=== PATIENT | female | born 1940 | race Caucasian/White ===

== ENCOUNTER 2017-02-27 15:47 | Inpatient (IN) | payer OTHER ==
[~2017-02-27] VITALS: Ht 167.6 cm; Wt 85.3 kg
[~2017-02-27 15:47] MED LIST: PIPERACILL/TAZOBAC IV 4.5 GM in DEXTROSE 5% 100ML IV ONE; VANCOMYCIN INJ 2,000 MG in SODIUM CHLORIDE 0.9% 500ML 500 ML IV ONE
[2017-02-27 16:11] VITALS: BP 134/76; PULSE 92; TEMP 37; O2SAT 98; Ht 167.6 cm; Wt 85.3 kg
[2017-02-27] MEDS ORDERED: ONDANSETRON INJ 2 MG/ML 2 ML VIAL IV PRN (16:15)
[2017-02-27] MEDS ORDERED: ACETAMINOPHEN 325 MG TAB PO PRN (16:15)
--- NOTE | 2017-02-27 16:26 | Pulmonary Consultation ---
History General Date of Service: Feb 27, 2017. Stated Complaint: Empyema HPI The patient is a 76 year old female who presents to [facility] with complaints of Empyema. The patient's primary care provider is Akila Day D.O.. Patient is a 76-year-old female directly admitted by my recommendation for concerns of right lower lobe pneumonia with empyema. Patient states that approximately 5 weeks ago, she noted that she began to have pain in her right lower chest that radiated up into her neck. She initially presented to an urgent care center during which time she was felt to have a musculoskeletal injury from [place]. She was prescribed pain medication at that time, but her pain persisted. She then had a chest x-ray completed which showed a probable right lower lobe pneumonia. She was initially treated with Levaquin for 7 days due to these concerns. She had a repeat chest x-ray completed on 02/21/2017 which showed persistent right lung consolidation and pleural fluid. A new air- fluid level was noted with this consolidation. Abscess or necrotic neoplasm were noted to be considered in the differential. CT of the chest was recommended. CT scan of the chest was completed on 02/24/2017. This scan showed right lower lobe pneumonia and loculated empyema. Right hilar and mediastinal lymphadenopathy were also noted. It was recommended that this patient have thoracentesis and fluid evaluation. Over the past 1 month, the patient states that she has been experiencing severe fatigue, on an off sweats/chills, and overall malaise. She feels that she is weak and out of shape because she has not been moving around much. She has not noted increased shortness of breath, but states that she has not been going up and downstairs often due to her fatigue. She has had no cough, hemoptysis, or chest pain/tightness. The right lower chest pain she was previously having has resolved. She states that overall, she does not feel improved. The patient had records faxed from [facility], and these records were reviewed in detail today. I did also discuss this patient with Dr. Mora and Dr. Esperanza Kerr. I did discuss this patient briefly with TAHIRA Whitman as well. Historian: patient Review of Systems Constitutional: reports: chills, malaise, weakness, other (severe fatigue), denies: fever Eyes: denies: eye pain, blurred vision ENT: denies: loss of hearing Cardiovascular: reports: chest pain (previous right sided chest pain- now resolved), denies: chest pressure, chest tightness, edema, orthopnea Respiratory: reports: sputum production (clear), denies: cough, wheezing, LANE, hemoptysis Gastrointestinal: reports: nausea, denies: constipation, diarrhea Genitourinary - Female: denies: dysuria Integumentary: denies: rash Neurologic: denies: headache All Other Symptoms All Other Systems: Reviewed and Negative Past Medical History Past Medical History: Medical Problems: (1) Empyema PMHx: GERD Asthma Hx SCC of skin Hx Basal cell CA of skin HTN Allergic rhinitis Dyslipidemia History of MDRO History of MDRO: No Allergies Coded Allergies: Cephalosporins (Unverified Allergy, Unknown, Rash, 02/27/17) Niacin (Unverified Allergy, Unknown, Nausea/Vomiting, 02/27/17) Current Medications Reported Home Medications Medications Dose Route/Sig Max Daily Dose Days Date Category Reported Home Medications Medications Dose Route/Sig Max Daily Dose Days Date Category Aspirin EC Low Dose (Aspirin) 81 Mg Ectab 81 Mg PO DAILY 02/27/17 Reported Calcium 600 (Calcium Carbonate) 600 Mg Tab 1 Tab PO DAILY 02/27/17 Reported Claritin (Loratadine) 10 Mg Tab 1 Tab PO DAILY 30 02/27/17 Reported Mucinex D (Pseudoephedrine-Guaifenesin) 1 Tab Tab 1 Tab PO BID PRN 10 02/27/17 Reported Flonase Allergy Relief (Fluticasone Propionate (Nasal)) 50 Mcg/Act Spr 2 Wittmann NA DAILY 02/27/17 Reported Prinivil (Lisinopril) 5 Mg Tab 5 Mg PO DAILY 02/27/17 Reported Zantac (Ranitidine HCl) 300 Mg Tab 300 Mg PO BID 02/27/17 Reported Proair Respiclick (Albuterol Sulfate) 108 Mcg/Act Aer 2 Puffs INH Q4H PRN 02/27/17 Reported Flovent Hfa (Fluticasone Propionate) 120 Puffs/44200 Mcg Aero 2 Puffs INH BID 30 02/27/17 Reported Duavee 0.45-20 mg (Conjugated Estrogens-Bazedoxif) 1 Tab Tab 1 Tab PO DAILY 02/27/17 Reported Protonix (Pantoprazole) 40 Mg Tab 40 Mg PO DAILY 02/27/17 Reported Physical Physical Exam Vital Signs: Date Time Temp Pulse Resp B/P (MAP) Pulse Ox O2 Delivery O2 Flow Rate FiO2 02/28/17 07:52 38.8 86 20 114/67 (83) 95 02/28/17 04:15 36.9 98 16 105/68 (80) 92 Room Air 02/28/17 04:00 Room Air 02/27/17 23:59 Room Air 02/27/17 23:37 36.8 88 18 119/67 (84) 92 Room Air 02/27/17 20:28 36.7 90 18 132/76 (94) 95 Room Air 02/27/17 20:00 95 Room Air 02/27/17 16:11 37.0 92 20 134/76 98 Room Air General Appearance: NO APPARENT DISTRESS, other (appears ill) Head: NORMOCEPHALIC, ATRAUMATIC Eyes: PERRLA, SCLERAE NORMAL Neck: NORMAL RANGE OF MOTION, TRACHEA MIDLINE, NO STRIDOR Respiratory: BREATH SOUNDS NORMAL, CLEAR TO PERCUSSION, NO RESPIRATORY DISTRESS , rales (RLL) Cardiovasular: REGULAR RATE/RHYTHM, NO MURMUR Abdomen: NON TENDER, NORMAL BOWEL SOUNDS Back: NORMAL INSPECTION Lower Extremities: NO EDEMA Neuro: ALERT, ORIENTED x 3 Psychiatric: NORMAL AFFECT Diagnostics Labs Results Past 24 Hours Test 02/27/17 16:46 02/27/17 17:51 02/28/17 06:04 Range/Units White Blood Count 9.81 4.8-10.8 K/uL Red Blood Count 3.29 4.2-5.4 M/uL Hemoglobin 9.2 12.0-16.0 g/dL Hematocrit 29.4 37-47 % Mean Corpuscular Volume 89.4 80-100 fL Mean Corpuscular Hemoglobin 28.0 25-34 pg Mean Corpuscular Hemoglobin Concent 31.3 32-36 g/dl Platelet Count 469 130-400 K/uL Mean Platelet Volume 7.8 7.4-10.4 fL Neutrophils (%) (Auto) 74.2 % Lymphocytes (%) (Auto) 13.6 % Monocytes (%) (Auto) 10.4 % Eosinophils (%) (Auto) 1.1 % Basophils (%) (Auto) 0.4 % Neutrophils # (Auto) 7.28 1.4-6.5 K/uL Lymphocytes # (Auto) 1.33 1.2-3.4 K/uL Monocytes # (Auto) 1.02 0.11-0.59 K/uL Eosinophils # (Auto) 0.11 0-0.5 K/uL Basophils # (Auto) 0.04 0-0.2 K/uL RDW Standard Deviation 45.6 36.4-46.3 fL RDW Coefficient of Variation 13.8 11.5-14.5 % Immature Granulocyte % (Auto) 0.3 % Immature Granulocyte # (Auto) 0.03 0.00-0.02 K/uL Prothrombin Time 11.5 9.0-12.0 SECONDS Prothromb Time International Ratio 1.1 0.9-1.1 Sodium Level 137 136-145 mmol/L Potassium Level 3.7 3.5-5.1 mmol/L Chloride Level 103 98-107 mmol/L Carbon Dioxide Level 24 21-32 mmol/L Anion Gap 10.0 3-11 mmol/L Blood Urea Nitrogen 14 7-18 mg/dl Creatinine 0.85 0.87 0.60-1.20 mg/dl Est Creatinine Clear Calc Drug Dose 59.0 57.7 ml/min Estimated GFR () 76.6 74.5 Estimated GFR (Non- 66.1 64.3 BUN/Creatinine Ratio 16.3 10-20 Random Glucose 97 70-99 mg/dl Calcium Level 8.7 8.5-10.1 mg/dl Total Bilirubin 0.4 0.2-1 mg/dl Aspartate Amino Transf (AST/SGOT) 9 15-37 U/L Alanine Aminotransferase (ALT/SGPT) 10 12-78 U/L Alkaline Phosphatase 66 45-117 U/L Total Protein 8.5 6.4-8.2 gm/dl Albumin 2.2 3.4-5.0 gm/dl Globulin 6.3 2.5-4.0 gm/dl Albumin/Globulin Ratio 0.3 0.9-2 Absolute Reticulocyte Count 0.07 0.02-0.10 10^6/uL Percent Reticulocyte Count 2.0 0.5-2.0 % Iron Level 18 35-150 mcg/dl Total Iron Binding Capacity 151 250-450 mcg/dl Transferrin 130 200-360 mg/dl Transferrin % Saturation 10 15-50 % Ferritin 435.4 8.0-388.0 ng/ml Vitamin B12 Level 697 211-911 pg/mL Folate 7.36 >5.38 ng/mL Microbiology Results 02/27/17 Blood Culture, Received Pending 02/27/17 Blood Culture, Received Pending Results Past 24 Hours Test 02/27/17 16:17 Range/Units Microbiology Results 02/27/17 Blood Culture, Ordered Pending 02/27/17 Blood Culture, Ordered Pending Diagnostic Radiology Outpatient CT report in [facility] system- notes loculated RLL pleural effusion/ empyema with RLL pneumonia Impression Assessment and Plan Patient with right lower lobe pneumonia and loculated pleural effusion, possible empyema. This patient was admitted for probable drainage of the right lower lobe loculated effusion/empyema and concern for worsening infection. She will be placed on IV Zosyn and Vancomycin pending fluid analysis. Blood cultures are pending. Dr. Kerr is aware of this patient and will be evaluating the patient for possible PleurX catheter placement. Otherwise, recommend oxygen supplementation p.r.n. to maintain SaO2 greater than 92%. Pulmonary will follow.
[2017-02-27] MEDS ORDERED: CONSULT PHARMACY STA (16:52)
[2017-02-27 16:56] LABS: BASO % 0.4 %; BASO ABS # 0.04 K/uL (0-0.2); COMPLETE YES; EOS % 1.1 %; HEMATOCRIT 29.4 % (37-47); IG% 0.3 %; LYMPH % 13.6 %; LYMPH ABS # 1.33 K/uL (1.2-3.4); MEAN CELL VOLUME 89.4 fL (80-100); MEAN CORPUSCULAR HGB CONC 31.3 g/dl (32-36); MEAN PLATELET VOLUME 7.8 fL (7.4-10.4); MONO % 10.4 %; NEUT % 74.2 %; PLATELET COUNT 469 K/uL (130-400); RED BLOOD COUNT 3.29 M/uL (4.2-5.4); WHITE BLOOD COUNT 9.81 K/uL (4.8-10.8)
[2017-02-27] MEDS ORDERED: LISI-729 PO (16:56)
[2017-02-27] MEDS ORDERED: FLVHFA110 INH (16:56)
[2017-02-27] MEDS ORDERED: PSEU60TA80 PO (16:56)
[2017-02-27] MEDS ORDERED: FLUT0.15 (16:56)
[2017-02-27] MEDS ORDERED: ALBU18002 INH (16:56)
[2017-02-27] MEDS ORDERED: CONJ1TAB PO (16:56)
[2017-02-27] MEDS ORDERED: RANI300T2 PO (16:56)
[2017-02-27] MEDS ORDERED: CALC600T PO (16:56)
[2017-02-27] MEDS ORDERED: LORA10TA51 PO (16:56)
[2017-02-27] MEDS ORDERED: PANT1TAB48 PO (16:56)
[2017-02-27 17:12] LABS: INR 1.1 (0.9-1.1); PROTHROMBIN TIME (PATIENT) 11.5 SECONDS (9.0-12.0)
[2017-02-27] MEDS ORDERED: PIPERACILL/TAZOBAC CONSULT ACTIVE PRN (17:15)
[2017-02-27] MEDS ORDERED: VANCOMYCIN CONSULT ACTIVE PRN (17:15)
[2017-02-27 17:21] LABS: BUN/CREATININE RATIO 16.3 (10-20); CALCIUM 8.7 mg/dl (8.5-10.1); CREATININE 0.85 mg/dl (0.60-1.20); POTASSIUM 3.7 mmol/L (3.5-5.1)
[2017-02-27 17:24] LABS: ALB/GLOB RATIO 0.3 (0.9-2)
[2017-02-27] MEDS ORDERED: VANCOMYCIN INJ 2,000 MG in SODIUM CHLORIDE 0.9% 500ML 500 ML IV ONE (17:30)
[2017-02-27] MEDS ORDERED: PIPERACILL/TAZOBAC IV 4.5 GM in DEXTROSE 5% 100ML IV ONE (17:30)
[2017-02-27] MEDS ORDERED: ASPEC81 PO (17:38)
--- NOTE | 2017-02-27 18:07 | History and Physical ---
History & Physical Date & Time of Service: Feb 27, 2017 ~ 17:00 Chief Complaint: Empyema Primary Care Physician: Akila Day D.O. History of Present Illness 76 year old female who was referred to the ED for direct admission from the pulmonary office for empyema. Patient reports she has been sick for about one month. She initially presented with right sided rib pain. CXR was obtained that was concerning for pneumonia. Patient was placed on Levaquin on 01/26. Patient has had repeat CXRs that showed a persistent right lung consolidation. She was seen in the clinic on 02/20 with reports of still not feeling well. She was placed on azithromycin at that time. She had a CT chest done on 02/24 that was concerning for empyema. She was then referred to pulmonology. Patient reports her main symptom has been weakness and fatigue. She has had nausea and poor appetite. She reports a 10 pound weight loss in the past month. She denies abdominal pain, vomiting, or diarrhea. She reports a minimal cough that is productive for clear sputum. She denies chest pain and shortness of breath. No fever or chills. She denies lightheadedness, dizziness, diaphoresis, or syncopal events. No urinary symptoms. At the time of my exam, patient is resting in bed in no acute distress. Past Medical/Surgical History Medical Problems: (1) Asthma Status: Chronic (2) Dyslipidemia Status: Chronic (3) GERD (gastroesophageal reflux disease) Status: Chronic (4) HTN (hypertension) Status: Chronic Surgical Problems: (1) History of hysterectomy Status: Chronic (2) History of tonsillectomy and adenoidectomy Status: Chronic Family History Stroke MOTHER Social History Smoking Status: Never Smoker Alcohol Use: none Marital Status: Housing status: lives with family Immunizations History of Influenza Vaccine: Yes Influenza Vaccine Date: Feb 04, 2016 History of Tetanus Vaccine?: Yes Tetanus Immunization Date: Aug 04, 2016 History of Pneumococcal: Yes Pneumococcal Date: Oct 27, 2015 Multi-Drug Resistant Organisms History of MDRO: No Allergies Coded Allergies: Cephalosporins (Unverified Allergy, Unknown, Rash, 02/27/17) Niacin (Unverified Allergy, Unknown, Nausea/Vomiting, 02/27/17) Home Medications Scheduled Aspirin (Aspirin EC Low Dose), 81 MG PO DAILY Calcium Carbonate (Calcium 600), 1 TAB PO DAILY Conjugated Estrogens-Bazedoxif (Duavee 0.45-20 mg), 1 TAB PO DAILY Fluticasone Propionate (Flovent Hfa), 2 PUFFS INH BID Fluticasone Propionate (Nasal) (Flonase Allergy Relief), 2 SPRY NA DAILY Lisinopril (Prinivil), 5 MG PO DAILY Loratadine (Claritin), 1 TAB PO DAILY Pantoprazole (Protonix), 40 MG PO DAILY Ranitidine (Zantac), 300 MG PO BID Scheduled PRN Albuterol Sulfate (Proair Respiclick), 2 PUFFS INH Q4H PRN for SOB/Wheezing Pseudoephedrine-Guaifenesin (Mucinex D), 1 TAB PO BID PRN for Cough Review of Systems ROS per HPI, all other systems reviewed and negative Physical Exam Vital Signs Date Time Temp Pulse Resp B/P (MAP) Pulse Ox O2 Delivery O2 Flow Rate FiO2 02/27/17 16:11 37.0 92 20 134/76 98 Room Air General Appearance: WD/WN, no apparent distress Head: normocephalic, atraumatic Eyes: normal inspection, EOMI, sclerae normal ENT: hearing grossly normal, + pertinent finding (mucous membranes moist) Neck: supple, no JVD, trachea midline Respiratory/Chest: no respiratory distress, + decreased breath sounds (right base) Cardiovascular: regular rate, rhythm, no edema, normal peripheral pulses Abdomen/GI: normal bowel sounds, non tender, soft, no organomegaly Extremities/Musculoskelatal: normal inspection, no calf tenderness, normal capillary refill Neurologic/Psych: no motor/sensory deficits, alert, normal mood/affect, oriented x 3 Skin: normal color, warm/dry Diagnostics Laboratory Results Results Past 24 Hours Test 02/27/17 16:46 02/27/17 17:39 Range/Units White Blood Count 9.81 4.8-10.8 K/uL Red Blood Count 3.29 4.2-5.4 M/uL Hemoglobin 9.2 12.0-16.0 g/dL Hematocrit 29.4 37-47 % Mean Corpuscular Volume 89.4 80-100 fL Mean Corpuscular Hemoglobin 28.0 25-34 pg Mean Corpuscular Hemoglobin Concent 31.3 32-36 g/dl Platelet Count 469 130-400 K/uL Mean Platelet Volume 7.8 7.4-10.4 fL Neutrophils (%) (Auto) 74.2 % Lymphocytes (%) (Auto) 13.6 % Monocytes (%) (Auto) 10.4 % Eosinophils (%) (Auto) 1.1 % Basophils (%) (Auto) 0.4 % Neutrophils # (Auto) 7.28 1.4-6.5 K/uL Lymphocytes # (Auto) 1.33 1.2-3.4 K/uL Monocytes # (Auto) 1.02 0.11-0.59 K/uL Eosinophils # (Auto) 0.11 0-0.5 K/uL Basophils # (Auto) 0.04 0-0.2 K/uL RDW Standard Deviation 45.6 36.4-46.3 fL RDW Coefficient of Variation 13.8 11.5-14.5 % Immature Granulocyte % (Auto) 0.3 % Immature Granulocyte # (Auto) 0.03 0.00-0.02 K/uL Prothrombin Time 11.5 9.0-12.0 SECONDS Prothromb Time International Ratio 1.1 0.9-1.1 Sodium Level 137 136-145 mmol/L Potassium Level 3.7 3.5-5.1 mmol/L Chloride Level 103 98-107 mmol/L Carbon Dioxide Level 24 21-32 mmol/L Anion Gap 10.0 3-11 mmol/L Blood Urea Nitrogen 14 7-18 mg/dl Creatinine 0.85 0.60-1.20 mg/dl Est Creatinine Clear Calc Drug Dose 59.0 ml/min Estimated GFR () 76.6 Estimated GFR (Non- 66.1 BUN/Creatinine Ratio 16.3 10-20 Random Glucose 97 70-99 mg/dl Calcium Level 8.7 8.5-10.1 mg/dl Total Bilirubin 0.4 0.2-1 mg/dl Aspartate Amino Transf (AST/SGOT) 9 15-37 U/L Alanine Aminotransferase (ALT/SGPT) 10 12-78 U/L Alkaline Phosphatase 66 45-117 U/L Total Protein 8.5 6.4-8.2 gm/dl Albumin 2.2 3.4-5.0 gm/dl Globulin 6.3 2.5-4.0 gm/dl Albumin/Globulin Ratio 0.3 0.9-2 Microbiology Results 02/27/17 Blood Culture, Received Pending 02/27/17 Blood Culture, Received Pending Diagnostic Radiology 02/24 CT CHEST IMPRESSION: 1. Right lower lobe pneumonia and loculated empyema. Thoracentesis and fluid analysis is recommended. 2. Right hilar and mediastinal lymphadenopathy, likely reactive. 3. Follow-up imaging to resolution of the above findings is recommended. Impression Assessment and Plan RIGHT LUNG EMPYEMA - directly admitted to tele from pulmonary office - patient reports being sick for about the past one month, chief complaint is weakness and fatigue; as an outpatient has been treated for pneumonia with Levaquin and azithromycin - CT chest done on 02/24 concerning for empyema - currently hemodynamically stable, saturating well on room air - pulmonary consult; likely will need thoracentesis and/or PleurX catheter - blood cultures - empiric Vanco and Zosyn for now ANEMIA - ? due to underlying infection - check iron studies, stool for occult GERD - continue PPI and H2 rodo HTN - BP controlled, continue Lisinopril ASTHMA - no signs of acute exacerbation - continue Flovent DVT PROPHYLAXIS - SCDs in light of possible procedure CODE STATUS - Patient is a full code as per my discussion with her. DISPO - In my clinical judgment this beneficiary meets acute admission criteria, established by [facility], that includes being hospitalized through two midnights. I have seen the patient with DOPE WORKER Love Avila and agree with the assessment and plan and would like to comment that I have reviewed the recommendations/ assessment of the pulmonary consult note as below "Patient with right lower lobe pneumonia and loculated pleural effusion, possible empyema. This patient was admitted for probable drainage of the right lower lobe loculated effusion/empyema and concern for worsening infection. She will be placed on IV Zosyn and Vancomycin pending fluid analysis. Blood cultures are pending. Dr. Kerr is aware of this patient and will be evaluating the patient for possible PleurX catheter placement. Otherwise, recommend oxygen supplementation p.r.n. to maintain SaO2 greater than 92%. Pulmonary will follow." Advanced Directives Existing Living Will: No Existing Power of [place]: No VTE Prophylaxis VTE Risk Assessment Done? Y/N: Yes Risk Level: Moderate
--- NOTE | 2017-02-27 18:17 | Pharmacy Progress Note ---
Pharmacy Antibiotic Consult Date of Service: Feb 27, 2017. Pharmacy Dosing Scope Pharmacy is consulted to initiate vancomycin/zosyn IV dosing therapy, order appropriate labs and adjust drug dose/frequency. Subjective The patient is a 76 year old female admitted on Feb 27, 2017 at 15:47. Objective Height (Feet): 5 Height (Inches): 6.00 Weight (Kilograms): 79.700 Lab Results (24hrs): Test 02/27/17 16:46 02/27/17 17:39 02/27/17 17:51 White Blood Count 9.81 K/uL (4.8-10.8) Red Blood Count 3.29 M/uL (4.2-5.4) Hemoglobin 9.2 g/dL (12.0-16.0) Hematocrit 29.4 % (37-47) Mean Corpuscular Volume 89.4 fL (80-100) Mean Corpuscular Hemoglobin 28.0 pg (25-34) Mean Corpuscular Hemoglobin Concent 31.3 g/dl (32-36) Platelet Count 469 K/uL (130-400) Mean Platelet Volume 7.8 fL (7.4-10.4) Neutrophils (%) (Auto) 74.2 % Lymphocytes (%) (Auto) 13.6 % Monocytes (%) (Auto) 10.4 % Eosinophils (%) (Auto) 1.1 % Basophils (%) (Auto) 0.4 % Neutrophils # (Auto) 7.28 K/uL (1.4-6.5) Lymphocytes # (Auto) 1.33 K/uL (1.2-3.4) Monocytes # (Auto) 1.02 K/uL (0.11-0.59) Eosinophils # (Auto) 0.11 K/uL (0-0.5) Basophils # (Auto) 0.04 K/uL (0-0.2) RDW Standard Deviation 45.6 fL (36.4-46.3) RDW Coefficient of Variation 13.8 % (11.5-14.5) Immature Granulocyte % (Auto) 0.3 % Immature Granulocyte # (Auto) 0.03 K/uL (0.00-0.02) Prothrombin Time 11.5 SECONDS (9.0-12.0) Prothromb Time International Ratio 1.1 (0.9-1.1) Sodium Level 137 mmol/L (136-145) Potassium Level 3.7 mmol/L (3.5-5.1) Chloride Level 103 mmol/L (98-107) Carbon Dioxide Level 24 mmol/L (21-32) Anion Gap 10.0 mmol/L (3-11) Blood Urea Nitrogen 14 mg/dl (7-18) Creatinine 0.85 mg/dl (0.60-1.20) Est Creatinine Clear Calc Drug Dose 59.0 ml/min Estimated GFR () 76.6 Estimated GFR (Non- 66.1 BUN/Creatinine Ratio 16.3 (10-20) Random Glucose 97 mg/dl (70-99) Calcium Level 8.7 mg/dl (8.5-10.1) Total Bilirubin 0.4 mg/dl (0.2-1) Aspartate Amino Transf (AST/SGOT) 9 U/L (15-37) Alanine Aminotransferase (ALT/SGPT) 10 U/L (12-78) Alkaline Phosphatase 66 U/L (45-117) Total Protein 8.5 gm/dl (6.4-8.2) Albumin 2.2 gm/dl (3.4-5.0) Globulin 6.3 gm/dl (2.5-4.0) Albumin/Globulin Ratio 0.3 (0.9-2) Transferrin % Saturation % (15-50) Absolute Reticulocyte Count 0.07 10^6/uL (0.02-0.10) Percent Reticulocyte Count 2.0 % (0.5-2.0) Micro Results: Date/Time Source Procedure Growth Status 02/27/17 16:46 Blood Blood Culture Pending Received 02/27/17 16:36 Blood Blood Culture Pending Received Recent Pertinent Medications levaquin x 7 days Assessment & Plan Assessment: 76 yo female direct admit from pulmonology office with right lower lobe pneumonia and possible empyema. Pt treated with levaquin x 7 days previously. Starting on vancomycin/zosyn WBC normal, Afebrile, on room air. Plan: Loading dose: 2000 mg (25 mg/kg) IV X 1 dose then: 1250 mg (15.7 mg/kg) q14 hours. population based pk: SCr 0.85, CrCl 59, T1/2 ~13 hrs, Ke 0.053 Goal trough level estimate: between 17-20 mcg/mL. Trough has been ordered for 03/01 @ 0830 Pharmacy will continue to follow and will adjust dose/frequency as necessary. Thank you
[2017-02-27 18:31] LABS: FERRITIN 435.4 ng/ml (8.0-388.0)
[2017-02-27 20:00] VITALS: O2SAT 95
[2017-02-27 20:28] VITALS: BP 132/76; PULSE 90; TEMP 36.7; O2SAT 95
--- NOTE | 2017-02-27 20:40 | Procedure Note ---
Procedure Note Date of Service Feb 27, 2017. Procedure Note Procedure: Right ultrasound guided Tunneled Indwelling Pleural Catheter Preprocedure diagnosis: Right Empyema Postprocedure diagnosis: Right Empyema Anesthesia: 1% lidocaine about 12 mL Estimated blood loss: Less than 5 mL Procedure performed at bedside by Dr. Mercedes Kerr and was assisted by Dr. Mora. Procedure Note: After informed consent and timeout, patient was placed in appropriate position at the level of the seventh intercostal space. An ultrasound was used to identify location of loculated fluid. The patient was draped and prepped in a sterile fashion. Lidocaine was used to make are skin wheal. The 22 -gauge needle was attached to syringe to complete infiltration to access site and tunnel track. The needle was inserted into the pleural space with aspiration of serosanguineous fluid. Leaving the guidewire introducer in place, the guidewire was introduced and advanced into the pleural cavity. The guidewire was left in place and introducer removed. A 1 cm incision was made at the site of the guidewire. This was followed by a second 1 cm incision approximately 5 cm inferior and lateral to the guidewire insertion site. The fenestrated end of the catheter was attached onto the tunneler, which was passed from the second incision up to the first incision at the guidewire insertion site. The catheter was drawn through the tunnel until the polyester cuff was inside the tunnel about 1 cm. The tunneler was then disconnected from the catheter. The insertion site was dilated using a 12 Icelandic dilator. A 16 Icelandic peel-away introducer was started over the guidewire into the pleural cavity. The guidewire and dilator were removed as the unit from the sheath. Then the fenestrated and of the catheter was inserted into the sheath and until all the fenestrations were within the pleural cavity. This process was quite difficult and forceps were used to assist in the process. The sheath was then cracked in half and peeled away. Two sutures were placed at the guidewire insertion site. The Pleurx vacuum bottles were attached however no fluid was aspirated. The tunneled intrapleural catheter was covered with sterile dressing. After the procedure, patient was placed and 60 angle and bedside ultrasound was performed of right thorax. Lung sliding was noted. However there was also an area where lung point was seen. Stat CT chest was ordered which showed that catheter was in the subcutaneous tissue. Patient and family were informed of complication and Dr. Saba, cardiothoracic surgery was consulted. ICU also made aware.
[2017-02-27] MEDS: RANITIDINE HCL 150 MG TAB PO SCH (20:41)
[2017-02-27] MEDS: FLUTICASONE HFA 110MCG INHALER INH SCH (20:41)
[2017-02-27] MEDS: PIPERACILL/TAZOBAC IV 3.375 GM in DEXTROSE 5% 100ML IV SCH (21:24)
--- NOTE | 2017-02-27 21:52 | DIAGNOSTIC IMAGING REPORT ---
CT OF THE CHEST WITHOUT IV CONTRAST CLINICAL HISTORY: S/p right pleurex catheter. Empyema. COMPARISON STUDY: Chest CT February 24, 2017. CT DOSE: 520.54 mGy.cm TECHNIQUE: Axial images of the chest were obtained without IV contrast. Images were reviewed in the axial, sagittal, and coronal planes. IV contrast was not administered for this examination. A dose lowering technique was utilized adhering to the principles of ALARA. FINDINGS: The heart is mildly enlarged. There are a few mildly enlarged mediastinal and right hilar lymph nodes. Right-sided catheter is malpositioned and coiled within the lateral right chest wall. A large loculated gas and fluid containing collection within the posterior aspect of the right hemithorax is noted. This suggests an empyema. There is suspected pleural thickening. Right lower lobe airspace opacity with volume loss is noted. Mild multifocal groundglass opacities are noted throughout the remainder of the lungs. There is no pneumothorax. Upper abdomen is unremarkable. Bony thorax is unremarkable. IMPRESSION: 1. Right pleural catheter malpositioned, coiled within the lateral right chest wall. The tube should be repositioned. Discussed with Dr. Kerr at time of dictation. 2. Fluid and gas containing posterior right hemithorax collection which suggests an empyema. Associated right lower lobe opacity could reflect pneumonia or atelectasis. 3. Mild mediastinal and right hilar lymphadenopathy which is likely reactive however a follow-up chest CT in one to 2 months to ensure resolution is recommended to exclude the less likely possibility of a neoplastic process. Electronically signed by: Tim Sanchez M.D. 02/27/2017 9:51 PM Dictated Date/Time: 02/27/2017 8:05 PM
--- NOTE | 2017-02-27 22:16 | SURGICAL CONSULTATION ---
DATE OF CONSULTATION: 02/27/2017 REASON FOR CONSULTATION: Right empyema. HISTORY OF PRESENT ILLNESS: This is a 76-year-old female, who has never smoked cigarettes, who has been sick for "5 weeks." She is actually healthy, except for some hypertension and some asthma and GERD. She states that she has been sick for 5 weeks and developed pain in her right lateral posterior chest. She was presented to an urgent care and was given pain medicine, as they felt it was musculoskeletal. She had a chest x-ray, which showed a probable right lower lobe pneumonia and was placed on Levaquin. She really did not defervesce and then she underwent another x-ray, which showed persistent consolidation and she was changed to azithromycin. She was then admitted when a CT scan showed a loculated fluid collection in her right base. This has a thick rind. The patient had an attempted PleurX catheter; however, the rind was so thick, it was difficult to get it to go through. Nothing drained from this either. A repeat CT scan showed that this did not penetrate the rind and was in the subcutaneous tissues. I had a long talk with the patient, her son, [id number], her and grandson at the bedside. I also discussed this case with Dr. Mora and Dr. Kerr. I have been asked us to evaluate this patient for this probable empyema. It should be noted that the patient has a normal white count. She states that she has been "weakened" and has lost 10 pounds in the last month. She really does not have much in the way of a cough or hemoptysis now, although she did state that she had "pneumonia" a month ago. PAST MEDICAL HISTORY: 1. Lifetime nonsmoker. 2. Dyslipidemia. 3. Hypertension. 4. History of basal cell carcinoma of the skin. 5. History of squamous cell carcinoma of the skin. 6. History of asthma. 7. History of gastroesophageal reflux disease. PAST SURGICAL HISTORY: 1. Tonsillectomy. 2. Hysterectomy (for endometriosis). 3. 3, para 3. MEDICATIONS: 1. Albuterol. 2. Aspirin. 3. Duavee 4. Flonase. 5. Zantac. 6. Mucinex D. 7. Protonix. 8. Claritin. 9. Prinivil. 10. Flovent inhaler. ALLERGIES: 1. CEPHALOSPORINS. 2. NIACIN. SOCIAL HISTORY: The patient grew up in [place]. 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 She has never smoked cigarettes. She lives at home with her of 58 years. She is independent in her activities of daily living and likes to bowl. FAMILY MEDICAL HISTORY: The patient's mother at 66 from congestive heart failure and had apparent myocardial infarctions and coronary artery disease. Her father at 76 and had Alzheimer's. Interestingly enough, she has a sister, who in her 30s from pulmonary hypertension. She had another sister, who in her 60s and had diabetes and other medical problems. She is not sure of the exact cause of her . She was one of 8 siblings and she is the youngest. She has multiple siblings in their 80s. Her 3 children and 6 grandchildren are healthy. REVIEW OF SYSTEMS: The patient states that she has lost about 10 pounds. She denies any night sweats now, although she states that she did have some a month ago. She has been quite weak and fatigued. She has had no visual or auditory symptoms. She has had some pain in her neck, but this is the back pain radiating up. She really has no meningeal types of symptoms. She has had some nausea and anorexia, although she did eat well today. She denies diarrhea. She had a cough a month ago, but this is resolved, except for some mild coughing of clear sputum. She does have the right-sided lower back pain, but no other chest pain, nor shortness of breath. She has felt weak and has not pushed herself, but denies dyspnea on exertion. She has had no fevers or chills. She has had no neurologic symptoms, such as transient ischemic attacks or amaurosis fugax. She has had no skin breakdown. PHYSICAL EXAMINATION: GENERAL: This is a very nice, 5 feet 6 inches, 176-pound female, who wears glasses. HEENT: Her extraocular movements are intact. Her pupils are equal, round and reactive. Her sclerae are anicteric. She has no nasolabial flattening. Her tongue is midline. Her oral mucosa is free of lesions and is moist. NECK: On palpating her neck, she has no supraclavicular or cervical lymphadenopathy. She has no carotid bruits or neck vein distention. She has no tracheal deviation. HEART: She has a regular rate and rhythm of her heart. Pulse rate was in the 90s. She has no rub. LUNGS: She does have decreased breath sounds in the right base, but no real fremitus. There is a PleurX catheter in place. It has been taped with a dressing over it. ABDOMEN: A bit protuberant, soft, nontender with no evidence of abdominal aortic aneurysm. EXTREMITIES: She has good pedal pulses. No peripheral edema. No joint effusions. NEUROLOGIC: She is awake, alert and oriented and has no obvious focal deficits. ASSESSMENT AND PLAN: Parapneumonic effusion with probable right empyema/loculated sterile empyema. I had a really long talk with the patient and her family. We are going to proceed with a right thoracoscopic decortication and evacuation of this fluid in the morning. We had a very long talk about the risks and benefits, including, but not limited to, lung injuries, pneumonias, deep vein thrombosis, pulmonary emboli and prolonged air leaks. They understand and wish to proceed.
[2017-02-27 23:37] VITALS: BP 119/67; PULSE 88; TEMP 36.8; O2SAT 92
[2017-02-28] VITALS (42 sets, daily range): BP systolic 89–147; BP diastolic 55–97; PULSE 60–98; TEMP 27–38.8; O2SAT 89–98
[2017-02-28] MEDS: PIPERACILL/TAZOBAC IV 3.375 GM in DEXTROSE 5% 100ML IV SCH ×3 (05:40→22:21)
[2017-02-28] MEDS: VANCOMYCIN INJ 1,250 MG in SODIUM CHLORIDE 0.9% 250ML 250 ML IV SCH ×2 (05:43→20:06)
[2017-02-28 06:53] LABS: CREATININE 0.87 mg/dl (0.60-1.20)
--- NOTE | 2017-02-28 07:29 | History & Physical Bridge Note ---
H&P Re-Evaluation Bridge Note: I have examined the patient, reviewed the History & Physical and in the interval since the performance of the History & Physical I have noted the following changes of clinical significance: No changes noted
[2017-02-28] MEDS: FLUTICASONE HFA 110MCG INHALER INH SCH ×2 (07:37→22:22)
[2017-02-28] MEDS: RANITIDINE HCL 150 MG TAB PO SCH ×2 (07:38→22:22)
[2017-02-28] MEDS: CALCIUM CARBONATE 500 MG CHEWABLE PO SCH (07:38)
[2017-02-28] MEDS: LISINOPRIL 5 MG TAB PO SCH (07:38)
[2017-02-28] MEDS: LORATADINE 10 MG TAB PO SCH (07:38)
[2017-02-28] MEDS: PANTOprazole SOD 40 MG TAB PO SCH (07:38)
[2017-02-28] MEDS ORDERED: NEOSTIGMINE METHYLSULFATE 5 MG/5 ML SYR ONE (10:45)
[2017-02-28] MEDS ORDERED: LIDOCAINE HCL 2% 2 ML VIAL (20MG/ML) ONE (10:45)
[2017-02-28] MEDS ORDERED: DEXAMETHASONE SOD INJ 4 MG/ML VIAL ONE (10:45)
[2017-02-28] MEDS ORDERED: FENTANYL CITRATE INJ 50 MCG/1 ML 2 ML VIAL ONE (10:45)
[2017-02-28] MEDS ORDERED: PROPOFOL IV EMULSION 10 MG/ML 20 ML VIAL IV ONE (10:45)
[2017-02-28] MEDS ORDERED: GLYCOPYRROLATE INJ 0.2 MG/ML VIAL ONE (10:45)
[2017-02-28] MEDS ORDERED: ONDANSETRON INJ 2 MG/ML 2 ML VIAL ONE ×2 (10:45→15:31)
[2017-02-28] MEDS ORDERED: MIDAZOLAM HCL 1 MG/ML 2ML VIAL ONE (10:45)
--- NOTE | 2017-02-28 11:07 | Pulmonology Progress Note ---
Pulmonary Progress Note Date of Service Feb 28, 2017. Attending Dr. Kerr Subjective Patient seen and examined this morning. Family at bedside. She is feeling ok. She denies any shortness of breath, fever, chills, chest pain , palpitations. She had mild hemotypsis post pleurX catheter placement, but has now resolved. She is currently NPO for VAT decortication of right lung. Just informed by nurse that patient has been having burst of atrial fibrillation. She is currently saturating well on RA and in now acute respiration. Objective VS reviewed. Gen: AAOx3, NAD, speaking in full sentences. CVS: S1, S2, RRR Lungs: Good air entry bilaterally, some crackles at right base Abd: soft/NT/NT/BS+ Ext: no edema bilaterally in lower extremities, no cyanosis, no clubbing Labs reviewed. Imaging reviewed. Medications. Assessment & Plan Right empyema New onset atrial fibrillation Ms. Van is a 76 year old female who was seen in pulmonary clinic by Dr. Mora and MEDHAT Rildey for unresolving pneumonia. She present last evening to our hospital as a direct admit for further management of what appeared to be empyema. Right pleurX catheter as attempted by Dr. Mora and myself, but was unsuccessful. She is currently NPO for VATS with decortication by Dr. Saba, cardiothoracic surgery today. Continue with Vancomycin and Zosyn. Will call stat cardiology consult prior to procedure. Discussed with Dr. Still Data Medications: Current Inpatient Medications Medications (Trade) Dose Ordered Sig/Norma Route Start Time Stop Time Status Last Admin Dose Admin Acetaminophen (Tylenol Tab) 650 mg Q4H PRN PO 02/27/17 16:15 03/29/17 16:14 02/28/17 07:26 650 MG Ondansetron HCl (Zofran Inj) 4 mg Q6H PRN IV 02/27/17 16:15 03/29/17 16:14 Vancomycin HCl (Consult) 1 ea UD PRN N/A 02/27/17 17:15 03/29/17 17:14 Piperacillin Sod/ Tazobactam Sod (Consult) 1 ea UD PRN N/A 02/27/17 17:15 03/29/17 17:14 Lisinopril (Zestril Tab) 5 mg DAILY PO 02/28/17 09:00 03/30/17 08:59 02/28/17 07:38 5 MG Loratadine (Claritin Tab) 10 mg DAILY PO 02/28/17 09:00 03/30/17 08:59 02/28/17 07:38 10 MG Pantoprazole Sodium (Protonix Tab) 40 mg DAILY PO 02/28/17 09:00 03/30/17 08:59 02/28/17 07:38 40 MG Calcium Carbonate (Tums Chew Tab) 500 mg DAILY PO 02/28/17 09:00 03/30/17 08:59 02/28/17 07:38 500 MG Miscellaneous Information (Order Awaiting Action) 1 ea QS N/A 02/28/17 00:00 03/30/17 00:00 Ranitidine HCl (zANTac TAB) 300 mg BID PO 02/27/17 21:00 03/29/17 20:59 02/28/17 07:38 300 MG Fluticasone Propionate (Flovent Hfa 110MCG Inhaler) 2 puffs BID INH 02/27/17 21:00 03/29/17 20:59 02/28/17 07:37 2 PUFFS Vancomycin HCl 1250 mg/Sodium Chloride 275 ml @ 125 mls/hr Q14H IV 02/28/17 05:00 03/07/17 04:59 02/28/17 05:43 125 MLS/HR Piperacillin Sod/ Tazobactam Sod 3.375 gm/Dextrose 115 ml @ 28.75 mls/ hr Q8H IV 02/27/17 22:00 03/06/17 21:59 02/28/17 05:40 28.75 MLS/HR Vital Signs: Date Time Temp Pulse Resp B/P (MAP) Pulse Ox O2 Delivery O2 Flow Rate FiO2 02/28/17 08:00 Room Air 02/28/17 07:52 38.8 86 20 114/67 (83) 95 02/28/17 04:15 36.9 98 16 105/68 (80) 92 Room Air 02/28/17 04:00 Room Air 02/27/17 23:59 Room Air 02/27/17 23:37 36.8 88 18 119/67 (84) 92 Room Air 02/27/17 20:28 36.7 90 18 132/76 (94) 95 Room Air 02/27/17 20:00 95 Room Air 02/27/17 16:11 37.0 92 20 134/76 98 Room Air Laboratory Results: Last 24 Hours Test 02/27/17 16:46 02/27/17 17:51 02/28/17 06:04 02/28/17 10:00 White Blood Count 9.81 K/uL Red Blood Count 3.29 M/uL Hemoglobin 9.2 g/dL Hematocrit 29.4 % Mean Corpuscular Volume 89.4 fL Mean Corpuscular Hemoglobin 28.0 pg Mean Corpuscular Hemoglobin Concent 31.3 g/dl Platelet Count 469 K/uL Mean Platelet Volume 7.8 fL Neutrophils (%) (Auto) 74.2 % Lymphocytes (%) (Auto) 13.6 % Monocytes (%) (Auto) 10.4 % Eosinophils (%) (Auto) 1.1 % Basophils (%) (Auto) 0.4 % Neutrophils # (Auto) 7.28 K/uL Lymphocytes # (Auto) 1.33 K/uL Monocytes # (Auto) 1.02 K/uL Eosinophils # (Auto) 0.11 K/uL Basophils # (Auto) 0.04 K/uL RDW Standard Deviation 45.6 fL RDW Coefficient of Variation 13.8 % Immature Granulocyte % (Auto) 0.3 % Immature Granulocyte # (Auto) 0.03 K/uL Prothrombin Time 11.5 SECONDS Prothromb Time International Ratio 1.1 Sodium Level 137 mmol/L Potassium Level 3.7 mmol/L Chloride Level 103 mmol/L Carbon Dioxide Level 24 mmol/L Anion Gap 10.0 mmol/L Blood Urea Nitrogen 14 mg/dl Creatinine 0.85 mg/dl 0.87 mg/dl Est Creatinine Clear Calc Drug Dose 59.0 ml/min 57.7 ml/min Estimated GFR () 76.6 74.5 Estimated GFR (Non- 66.1 64.3 BUN/Creatinine Ratio 16.3 Random Glucose 97 mg/dl Calcium Level 8.7 mg/dl Total Bilirubin 0.4 mg/dl Aspartate Amino Transf (AST/SGOT) 9 U/L Alanine Aminotransferase (ALT/SGPT) 10 U/L Alkaline Phosphatase 66 U/L Total Protein 8.5 gm/dl Albumin 2.2 gm/dl Globulin 6.3 gm/dl Albumin/Globulin Ratio 0.3 Absolute Reticulocyte Count 0.07 10^6/uL Percent Reticulocyte Count 2.0 % Iron Level 18 mcg/dl Total Iron Binding Capacity 151 mcg/dl Transferrin 130 mg/dl Transferrin % Saturation 10 % Ferritin 435.4 ng/ml Vitamin B12 Level 697 pg/mL Folate 7.36 ng/mL Stool Occult Blood NEGATIVE
[2017-02-28] MEDS ORDERED: SODIUM CHLORIDE 0.9% INJ 10 ML VIAL ONE (12:17)
[2017-02-28] MEDS ORDERED: HYDROmorphone INJ 2 MG/ML SYR/VIAL ONE (12:17)
[2017-02-28] MEDS ORDERED: BUPIVACAINE LIPOSOME 1/3% 266 MG/20 ML VIAL INFIL ONE (12:28)
[2017-02-28] MEDS ORDERED: SODIUM CHLORIDE 0.9% PF 50 ML VIAL ONE (12:28)
[2017-02-28] MEDS ORDERED: FENTANYL CITRATE INJ 50 MCG/1 ML 2 ML VIAL IV PRN (12:45)
[2017-02-28] MEDS ORDERED: ATROPINE SULFATE 0.1 MG/ML 5ML SYR IV PRN (12:45)
[2017-02-28] MEDS ORDERED: EpHEDrine SULFATE INJ 50 MG/ML AMP IV PRN (12:45)
[2017-02-28] MEDS ORDERED: ONDANSETRON INJ 2 MG/ML 2 ML VIAL IV PRN ×2 (12:45→16:00)
[2017-02-28] MEDS ORDERED: HYDROmorphone INJ 1 MG/ML SYR IV PRN (12:45)
[2017-02-28] MEDS ORDERED: CLINDAMYCIN PHOS 150 MG/ML 2 ML VIAL ONE ×2 (13:08→14:00)
[2017-02-28] MEDS ORDERED: PHENYLEPHRINE 100MCG/ML 5ML SYR ONE (14:00)
[2017-02-28] MEDS ORDERED: PHENYLEPHRINE HCL INJ 10 MG/ML VIAL ONE (14:05)
[2017-02-28] MEDS ORDERED: ALBUMIN HUMAN 5% 12.5 GM/250 ML VIAL IV ONE (14:18)
[2017-02-28] MEDS ORDERED: ROCURONIUM BROMIDE 10 MG/ML 5 ML VIAL IV ONE (15:30)
[2017-02-28] MEDS ORDERED: MoRPHine SULFATE 2 MG/ML CARP IV PRN (16:00)
[2017-02-28] MEDS ORDERED: OXYCODONE HCL IR 5 MG TAB (IMMEDIATE RELEASE) PO PRN (16:00)
--- NOTE | 2017-02-28 16:37 | DIAGNOSTIC IMAGING REPORT ---
SINGLE VIEW CHEST CLINICAL HISTORY: Postoperative examination. Status post decortication. FINDINGS: An AP, portable, upright chest radiograph is compared to study dated 02/20/2017 and correlated with chest CT dated 02/27/2017. The examination is degraded by portable technique and patient rotation. 2 right-sided chest tubes are in place. No pneumothorax is seen. The heart is enlarged and there is mild atherosclerotic calcification of the thoracic aorta. The pulmonary vasculature is noncongested. There is a right pleural effusion with right basilar consolidation. Patchy airspace opacities are also seen at the left lung base. There is no large left pleural effusion. The skeletal structures are osteopenic. The bony thorax is grossly intact. Simultaneous gas is noted along the right chest wall. IMPRESSION: 1. There are 2 right-sided chest tubes in place. No pneumothorax is seen. 2. Cardiomegaly without radiographic evidence of congestive failure. 3. There is a right pleural effusion with right basilar consolidation. 4. Patchy airspace opacities are also seen at the left lung base. Electronically signed by: Hernandez Reese M.D. 02/28/2017 4:35 PM Dictated Date/Time: 02/28/2017 4:33 PM
--- NOTE | 2017-02-28 16:43 | Anesthesiology Progress Note ---
Anesthesia Post Op Note Date & Time Feb 28, 2017 at 16:43 Vital Signs Pain Intensity: 0 Vital Signs Past 12 Hours Date Time Temp Pulse Resp B/P (MAP) Pulse Ox O2 Delivery O2 Flow Rate FiO2 02/28/17 16:40 67 16 94/49 100 Nasal Cannula 2 02/28/17 16:30 68 16 101/46 100 Oxymask 10 02/28/17 16:20 72 16 100/61 100 Oxymask 10 02/28/17 16:12 36.2 71 16 94/51 97 Oxymask 10 02/28/17 11:36 36.7 88 16 113/66 94 Room Air 02/28/17 11:17 36.7 88 16 113/66 (82) 94 Room Air 02/28/17 08:00 Room Air 02/28/17 07:52 38.8 86 20 114/67 (83) 95 Notes Mental Status: alert / awake / arousable, participated in evaluation Pt Amnestic to Procedure: Yes Nausea / Vomiting: adequately controlled Pain: adequately controlled Airway Patency, RR, SpO2: stable & adequate BP & HR: stable & adequate Hydration State: stable & adequate Anesthetic Complications: no major complications apparent
[2017-02-28] MEDS: D5W AND 1/2NSS 1,000 ML IV SCH (17:42)
--- NOTE | 2017-02-28 17:53 | Progress Note ---
Internal Med Progress Note Date of Service: Feb 28, 2017. Provider Documentation: SUBJECTIVE: s/p VATS procedure on right lung today tolerated procedure fine has some pain at procedure site afebrile no sob no cough no chest pain OBJECTIVE: Vital Signs-as noted below Exam: General-alert and oriented. Not in distress ENT-Normal hearing Neck-no neck masses Lungs-CTA b/l no wheezing or crackles s/p Vats procedure on right lower lung Heart-S1 and S2 heard. Regular rate and rhythm, no murmurs Abdomen-Soft Bowel sounds present no tenderness present no distension Extremities-No pedal edema no erythema Neuro-alert and awake moves extremities Lab data as noted below. ASSESSMENT & PLAN: RIGHT LUNG EMPYEMA Patient was directly admitted to [facility] from pulmonary office sick for one month and had been treated for pneumonia with Levaquin and azithromycin lost 10pounds during this time CT chest done on 02/24 concerning for empyema started on IV Vanco and Zosyn s/p vats procedure today await cx close monitor in ICU ANEMIA ? due to underlying infection hb 9.2 Hemoccult negative iron low PAF? monitor cardiology consulted GERD on PPI and H2 rodo HTN On lisinopril will monitor. ASTHMA stable on Flovent will monitor DVT PROPHYLAXIS SCDs in light of possible procedure CODE STATUS Full DISPO To be determined Vital Signs: Date Time Temp Pulse Resp B/P (MAP) Pulse Ox O2 Delivery O2 Flow Rate FiO2 02/28/17 16:50 36.3 67 16 96/52 100 Nasal Cannula 2 02/28/17 16:40 67 16 94/49 100 Nasal Cannula 2 02/28/17 16:30 68 16 101/46 100 Oxymask 10 02/28/17 16:20 72 16 100/61 100 Oxymask 10 02/28/17 16:12 36.2 71 16 94/51 97 Oxymask 10 02/28/17 11:36 36.7 88 16 113/66 94 Room Air 02/28/17 11:17 36.7 88 16 113/66 (82) 94 Room Air 02/28/17 08:00 Room Air 02/28/17 07:52 38.8 86 20 114/67 (83) 95 02/28/17 04:15 36.9 98 16 105/68 (80) 92 Room Air 02/28/17 04:00 Room Air 02/27/17 23:59 Room Air 02/27/17 23:37 36.8 88 18 119/67 (84) 92 Room Air 02/27/17 20:28 36.7 90 18 132/76 (94) 95 Room Air 02/27/17 20:00 95 Room Air Lab Results: Results Past 24 Hours Test 02/28/17 06:04 02/28/17 10:00 Range/Units Creatinine 0.87 0.60-1.20 mg/dl Est Creatinine Clear Calc Drug Dose 57.7 ml/min Estimated GFR () 74.5 Estimated GFR (Non- 64.3 Stool Occult Blood NEGATIVE NEGATIVE Microbiology Results 02/28/17 MRSA DNA Surveillance Screen, Ordered Pending 02/28/17 Fungal Smear, Received Pending 02/28/17 Fungal Culture, Received Pending 02/28/17 Acid Fast Stain, Received Pending 02/28/17 Mycobacterial Culture, Received Pending 02/28/17 Gram Stain - Final, Resulted 02/28/17 Bacterial Culture, Resulted Pending
[2017-02-28] MEDS: ACETAMINOPHEN IV 1,000 MG in EMPTY BAG 0 ML IV SCH (17:57)
--- NOTE | 2017-02-28 18:25 | OPERATIVE REPORT ---
DATE OF OPERATION: 02/28/2017 PREOPERATIVE DIAGNOSIS: Probable empyema, right pleural cavity. POSTOPERATIVE DIAGNOSIS: Empyema, right pleural cavity. PROCEDURE: 1. Right thoracoscopic drainage of empyema. 2. Thoracoscopic extensive decortication. SURGEON: Dr. Saba. CONSTRUCTION RECRUITER: MEDHAT Gamez. ANESTHESIA: General anesthesia endotracheal intubation using double lumen tube. SPECIFICS OF PROCEDURE: This 76-year-old female that I was called to see last night after an attempt to put a PleurX catheter and was not successful. The patient had a very thick peel and had clinical history suggestive of a parapneumonic effusion and empyema. I had a long discussion with the patient and multiple family members and we elected to proceed with a decortication. On 02/28/2017, the patient was brought to the operating room and underwent uncomplicated thoracoscopic drainage of this empyema. There was malodorous pus once we got into the capsule which had a very thick capsule. In addition, all 3 lobes had to have a decortication, especially the lower lobe. We were able to decorticate this quite nicely and drained this malodorous pus. We removed the peel and did also a partial pleurectomy. She tolerated it quite well with negligible air leak at the end of the case. She was extubated in the room. PROCEDURE: The patient brought to operating room and placed in supine position. General anesthesia induced and endotracheal intubation performed with a double lumen tube. The patient was turned in the left lateral decubitus position. Right chest prepped, draped in usual sterile fashion. A 5 mm port was placed at the fourth interspace and CO2 was insufflated. Upon placing the scope we had seen there were multiple adhesions. For this reason, I opened this up to about 2 cm and then bluntly took down these adhesions. We kept working by placing the scope through this incision and using blunt dissectors until we got enough room to put in our 2 other ports, one at about the 7th interspace anteriorly and the other at about the 8th interspace posteriorly. We then proceeded to work through these channels switching our scope back and forth as necessary. We finally got into the cavity and it was extremely malodorous green and yellow pus. It also had a large amount of fibrinous material. We sent this for culture and Gram stain showed no organisms but many white blood cells. We then took down the upper lobe and I did put a peel posteriorly, we were able to get off quite easily. The middle lobe also had a peel posteriorly and laterally we were able to get off. We peeled this off and we had a very nice plane and the lung came out nicely. We then had to do a pleurectomy and decorticate the right lower lobe extensively from medial to lateral. We got down along the diaphragm and freed everything up from the diaphragmatic sulci and removed all of the thickened pleural peel. This came off quite nicely, although we did have a few small holes in the lung. We had some oozing and this was controlled with the Aquamantys along the chest wall. We did perform a pleurectomy along the lower portion where this large pocket of pus was located. We finally removed everything that was visible and the lung expanded quite nicely. I did not see any evidence of malignancy. Exparel block was performed by making 266 mg of 60 mL total normal saline injection from the 2nd to the 11th rib. A bit difficult to do due to the pleural changes. We then placed a 24-Uzbek chest tube through the anterior inferior thoracoscopy port and directed towards the apex. It was sutured in place with heavy silk suture. We then placed the PleurX catheter through a separate stab wound close to this and laid it along the diaphragmatic gutter and posteriorly. This was sutured in place with silk suture. The muscle layers of the remaining thoracoscopy ports were closed with 0 Polysorb and then 4-0 Monocryl was used in running suture of fashion to approximate the wound edges. The patient was extubated in the room. Transferred to the postanesthesia care unit in stable condition. ADDENDUM: Mr. Omid Rider is the PA and was first crusher who was there for the duration of the case and was instrumental in holding the camera and passing instruments. He also closed the incisions at the conclusion of the case. I attest to the content of the Intraoperative Record and any orders documented therein. Any exception s are noted below.
[2017-02-28] MEDS: CLINDAMYCIN IV 900 MG in DEXTROSE 5% 100ML 100 ML IV SCH (19:45)
[2017-02-28] MEDS: METOCLOPRAMIDE HCL INJ 5 MG/ML 2 ML VIAL IV. SCH (21:57)
[2017-02-28] MEDS: KETOROLAC TROMETHAMINE 15 MG/ML VIAL IV. SCH (21:57)
[2017-02-28] MEDS: DOCUSATE SODIUM 100 MG CAP PO SCH (22:22)
[2017-03-01] VITALS (18 sets, daily range): BP systolic 88–109; BP diastolic 49–70; PULSE 61–84; TEMP 36.3–36.7; O2SAT 90–98
[2017-03-01] MEDS: CLINDAMYCIN IV 900 MG in DEXTROSE 5% 100ML 100 ML IV SCH (01:46)
[2017-03-01] MEDS: ACETAMINOPHEN IV 1,000 MG in EMPTY BAG 0 ML IV SCH ×3 (01:47→17:33)
[2017-03-01] MEDS: D5W AND 1/2NSS 1,000 ML IV SCH (01:49)
[2017-03-01] MEDS: METOCLOPRAMIDE HCL INJ 5 MG/ML 2 ML VIAL IV. SCH ×2 (05:21→14:04)
[2017-03-01] MEDS: KETOROLAC TROMETHAMINE 15 MG/ML VIAL IV. SCH ×3 (05:22→21:13)
[2017-03-01] MEDS: PIPERACILL/TAZOBAC IV 3.375 GM in DEXTROSE 5% 100ML IV SCH ×3 (05:24→21:12)
--- NOTE | 2017-03-01 06:32 | DIAGNOSTIC IMAGING REPORT ---
CHEST ONE VIEW PORTABLE CLINICAL HISTORY: decortication COMPARISON STUDY: 02/26/2017 FINDINGS: The cardiac and mediastinal contours remain stable. 2 right-sided chest tubes remain unchanged in position. There is no pneumothorax. There is right-sided pleural thickening. There is no failure. There are improving bibasal airspace opacities.[ IMPRESSION: 1. No change in the position of 2 right-sided chest tubes. No evidence of pneumothorax 2. Stable right-sided pleural thickening 3. Improving basilar airspace opacities Electronically signed by: Dustin Sullivan M.D. 03/01/2017 6:31 AM Dictated Date/Time: 03/01/2017 6:30 AM
[2017-03-01 06:33] LABS: HEMATOCRIT 27.5 % (37-47); MEAN CELL VOLUME 90.8 fL (80-100); MEAN CORPUSCULAR HEMOGLOBIN 27.1 pg (25-34); MEAN CORPUSCULAR HGB CONC 29.8 g/dl (32-36); MEAN PLATELET VOLUME 8.1 fL (7.4-10.4); PLATELET COUNT 506 K/uL (130-400); RED BLOOD COUNT 3.03 M/uL (4.2-5.4); WHITE BLOOD COUNT 24.61 K/uL (4.8-10.8)
[2017-03-01 07:04] LABS: CALCIUM 8.4 mg/dl (8.5-10.1); CREATININE 1.36 mg/dl (0.60-1.20); MAGNESIUM 2.3 mg/dl (1.8-2.4); POTASSIUM 3.9 mmol/L (3.5-5.1)
[2017-03-01 07:05] LABS: PHOSPHORUS 4.4 mg/dl (2.5-4.9)
[2017-03-01] MEDS: FLUTICASONE HFA 110MCG INHALER INH SCH ×2 (07:38→21:11)
[2017-03-01] MEDS: DOCUSATE SODIUM 100 MG CAP PO SCH ×2 (07:39→21:11)
[2017-03-01] MEDS: PANTOprazole SOD 40 MG TAB PO SCH (07:39)
[2017-03-01] MEDS: CALCIUM CARBONATE 500 MG CHEWABLE PO SCH (07:39)
[2017-03-01] MEDS: LORATADINE 10 MG TAB PO SCH (07:39)
[2017-03-01] MEDS: LISINOPRIL 5 MG TAB PO SCH (07:40)
[2017-03-01] MEDS: ENOXAPARIN 40 MG/0.4 ML SYR SQ SCH (07:40)
[2017-03-01] MEDS: RANITIDINE HCL 150 MG TAB PO SCH ×2 (07:40→21:12)
[2017-03-01 07:56] LABS: BASO ABS # 0.01 K/uL (0-0.2); COMPLETE YES; IG% 0.5 %; LYMPH % 6.3 %; LYMPH ABS # 1.54 K/uL (1.2-3.4); MONO % 6.6 %; NEUT % 86.6 %; ROULEAUX 1+
[2017-03-01] MEDS ORDERED: VANCOMYCIN TROUGH ONE (08:30)
--- NOTE | 2017-03-01 09:25 | SURGERY PROGRESS NOTE ---
DATE: 03/01/2017 SUBJECTIVE: Ms. Leblanc was seen today. She is sitting up at the bedside table. She states she is quite tired of being out of bed, but she has had "a good night." She is making urine. She is on room air. I had discussed her with Dr. Paris this morning. She has a Kerr catheter and she put out only 100 mL overnight, but has picked up to 250 mL over the last shift. Chest tube drainage has been rather low. The PleurX catheter was drained this morning. She does not have an air leak this morning. She does have some decreased breath sounds in the right, but really is moving air well. She is having very little in the way of pain. She has no peripheral edema. DATA: Her x-ray looks very good. She has no evidence of effusion. She does have some pleural thickening. Her white count has jumped from normal preop to 24,610 postop, but that is not unexpected. In addition, her hemoglobin has dropped from 9.2 to 8.2. My biggest concern is that her creatinine has jumped from 0.87 to 1.36. However, her urine output is now picking up. In addition, her bicarbonate is only 20. Her blood pressure is a bit on the low side at 93/58, but her pulse oximetry on room air is 96% this morning. ASSESSMENT AND PLAN: Postoperative day #1, status post thoracoscopic drainage of right empyema with decortication. She looks very good. I discussed her creatinine and hemoglobin and other issues with Dr. Paris. I am a bit concerned because her sodium is down to 132, which would indicate a degree of over-hydration. He is going to consider a bedside echo to determine her volume status. [facility]
--- NOTE | 2017-03-01 09:44 | Pharmacy Progress Note ---
Pharmacy Abx Dose Progress Nt Date of Service Mar 01, 2017. Pharmacy Dosing Scope The patient is currently receiving the following antimicrobial agents per Pharmacy consult: Vancomycin 1250 mg IV every 14 hours Zosyn 3.375g IV Q8H Objective Height (Feet): 5 Height (Inches): 6.00 Weight (Kilograms): 79.700 Vital Signs (Past 12Hrs) Vital Signs Past 12 Hours Date Time Temp Pulse Resp B/P (MAP) Pulse Ox O2 Delivery O2 Flow Rate FiO2 03/01/17 09:00 75 18 102/70 (81) 95 Room Air 03/01/17 08:00 94 Room Air 03/01/17 08:00 94 Room Air 03/01/17 08:00 36.7 79 18 88/49 (62) 94 Room Air 03/01/17 06:01 64 35 93/58 (72) 96 03/01/17 04:01 61 15 93/58 (69) 97 03/01/17 04:00 97 Nasal Cannula 2.0 03/01/17 02:01 70 21 107/68 (85) 95 03/01/17 01:01 71 17 97/54 (70) 98 03/01/17 00:01 36.7 73 19 96/54 (61) 97 02/28/17 23:59 97 Nasal Cannula 2.0 02/28/17 22:30 79 18 97 02/28/17 22:15 74 22 97 02/28/17 22:01 78 22 101/62 (71) 97 02/28/17 22:00 79 20 97 02/28/17 21:45 80 22 97 Lab Results (24Hrs) Test 02/27/17 16:46 02/27/17 17:51 02/28/17 06:04 02/28/17 10:00 White Blood Count 9.81 Red Blood Count 3.29 Hemoglobin 9.2 Hematocrit 29.4 Mean Corpuscular Volume 89.4 Mean Corpuscular Hemoglobin 28.0 Mean Corpuscular Hemoglobin Concent 31.3 Platelet Count 469 Mean Platelet Volume 7.8 Neutrophils (%) (Auto) 74.2 Lymphocytes (%) (Auto) 13.6 Monocytes (%) (Auto) 10.4 Eosinophils (%) (Auto) 1.1 Basophils (%) (Auto) 0.4 Neutrophils # (Auto) 7.28 Lymphocytes # (Auto) 1.33 Monocytes # (Auto) 1.02 Eosinophils # (Auto) 0.11 Basophils # (Auto) 0.04 RDW Standard Deviation 45.6 RDW Coefficient of Variation 13.8 Immature Granulocyte % (Auto) 0.3 Immature Granulocyte # (Auto) 0.03 Prothrombin Time 11.5 Prothrombin Time INR 1.1 Sodium Level 137 Potassium Level 3.7 Chloride Level 103 Carbon Dioxide Level 24 Anion Gap 10.0 Blood Urea Nitrogen 14 BUN/Creatinine Ratio 16.3 Random Glucose 97 Calcium Level 8.7 Total Bilirubin 0.4 Aspartate Amino Transferase (AST) 9 Alanine Aminotransferase (ALT) 10 Alkaline Phosphatase 66 Total Protein 8.5 Albumin 2.2 Globulin 6.3 Albumin/Globulin Ratio 0.3 Absolute Reticulocyte Count 0.07 Percent Reticulocyte Count 2.0 Iron Level 18 Total Iron Binding Capacity 151 Transferrin 130 Transferrin % Saturation 10 Ferritin 435.4 Vitamin B12 Level 697 Folate 7.36 Creatinine 0.87 Est Creatinine Clear Calc Drug Dose 57.7 Estimated GFR () 74.5 Estimated GFR (Non- 64.3 Stool Occult Blood NEGATIVE Test 03/01/17 06:19 03/01/17 06:22 03/01/17 08:32 White Blood Count 24.61 Red Blood Count 3.03 Hemoglobin 8.2 Hematocrit 27.5 Mean Corpuscular Volume 90.8 Mean Corpuscular Hemoglobin 27.1 Mean Corpuscular Hemoglobin Concent 29.8 Platelet Count 506 Mean Platelet Volume 8.1 Neutrophils (%) (Auto) 86.6 Lymphocytes (%) (Auto) 6.3 Monocytes (%) (Auto) 6.6 Eosinophils (%) (Auto) 0.0 Basophils (%) (Auto) 0.0 Neutrophils # (Auto) 21.32 Lymphocytes # (Auto) 1.54 Monocytes # (Auto) 1.62 Eosinophils # (Auto) 0.00 Basophils # (Auto) 0.01 RDW Standard Deviation 46.9 RDW Coefficient of Variation 14.1 Immature Granulocyte % (Auto) 0.5 Immature Granulocyte # (Auto) 0.12 Rouleaux 1+ Sodium Level 132 Potassium Level 3.9 Chloride Level 101 Carbon Dioxide Level 20 Anion Gap 11.0 Blood Urea Nitrogen 15 Creatinine 1.36 Est Creatinine Clear Calc Drug Dose 36.9 Estimated GFR () 43.4 Estimated GFR (Non- 37.4 BUN/Creatinine Ratio 11.0 Random Glucose 197 Calcium Level 8.4 Phosphorus Level 4.4 Magnesium Level 2.3 Vancomycin Level Trough 23.5 Micro Results Date/Time Source Procedure Growth Status 02/27/17 16:46 Blood Blood Culture Pending Received 02/27/17 16:36 Blood Blood Culture - Preliminary NO GROWTH TO DATE. Resulted 02/28/17 19:30 Nasal MRSA DNA Surveillance Screen - Final Specimen Negative for MRSA by DNA Probe Complete 02/28/17 13:36 Pleural Fluid (Thoracentesis) Right Fungal Smear - Final Resulted 02/28/17 13:36 Pleural Fluid (Thoracentesis) Right Fungal Culture Pending Resulted 02/28/17 13:36 Pleural Fluid (Thoracentesis) Right Acid Fast Stain Pending Received 02/28/17 13:36 Pleural Fluid (Thoracentesis) Right Mycobacterial Culture Pending Received 02/28/17 13:36 Pleural Fluid (Thoracentesis) Right Gram Stain - Final Resulted 02/28/17 13:36 Pleural Fluid (Thoracentesis) Right Bacterial Culture Pending Resulted Risk Factors for Resistance * Antimicrobial use within the last 90 days Levaquin and Azithromycin x 7 days Assessment & Plan Assessment 76 year old female receiving IV Vancomycin and Zosyn for treatment of empyema, VATS completed yesterday by Dr Saba SCr bumped up from 0.87 to 1.36mg/dl today, resulting in supratherapeutic Vancomycin level requiring change in dosing interval I did place Vancomycin dose on hold prior to hanging 0900 dose when I saw that SCr had increased this morning, so patient did not receive 0900 dose Day # 3 of antimicrobial therapy Nasal swab neg for MRSA, pleural fluid cultures pending Plan Vancomycin IV * Trough level of 23.5 mcg/mL is supratherapeutic d/t increase in SCr * Change to 1250 mg IV every 24 hours starting at 1800 dose (last dose was at 1900 yesterday) * Goal trough level for empyema : 15 to 20 mcg/mL * Trough level ordered for: 03/02/17 prior to 1800 dose, this will be only after patient has received 1 dose at the new dosing interval, but I am drawing this early d/t supratherapeutic level and changing renal function * Ordered daily SCr Piperacillin/tazobactam * Continue 3.375 g IV extended infusion every 8 hours for CrCl greater than 20 mL/min Pharmacy will continue to follow and will adjust dose/frequency as necessary. Thank you.
--- NOTE | 2017-03-01 11:30 | Pulmonology Progress Note ---
Pulmonary Progress Note Date of Service Mar 01, 2017. Attending Dr. Kerr Subjective Patient seen and examined in ICU this morning. She is status post VATS postop day #1. She denies any chest pain, shortness of breath or cough. She states that she slept well overnight. Blood pressure low overnight currently receiving 1 L Ringer's lactate bolus. Objective MAXIMUM TEMPERATURE 36.7, blood pressure 88/49 to 107/68, pulse 61-79, respiratory rate 15-35 pulse oximetry 94-98% on 2 L nasal cannula. At time of my evaluation she was on room air. Cumulative balance is two liters positive Gen: AAOx3, NAD, speaking in full sentences. No use of accessory muscles of respiration. CVS: S1, S2, RRR Lungs: Good air entry bilaterally, diminished breath sounds on the right side. Right chest tube in place on suction. Abd: soft/NT/NT/BS+ Ext: no edema bilaterally in lower extremities, no cyanosis, no clubbing Labs reviewed. White blood cell count 24,000, hemoglobin 8.2, hematocrit 27.5, platelet count 506. Sodium 132, carbon dioxide level XX, creatinine 1.36 from 0.85 yesterday. Blood cultures from 02/27/2017 no growth to date Right pleural fluid culture from 02/28/2017 pending Right Pleural fluid AFB from 02/28/2017 pending Right pleural fluid fungal culture from 02/28/2017 pending Pleural fluid and right pleura pathology pending Imaging reviewed. Chest x-ray 03/01/2017 No change in position of 2 right chest tubes; no evidence of pneumothorax. Stable right pleural thickening. Improved basilar airspace opacities. Medications reviewed. Antibiotics include vancomycin, Zosyn and clindamycin. Assessment & Plan Right-sided empyema Paroxysmal paroxysmal atrial fibrillation Hypotension Leukocytosis Acute kidney injury Ms. Leblanc is a 76-year-old female who was seen in pulmonary clinic by Dr. Mora and MEDHAT Ridley for unresolving right-sided pneumonia. She is status post VATS with decortication of right empyema on 02/28/2017, now with sepsis/SIRS response with hypotension, leukocytosis and acute kidney injury. She appears to be saturating well with minimal supplemental oxygen. Recommendations Continue with supplemental oxygen when necessary to maintain SaO2 above 92% Continue with antibiotics of vancomycin, clindamycin and Zosyn. Follow up pleural cultures and pathology. Chest tube management per cardiothoracic surgery. I will leave management of hypotension, leukocytosis and acute kidney injury management to ICU and hospitalist team. Data Medications: Current Inpatient Medications Medications (Trade) Dose Ordered Sig/Norma Route Start Time Stop Time Status Last Admin Dose Admin Ondansetron HCl (Zofran Inj) 4 mg Q6H PRN IV 02/27/17 16:15 03/29/17 16:14 Vancomycin HCl (Consult) 1 ea UD PRN N/A 02/27/17 17:15 03/29/17 17:14 Piperacillin Sod/ Tazobactam Sod (Consult) 1 ea UD PRN N/A 02/27/17 17:15 03/29/17 17:14 Lisinopril (Zestril Tab) 5 mg DAILY PO 02/28/17 09:00 03/30/17 08:59 02/28/17 07:38 5 MG Loratadine (Claritin Tab) 10 mg DAILY PO 02/28/17 09:00 03/30/17 08:59 03/01/17 07:39 10 MG Pantoprazole Sodium (Protonix Tab) 40 mg DAILY PO 02/28/17 09:00 03/30/17 08:59 03/01/17 07:39 40 MG Calcium Carbonate (Tums Chew Tab) 500 mg DAILY PO 02/28/17 09:00 03/30/17 08:59 03/01/17 07:39 500 MG Miscellaneous Information (Order Awaiting Action) 1 ea QS N/A 02/28/17 00:00 03/30/17 00:00 Ranitidine HCl (zANTac TAB) 300 mg BID PO 02/27/17 21:00 03/29/17 20:59 03/01/17 07:40 300 MG Fluticasone Propionate (Flovent Hfa 110MCG Inhaler) 2 puffs BID INH 02/27/17 21:00 03/29/17 20:59 03/01/17 07:38 2 PUFFS Piperacillin Sod/ Tazobactam Sod 3.375 gm/Dextrose 115 ml @ 28.75 mls/ hr Q8H IV 02/27/17 22:00 03/06/17 21:59 03/01/17 05:24 28.75 MLS/HR Acetaminophen 1000 mg/Empty Bag 100 ml @ 400 mls/hr Q8H IV 02/28/17 18:00 03/30/17 17:59 03/01/17 10:06 400 MLS/HR Oxycodone HCl (Roxicodone Immediate Rel Tab) 5 mg Q6H PRN PO 02/28/17 16:00 03/14/17 15:59 Enoxaparin Sodium (Lovenox Inj) 40 mg DAILY SQ 03/01/17 09:00 03/31/17 08:59 03/01/17 07:40 40 MG Dextrose/Sodium Chloride 1,000 ml @ 100 mls/hr Q10H IV 02/28/17 16:15 03/30/17 15:52 03/01/17 01:49 100 MLS/HR Ondansetron HCl (Zofran Inj) 4 mg Q4H PRN IV 02/28/17 16:00 03/30/17 15:59 Docusate Sodium (coLACE CAP) 100 mg BID PO 02/28/17 21:00 03/30/17 20:59 03/01/17 07:39 100 MG Ketorolac Tromethamine (Toradol Inj) 15 mg Q8 IV. 02/28/17 22:00 03/02/17 14:01 03/01/17 05:22 15 MG Metoclopramide HCl (Reglan Inj) 10 mg Q8 IV. 02/28/17 22:00 03/01/17 21:59 03/01/17 05:21 10 MG Morphine Sulfate (MoRPHine SULFATE INJ) 2 mg Q1H PRN IV 02/28/17 16:00 03/14/17 15:59 Vancomycin HCl 1250 mg/Sodium Chloride 275 ml @ 125 mls/hr DAILY@1800 IV 03/01/17 18:00 03/08/17 17:59 Vital Signs: Date Time Temp Pulse Resp B/P (MAP) Pulse Ox O2 Delivery O2 Flow Rate FiO2 03/01/17 10:00 72 18 93/67 (76) 95 Room Air 03/01/17 09:00 75 18 102/70 (81) 95 Room Air 03/01/17 08:00 94 Room Air 03/01/17 08:00 94 Room Air 03/01/17 08:00 36.7 79 18 88/49 (62) 94 Room Air 03/01/17 06:01 64 35 93/58 (72) 96 03/01/17 04:01 61 15 93/58 (69) 97 03/01/17 04:00 97 Nasal Cannula 2.0 03/01/17 02:01 70 21 107/68 (85) 95 03/01/17 01:01 71 17 97/54 (70) 98 03/01/17 00:01 36.7 73 19 96/54 (61) 97 02/28/17 23:59 97 Nasal Cannula 2.0 02/28/17 22:30 79 18 97 02/28/17 22:15 74 22 97 02/28/17 22:01 78 22 101/62 (71) 97 02/28/17 22:00 79 20 97 02/28/17 21:45 80 22 97 02/28/17 21:30 75 22 97 02/28/17 21:15 73 23 97 02/28/17 21:01 76 22 106/59 (77) 98 02/28/17 21:00 75 20 97 02/28/17 20:45 79 22 96 02/28/17 20:30 80 31 97 02/28/17 20:15 81 18 97 02/28/17 20:01 81 15 122/71 (96) 97 02/28/17 20:00 97 Nasal Cannula 2.0 02/28/17 20:00 27.0 79 24 96 02/28/17 19:46 82 20 115/74 (90) 97 02/28/17 19:45 82 19 97 02/28/17 19:31 36.8 60 16 147/97 (114) 93 Room Air 02/28/17 19:31 80 19 120/65 (72) 96 02/28/17 19:30 81 21 96 02/28/17 19:15 80 17 97 02/28/17 19:01 80 18 115/60 (75) 96 02/28/17 19:00 80 18 96 02/28/17 18:46 82 19 112/66 (74) 98 02/28/17 18:45 79 19 97 02/28/17 18:31 78 20 113/69 (85) 96 02/28/17 18:30 81 19 97 02/28/17 18:16 80 21 115/67 (77) 96 02/28/17 18:15 80 15 97 02/28/17 18:01 78 20 122/63 (68) 96 02/28/17 18:00 78 19 96 02/28/17 17:46 78 20 94/61 (83) 96 02/28/17 17:45 77 18 96 02/28/17 17:31 75 20 92/59 (79) 95 02/28/17 17:30 72 18 96 02/28/17 17:16 73 19 89/58 (68) 95 02/28/17 17:15 74 18 95 02/28/17 17:11 73 21 98/55 (69) 93 02/28/17 17:10 75 18 91/55 (60) 89 02/28/17 16:50 36.3 67 16 96/52 100 Nasal Cannula 2 02/28/17 16:40 67 16 94/49 100 Nasal Cannula 2 02/28/17 16:30 68 16 101/46 100 Oxymask 10 02/28/17 16:20 72 16 100/61 100 Oxymask 10 02/28/17 16:12 36.2 71 16 94/51 97 Oxymask 10 02/28/17 11:36 36.7 88 16 113/66 94 Room Air 02/28/17 11:17 36.7 88 16 113/66 (82) 94 Room Air Laboratory Results: Last 24 Hours Test 03/01/17 06:19 03/01/17 06:22 03/01/17 08:32 White Blood Count 24.61 K/uL Red Blood Count 3.03 M/uL Hemoglobin 8.2 g/dL Hematocrit 27.5 % Mean Corpuscular Volume 90.8 fL Mean Corpuscular Hemoglobin 27.1 pg Mean Corpuscular Hemoglobin Concent 29.8 g/dl Platelet Count 506 K/uL Mean Platelet Volume 8.1 fL Neutrophils (%) (Auto) 86.6 % Lymphocytes (%) (Auto) 6.3 % Monocytes (%) (Auto) 6.6 % Eosinophils (%) (Auto) 0.0 % Basophils (%) (Auto) 0.0 % Neutrophils # (Auto) 21.32 K/uL Lymphocytes # (Auto) 1.54 K/uL Monocytes # (Auto) 1.62 K/uL Eosinophils # (Auto) 0.00 K/uL Basophils # (Auto) 0.01 K/uL RDW Standard Deviation 46.9 fL RDW Coefficient of Variation 14.1 % Immature Granulocyte % (Auto) 0.5 % Immature Granulocyte # (Auto) 0.12 K/uL Rouleau 1+ Sodium Level 132 mmol/L Potassium Level 3.9 mmol/L Chloride Level 101 mmol/L Carbon Dioxide Level 20 mmol/L Anion Gap 11.0 mmol/L Blood Urea Nitrogen 15 mg/dl Creatinine 1.36 mg/dl Est Creatinine Clear Calc Drug Dose 36.9 ml/min Estimated GFR () 43.4 Estimated GFR (Non- 37.4 BUN/Creatinine Ratio 11.0 Random Glucose 197 mg/dl Calcium Level 8.4 mg/dl Phosphorus Level 4.4 mg/dl Magnesium Level 2.3 mg/dl Vancomycin Level Trough 23.5 mcg/ml
--- NOTE | 2017-03-01 16:22 | Critical Care Consultation ---
Critical Care Consultation Date of Consultation: Mar 01, 2017. Attending Physician: Tigre Still MD Reason for Consultation: Critical Care Management History of Present Illness Patient is a 76-year-old female who had a pneumonia approximately 1 month prior. She was seen in the pulmonary office for follow-up and was discovered to have an empyema. The empyema had significant consolidation and required surgical intervention for decortication. Postoperatively the patient was sent to the ICU for close observation as well as possible worsening of a systemic inflammatory response given spillage of the empyema. Past Medical/Surgical History 1 asthma 2 dyslipidemia 3 GERD 4 hypertension Family History Stroke MOTHER Social History Smoking Status: Never Smoker Alcohol Use: none Marital Status: Allergies Coded Allergies: Cephalosporins (Unverified Allergy, Unknown, Rash, 02/27/17) Niacin (Unverified Allergy, Unknown, Nausea/Vomiting, 02/27/17) Home Medications Scheduled Aspirin (Aspirin EC Low Dose), 81 MG PO DAILY Calcium Carbonate (Calcium 600), 1 TAB PO DAILY Conjugated Estrogens-Bazedoxif (Duavee 0.45-20 mg), 1 TAB PO DAILY Fluticasone Propionate (Flovent Hfa), 2 PUFFS INH BID Fluticasone Propionate (Nasal) (Flonase Allergy Relief), 2 SPRY NA DAILY Lisinopril (Prinivil), 5 MG PO DAILY Loratadine (Claritin), 1 TAB PO DAILY Pantoprazole (Protonix), 40 MG PO DAILY Ranitidine (Zantac), 300 MG PO BID Scheduled PRN Albuterol Sulfate (Proair Respiclick), 2 PUFFS INH Q4H PRN for SOB/Wheezing Pseudoephedrine-Guaifenesin (Mucinex D), 1 TAB PO BID PRN for Cough Current Inpatient Medications Current Inpatient Medications Medications (Trade) Dose Ordered Sig/Norma Route Start Time Stop Time Status Last Admin Dose Admin Ondansetron HCl (Zofran Inj) 4 mg Q6H PRN IV 02/27/17 16:15 03/29/17 16:14 Vancomycin HCl (Consult) 1 ea UD PRN N/A 02/27/17 17:15 03/29/17 17:14 Piperacillin Sod/ Tazobactam Sod (Consult) 1 ea UD PRN N/A 02/27/17 17:15 03/29/17 17:14 Lisinopril (Zestril Tab) 5 mg DAILY PO 02/28/17 09:00 03/30/17 08:59 02/28/17 07:38 5 MG Loratadine (Claritin Tab) 10 mg DAILY PO 02/28/17 09:00 03/30/17 08:59 03/01/17 07:39 10 MG Pantoprazole Sodium (Protonix Tab) 40 mg DAILY PO 02/28/17 09:00 03/30/17 08:59 03/01/17 07:39 40 MG Calcium Carbonate (Tums Chew Tab) 500 mg DAILY PO 02/28/17 09:00 03/30/17 08:59 03/01/17 07:39 500 MG Miscellaneous Information (Order Awaiting Action) 1 ea QS N/A 02/28/17 00:00 03/30/17 00:00 Ranitidine HCl (zANTac TAB) 300 mg BID PO 02/27/17 21:00 03/29/17 20:59 03/01/17 07:40 300 MG Fluticasone Propionate (Flovent Hfa 110MCG Inhaler) 2 puffs BID INH 02/27/17 21:00 03/29/17 20:59 03/01/17 07:38 2 PUFFS Piperacillin Sod/ Tazobactam Sod 3.375 gm/Dextrose 115 ml @ 28.75 mls/ hr Q8H IV 02/27/17 22:00 03/06/17 21:59 03/01/17 14:03 28.75 MLS/HR Acetaminophen 1000 mg/Empty Bag 100 ml @ 400 mls/hr Q8H IV 02/28/17 18:00 03/30/17 17:59 03/01/17 10:06 400 MLS/HR Oxycodone HCl (Roxicodone Immediate Rel Tab) 5 mg Q6H PRN PO 02/28/17 16:00 03/14/17 15:59 Enoxaparin Sodium (Lovenox Inj) 40 mg DAILY SQ 03/01/17 09:00 03/31/17 08:59 03/01/17 07:40 40 MG Dextrose/Sodium Chloride 1,000 ml @ 100 mls/hr Q10H IV 02/28/17 16:15 03/30/17 15:52 03/01/17 01:49 100 MLS/HR Ondansetron HCl (Zofran Inj) 4 mg Q4H PRN IV 02/28/17 16:00 03/30/17 15:59 Docusate Sodium (coLACE CAP) 100 mg BID PO 02/28/17 21:00 03/30/17 20:59 03/01/17 07:39 100 MG Ketorolac Tromethamine (Toradol Inj) 15 mg Q8 IV. 02/28/17 22:00 03/02/17 14:01 03/01/17 14:04 15 MG Metoclopramide HCl (Reglan Inj) 10 mg Q8 IV. 02/28/17 22:00 03/01/17 21:59 03/01/17 14:04 10 MG Morphine Sulfate (MoRPHine SULFATE INJ) 2 mg Q1H PRN IV 02/28/17 16:00 03/14/17 15:59 Vancomycin HCl 1250 mg/Sodium Chloride 275 ml @ 125 mls/hr DAILY@1800 IV 03/01/17 18:00 03/08/17 17:59 Review of Systems All other review of systems are otherwise negative Constitutional: + chills, + weight loss ENT: No hearing loss, No unusual epistaxis, No nasal symptoms, No sore throat, No tinnitus, No dental problems, No trouble swallowing, No problem reported Respiratory: + cough, + shortness of breath Abdomen: No pain, No nausea, No vomiting, No diarrhea, No constipation, No GI bleeding, No problem reported Physical Exam Date Time Temp Pulse Resp B/P (MAP) Pulse Ox O2 Delivery O2 Flow Rate FiO2 03/01/17 14:00 81 18 95/59 (71) 94 Room Air 03/01/17 12:00 95 Room Air 03/01/17 12:00 36.5 81 20 100/62 (75) 95 Room Air 03/01/17 10:00 72 18 93/67 (76) 95 Room Air 03/01/17 09:00 75 18 102/70 (81) 95 Room Air 03/01/17 08:00 94 Room Air 03/01/17 08:00 94 Room Air 03/01/17 08:00 36.7 79 18 88/49 (62) 94 Room Air 03/01/17 06:01 64 35 93/58 (72) 96 03/01/17 04:01 61 15 93/58 (69) 97 03/01/17 04:00 97 Nasal Cannula 2.0 03/01/17 02:01 70 21 107/68 (85) 95 03/01/17 01:01 71 17 97/54 (70) 98 03/01/17 00:01 36.7 73 19 96/54 (61) 97 02/28/17 23:59 97 Nasal Cannula 2.0 02/28/17 22:30 79 18 97 02/28/17 22:15 74 22 97 02/28/17 22:01 78 22 101/62 (71) 97 02/28/17 22:00 79 20 97 02/28/17 21:45 80 22 97 02/28/17 21:30 75 22 97 02/28/17 21:15 73 23 97 02/28/17 21:01 76 22 106/59 (77) 98 02/28/17 21:00 75 20 97 02/28/17 20:45 79 22 96 02/28/17 20:30 80 31 97 02/28/17 20:15 81 18 97 02/28/17 20:01 81 15 122/71 (96) 97 02/28/17 20:00 97 Nasal Cannula 2.0 02/28/17 20:00 27.0 79 24 96 02/28/17 19:46 82 20 115/74 (90) 97 02/28/17 19:45 82 19 97 02/28/17 19:31 36.8 60 16 147/97 (114) 93 Room Air 02/28/17 19:31 80 19 120/65 (72) 96 02/28/17 19:30 81 21 96 02/28/17 19:15 80 17 97 02/28/17 19:01 80 18 115/60 (75) 96 02/28/17 19:00 80 18 96 02/28/17 18:46 82 19 112/66 (74) 98 02/28/17 18:45 79 19 97 02/28/17 18:31 78 20 113/69 (85) 96 02/28/17 18:30 81 19 97 02/28/17 18:16 80 21 115/67 (77) 96 02/28/17 18:15 80 15 97 02/28/17 18:01 78 20 122/63 (68) 96 02/28/17 18:00 78 19 96 02/28/17 17:46 78 20 94/61 (83) 96 02/28/17 17:45 77 18 96 02/28/17 17:31 75 20 92/59 (79) 95 02/28/17 17:30 72 18 96 02/28/17 17:16 73 19 89/58 (68) 95 02/28/17 17:15 74 18 95 02/28/17 17:11 73 21 98/55 (69) 93 02/28/17 17:10 75 18 91/55 (60) 89 02/28/17 16:50 36.3 67 16 96/52 100 Nasal Cannula 2 02/28/17 16:40 67 16 94/49 100 Nasal Cannula 2 02/28/17 16:30 68 16 101/46 100 Oxymask 10 02/28/17 16:20 72 16 100/61 100 Oxymask 10 02/28/17 16:12 36.2 71 16 94/51 97 Oxymask 10 General Appearance: well-appearing Head: normocephalic, atraumatic Eyes: PERRLA ENT: normal ear exam, normal mouth exam Neck: normal range of motion, no tenderness Respiratory: other (chest tube present and right chest) Cardiovasular: regular rate/rhythm, normal S1S2 Abdomen: non tender, normal bowel sounds Back: normal inspection Upper Extremities: no edema Lower Extremities: no edema Pulses: femoral (R) (2+), femoral (L) (2+) Neuro: alert, oriented x 3 Laboratory Results Last 24 Hours Test 03/01/17 06:19 03/01/17 06:22 03/01/17 08:32 White Blood Count 24.61 K/uL Red Blood Count 3.03 M/uL Hemoglobin 8.2 g/dL Hematocrit 27.5 % Mean Corpuscular Volume 90.8 fL Mean Corpuscular Hemoglobin 27.1 pg Mean Corpuscular Hemoglobin Concent 29.8 g/dl Platelet Count 506 K/uL Mean Platelet Volume 8.1 fL Neutrophils (%) (Auto) 86.6 % Lymphocytes (%) (Auto) 6.3 % Monocytes (%) (Auto) 6.6 % Eosinophils (%) (Auto) 0.0 % Basophils (%) (Auto) 0.0 % Neutrophils # (Auto) 21.32 K/uL Lymphocytes # (Auto) 1.54 K/uL Monocytes # (Auto) 1.62 K/uL Eosinophils # (Auto) 0.00 K/uL Basophils # (Auto) 0.01 K/uL RDW Standard Deviation 46.9 fL RDW Coefficient of Variation 14.1 % Immature Granulocyte % (Auto) 0.5 % Immature Granulocyte # (Auto) 0.12 K/uL Rouleau 1+ Sodium Level 132 mmol/L Potassium Level 3.9 mmol/L Chloride Level 101 mmol/L Carbon Dioxide Level 20 mmol/L Anion Gap 11.0 mmol/L Blood Urea Nitrogen 15 mg/dl Creatinine 1.36 mg/dl Est Creatinine Clear Calc Drug Dose 36.9 ml/min Estimated GFR () 43.4 Estimated GFR (Non- 37.4 BUN/Creatinine Ratio 11.0 Random Glucose 197 mg/dl Calcium Level 8.4 mg/dl Phosphorus Level 4.4 mg/dl Magnesium Level 2.3 mg/dl Vancomycin Level Trough 23.5 mcg/ml Diagnostic Results SINGLE VIEW CHEST CLINICAL HISTORY: Postoperative examination. Status post decortication. FINDINGS: An AP, portable, upright chest radiograph is compared to study dated 02/20/2017 and correlated with chest CT dated 02/27/2017. The examination is degraded by portable technique and patient rotation. 2 right-sided chest tubes are in place. No pneumothorax is seen. The heart is enlarged and there is mild atherosclerotic calcification of the thoracic aorta. The pulmonary vasculature is noncongested. There is a right pleural effusion with right basilar consolidation. Patchy airspace opacities are also seen at the left lung base. There is no large left pleural effusion. The skeletal structures are osteopenic. The bony thorax is grossly intact. Simultaneous gas is noted along the right chest wall. IMPRESSION: 1. There are 2 right-sided chest tubes in place. No pneumothorax is seen. 2. Cardiomegaly without radiographic evidence of congestive failure. 3. There is a right pleural effusion with right basilar consolidation. 4. Patchy airspace opacities are also seen at the left lung base. Assessment & Plan Reason Critically Ill: Postoperative state secondary to significant decortication of a right-sided pleural effusion PLAN: Neuro: Pain control as needed Resp: Chest tube present in right chest, there was some microtrauma from the decortication process observed for hemothorax development CV: Monitor for arrhythmias Fluids/Renal: Mildly DAVID status post the operative procedure - Mild hyponatremia * Is all likely secondary to profound ADH response given the surgical trauma will volume expand and given Normosol at 100 MLS, stop D5 half NS ID: No growth and blood cultures nor operatively obtained culture of the empyema , if no growth tomorrow will stop all antibiotics GI/Nutrition: Diet Heme: Mild to moderate anemia with subsequent blood loss anemia, continue Lovenox for prophylaxis Endocrine: 1 elevated blood sugar 197, we will discontinue dextrose-containing solutions I have personally spent 35 minutes of critical care time in the direct management of this patient. This is a life/limb threatening event. This includes time spent evaluating patient, direct bedside care, chart review, placing orders, interpretation of diagnostic studies, discussion with consultants, patient, and family members, as well as other required patient management activities. This time is exclusive of all separately billable procedures, and teaching time and separate from and in addition to any other critical care service time.
--- NOTE | 2017-03-01 16:39 | Progress Note ---
Internal Med Progress Note Date of Service: Mar 01, 2017. Provider Documentation: SUBJECTIVE: s/p VATS procedure on right lung yesterday resting comfortably denies any pain denies sob was nauseous earlier in the day had some breakfast OBJECTIVE: Vital Signs-as noted below Exam: General-alert and oriented. Not in distress ENT-Normal hearing Neck-no neck masses Lungs-CTA b/l no wheezing or crackles s/p Vats procedure on right lower lung Heart-S1 and S2 heard. Regular rate and rhythm, no murmurs Abdomen-Soft Bowel sounds present no tenderness present no distension Extremities-No pedal edema no erythema Neuro-alert and awake moves extremities Lab data as noted below. ASSESSMENT & PLAN: RIGHT LUNG EMPYEMA Patient was directly admitted to [facility] from pulmonary office sick for one month and had been treated for pneumonia with Levaquin and azithromycin lost 10pounds during this time CT chest done on 02/24 concerning for empyema started on IV Vanco and Zosyn s/p vats procedure today await cx- no growth till date close monitor in ICU ANEMIA ? due to underlying infection hb 9.2 on presentation hb 8.2 today Hemoccult negative iron low will f/u labs PAF? monitor GERD on PPI and H2 rodo HTN On lisinopril will monitor. ASTHMA stable on Flovent will monitor DVT PROPHYLAXIS SCDs in light of possible procedure CODE STATUS Full DISPO To be determined pt/ot when stable Vital Signs: Date Time Temp Pulse Resp B/P (MAP) Pulse Ox O2 Delivery O2 Flow Rate FiO2 03/01/17 16:00 36.6 78 18 109/64 (79) 96 Room Air 03/01/17 16:00 96 Room Air 03/01/17 14:00 81 18 95/59 (71) 94 Room Air 03/01/17 12:00 95 Room Air 03/01/17 12:00 36.5 81 20 100/62 (75) 95 Room Air 03/01/17 10:00 72 18 93/67 (76) 95 Room Air 03/01/17 09:00 75 18 102/70 (81) 95 Room Air 03/01/17 08:00 94 Room Air 03/01/17 08:00 94 Room Air 03/01/17 08:00 36.7 79 18 88/49 (62) 94 Room Air 03/01/17 06:01 64 35 93/58 (72) 96 03/01/17 04:01 61 15 93/58 (69) 97 03/01/17 04:00 97 Nasal Cannula 2.0 03/01/17 02:01 70 21 107/68 (85) 95 03/01/17 01:01 71 17 97/54 (70) 98 03/01/17 00:01 36.7 73 19 96/54 (61) 97 02/28/17 23:59 97 Nasal Cannula 2.0 02/28/17 22:30 79 18 97 02/28/17 22:15 74 22 97 02/28/17 22:01 78 22 101/62 (71) 97 02/28/17 22:00 79 20 97 02/28/17 21:45 80 22 97 02/28/17 21:30 75 22 97 02/28/17 21:15 73 23 97 02/28/17 21:01 76 22 106/59 (77) 98 02/28/17 21:00 75 20 97 02/28/17 20:45 79 22 96 02/28/17 20:30 80 31 97 02/28/17 20:15 81 18 97 02/28/17 20:01 81 15 122/71 (96) 97 02/28/17 20:00 97 Nasal Cannula 2.0 02/28/17 20:00 27.0 79 24 96 02/28/17 19:46 82 20 115/74 (90) 97 02/28/17 19:45 82 19 97 02/28/17 19:31 36.8 60 16 147/97 (114) 93 Room Air 02/28/17 19:31 80 19 120/65 (72) 96 02/28/17 19:30 81 21 96 02/28/17 19:15 80 17 97 02/28/17 19:01 80 18 115/60 (75) 96 02/28/17 19:00 80 18 96 02/28/17 18:46 82 19 112/66 (74) 98 02/28/17 18:45 79 19 97 02/28/17 18:31 78 20 113/69 (85) 96 02/28/17 18:30 81 19 97 02/28/17 18:16 80 21 115/67 (77) 96 02/28/17 18:15 80 15 97 02/28/17 18:01 78 20 122/63 (68) 96 02/28/17 18:00 78 19 96 02/28/17 17:46 78 20 94/61 (83) 96 02/28/17 17:45 77 18 96 02/28/17 17:31 75 20 92/59 (79) 95 02/28/17 17:30 72 18 96 02/28/17 17:16 73 19 89/58 (68) 95 02/28/17 17:15 74 18 95 02/28/17 17:11 73 21 98/55 (69) 93 02/28/17 17:10 75 18 91/55 (60) 89 02/28/17 16:50 36.3 67 16 96/52 100 Nasal Cannula 2 02/28/17 16:40 67 16 94/49 100 Nasal Cannula 2 Lab Results: Results Past 24 Hours Test 03/01/17 06:19 03/01/17 06:22 03/01/17 08:32 Range/Units White Blood Count 24.61 4.8-10.8 K/uL Red Blood Count 3.03 4.2-5.4 M/uL Hemoglobin 8.2 12.0-16.0 g/dL Hematocrit 27.5 37-47 % Mean Corpuscular Volume 90.8 80-100 fL Mean Corpuscular Hemoglobin 27.1 25-34 pg Mean Corpuscular Hemoglobin Concent 29.8 32-36 g/dl Platelet Count 506 130-400 K/uL Mean Platelet Volume 8.1 7.4-10.4 fL Neutrophils (%) (Auto) 86.6 % Lymphocytes (%) (Auto) 6.3 % Monocytes (%) (Auto) 6.6 % Eosinophils (%) (Auto) 0.0 % Basophils (%) (Auto) 0.0 % Neutrophils # (Auto) 21.32 1.4-6.5 K/uL Lymphocytes # (Auto) 1.54 1.2-3.4 K/uL Monocytes # (Auto) 1.62 0.11-0.59 K/uL Eosinophils # (Auto) 0.00 0-0.5 K/uL Basophils # (Auto) 0.01 0-0.2 K/uL RDW Standard Deviation 46.9 36.4-46.3 fL RDW Coefficient of Variation 14.1 11.5-14.5 % Immature Granulocyte % (Auto) 0.5 % Immature Granulocyte # (Auto) 0.12 0.00-0.02 K/uL Rouleau 1+ Sodium Level 132 136-145 mmol/L Potassium Level 3.9 3.5-5.1 mmol/L Chloride Level 101 98-107 mmol/L Carbon Dioxide Level 20 21-32 mmol/L Anion Gap 11.0 3-11 mmol/L Blood Urea Nitrogen 15 7-18 mg/dl Creatinine 1.36 0.60-1.20 mg/dl Est Creatinine Clear Calc Drug Dose 36.9 ml/min Estimated GFR () 43.4 Estimated GFR (Non- 37.4 BUN/Creatinine Ratio 11.0 10-20 Random Glucose 197 70-99 mg/dl Calcium Level 8.4 8.5-10.1 mg/dl Phosphorus Level 4.4 2.5-4.9 mg/dl Magnesium Level 2.3 1.8-2.4 mg/dl Vancomycin Level Trough 23.5 SEE COMMENT mcg/ml Microbiology Results 02/28/17 MRSA DNA Surveillance Screen - Final, Complete Specimen Negative for MRSA by DNA Probe
[2017-03-01] MEDS: NORMOSOL R 1,000 ML IV SCH (17:22)
[2017-03-01] MEDS ORDERED: VANCOMYCIN INJ 1,250 MG in SODIUM CHLORIDE 0.9% 250ML 250 ML IV SCH (18:00)
[2017-03-02] VITALS (19 sets, daily range): BP systolic 89–114; BP diastolic 49–70; PULSE 74–114; TEMP 36.4–37; O2SAT 91–99
[2017-03-02] MEDS: ACETAMINOPHEN IV 1,000 MG in EMPTY BAG 0 ML IV SCH ×3 (01:32→17:59)
[2017-03-02] MEDS: NORMOSOL R 1,000 ML IV SCH (01:33)
[2017-03-02] MEDS: PIPERACILL/TAZOBAC IV 3.375 GM in DEXTROSE 5% 100ML IV SCH (05:28)
[2017-03-02] MEDS: KETOROLAC TROMETHAMINE 15 MG/ML VIAL IV. SCH ×2 (05:31→14:46)
[2017-03-02 06:36] LABS: HEMATOCRIT 20.6 % (37-47); MEAN CELL VOLUME 88.8 fL (80-100); MEAN CORPUSCULAR HEMOGLOBIN 27.6 pg (25-34); MEAN CORPUSCULAR HGB CONC 31.1 g/dl (32-36); MEAN PLATELET VOLUME 7.9 fL (7.4-10.4); PLATELET COUNT 409 K/uL (130-400); RED BLOOD COUNT 2.32 M/uL (4.2-5.4); WHITE BLOOD COUNT 11.26 K/uL (4.8-10.8)
[2017-03-02 06:44] LABS: BUN/CREATININE RATIO 12.4 (10-20); CREATININE 1.27 mg/dl (0.60-1.20); MAGNESIUM 2.2 mg/dl (1.8-2.4); POTASSIUM 3.8 mmol/L (3.5-5.1)
[2017-03-02 06:47] LABS: PHOSPHORUS 2.4 mg/dl (2.5-4.9)
[2017-03-02 07:04] LABS: HEMATOCRIT 24.1 % (37-47)
--- NOTE | 2017-03-02 07:04 | DIAGNOSTIC IMAGING REPORT ---
CHEST ONE VIEW PORTABLE CLINICAL HISTORY: decortication postoperative COMPARISON STUDY: 03/01/2017 FINDINGS: Interval removal of one of the 2 right-sided chest tubes. Persistent right basilar pleural thickening. Chronic interstitial change left base. No evidence for postprocedural pneumothorax. IMPRESSION: Interval removal of one of the 2 right-sided chest tubes. No evidence pneumothorax. The above report was generated using voice recognition software. It may contain grammatical, syntax or spelling errors. Electronically signed by: Srini Hahn M.D. 03/02/2017 7:02 AM Dictated Date/Time: 03/02/2017 7:01 AM
[2017-03-02] MEDS: FLUTICASONE HFA 110MCG INHALER INH SCH ×2 (07:43→21:33)
[2017-03-02] MEDS: PANTOprazole SOD 40 MG TAB PO SCH (07:43)
[2017-03-02] MEDS: LORATADINE 10 MG TAB PO SCH (07:43)
[2017-03-02] MEDS: RANITIDINE HCL 150 MG TAB PO SCH ×2 (07:44→21:32)
[2017-03-02] MEDS: DOCUSATE SODIUM 100 MG CAP PO SCH ×2 (07:44→21:32)
[2017-03-02] MEDS: CALCIUM CARBONATE 500 MG CHEWABLE PO SCH (07:44)
[2017-03-02] MEDS: ENOXAPARIN 40 MG/0.4 ML SYR SQ SCH (07:45)
[2017-03-02] MEDS: LISINOPRIL 5 MG TAB PO SCH (07:45)
--- NOTE | 2017-03-02 08:25 | Pulmonology Progress Note ---
Pulmonary Progress Note Date of Service Mar 02, 2017. Attending Dr. Kerr Subjective Patient seen and examined this morning. She did not sleep well overnight and feeling tired. Eating breakfast, not much appetite. She denies any shortness of breath, cough or chest pain. Objective MAXIMUM TEMPERATURE 36.7, blood pressure 98/87359/70, pulse 74-86, respiratory rate 18-22, pulse oximetry 91-98% on RA. HR in 102 bpm at the time of my examination. Gen: AAOx3, NAD, speaking in full sentences. No use of accessory muscles of respiration. CVS: S1, S2, RRR Lungs: Good air entry bilaterally, diminished breath sounds on the right side. Right chest tube and pleurex catheter in place in place on suction. Abd: soft/NT/NT/BS+ Ext: no edema bilaterally in lower extremities, no cyanosis, no clubbing Labs reviewed. White blood cell count 11, hemoglobin 6.4 repeat 7.2,platelet count 409 Sodium 139, carbon dioxide level 24, creatinine 1.27 Blood cultures from 02/27/2017 no growth to date Right pleural fluid culture from 02/28/2017--no growth to date Right Pleural fluid AFB from 02/28/2017 pending Right pleural fluid fungal culture from 02/28/2017 pending Pleural fluid and right pleura pathology pending Imaging reviewed. Chest xray 03/02/2017 Chronic interstitial change left base. No evidence for postprocedural pneumothorax. Chest x-ray 03/01/2017 No change in position of 2 right chest tubes; no evidence of pneumothorax. Stable right pleural thickening. Improved basilar airspace opacities. Medications reviewed. Antibiotics include vancomycin, Zosyn. She is Flovent and albuterol for asthma Assessment & Plan Right-sided empyema Paroxysmal paroxysmal atrial fibrillation Anemia Acute kidney injury--improving Asthma Ms. Leblanc is a 76-year-old female who was seen in pulmonary clinic by Dr. Mora and MEDHAT Ridley for unresolving right-sided pneumonia. She is status post VATS with decortication of right empyema on 02/28/2017, She is doing well from a respiratory standpoint. She appears to be saturating well with minimal supplemental oxygen. Recommendations Continue with supplemental oxygen when necessary to maintain SaO2 above 92% Continue with Flovent and albuterol prn for asthma Continue with antibiotics of vancomycin and Zosyn. Follow up pleural cultures and pathology. Chest tube management per cardiothoracic surgery. She is stable from a respiratory standpoint. Will sign off case today. Please contact me if you have any further questions or concerns. Data Medications: Current Inpatient Medications Medications (Trade) Dose Ordered Sig/Norma Route Start Time Stop Time Status Last Admin Dose Admin Ondansetron HCl (Zofran Inj) 4 mg Q6H PRN IV 02/27/17 16:15 03/29/17 16:14 Vancomycin HCl (Consult) 1 ea UD PRN N/A 02/27/17 17:15 03/29/17 17:14 Piperacillin Sod/ Tazobactam Sod (Consult) 1 ea UD PRN N/A 02/27/17 17:15 03/29/17 17:14 Lisinopril (Zestril Tab) 5 mg DAILY PO 02/28/17 09:00 03/30/17 08:59 02/28/17 07:38 5 MG Loratadine (Claritin Tab) 10 mg DAILY PO 02/28/17 09:00 03/30/17 08:59 03/02/17 07:43 10 MG Pantoprazole Sodium (Protonix Tab) 40 mg DAILY PO 02/28/17 09:00 03/30/17 08:59 03/02/17 07:43 40 MG Calcium Carbonate (Tums Chew Tab) 500 mg DAILY PO 02/28/17 09:00 03/30/17 08:59 03/02/17 07:44 500 MG Miscellaneous Information (Order Awaiting Action) 1 ea QS N/A 02/28/17 00:00 03/30/17 00:00 Ranitidine HCl (zANTac TAB) 300 mg BID PO 02/27/17 21:00 03/29/17 20:59 03/02/17 07:44 300 MG Fluticasone Propionate (Flovent Hfa 110MCG Inhaler) 2 puffs BID INH 02/27/17 21:00 03/29/17 20:59 03/02/17 07:43 2 PUFFS Piperacillin Sod/ Tazobactam Sod 3.375 gm/Dextrose 115 ml @ 28.75 mls/ hr Q8H IV 02/27/17 22:00 03/06/17 21:59 03/02/17 05:28 28.75 MLS/HR Acetaminophen 1000 mg/Empty Bag 100 ml @ 400 mls/hr Q8H IV 02/28/17 18:00 03/30/17 17:59 03/02/17 01:32 400 MLS/HR Oxycodone HCl (Roxicodone Immediate Rel Tab) 5 mg Q6H PRN PO 02/28/17 16:00 03/14/17 15:59 Enoxaparin Sodium (Lovenox Inj) 40 mg DAILY SQ 03/01/17 09:00 03/31/17 08:59 03/02/17 07:45 40 MG Ondansetron HCl (Zofran Inj) 4 mg Q4H PRN IV 02/28/17 16:00 03/30/17 15:59 Docusate Sodium (coLACE CAP) 100 mg BID PO 02/28/17 21:00 03/30/17 20:59 03/01/17 21:11 100 MG Ketorolac Tromethamine (Toradol Inj) 15 mg Q8 IV. 02/28/17 22:00 03/02/17 14:01 03/02/17 05:31 15 MG Morphine Sulfate (MoRPHine SULFATE INJ) 2 mg Q1H PRN IV 02/28/17 16:00 03/14/17 15:59 Vancomycin HCl 1250 mg/Sodium Chloride 275 ml @ 125 mls/hr DAILY@1800 IV 03/01/17 18:00 03/08/17 17:59 03/01/17 18:15 125 MLS/HR Parenteral Electrolyte Solution 1,000 ml @ 100 mls/hr Q10H IV 03/01/17 16:30 03/31/17 16:29 03/02/17 01:33 100 MLS/HR Vital Signs: Date Time Temp Pulse Resp B/P (MAP) Pulse Ox O2 Delivery O2 Flow Rate FiO2 03/02/17 06:01 81 19 111/70 (84) 91 Room Air 03/02/17 04:00 36.7 18 107/54 (71) 97 Nasal Cannula 2.0 03/02/17 04:00 96 Nasal Cannula 2.0 03/02/17 02:01 86 20 98/59 (72) 97 Nasal Cannula 2.0 03/02/17 00:01 36.7 74 22 108/64 (79) 98 Nasal Cannula 2.0 03/01/17 23:59 96 Nasal Cannula 2.0 03/01/17 22:00 81 18 96/54 (68) 90 Room Air 03/01/17 21:00 84 20 104/58 (73) 93 Room Air 03/01/17 20:00 94 Room Air 03/01/17 20:00 36.3 77 20 97/53 (68) 94 Room Air 03/01/17 19:00 72 15 97/56 (70) 93 Room Air 03/01/17 18:00 76 20 89/53 (65) 92 Room Air 03/01/17 16:00 36.6 78 18 109/64 (79) 96 Room Air 03/01/17 16:00 96 Room Air 03/01/17 14:00 81 18 95/59 (71) 94 Room Air 03/01/17 12:00 95 Room Air 03/01/17 12:00 36.5 81 20 100/62 (75) 95 Room Air 03/01/17 10:00 72 18 93/67 (76) 95 Room Air 03/01/17 09:00 75 18 102/70 (81) 95 Room Air Laboratory Results: Last 24 Hours Test 03/01/17 08:32 03/02/17 06:02 03/02/17 06:51 Vancomycin Level Trough 23.5 mcg/ml White Blood Count 11.26 K/uL Red Blood Count 2.32 M/uL Hemoglobin 6.4 g/dL 7.2 g/dL Hematocrit 20.6 % 24.1 % Mean Corpuscular Volume 88.8 fL Mean Corpuscular Hemoglobin 27.6 pg Mean Corpuscular Hemoglobin Concent 31.1 g/dl RDW Standard Deviation 45.7 fL RDW Coefficient of Variation 14.1 % Platelet Count 409 K/uL Mean Platelet Volume 7.9 fL Sodium Level 139 mmol/L Potassium Level 3.8 mmol/L Chloride Level 107 mmol/L Carbon Dioxide Level 24 mmol/L Anion Gap 8.0 mmol/L Blood Urea Nitrogen 16 mg/dl Creatinine 1.27 mg/dl Est Creatinine Clear Calc Drug Dose 39.5 ml/min Estimated GFR () 47.1 Estimated GFR (Non- 40.7 BUN/Creatinine Ratio 12.4 Random Glucose 96 mg/dl Calcium Level 8.0 mg/dl Phosphorus Level 2.4 mg/dl Magnesium Level 2.2 mg/dl
--- NOTE | 2017-03-02 08:38 | Surgery Progress Note ---
Subjective Date of Service: Mar 02, 2017. Pt. denies CP, SOB, lightheadedness. She has been ambulating in hallway and is tolerating oral intake. Discussed with nightshift staff--only concern is pt.'s drop in H/H. Objective Vitals Date Time Temp Pulse Resp B/P (MAP) Pulse Ox O2 Delivery O2 Flow Rate FiO2 03/02/17 06:01 81 19 111/70 (84) 91 Room Air 03/02/17 04:00 36.7 18 107/54 (71) 97 Nasal Cannula 2.0 03/02/17 04:00 96 Nasal Cannula 2.0 03/02/17 02:01 86 20 98/59 (72) 97 Nasal Cannula 2.0 03/02/17 00:01 36.7 74 22 108/64 (79) 98 Nasal Cannula 2.0 03/01/17 23:59 96 Nasal Cannula 2.0 03/01/17 22:00 81 18 96/54 (68) 90 Room Air 03/01/17 21:00 84 20 104/58 (73) 93 Room Air 03/01/17 20:00 94 Room Air 03/01/17 20:00 36.3 77 20 97/53 (68) 94 Room Air 03/01/17 19:00 72 15 97/56 (70) 93 Room Air 03/01/17 18:00 76 20 89/53 (65) 92 Room Air 03/01/17 16:00 36.6 78 18 109/64 (79) 96 Room Air 03/01/17 16:00 96 Room Air 03/01/17 14:00 81 18 95/59 (71) 94 Room Air 03/01/17 12:00 95 Room Air 03/01/17 12:00 36.5 81 20 100/62 (75) 95 Room Air 03/01/17 10:00 72 18 93/67 (76) 95 Room Air 03/01/17 09:00 75 18 102/70 (81) 95 Room Air Physical Exam General: + well developed, + well nourished, No distress CV: + RRR Pulmonary: + pertinent finding (BS are decreased at bases with rhonchi noted at times), No accessory muscle use, No respiratory distress Extremities: No calf tenderness Neurologic: + alert & oriented x 3 Radiology CXR shows no pneumothorax; good aeration noted Drains / Tubes chest tube (no air leak noted; 75 cc drainage lst 25 hours), pleurex (35 cc this am ) Assessment & Plan 76 year old female s/p decortication -continue chest tubes today along with pleurx drainage -surgical cultures are thus far (-) for growth: -continue abx. as ordered by primary service -continue pain mgt. -continue mobilization -continue IS & pulm toilet ANEMIA -plan noted by ICU staff for transfusion OTHER -lovenox in place for DVT prevention
--- NOTE | 2017-03-02 14:06 | Critical Care Progress Note ---
Critical Care Progress Note Date of Service Mar 02, 2017. ICU Day ICU Day Number: [address] [place] Subjective Feeling better than yesterday, no chest pain, no shortness of breath, has moved her bowels twice yesterday. Objective General Appearance: well-appearing Head: normocephalic, atraumatic Eyes: PERRLA ENT: normal ear exam, normal mouth exam Neck: normal range of motion, no tenderness Respiratory: other (chest tube present and right chest) Cardiovasular: regular rate/rhythm, normal S1S2 Abdomen: non tender, normal bowel sounds Back: normal inspection Upper Extremities: no edema Lower Extremities: no edema Neuro: alert, oriented x 3 Current SOFA Score SOFA Score Response (Comments) Value SaO2 / FIO2 221 - 301 1 Platelets (x10) > 150 0 Bilirubin (mg/dL) < 1.2 0 [place] Coma Score 15 0 Level of Hypotension No Hypotension 0 Creatinine (mg/dL) 1.2 - 1.9 1 Total 2 Assessment & Plan PLAN: Neuro: Pain control as needed, Resp: Chest tube present in right chest, chest tube management per CT surgery CV: Monitor for arrhythmias Fluids/Renal: Mild DAVID improving - stopping additional IVF ID: No growth and blood cultures nor operatively obtained culture as of 03/02. No organisms seen on Gram stain. Stopping ABX GI/Nutrition: Diet Heme: AM blood count revealed hemoglobin of 6.4, repeat H&H revealed hemoglobin 7.2. I discussed the case with Dr. Saba we will hold off transfusions as the patient is a symptomatically at this time we'll recheck H&H later today as well as retake count * Adding vitamin C and iron for daily supplementation * Holding 2 units of blood, if patient becomes symptomatically or H&H stressed below 6.5 would transfuse 1 unit Endocrine: Glucose within normal range Patient stable for downgraded out of ICU today Consults & Procedures Consultants: Critical care Pulmonary Thoracic surgery Procedures: Right ultrasound-guided tunneled indwelling pleural catheter 02/27/2017 Right thorascopic decortication and evacuation of presumptive empyema 02/28/2017 Data Medications: Current Inpatient Medications Medications (Trade) Dose Ordered Sig/Norma Route Start Time Stop Time Status Last Admin Dose Admin Ondansetron HCl (Zofran Inj) 4 mg Q6H PRN IV 02/27/17 16:15 03/29/17 16:14 Vancomycin HCl (Consult) 1 ea UD PRN N/A 02/27/17 17:15 03/29/17 17:14 Piperacillin Sod/ Tazobactam Sod (Consult) 1 ea UD PRN N/A 02/27/17 17:15 03/29/17 17:14 Lisinopril (Zestril Tab) 5 mg DAILY PO 02/28/17 09:00 03/30/17 08:59 02/28/17 07:38 5 MG Loratadine (Claritin Tab) 10 mg DAILY PO 02/28/17 09:00 03/30/17 08:59 03/02/17 07:43 10 MG Pantoprazole Sodium (Protonix Tab) 40 mg DAILY PO 02/28/17 09:00 03/30/17 08:59 03/02/17 07:43 40 MG Calcium Carbonate (Tums Chew Tab) 500 mg DAILY PO 02/28/17 09:00 03/30/17 08:59 03/02/17 07:44 500 MG Miscellaneous Information (Order Awaiting Action) 1 ea QS N/A 02/28/17 00:00 03/30/17 00:00 Ranitidine HCl (zANTac TAB) 300 mg BID PO 02/27/17 21:00 03/29/17 20:59 03/02/17 07:44 300 MG Fluticasone Propionate (Flovent Hfa 110MCG Inhaler) 2 puffs BID INH 02/27/17 21:00 03/29/17 20:59 03/02/17 07:43 2 PUFFS Piperacillin Sod/ Tazobactam Sod 3.375 gm/Dextrose 115 ml @ 28.75 mls/ hr Q8H IV 02/27/17 22:00 03/06/17 21:59 03/02/17 05:28 28.75 MLS/HR Acetaminophen 1000 mg/Empty Bag 100 ml @ 400 mls/hr Q8H IV 02/28/17 18:00 03/30/17 17:59 03/02/17 09:49 400 MLS/HR Oxycodone HCl (Roxicodone Immediate Rel Tab) 5 mg Q6H PRN PO 02/28/17 16:00 03/14/17 15:59 Enoxaparin Sodium (Lovenox Inj) 40 mg DAILY SQ 03/01/17 09:00 03/31/17 08:59 03/02/17 07:45 40 MG Ondansetron HCl (Zofran Inj) 4 mg Q4H PRN IV 02/28/17 16:00 03/30/17 15:59 Docusate Sodium (coLACE CAP) 100 mg BID PO 02/28/17 21:00 03/30/17 20:59 03/01/17 21:11 100 MG Ketorolac Tromethamine (Toradol Inj) 15 mg Q8 IV. 02/28/17 22:00 03/02/17 14:01 03/02/17 05:31 15 MG Morphine Sulfate (MoRPHine SULFATE INJ) 2 mg Q1H PRN IV 02/28/17 16:00 03/14/17 15:59 Vancomycin HCl 1250 mg/Sodium Chloride 275 ml @ 125 mls/hr DAILY@1800 IV 03/01/17 18:00 03/08/17 17:59 03/01/17 18:15 125 MLS/HR Parenteral Electrolyte Solution 1,000 ml @ 100 mls/hr Q10H IV 03/01/17 16:30 03/31/17 16:29 03/02/17 01:33 100 MLS/HR Vital Signs: Date Time Temp Pulse Resp B/P (MAP) Pulse Ox O2 Delivery O2 Flow Rate FiO2 03/02/17 12:00 97 Room Air 03/02/17 12:00 95 24 104/66 (79) 97 Room Air 03/02/17 10:00 93 20 95 Room Air 03/02/17 08:00 95 Room Air 03/02/17 08:00 36.6 96 18 96/66 (76) 95 Room Air 03/02/17 06:01 81 19 111/70 (84) 91 Room Air 03/02/17 04:00 36.7 18 107/54 (71) 97 Nasal Cannula 2.0 03/02/17 04:00 96 Nasal Cannula 2.0 03/02/17 02:01 86 20 98/59 (72) 97 Nasal Cannula 2.0 03/02/17 00:01 36.7 74 22 108/64 (79) 98 Nasal Cannula 2.0 03/01/17 23:59 96 Nasal Cannula 2.0 03/01/17 22:00 81 18 96/54 (68) 90 Room Air 03/01/17 21:00 84 20 104/58 (73) 93 Room Air 03/01/17 20:00 94 Room Air 03/01/17 20:00 36.3 77 20 97/53 (68) 94 Room Air 03/01/17 19:00 72 15 97/56 (70) 93 Room Air 03/01/17 18:00 76 20 89/53 (65) 92 Room Air 03/01/17 16:00 36.6 78 18 109/64 (79) 96 Room Air 03/01/17 16:00 96 Room Air 03/01/17 14:00 81 18 95/59 (71) 94 Room Air Laboratory Results: Last 24 Hours Test 03/02/17 06:02 03/02/17 06:51 White Blood Count 11.26 K/uL Red Blood Count 2.32 M/uL Hemoglobin 6.4 g/dL 7.2 g/dL Hematocrit 20.6 % 24.1 % Mean Corpuscular Volume 88.8 fL Mean Corpuscular Hemoglobin 27.6 pg Mean Corpuscular Hemoglobin Concent 31.1 g/dl RDW Standard Deviation 45.7 fL RDW Coefficient of Variation 14.1 % Platelet Count 409 K/uL Mean Platelet Volume 7.9 fL Sodium Level 139 mmol/L Potassium Level 3.8 mmol/L Chloride Level 107 mmol/L Carbon Dioxide Level 24 mmol/L Anion Gap 8.0 mmol/L Blood Urea Nitrogen 16 mg/dl Creatinine 1.27 mg/dl Est Creatinine Clear Calc Drug Dose 39.5 ml/min Estimated GFR () 47.1 Estimated GFR (Non- 40.7 BUN/Creatinine Ratio 12.4 Random Glucose 96 mg/dl Calcium Level 8.0 mg/dl Phosphorus Level 2.4 mg/dl Magnesium Level 2.2 mg/dl
[2017-03-02] MEDS ORDERED: FERROUS SULFATE 325 MG TAB PO ONE (14:30)
[2017-03-02] MEDS ORDERED: ASCORBIC ACID 500 MG TAB PO ONE (14:30)
--- NOTE | 2017-03-02 15:41 | Progress Note ---
Internal Med Progress Note Date of Service: Mar 02, 2017. Provider Documentation: SUBJECTIVE: s/p VATS procedure on right lung resting comfortably on the chair did not sleep well last night eating ok no sob denies any pain ambulated in hallway OBJECTIVE: Vital Signs-as noted below Exam: General-alert and oriented. Not in distress ENT-Normal hearing Neck-no neck masses Lungs-CTA b/l no wheezing or crackles s/p Vats procedure on right lower lung Heart-S1 and S2 heard. Regular rate and rhythm, no murmurs Abdomen-Soft Bowel sounds present no tenderness present no distension Extremities-No pedal edema no erythema Neuro-alert and awake moves extremities Lab data as noted below. ASSESSMENT & PLAN: RIGHT LUNG EMPYEMA Patient was directly admitted to tele from pulmonary office sick for one month and had been treated for pneumonia with Levaquin and azithromycin lost 10pounds during this time CT chest done on 02/24 concerning for empyema started on IV Vanco and Zosyn s/p vats procedure await cx- no growth till date to continue current abx stable ANEMIA ? due to underlying infection hb 9.2 on presentation hb 7.2 today Hemoccult negative iron low will f/u labs PAF? monitor GERD on PPI and H2 rodo HTN On lisinopril will monitor. ASTHMA stable on Flovent will monitor DVT PROPHYLAXIS SCDs in light of possible procedure CODE STATUS Full DISPO Transferring to tele pt/ot social service for d/c planning Vital Signs: Date Time Temp Pulse Resp B/P (MAP) Pulse Ox O2 Delivery O2 Flow Rate FiO2 03/02/17 15:21 36.6 88 16 97/63 (74) 95 Room Air 03/02/17 12:00 97 Room Air 03/02/17 12:00 95 24 104/66 (79) 97 Room Air 03/02/17 10:00 93 20 95 Room Air 03/02/17 08:00 95 Room Air 03/02/17 08:00 36.6 96 18 96/66 (76) 95 Room Air 03/02/17 06:01 81 19 111/70 (84) 91 Room Air 03/02/17 04:00 36.7 18 107/54 (71) 97 Nasal Cannula 2.0 03/02/17 04:00 96 Nasal Cannula 2.0 03/02/17 02:01 86 20 98/59 (72) 97 Nasal Cannula 2.0 03/02/17 00:01 36.7 74 22 108/64 (79) 98 Nasal Cannula 2.0 03/01/17 23:59 96 Nasal Cannula 2.0 03/01/17 22:00 81 18 96/54 (68) 90 Room Air 03/01/17 21:00 84 20 104/58 (73) 93 Room Air 03/01/17 20:00 94 Room Air 03/01/17 20:00 36.3 77 20 97/53 (68) 94 Room Air 03/01/17 19:00 72 15 97/56 (70) 93 Room Air 03/01/17 18:00 76 20 89/53 (65) 92 Room Air 03/01/17 16:00 36.6 78 18 109/64 (79) 96 Room Air 03/01/17 16:00 96 Room Air Lab Results: Results Past 24 Hours Test 03/02/17 06:02 03/02/17 06:51 03/02/17 14:48 Range/Units White Blood Count 11.26 4.8-10.8 K/uL Red Blood Count 2.32 4.2-5.4 M/uL Hemoglobin 6.4 7.2 12.0-16.0 g/dL Hematocrit 20.6 24.1 37-47 % Mean Corpuscular Volume 88.8 80-100 fL Mean Corpuscular Hemoglobin 27.6 25-34 pg Mean Corpuscular Hemoglobin Concent 31.1 32-36 g/dl RDW Standard Deviation 45.7 36.4-46.3 fL RDW Coefficient of Variation 14.1 11.5-14.5 % Platelet Count 409 130-400 K/uL Mean Platelet Volume 7.9 7.4-10.4 fL Sodium Level 139 136-145 mmol/L Potassium Level 3.8 3.5-5.1 mmol/L Chloride Level 107 98-107 mmol/L Carbon Dioxide Level 24 21-32 mmol/L Anion Gap 8.0 3-11 mmol/L Blood Urea Nitrogen 16 7-18 mg/dl Creatinine 1.27 0.60-1.20 mg/dl Est Creatinine Clear Calc Drug Dose 39.5 ml/min Estimated GFR () 47.1 Estimated GFR (Non- 40.7 BUN/Creatinine Ratio 12.4 10-20 Random Glucose 96 70-99 mg/dl Calcium Level 8.0 8.5-10.1 mg/dl Phosphorus Level 2.4 2.5-4.9 mg/dl Magnesium Level 2.2 1.8-2.4 mg/dl
[2017-03-02 15:49] LABS: HEMATOCRIT 21.3 % (37-47)
[2017-03-02] MEDS ORDERED: VANCOMYCIN TROUGH ONE (17:30)
[2017-03-02] MEDS ORDERED: ACETAMINOPHEN 325 MG TAB PO ONE (17:45)
[2017-03-02] MEDS ORDERED: FUROSEMIDE INJ 20 MG in SYRINGE 0 ML IV SCH (20:00)
[2017-03-03] VITALS (7 sets, daily range): BP systolic 108–129; BP diastolic 61–77; PULSE 72–88; TEMP 36.6–37.8; O2SAT 92–99
[2017-03-03] MEDS: ACETAMINOPHEN IV 1,000 MG in EMPTY BAG 0 ML IV SCH ×2 (02:30→10:28)
--- NOTE | 2017-03-03 07:28 | Surgery Progress Note ---
Subjective Date of Service: Mar 03, 2017. Pt. denies chest pain or SOB. No lightheadedness or dizziness. Objective Vitals Date Time Temp Pulse Resp B/P (MAP) Pulse Ox O2 Delivery O2 Flow Rate FiO2 03/03/17 04:00 36.8 87 126/75 (92) 94 Nasal Cannula 3.0 03/03/17 04:00 94 Nasal Cannula 3.0 03/03/17 00:00 92 Room Air 03/02/17 23:57 37.0 90 109/66 92 03/02/17 23:10 36.4 83 114/70 92 03/02/17 22:10 36.4 79 104/64 92 03/02/17 21:40 36.6 81 100/63 92 03/02/17 21:25 36.5 82 100/64 91 03/02/17 20:54 36.6 84 99/62 94 03/02/17 20:05 36.4 90 18 97/61 (73) 93 Room Air 03/02/17 20:00 94 Room Air 03/02/17 19:05 36.7 84 18 89/49 (62) 95 Room Air 03/02/17 18:36 36.5 81 18 97/62 94 03/02/17 18:19 37.0 114 20 107/64 99 03/02/17 15:21 36.6 88 16 97/63 (74) 95 Room Air 03/02/17 12:00 97 Room Air 03/02/17 12:00 95 24 104/66 (79) 97 Room Air 03/02/17 10:00 93 20 95 Room Air 03/02/17 08:00 95 Room Air 03/02/17 08:00 36.6 96 18 96/66 (76) 95 Room Air Physical Exam General: + well developed, + well nourished, No distress CV: + RRR Pulmonary: + pertinent finding (decreased BS at right base with rhonchi noted at times), No accessory muscle use, No respiratory distress Extremities: No calf tenderness Neurologic: + alert & oriented x 3 Drains / Tubes chest tube (20 cc last 24 hours, no air leak), pleurex (25 cc drained this am ) Assessment & Plan 76 year old female s/p decortication -will d/c chest tube this am due to low drainage -keep pleurx in place with daily drainage in am -surgical cultures are thus far (-) for growth: -continue abx. as ordered by primary service -continue pain mgt. -continue mobilization -continue IS & pulm toilet ANEMIA -pt. received 2 units PRBCs on 03/02/17: -CBC this am pending OTHER -lovenox in place for DVT prevention
[2017-03-03 07:33] LABS: CREATININE 1.27 mg/dl (0.60-1.20)
[2017-03-03 07:52] LABS: BASO % 0.3 %; BASO ABS # 0.02 K/uL (0-0.2); EOS % 3.8 %; IG% 0.5 %; LYMPH % 13.4 %; LYMPH ABS # 0.99 K/uL (1.2-3.4); MEAN CELL VOLUME 88.7 fL (80-100); MEAN CORPUSCULAR HEMOGLOBIN 27.6 pg (25-34); MEAN CORPUSCULAR HGB CONC 31.2 g/dl (32-36); MEAN PLATELET VOLUME 8.1 fL (7.4-10.4); PLATELET COUNT 406 K/uL (130-400); RED BLOOD COUNT 2.93 M/uL (4.2-5.4); WHITE BLOOD COUNT 7.38 K/uL (4.8-10.8)
--- NOTE | 2017-03-03 07:54 | DIAGNOSTIC IMAGING REPORT ---
CHEST ONE VIEW PORTABLE CLINICAL HISTORY: Chest tube removal. COMPARISON STUDY: Chest radiograph March 02, 2017. FINDINGS: A right pleural catheter is in place. There is no pneumothorax. Mild bibasilar opacities are present. Cardiomegaly is unchanged. There is no evidence for pulmonary edema. Right pleural fluid versus thickening is again noted. IMPRESSION: 1. Right pleural catheter in place. No pneumothorax. 2. Mild bibasilar opacities and a right pleural effusion versus pleural thickening. Electronically signed by: Tim Sanchez M.D. 03/03/2017 7:52 AM Dictated Date/Time: 03/03/2017 7:51 AM
[2017-03-03 08:22] LABS: COMPLETE YES; ECHINOCYTES 1+; POLYCHROMASIA 1+; TEAR DROP CELLS 1+; VACUOLIZATION 2+
[2017-03-03] MEDS: FLUTICASONE HFA 110MCG INHALER INH SCH ×2 (08:34→20:23)
[2017-03-03] MEDS: RANITIDINE HCL 150 MG TAB PO SCH ×2 (08:35→20:23)
[2017-03-03] MEDS: PANTOprazole SOD 40 MG TAB PO SCH (08:35)
[2017-03-03] MEDS: LISINOPRIL 5 MG TAB PO SCH (08:35)
[2017-03-03] MEDS: DOCUSATE SODIUM 100 MG CAP PO SCH ×2 (08:35→20:23)
[2017-03-03] MEDS: CALCIUM CARBONATE 500 MG CHEWABLE PO SCH (08:35)
[2017-03-03] MEDS: LORATADINE 10 MG TAB PO SCH (08:35)
[2017-03-03] MEDS: FERROUS SULFATE 325 MG TAB PO SCH (08:36)
[2017-03-03] MEDS: ASCORBIC ACID 500 MG TAB PO SCH (08:36)
[2017-03-03] MEDS: ENOXAPARIN 40 MG/0.4 ML SYR SQ SCH (08:37)
[2017-03-03] MEDS ORDERED: NURSING VERBAL MED ORDER ONE ×2 (11:45→12:00)
[2017-03-03] MEDS ORDERED: ACETAMINOPHEN 325 MG TAB PO PRN (12:15)
[2017-03-03] MEDS ORDERED: POLYETHYLENE (MIRALAX) 17 GM PACK PO PRN (12:15)
--- NOTE | 2017-03-03 17:21 | Progress Note ---
Internal Med Progress Note Date of Service: Mar 03, 2017. Provider Documentation: SUBJECTIVE: s/p VATS procedure on right lung resting comfortably denies sob eating ok constipated afebrile wants t be discharged soon OBJECTIVE: Vital Signs-as noted below Exam: General-alert and oriented. Not in distress ENT-Normal hearing Neck-no neck masses Lungs-CTA b/l no wheezing or crackles s/p Vats procedure on right lower lung Heart-S1 and S2 heard. Regular rate and rhythm, no murmurs Abdomen-Soft Bowel sounds present no tenderness present no distension Extremities-No pedal edema no erythema Neuro-alert and awake moves extremities Lab data as noted below. ASSESSMENT & PLAN: RIGHT LUNG EMPYEMA Patient was directly admitted to tele from pulmonary office sick for one month and had been treated for pneumonia with Levaquin and azithromycin lost 10pounds during this time CT chest done on 02/24 concerning for empyema started on IV Vanco and Zosyn#5 s/p vats procedure await cx- no growth till date chest tube taken out today to continue current abx stable ANEMIA ? due to underlying infection hb 9.2 on presentation hb dropped to 6.4 Hemoccult negative iron low s/p two units prbc hb 8.1 today PAF? monitor GERD on PPI and H2 rodo HTN On lisinopril will monitor. ASTHMA stable on Flovent will monitor DVT PROPHYLAXIS SCDs in light of possible procedure CODE STATUS Full DISPO monitor in tele pt/ot social service for d/c planning Vital Signs: Date Time Temp Pulse Resp B/P (MAP) Pulse Ox O2 Delivery O2 Flow Rate FiO2 03/03/17 16:00 Room Air 03/03/17 15:00 36.8 78 16 129/76 (93) 94 Room Air 03/03/17 12:00 Room Air 03/03/17 11:38 36.8 84 20 108/65 (79) 92 Room Air 03/03/17 08:00 Room Air 03/03/17 07:33 36.6 72 24 123/77 (92) 99 Nasal Cannula 2.0 03/03/17 04:00 36.8 87 126/75 (92) 94 Nasal Cannula 3.0 03/03/17 04:00 94 Nasal Cannula 3.0 03/03/17 00:00 92 Room Air 03/02/17 23:57 37.0 90 109/66 92 11/24/17 23:10 36.4 83 114/70 92 03/02/17 22:10 36.4 79 104/64 92 03/02/17 21:40 36.6 81 100/63 92 03/02/17 21:25 36.5 82 100/64 91 03/02/17 20:54 36.6 84 99/62 94 03/02/17 20:05 36.4 90 18 97/61 (73) 93 Room Air 03/02/17 20:00 94 Room Air 03/02/17 19:05 36.7 84 18 89/49 (62) 95 Room Air 03/02/17 18:36 36.5 81 18 97/62 94 03/02/17 18:19 37.0 114 20 107/64 99 Lab Results: Results Past 24 Hours Test 03/03/17 06:25 Range/Units White Blood Count 7.38 4.8-10.8 K/uL Red Blood Count 2.93 4.2-5.4 M/uL Hemoglobin 8.1 12.0-16.0 g/dL Hematocrit 26.0 37-47 % Mean Corpuscular Volume 88.7 80-100 fL Mean Corpuscular Hemoglobin 27.6 25-34 pg Mean Corpuscular Hemoglobin Concent 31.2 32-36 g/dl Platelet Count 406 130-400 K/uL Mean Platelet Volume 8.1 7.4-10.4 fL Neutrophils (%) (Auto) 72.0 % Lymphocytes (%) (Auto) 13.4 % Monocytes (%) (Auto) 10.0 % Eosinophils (%) (Auto) 3.8 % Basophils (%) (Auto) 0.3 % Neutrophils # (Auto) 5.31 1.4-6.5 K/uL Lymphocytes # (Auto) 0.99 1.2-3.4 K/uL Monocytes # (Auto) 0.74 0.11-0.59 K/uL Eosinophils # (Auto) 0.28 0-0.5 K/uL Basophils # (Auto) 0.02 0-0.2 K/uL RDW Standard Deviation 47.3 36.4-46.3 fL RDW Coefficient of Variation 14.7 11.5-14.5 % Immature Granulocyte % (Auto) 0.5 % Immature Granulocyte # (Auto) 0.04 0.00-0.02 K/uL Toxic Vacuolation 2+ Polychromasia 1+ Tear Drop Cells 1+ Echinocytes 1+ Creatinine 1.27 0.60-1.20 mg/dl Est Creatinine Clear Calc Drug Dose 40.7 ml/min Estimated GFR () 47.1 Estimated GFR (Non- 40.7
[2017-03-04 03:54] VITALS: BP 148/66; PULSE 83; TEMP 36.6; O2SAT 93
[2017-03-04 06:38] LABS: BASO % 0.3 %; BASO ABS # 0.02 K/uL (0-0.2); EOS % 3.3 %; HEMATOCRIT 28.2 % (37-47); IG% 0.6 %; LYMPH % 13.5 %; LYMPH ABS # 0.89 K/uL (1.2-3.4); MEAN CELL VOLUME 88.7 fL (80-100); MEAN CORPUSCULAR HEMOGLOBIN 27.7 pg (25-34); MEAN CORPUSCULAR HGB CONC 31.2 g/dl (32-36); MEAN PLATELET VOLUME 7.8 fL (7.4-10.4); MONO % 9.7 %; NEUT % 72.6 %; PLATELET COUNT 374 K/uL (130-400); RED BLOOD COUNT 3.18 M/uL (4.2-5.4); WHITE BLOOD COUNT 6.57 K/uL (4.8-10.8)
[2017-03-04 07:03] LABS: COMPLETE YES; ECHINOCYTES 1+; POLYCHROMASIA 1+
[2017-03-04 07:04] LABS: BUN/CREATININE RATIO 9.9 (10-20); CALCIUM 8.2 mg/dl (8.5-10.1); CREATININE 1.07 mg/dl (0.60-1.20); MAGNESIUM 2.1 mg/dl (1.8-2.4); POTASSIUM 3.4 mmol/L (3.5-5.1)
[2017-03-04] MEDS ORDERED: POTASSIUM CHLORIDE 20 MEQ TABCR PO STA (07:14)
[2017-03-04 08:08] VITALS: BP_SYST 175; BP_SYST 181; BP_DIAS 80; BP_DIAS 90; PULSE 100; TEMP 36.9; O2SAT 93
[2017-03-04] MEDS: FERROUS SULFATE 325 MG TAB PO SCH (08:17)
[2017-03-04] MEDS: LORATADINE 10 MG TAB PO SCH (08:17)
[2017-03-04] MEDS: RANITIDINE HCL 150 MG TAB PO SCH ×2 (08:17→20:43)
[2017-03-04] MEDS: FLUTICASONE HFA 110MCG INHALER INH SCH ×2 (08:18→20:43)
[2017-03-04] MEDS: LISINOPRIL 5 MG TAB PO SCH (08:18)
[2017-03-04] MEDS: CALCIUM CARBONATE 500 MG CHEWABLE PO SCH (08:18)
[2017-03-04] MEDS: PANTOprazole SOD 40 MG TAB PO SCH (08:18)
[2017-03-04] MEDS: ASCORBIC ACID 500 MG TAB PO SCH (08:18)
[2017-03-04] MEDS: DOCUSATE SODIUM 100 MG CAP PO SCH ×2 (08:18→20:43)
[2017-03-04] MEDS: ENOXAPARIN 40 MG/0.4 ML SYR SQ SCH (08:19)
--- NOTE | 2017-03-04 08:52 | SURGERY PROGRESS NOTE ---
DATE: 03/04/2017 SUBJECTIVE: She looks very good. Her lungs sound good. All of her incisions are clean. She drained very little from her PleurX catheter today. I may remove this tomorrow depending on what we find. I would like to check an AP and a lateral chest x-ray before we do that to make sure she has an accumulating fluid posteriorly. Her white count is now normal. Her creatinine is normalized. She has made good urine. Her only thing now is she is "weak." At this point, I would like to get her moving more. From my standpoint, I believe she can probably be discharged when the primary care service feels she can go. We may need to consider rehab initially. EFREN
[2017-03-04] MEDS ORDERED: DOXYCYCLINE HYCLATE 100 MG CAP PO ONE (10:30)
[2017-03-04] MEDS: AMOXICILLIN/CLAVULANATE TAB 500 MG TAB PO SCH ×2 (11:07→16:56)
[2017-03-04 12:03] VITALS: BP 139/84; PULSE 85; TEMP 36.7; O2SAT 96
[2017-03-04 15:21] VITALS: BP 136/79; PULSE 82; TEMP 36.8; O2SAT 95
--- NOTE | 2017-03-04 17:03 | Progress Note ---
Internal Med Progress Note Date of Service: Mar 04, 2017. Provider Documentation: SUBJECTIVE: s/p VATS procedure on right lung feeling weak and tired afebrile denies sob no cough eating ok moved bowels does not want to go to group home OBJECTIVE: Vital Signs-as noted below Exam: General-alert and oriented. Not in distress ENT-Normal hearing Neck-no neck masses Lungs-CTA b/l no wheezing or crackles s/p Vats procedure on right lower lung Heart-S1 and S2 heard. Regular rate and rhythm, no murmurs Abdomen-Soft Bowel sounds present no tenderness present no distension Extremities-No pedal edema no erythema Neuro-alert and awake moves extremities Lab data as noted below. ASSESSMENT & PLAN: RIGHT LUNG EMPYEMA Patient was directly admitted to tele from pulmonary office sick for one month and had been treated for pneumonia with Levaquin and azithromycin lost 10pounds during this time CT chest done on 02/24 concerning for empyema started on IV Vanco and Zosyn#5 s/p vats procedure await cx- no growth till date chest tube taken out yesterday abx changed to po Augmentin and doxy plan to take out Pleurx cath in am per Ct surgery stable ANEMIA ? due to underlying infection hb 9.2 on presentation hb dropped to 6.4 Hemoccult negative iron low s/p two units prbc hb 8.8 today PAF? monitor GERD on PPI and H2 rodo HTN On lisinopril will monitor. ASTHMA stable on Flovent will monitor DVT PROPHYLAXIS SCDs in light of possible procedure CODE STATUS Full DISPO monitor in tele pt/ot possible d./c in am social service for d/c planning Vital Signs: Date Time Temp Pulse Resp B/P (MAP) Pulse Ox O2 Delivery O2 Flow Rate FiO2 03/04/17 16:00 Room Air 03/04/17 15:21 36.8 82 18 136/79 (98) 95 Room Air 03/04/17 12:03 36.7 85 16 139/84 (102) 96 Room Air 03/04/17 12:00 Room Air 03/04/17 08:08 36.9 100 18 181/80 (113) 93 Room Air 175/90 (118) 03/04/17 08:00 Room Air 03/04/17 04:00 Room Air 03/04/17 03:54 36.6 83 18 148/66 (93) 93 Room Air 03/04/17 00:01 Room Air 03/03/17 23:30 37.0 78 20 111/61 (78) 95 Room Air 03/03/17 20:00 Room Air 03/03/17 19:02 37.8 88 18 119/71 (87) 92 Room Air Lab Results: Results Past 24 Hours Test 03/04/17 06:22 Range/Units White Blood Count 6.57 4.8-10.8 K/uL Red Blood Count 3.18 4.2-5.4 M/uL Hemoglobin 8.8 12.0-16.0 g/dL Hematocrit 28.2 37-47 % Mean Corpuscular Volume 88.7 80-100 fL Mean Corpuscular Hemoglobin 27.7 25-34 pg Mean Corpuscular Hemoglobin Concent 31.2 32-36 g/dl Platelet Count 374 130-400 K/uL Mean Platelet Volume 7.8 7.4-10.4 fL Neutrophils (%) (Auto) 72.6 % Lymphocytes (%) (Auto) 13.5 % Monocytes (%) (Auto) 9.7 % Eosinophils (%) (Auto) 3.3 % Basophils (%) (Auto) 0.3 % Neutrophils # (Auto) 4.76 1.4-6.5 K/uL Lymphocytes # (Auto) 0.89 1.2-3.4 K/uL Monocytes # (Auto) 0.64 0.11-0.59 K/uL Eosinophils # (Auto) 0.22 0-0.5 K/uL Basophils # (Auto) 0.02 0-0.2 K/uL RDW Standard Deviation 47.7 36.4-46.3 fL RDW Coefficient of Variation 14.8 11.5-14.5 % Immature Granulocyte % (Auto) 0.6 % Immature Granulocyte # (Auto) 0.04 0.00-0.02 K/uL Polychromasia 1+ Echinocytes 1+ Sodium Level 139 136-145 mmol/L Potassium Level 3.4 3.5-5.1 mmol/L Chloride Level 108 98-107 mmol/L Carbon Dioxide Level 24 21-32 mmol/L Anion Gap 7.0 3-11 mmol/L Blood Urea Nitrogen 11 7-18 mg/dl Creatinine 1.07 0.60-1.20 mg/dl Est Creatinine Clear Calc Drug Dose 47.9 ml/min Estimated GFR () 58.0 Estimated GFR (Non- 50.0 BUN/Creatinine Ratio 9.9 10-20 Random Glucose 92 70-99 mg/dl Calcium Level 8.2 8.5-10.1 mg/dl Magnesium Level 2.1 1.8-2.4 mg/dl
[2017-03-04 19:06] VITALS: BP 143/79; PULSE 85; TEMP 37.1; O2SAT 94
[2017-03-04] MEDS: DOXYCYCLINE HYCLATE 100 MG CAP PO SCH (20:43)
--- NOTE | 2017-03-04 22:52 | Progress Note ---
Post ICU Progress Note Date & Time Mar 04, 2017 at 21:43 Vital Signs Vital Signs Past 12 Hours Date Time Temp Pulse Resp B/P (MAP) Pulse Ox O2 Delivery O2 Flow Rate FiO2 03/04/17 20:00 Room Air 03/04/17 19:06 37.1 85 18 143/79 (100) 94 Room Air 03/04/17 16:00 Room Air 03/04/17 15:21 36.8 82 18 136/79 (98) 95 Room Air 03/04/17 12:03 36.7 85 16 139/84 (102) 96 Room Air 03/04/17 12:00 Room Air Notes Mental Status: alert / awake, see Notes (Note completed by chart review) Nausea / Vomiting: adequately controlled Pain: adequately controlled (minor pain with coughing, refused pain medication ) Airway Patency, RR, SpO2: stable & adequate (On room air with adequate saturations) BP & HR: stable & adequate Amada Leblanc is a very pleasant 76 yo female who presented to the hospital via our pulmonary service for a presumed Empyema that required decortication by Dr. Saba. Pt came to the ICU s/p surgery for close monitoring on 02/28. She remained stable overnight and did not require invasive monitoring or intubation. She had both a chest tube and pleurex catheter in place s/p decortication. Pt required blood transfusion of 2u PRBCs the following morning for an H&H of 6.4. Pt was transferred for the unit the following day. She remains in the hospital with her Right Pleurex still in place. Pts only complaint per record is minor pain with cough; however, she has refused medications at this time. Dr. Saba's documentation suggest possible removal of the pleurex on 03/04, if drainage remain minimal and discharge if approved by hospitalist team. Pt remains weak but has been ambulating the hallways successfully. PT recommended return to home with family assistance in addition to need for home health services. Pt is hemodynamically stable. Consider outpatient follow up in 1 to 2 weeks with: Dr. Day ( Primary Care) and Dr. Kerr (Pulm) Repeat imaging needed: CXR for monitoring in AM Follow up cultures: Per Pulmonary Team Reviewed progress notes, labs, and inpatient medication list Continue current management Additional recommendations: None Pt remains stable at this time. Critical Care will sign off at this time; please feel free to reconsult as needed. Consults & Procedures Consultants: Critical care Pulmonary Thoracic surgery Procedures: Right ultrasound-guided tunneled indwelling pleural catheter 02/27/2017 Right thorascopic decortication and evacuation of presumptive empyema 02/28/2017
[2017-03-04 23:40] VITALS: BP 130/72; PULSE 87; TEMP 37.2; O2SAT 91
[2017-03-05 03:43] VITALS: BP 125/64; PULSE 85; TEMP 37.1; O2SAT 92
[2017-03-05 06:52] LABS: BASO % 0.1 %; BASO ABS # 0.01 K/uL (0-0.2); EOS % 2.7 %; HEMATOCRIT 26.6 % (37-47); IG% 0.5 %; LYMPH % 16.4 %; LYMPH ABS # 1.22 K/uL (1.2-3.4); MEAN CELL VOLUME 88.7 fL (80-100); MEAN CORPUSCULAR HEMOGLOBIN 27.7 pg (25-34); MEAN CORPUSCULAR HGB CONC 31.2 g/dl (32-36); MEAN PLATELET VOLUME 7.9 fL (7.4-10.4); MONO % 12.5 %; NEUT % 67.8 %; PLATELET COUNT 374 K/uL (130-400); WHITE BLOOD COUNT 7.46 K/uL (4.8-10.8)
[2017-03-05 07:20] LABS: COMPLETE YES; ECHINOCYTES 1+
[2017-03-05 07:25] LABS: BUN/CREATININE RATIO 9.2 (10-20); CALCIUM 7.9 mg/dl (8.5-10.1); CREATININE 0.95 mg/dl (0.60-1.20); POTASSIUM 3.4 mmol/L (3.5-5.1)
[2017-03-05] MEDS: LORATADINE 10 MG TAB PO SCH (07:47)
[2017-03-05] MEDS: DOCUSATE SODIUM 100 MG CAP PO SCH (07:47)
[2017-03-05] MEDS: FERROUS SULFATE 325 MG TAB PO SCH (07:47)
[2017-03-05] MEDS: AMOXICILLIN/CLAVULANATE TAB 500 MG TAB PO SCH (07:48)
[2017-03-05] MEDS: RANITIDINE HCL 150 MG TAB PO SCH (07:48)
[2017-03-05] MEDS: LISINOPRIL 5 MG TAB PO SCH (07:48)
[2017-03-05] MEDS: DOXYCYCLINE HYCLATE 100 MG CAP PO SCH (07:48)
[2017-03-05] MEDS: CALCIUM CARBONATE 500 MG CHEWABLE PO SCH (07:48)
[2017-03-05] MEDS: ASCORBIC ACID 500 MG TAB PO SCH (07:48)
[2017-03-05] MEDS: PANTOprazole SOD 40 MG TAB PO SCH (07:48)
[2017-03-05] MEDS: ENOXAPARIN 40 MG/0.4 ML SYR SQ SCH (07:49)
[2017-03-05] MEDS: FLUTICASONE HFA 110MCG INHALER INH SCH (07:49)
[2017-03-05 07:56] VITALS: BP 123/76; PULSE 82; TEMP 36.8; O2SAT 93
--- NOTE | 2017-03-05 08:23 | DIAGNOSTIC IMAGING REPORT ---
TWO VIEW CHEST CLINICAL HISTORY: Empyema. FINDINGS: PA and lateral chest radiographs are compared to study dated 03/03/2017 and correlated with chest CT dated 02/24/2017. The cardiomediastinal silhouette is unremarkable. A right-sided chest tube is unchanged in position. Pleural fluid and consolidation at the right lung base is similar to previous. Left basilar atelectasis is observed. There is no pneumothorax. The skeletal structures are osteopenic. The bony thorax appears intact. IMPRESSION: 1. A right-sided chest tube is unchanged in position. No pneumothorax is seen. 2. Pleural fluid and consolidation at the right lung base is similar to previous. 3. The left lung is grossly clear. Electronically signed by: Hernandez Reese M.D. 03/05/2017 8:22 AM Dictated Date/Time: 03/05/2017 8:20 AM
[2017-03-05 11:58] VITALS: BP 107/71; PULSE 71; TEMP 36.7; O2SAT 96
[2017-03-05] MEDS ORDERED: POTASSIUM CHLORIDE 20 MEQ TABCR PO ONE (13:00)
[2017-03-05 13:32] VITALS: BP 107/71; PULSE 71; O2SAT 96
--- NOTE | 2017-03-05 14:05 | DIAGNOSTIC IMAGING REPORT ---
CHEST ONE VIEW PORTABLE CLINICAL HISTORY: pleurex removal post procedure COMPARISON STUDY: 03/05/2017 8:15 AM FINDINGS: Interval removal of the right hemithoracic transcatheter. Continued improvement in aeration right lung base with improving thorax at change right base laterally. Left lung remains clear. No evidence pneumothorax. IMPRESSION: 1. Interval removal of the right drainage catheter. 2. No significant pneumothorax. 3. Mild decrease in prominence of the pleural reactive change right base The above report was generated using voice recognition software. It may contain grammatical, syntax or spelling errors. Electronically signed by: Srini Hahn M.D. 03/05/2017 2:04 PM Dictated Date/Time: 03/05/2017 2:02 PM
[2017-03-05] MEDS ORDERED: DXY100 PO (14:57)
[2017-03-05] MEDS ORDERED: FRRS300 PO (14:57)
[2017-03-05] MEDS ORDERED: AMOX1TAB42 PO (14:57)
--- NOTE | 2017-03-05 15:00 | Discharge Instructions ---
Discharge Instructions Date of Service Mar 05, 2017. Admission Reason for Admission: Empyema Discharge Discharge Diagnosis / Problem: empyema, anemia Discharge Goals Goal(s): Decrease discomfort, Improve function Activity Recommendations Activity Limitations: resume your previous activity . Instructions / Follow-Up Instructions / Follow-Up FOLLOWUP WITH FAMILY DOCTOR DR.NEW AGEE ON Feb AT 1:15PM FOLLOWUP WITH CT SURGERY IN 2-3 WEEKS. FOLLOWUP FOR ANEMIA WITH FAMILY DOCTOR. Current Hospital Diet Patient's current hospital diet: Regular Diet Discharge Diet Recommended Diet: Regular Diet Procedures Procedures Performed: Right Thoracoscopy with Decortication Pending Studies Studies pending at discharge: no Medical Emergencies . Who to Call and When: Medical Emergencies: If at any time you feel your situation is an emergency, please call 911 immediately. . Non-Emergent Contact Non-Emergency issues call your: Primary Care Provider . . "Provider Documentation" section prepared by Tigre Still. . VTE Core Measure Inpt VTE Proph given/why not?: Enoxaparin (Lovenox)SQ
[2017-03-05 15:04] VITALS: BP 107/71; PULSE 71; TEMP 36.7; O2SAT 96
--- NOTE | 2017-03-05 15:16 | Progress Note ---
Internal Med Progress Note Date of Service: Mar 05, 2017. Provider Documentation: SUBJECTIVE: s/p VATS procedure on right lung appetite is better but no great ambulating fine afebrile denies sob still has cough with sputum says feeling much better than when she came in wants to go home OBJECTIVE: Vital Signs-as noted below Exam: General-alert and oriented. Not in distress ENT-Normal hearing Neck-no neck masses Lungs-CTA b/l no wheezing or crackles s/p Vats procedure on right lower lung Heart-S1 and S2 heard. Regular rate and rhythm, no murmurs Abdomen-Soft Bowel sounds present no tenderness present no distension Extremities-No pedal edema no erythema Neuro-alert and awake moves extremities Lab data as noted below. ASSESSMENT & PLAN: RIGHT LUNG EMPYEMA Patient was directly admitted to [facility] from pulmonary office sick for one month and had been treated for pneumonia with Levaquin and azithromycin lost 10pounds during this time CT chest done on 02/24 concerning for empyema started on IV Vanco and Zosyn#5 s/p vats procedure await cx- no growth till date chest tube taken out yesterday abx changed to po Augmentin and doxy to complete total 10day course Pleurx catheter taken out today stable ANEMIA ? due to underlying infection hb 9.2 on presentation hb dropped to 6.4 Hemoccult negative iron low s/p two units prbc started on iron pills hb 8.3 today f/u with pcp. PAF? monitor GERD on PPI and H2 rodo HTN On lisinopril will monitor. ASTHMA stable on Flovent will monitor discharged home Vital Signs: Date Time Temp Pulse Resp B/P (MAP) Pulse Ox O2 Delivery O2 Flow Rate FiO2 03/05/17 15:04 36.7 71 18 96 Room Air 03/05/17 13:32 71 96 03/05/17 12:00 Room Air 03/05/17 11:58 36.7 71 18 107/71 (83) 96 Room Air 03/05/17 08:00 Room Air 03/05/17 07:56 36.8 82 18 123/76 (92) 93 Room Air 03/05/17 04:00 Room Air 03/05/17 03:43 37.1 85 18 125/64 (84) 92 Room Air 03/05/17 00:01 Room Air 03/04/17 23:40 37.2 87 17 130/72 (91) 91 Room Air 03/04/17 20:00 Room Air 03/04/17 19:06 37.1 85 18 143/79 (100) 94 Room Air 03/04/17 16:00 Room Air 03/04/17 15:21 36.8 82 18 136/79 (98) 95 Room Air Lab Results: Results Past 24 Hours Test 03/05/17 06:14 Range/Units White Blood Count 7.46 4.8-10.8 K/uL Red Blood Count 3.00 4.2-5.4 M/uL Hemoglobin 8.3 12.0-16.0 g/dL Hematocrit 26.6 37-47 % Mean Corpuscular Volume 88.7 80-100 fL Mean Corpuscular Hemoglobin 27.7 25-34 pg Mean Corpuscular Hemoglobin Concent 31.2 32-36 g/dl Platelet Count 374 130-400 K/uL Mean Platelet Volume 7.9 7.4-10.4 fL Neutrophils (%) (Auto) 67.8 % Lymphocytes (%) (Auto) 16.4 % Monocytes (%) (Auto) 12.5 % Eosinophils (%) (Auto) 2.7 % Basophils (%) (Auto) 0.1 % Neutrophils # (Auto) 5.06 1.4-6.5 K/uL Lymphocytes # (Auto) 1.22 1.2-3.4 K/uL Monocytes # (Auto) 0.93 0.11-0.59 K/uL Eosinophils # (Auto) 0.20 0-0.5 K/uL Basophils # (Auto) 0.01 0-0.2 K/uL RDW Standard Deviation 48.1 36.4-46.3 fL RDW Coefficient of Variation 15.1 11.5-14.5 % Immature Granulocyte % (Auto) 0.5 % Immature Granulocyte # (Auto) 0.04 0.00-0.02 K/uL Echinocytes 1+ Sodium Level 138 136-145 mmol/L Potassium Level 3.4 3.5-5.1 mmol/L Chloride Level 106 98-107 mmol/L Carbon Dioxide Level 24 21-32 mmol/L Anion Gap 8.0 3-11 mmol/L Blood Urea Nitrogen 9 7-18 mg/dl Creatinine 0.95 0.60-1.20 mg/dl Est Creatinine Clear Calc Drug Dose 54.6 ml/min Estimated GFR () 67.0 Estimated GFR (Non- 57.8 BUN/Creatinine Ratio 9.2 10-20 Random Glucose 106 70-99 mg/dl Calcium Level 7.9 8.5-10.1 mg/dl Magnesium Level 2.0 1.8-2.4 mg/dl
--- NOTE | 2017-03-05 16:55 | Discharge Summary ---
Discharge Summary Date of Service Mar 05, 2017. Discharge Summary Admission Date: Feb 27, 2017 at 15:47 Discharge Date: Mar 05, 2017 Discharge Disposition: Home Principal Diagnosis: EMPYEMA S/P VATS PROCEDURE ANEMIA Secondary Diagnoses/Problems: (1) Asthma Status: Chronic (2) Dyslipidemia Status: Chronic (3) GERD (gastroesophageal reflux disease) Status: Chronic (4) HTN (hypertension) Status: Chronic Procedures: CT CHEST: 1. Right pleural catheter malpositioned, coiled within the lateral right chest wall. The tube should be repositioned. Discussed with Dr. Kerr at time of dictation. 2. Fluid and gas containing posterior right hemithorax collection which suggests an empyema. Associated right lower lobe opacity could reflect pneumonia or atelectasis. 3. Mild mediastinal and right hilar lymphadenopathy which is likely reactive however a follow-up chest CT in one to 2 months to ensure resolution is recommended to exclude the less likely possibility of a neoplastic process. CXR 03/05/17: 1. Interval removal of the right drainage catheter. 2. No significant pneumothorax. 3. Mild decrease in prominence of the pleural reactive change right base Consultations: PULMONARY CT SURGERY CRITICAL ACRE Medication Reconciliation New Medications: Amoxicillin & Pot Clavulanate (Amoxicillin/Clavulanate P) 1 Tab Tab 500 MG PO BIDM for 4 Days, TAB Doxycycline Hyclate (Doxycycline Hyclate) 100 Mg Cap 100 MG PO BID for 4 Days, #8 CAP Ferrous Sulfate (Ferrous Sulfate) 325 Mg Tab 325 MG PO QAM, #30 TAB 1 Refill Continued Medications: Albuterol Sulfate (Proair Respiclick) 108 Mcg/Act Aer 2 PUFFS INH Q4H PRN for SOB/Wheezing Aspirin (Aspirin EC Low Dose) 81 Mg Ectab 81 MG PO DAILY Calcium Carbonate (Calcium 600) 600 Mg Tab 1 TAB PO DAILY Conjugated Estrogens-Bazedoxif (Duavee 0.45-20 mg) 1 Tab Tab 1 TAB PO DAILY Fluticasone Propionate (Flovent Hfa) 120 Puffs/14398 Mcg Aero 2 PUFFS INH BID for 30 Days, #1 INHALER 2 Refills Fluticasone Propionate (Nasal) (Flonase Allergy Relief) 50 Mcg/Act Spr 2 SPRY NA DAILY Lisinopril (Prinivil) 5 Mg Tab 5 MG PO DAILY, TAB Loratadine (Claritin) 10 Mg Tab 1 TAB PO DAILY for 30 Days, #30 TAB 5 Refills Pantoprazole (Protonix) 40 Mg Tab 40 MG PO DAILY, #30 TAB Pseudoephedrine-Guaifenesin (Mucinex D) 1 Tab Tab 1 TAB PO BID PRN for Cough for 10 Days, #20 TAB Ranitidine (Zantac) 300 Mg Tab 300 MG PO BID, TAB Admission Information HPI (per Admitting provider): 76 year old female who was referred to the ED for direct admission from the pulmonary office for empyema. Patient reports she has been sick for about one month. She initially presented with right sided rib pain. CXR was obtained that was concerning for pneumonia. Patient was placed on Levaquin on 01/26. Patient has had repeat CXRs that showed a persistent right lung consolidation. She was seen in the clinic on 02/20 with reports of still not feeling well. She was placed on azithromycin at that time. She had a CT chest done on 02/24 that was concerning for empyema. She was then referred to pulmonology. Patient reports her main symptom has been weakness and fatigue. She has had nausea and poor appetite. She reports a 10 pound weight loss in the past month. She denies abdominal pain, vomiting, or diarrhea. She reports a minimal cough that is productive for clear sputum. She denies chest pain and shortness of breath. No fever or chills. She denies lightheadedness, dizziness, diaphoresis, or syncopal events. No urinary symptoms. At the time of my exam, patient is resting in bed in no acute distress. Physical Exam (per Admitting): General Appearance: WD/WN, no apparent distress Head: normocephalic, atraumatic Eyes: normal inspection, EOMI, sclerae normal ENT: hearing grossly normal, + pertinent finding (mucous membranes moist) Neck: supple, no JVD, trachea midline Respiratory/Chest: no respiratory distress, + decreased breath sounds ( right base) Cardiovascular: regular rate, rhythm, no edema, normal peripheral pulses Abdomen/GI: normal bowel sounds, non tender, soft, no organomegaly Extremities/Musculoskelatal: normal inspection, no calf tenderness, normal capillary refill Neurologic/Psych: no motor/sensory deficits, alert, normal mood/affect, oriented x 3 Skin: normal color, warm/dry Hospital Course RIGHT LUNG EMPYEMA Patient was directly admitted to [facility] from pulmonary office sick for one month and had been treated for pneumonia with Levaquin and azithromycin lost 10pounds during this time CT chest done on 02/24 concerning for empyema started on IV Vanco and Zosyn#5 s/p vats procedure await cx- no growth till date chest tube taken out yesterday abx changed to po Augmentin and doxy to complete total 10day course Pleurx catheter taken out today stable ANEMIA ? due to underlying infection hb 9.2 on presentation hb dropped to 6.4 Hemoccult negative iron low s/p two units prbc started on iron pills hb 8.3 today f/u with pcp. PAF? monitor GERD on PPI and H2 rodo HTN On lisinopril will monitor. ASTHMA stable on Flovent will monitor discharged home Total time spent on discharge = 35MINUTES This includes examination of the patient, discharge planning, medication reconciliation, and communication with other providers. Discharge Instructions Discharge Instructions Date of Service Mar 05, 2017. Admission Reason for Admission: Empyema Discharge Discharge Diagnosis / Problem: empyema, anemia Discharge Goals Goal(s): Decrease discomfort, Improve function Activity Recommendations Activity Limitations: resume your previous activity . Instructions / Follow-Up Instructions / Follow-Up FOLLOWUP WITH FAMILY DOCTOR DR.NEW AGEE ON Feb AT 1:15PM FOLLOWUP WITH CT SURGERY IN 2-3 WEEKS. FOLLOWUP FOR ANEMIA WITH FAMILY DOCTOR. Current Hospital Diet Patient's current hospital diet: Regular Diet Discharge Diet Recommended Diet: Regular Diet Procedures Procedures Performed: Right Thoracoscopy with Decortication Pending Studies Studies pending at discharge: no Medical Emergencies . Who to Call and When: Medical Emergencies: If at any time you feel your situation is an emergency, please call 911 immediately. . Non-Emergent Contact Non-Emergency issues call your: Primary Care Provider . . "Provider Documentation" section prepared by Tigre Still. . VTE Core Measure Inpt VTE Proph given/why not?: Enoxaparin (Lovenox)SQ
--- NOTE | 2017-03-06 13:12 | Progress Note ---
Progress Note Date of Service Mar 05, 2017. Progress Note Pleurex catheter removed without difficulty. Sterile dressing applied.
--- NOTE | 2017-03-07 09:45 | EDITING REQUIRED CODING QUERY ---
SEPSIS To promote full compliance with coding requirements relating to patient care, physician participation is requested in all cases of auto specialty services manager uncertainty. Please assist us with the question(s) below: In responding to this query, please exercise your independent professional judgement. The fact that a question is asked does not imply that any particular answer is desired or expected. We appreciate your clarification on this issue. Throughout the medical record, you have clearly documented a localized infection and your patient has clinical evidence of a generalized sepsis or severe sepsis. The term urosepsis is a nonspecific entity and is coded as an UTI. If the patient has sepsis, severe sepsis, from an urinary source or some other source, please clarify in your response below. The medical record reflects the following clinical findings: 03/01/[address] Kerr: Status post VATS with decortication of right empyema on 02/28/17, now with sepsis/SIRS response with: respirations 15-35 (>20/minute), WBC count 24,000 (>12,000 or <4,000), hypotension, acute kidney injury () Postop Sepsis Specify Organism Specify Associated Condition/Diagnosis () Present on Admission () Not Present on admission () Unable to clinically determine () Sepsis Specify Organism Specify Associated Condition/Diagnosis () Present on Admission () Not present on admission (x) Unable to clinically determine () Severe Sepsis (Sepsis associated with acute organ dysfunction) Specify Organism Specify Associated Condition/Diagnosis () Present on Admission () Not present on admission () Unable to clinically determine () Septic Shock (Severe sepsis with acute circulatory failure, unexplained by other causes) () Present on Admission () Not present on admission () Unable to clinically determine () Other, patient has:
== END 2017-03-05 15:30 | disposition home or self-care (01) | DRG 163 ==
LOC: C.2E 15:47 → ENRESERV 02-28 16:10 → C.MSICU 02-28 16:31 → C.2T 03-02 13:46
PROVIDERS: ADMIT Hospitalist; ATTEND Internal Medicine
PROC: 0B9N30Z Drainage of Right Pleura with Drainage Device, Percutaneous Approach (ICD-10-PCS; 2017-02-27)
PROC: 0BNK8ZZ Release Right Lung, Via Natural or Artificial Opening Endoscopic (ICD-10-PCS; principal; 2017-02-28 07:00)
PROC: 0BCN4ZZ Extirpation of Matter from Right Pleura, Percutaneous Endoscopic Approach (ICD-10-PCS; principal; 2017-02-28 07:00)
PROC: 0BB Respiratory System, Excision (ICD-10-PCS; principal; 2017-02-28 07:00)
PROC: 0B9N40Z Drainage of Right Pleura with Drainage Device, Percutaneous Endoscopic Approach (ICD-10-PCS; principal; 2017-02-28 07:00)
DX: J86.9 Pyothorax without fistula (principal); J18.1 Lobar pneumonia, unspecified organism; A41.9 Sepsis, unspecified organism; D62 Acute posthemorrhagic anemia; N17.9 Acute kidney failure, unspecified; I48.0 Paroxysmal atrial fibrillation; K59.00 Constipation, unspecified; R63.4 Abnormal weight loss; D64.9 Anemia, unspecified; K21.9 Gastro-esophageal reflux disease without esophagitis; I10 Essential (primary) hypertension; J45.909 Unspecified asthma, uncomplicated; Z85.828 Personal history of other malignant neoplasm of skin; Z79.82 Long term (current) use of aspirin; Z79.890 Hormone replacement therapy; Z79.899 Other long term (current) drug therapy; Z88.1 Allergy status to other antibiotic agents; Z82.0 Family history of epilepsy and other diseases of the nervous system; Z82.3 Family history of stroke; Z82.49 Family history of ischemic heart disease and other diseases of the circulatory system; Z83.3 Family history of diabetes mellitus

== ENCOUNTER → 2017-03-20 | Outpatient (CLI) | payer OTHER ==
[~2017-03-20] MED LIST changes: +ALBU18002 INH; +AMOX1TAB42 PO; +ASPEC81 PO; +CALC600T PO; +CONJ1TAB PO; +DXY100 PO; +FLUT0.15; +FLVHFA110 INH; +FRRS300 PO; +LISI-729 PO; +LORA10TA51 PO; +PANT1TAB3 PO; -PIPERACILL/TAZOBAC IV 4.5 GM in DEXTROSE 5% 100ML IV ONE; +PSEU60TA80 PO; +RANI300T2 PO; -VANCOMYCIN INJ 2,000 MG in SODIUM CHLORIDE 0.9% 500ML 500 ML IV ONE
--- NOTE | 2017-03-20 09:21 | DIAGNOSTIC IMAGING REPORT ---
CHEST 2 VIEWS ROUTINE HISTORY: 76 years-old Female J90 Loculated pleural [id number] follow-up study to assess right pleural effusion COMPARISON: Chest radiograph 03/05/2017, CT chest 02/27/2017 TECHNIQUE: PA and lateral views of the chest FINDINGS: Cardiac silhouette is within normal limits. Minimal subsegmental opacity of the left lower lobe suggests atelectasis or scarring which is unchanged. Small loculated right pleural effusion is unchanged with persistent reticular opacities throughout the right lung base and lateral aspect of the right midlung. No pneumothorax. Bones of the chest appear grossly intact. IMPRESSION: 1. Stable exam with persistent mildly loculated small right pleural effusion with chronic reticular opacities of the right lung base and lateral aspect of the right midlung suggesting areas of scarring. 2. No pneumothorax. The above report was generated using voice recognition software. It may contain grammatical, syntax or spelling errors. Electronically signed by: Jonathan Leija M.D. 03/20/2017 9:20 AM Dictated Date/Time: 03/20/2017 9:17 AM
== END | disposition home or self-care (01) ==
LOC: C.RAD1850 09:04
PROVIDERS: ATTEND Surgery
DX: J86.9 Pyothorax without fistula (principal)

== ENCOUNTER → 2017-06-16 | Outpatient (CLI) | payer OTHER ==
--- NOTE | 2017-06-16 10:50 | DIAGNOSTIC IMAGING REPORT ---
CHEST 2 VIEWS ROUTINE HISTORY: 76 years-old Female LOCULATED PLEURAL EFFESION follow-up study in a patient with loculated right pleural effusion COMPARISON: Chest radiographs 03/20/2017 TECHNIQUE: PA and lateral views of the chest FINDINGS: Cardiac silhouette is within normal limits. Left subdiaphragmatic lucency likely secondary to gastric bubble. Linear subsegmental right perihilar and right basilar opacities suggest atelectasis. Mild right hemidiaphragmatic elevation. There is mild blunting of the right costophrenic angles suggesting trace effusion which has decreased in size from comparison. Loculated component along the lateral right hemithorax is no longer identified. No pneumothorax. No overt pulmonary edema. Bones of the chest appear grossly intact. IMPRESSION: 1. Trace right pleural effusion, decreased in size from comparison with the previously noted loculated component along the lateral right hemithorax no longer identified. 2. Subsegmental linear right perihilar and right basilar opacities suggest atelectasis/scarring. The above report was generated using voice recognition software. It may contain grammatical, syntax or spelling errors. Electronically signed by: Jonathan Leija M.D. 06/16/2017 10:49 AM Dictated Date/Time: 06/16/2017 10:46 AM
== END | disposition home or self-care (01) ==
LOC: C.RAD1850 10:26
PROVIDERS: ATTEND Physician Assistant
DX: J90 Pleural effusion, not elsewhere classified (principal)

== ENCOUNTER 2023-07-10 16:28 | Inpatient (IN) ==
--- NOTE | 2023-07-10 16:46 | ED Triage Note ---
Date of Service July 10, 2023 Provider in Triage Author: Marilin Mac History of Present Illness This patient was briefly evaluated while in triage. An abbreviated physical exam was performed. This patient is a 82-year-old Female who presents to the ED accompanied by her son for evaluation of low oxygen. She was seeing her family doctor due to fatigue and has had some wheezing from time to time. She was told her oxygen levels were low there. She has had an occasional cough but nothing significant. Physical Exam GENERAL: Non-toxic and in no acute distress. Sitting upright in wheelchair. HEENT: Pupils equal. No obvious scleral icterus. HEART: Regular rate and rhythm. LUNGS: Clear to auscultation. No accessory muscle use. NEURO: Alert and oriented. No obvious neurological deficits on quick neuro exam. Initial orders for labs and / or imaging were placed and patient was placed in the waiting area until a bed is available. Please see further documentation for the full ED course.
--- NOTE | 2023-07-10 18:01 | XRay Report ---
XR chest 1V portable HISTORY: 82 years-old Female Dyspnea COMPARISON: 06/16/2017 TECHNIQUE: AP view of the chest FINDINGS: Cardiac silhouette is enlarged. Pulmonary vascular congestion with interstitial coarsening and patchy bilateral alveolar opacities. No pneumothorax or large pleural effusion. Degenerative changes of the shoulders and spine. IMPRESSION: 1. Cardiomegaly with pulmonary vascular congestion. 2. Mixed interstitial and alveolar opacities are suspicious for multifocal pneumonia. Pulmonary edema could appear similarly. ACT 112: Negative or not required by law. The above report was generated using voice recognition software. It may contain grammatical, syntax o r spelling errors. Electronically signed by: Stefan Leija M.D. 07/10/2023 6:00 PM
[2023-07-10 18:07] LABS: Appearance Urine Clear (Clear); Bacteria Urine Automated 4+ (Negative); Bilirubin Urine Negative (Negative); Blood Urine Trace (Negative); Cast Urine Automated 0 /lpf (0-5); Color Urine Yellow; Epithelial Cell Urine Auto 0-5 /lpf (0-5); Glucose Urine UA Negative (Negative); Ketones Urine Negative (Negative); Leukocyte Esterase Urine 2+ (Negative); Nitrite Urine Positive (Negative); Protein Urine Negative (Negative); RBC Urine Automated 0-4 /hpf (0-4); Specific Gravity Urine 1.008 (1.000-1.030); Urobilinogen Urine Negative (Negative); WBC Urine Automated >30 /hpf (0-5)
[2023-07-10 18:32] LABS: Basophils # (auto) 0.07 K/uL (0.00-0.20); Basophils % (auto) 1.1 %; Eosinophils # (auto) 0.32 K/uL (0.00-0.50); Eosinophils % (auto) 5.2 %; Hematocrit (blood only) 40.2 % (37.0-47.0); Hemoglobin 13.1 g/dl (12.0-16.0); Immature Granulocytes # (auto) 0.02 K/uL (0.01-0.20); Immature Granulocytes % (auto) 0.3 %; Lymphocytes # (auto) 1.38 K/uL (1.20-3.40); Lymphocytes % (auto) 22.2 %; Mean Corpuscular Hemoglobin 29.8 pg (25.0-34.0); Mean Corpuscular Hgb Conc 32.6 g/dL (32.0-36.0); Mean Corpuscular Volume 91.4 fL (80.0-100.0); Mean Platelet Volume 8.5 fL (9.4-12.4); Monocytes # (auto) 0.52 K/uL (0.11-0.59); Monocytes % (auto) 8.4 %; Neutrophils % (auto) 62.8 %; Platelet Count 332 K/uL (130-400); RDW Coefficient of Variation 14.1 % (11.5-14.5); RDW Standard Deviation 47.7 fL (36.4-46.3); White Blood Count 6.21 K/ul (4.8-10.8)
[2023-07-10 18:36] LABS: Influenza A virus by PCR Negative (Neg); Influenza B virus by PCR Negative (Neg); RSV by PCR Negative (Neg); SARS CoV2 RNA(COVID-19) Ceph NEGATIVE (Negative)
[2023-07-10 18:44] LABS: Albumin Globulin Ratio 0.7 (0.9-2); Albumin Level 3.7 gm/dl (3.4-5.0); BUN Creatinine Ratio 13.5 (10-20); Bilirubin,Total 0.3 mg/dl (0.2-1.0); Calcium 9.6 mg/dl (8.6-10.3); Creatinine Clr Calc Pharmacy 32.4 ml/min; Est GFR (African American) 39.8 ml/min; Est GFR (Non-African American) 34.4 ml/min; Potassium 3.9 mmol/L (3.5-5.1); Total Protein 8.7 gm/dl (6.0-8.3)
[2023-07-10 18:50] LABS: Troponin I High Sensitivity 12.1 pg/ml (0-14)
--- NOTE | 2023-07-10 18:52 | Emergency Department Note ---
Impression & Plan Exertional dyspnea, Hypoxia ED Provider Note NAME: HUSAM DAVIS AGE: 82 SEX: F : 1940 ARRIVES VIA: Walk-In INFORMANT: Patient, ED PROVIDER(S): Sissy Sorto MD CHIEF COMPLAINT: Shortness of breath HPI: This is a an 82-year-old female with history of asthma, emphysema, GERD presenting for shortness of breath. Patient states that over the past few weeks she has noticed exertional dyspnea. She also does not lay flat due to GERD when she sleeps. She notes that whenever she does walk around she feels extremely fatigued and has to take a break. She notes no chest pain during this time. No fevers or chills recently. She denied any abdominal pain or dysuria. She does she has felt occasionally chilled as well as sweating. ROS: See above HPI for pertinent positives & negatives. A total of 10 systems reviewed and were otherwise negative. PAST MEDICAL HISTORY: See Below PAST SURGICAL HISTORY: See Below FAMILY HISTORY: See Below SOCIAL HISTORY: See Below HOME MEDICATIONS: See Below ALLERGIES: See Below VITALS: See Below PHYSICAL EXAMINATION: General: resting comfortably in no acute distress Head: Normocephalic and atraumatic Eyes: Normal inspection, extraocular muscles intact Ear, nose, throat: Normal external exam Neck: Normal range of motion Respiratory: Crackles at the bases bilaterally Cardiovascular: Regular rate/rhythm, no murmur GI: soft, nontender, no guarding or rebound Extremities: nontender, moves all extremities Neuro: The patient awake and alert, appropriately conversive, no focal deficits, symmetric faces Skin: Warm, dry, and intact MEDICAL DECISION MAKING: This is a 82-year-old female with history of asthma, emphysema, GERD presented for shortness of breath. -Chest x-ray shows pulm vascular congestion with multifocal opacities concerning for pneumonia versus edema as independent interpreted by me -ECG independently interpreted by me with normal sinus rhythm, rate of 76, left axis deviation, normal [place], intraventricular conduction delay, normal QTc, no ST segment elevations consistent with STEMI criteria -Blood work is reassuring does not show any leukocytosis. No anemia or electrolyte disturbances. Creatinine is slightly elevated 1.41, slightly higher than previous baseline but generally within normal limits for patient. Procalcitonin is negative. Urinalysis does reveal signs of UTI with bacteriuria WBC and leuk esterase -Patient is have a cephalosporin allergy, will give her ciprofloxacin instead. -Patient ambulated and became hypoxic to about 85% upon walking around the emergency department. She also became dyspneic and had to take a rest midway through -Patient required admission for her exertional dyspnea, or likely related to cardiac etiology as patient does not have any white count, fever or signs of pneumonia clinically. Differential diagnosis: CHF exacerbation, pneumonia, PE, ACS ER treatment provided: See below Diagnostics interpreted by me: ECG: See above Cardiac Monitoring: An order was placed for continuous cardiac monitoring. The monitor shows a rate of 80 with sinus rhythm. Laboratory studies: As stated above and show below. Imaging studies: See below. Past Med/Surg History Medical History (Updated 07/10/23 @ 22:25 by Sissy Sorto MD) Arthritis Stress incontinence Heart murmur no cardiology; hx of rheumatic fever as child CKD (chronic kidney disease) stage 3, GFR 30-59 ml/min Dyslipidemia HTN (hypertension) Asthma used rescue inhaler last 01/2023 increased SOB with abdominal pain- feels asthma otherwise well controlled GERD (gastroesophageal reflux disease) controlled with medication Surgical History History of tooth extraction H/O detached retina repair rt History of cataract surgery rt/left History of lung surgery "to clean up infection from pneumonia" "Right VATS with decortication 02/28/17= Done under [place] with Grade 2 view with MAC #3. ETT 37Fr x 1 attempt/atraumatic " History of breast biopsy benign History of colonoscopy H/O esophagogastroduodenoscopy History of hysterectomy History of tonsillectomy and adenoidectomy Family History Other No family history of adverse response to anesthesia Social History Smoking Status: Never smoker Second Hand Exposure: Yes (as a child); Hx Alcohol Use: No Preferred Language: [place] Relief Manager Required: No Beliefs That Will Affect Care: None Current Living Situation: Spouse Feels Safe at Home: Yes Assistive Devices: Denture - Upper, Glasses, Hearing Aid - Bilateral and Walker Allergies Allergies Allergy/AdvReac Type Severity Reaction Status Date / Time Cephalosporins Allergy Mild Rash Verified 07/10/23 18:12 niacin AdvReac Intermediate Nausea/Vomi Verified 07/10/23 18:12 ting Home Meds Home Medications Medication Instructions Recorded Confirmed albuterol sulfate 90 mcg/actuation 2 puff inhalation QID PRN SHORT OF 02/28/23 07/10/23 aerosol inhaler BREATH/COUGH/WHEEZING aspirin 81 mg chewable tablet 81 mg PO DAILY 02/28/23 07/10/23 famotidine 20 mg tablet 20 mg PO BID 02/28/23 07/10/23 fluticasone propionate 110 2 puff inhalation BID 02/28/23 07/10/23 mcg/actuation HFA aerosol inhaler fluticasone propionate 50 2 spray intranasal DAILY 02/28/23 07/10/23 mcg/actuation nasal spray,suspension gabapentin 100 mg capsule 100 mg PO TID 02/28/23 07/10/23 ibuprofen-diphenhydramine citrate 1 cap PO HS 02/28/23 07/10/23 200 mg-38 mg tablet lisinopril 10 mg tablet 10 mg PO QAM 02/28/23 07/10/23 loratadine 10 mg capsule 10 mg PO DAILY 02/28/23 07/10/23 omeprazole 20 mg capsule,delayed 20 mg PO QAM 02/28/23 07/10/23 release acetaminophen 650 mg 1,300 mg PO BID 07/10/23 07/10/23 tablet,extended release calcium carbonate 600 mg calcium 600 mg PO DAILY 07/10/23 07/10/23 (1,500 mg) tablet (Calcium) fluticasone furoate 200 1 inh inhalation DAILY 07/10/23 07/10/23 mcg/actuation blister powder for inhalation (Arnuity Ellipta) Results & Data (ED) Vital Signs Vital Signs - 24 hr 07/10/23 16:43 07/10/23 18:27 07/10/23 18:27 Temperature Temperature Source Pulse Rate 80 Pulse Rate [Apical] Respiratory Rate 18 Respiratory Effort / Characteristics Non-Labored Spontaneous Respiratory Depth Normal Respiratory Pattern Regular Blood Pressure 147/88 H Blood Pressure [Left Arm] Blood Pressure Mean 107 Blood Pressure Mean [Left Arm] Blood Pressure Position Sitting Pulse Oximetry 92 92 92 Oxygen Delivery Method Room Air Room Air Room Air Sepsis Recent Fever Within 48 Hours No Sepsis New/Unexplained Change in Mental Status N/A Sepsis Action Taken by Nursing No Action Required 07/10/23 18:35 07/10/23 18:35 07/10/23 20:00 Temperature 36.6 C Temperature Source Oral Pulse Rate Pulse Rate [Apical] 75 80 Respiratory Rate 18 18 Respiratory Effort / Characteristics Non-Labored Respiratory Depth Normal Respiratory Pattern Regular Blood Pressure Blood Pressure [Left Arm] 165/87 H 186/107 H Blood Pressure Mean Blood Pressure Mean [Left Arm] 113 133 Blood Pressure Position Pulse Oximetry 95 93 Oxygen Delivery Method Room Air Sepsis Recent Fever Within 48 Hours Sepsis New/Unexplained Change in Mental Status Sepsis Action Taken by Nursing Laboratory Data 07/10/23 17:30 07/10/23 17:30 Lab Results 07/10/23 07/10/23 07/10/23 Range/Units 17:30 17:50 18:41 WBC 6.21 (4.8-10.8) K/ul RBC 4.40 (4.20-5.40) M/uL Hgb 13.1 (12.0-16.0) g/dl Hct 40.2 (37.0-47.0) % MCV 91.4 (80.0-100.0) fL MCH 29.8 (25.0-34.0) pg MCHC 32.6 (32.0-36.0) g/dL RDW Std Deviation 47.7 H (36.4-46.3) fL RDW Coeff of Bowen 14.1 (11.5-14.5) % Plt Count 332 (130-400) K/uL MPV 8.5 L (9.4-12.4) fL Immature Gran % (Auto) 0.3 % Neut % (Auto) 62.8 % Lymph % (Auto) 22.2 % [place] % (Auto) 8.4 % Eos % (Auto) 5.2 % Baso % (Auto) 1.1 % Neut # (Auto) 3.90 (1.40-6.50) K/uL Lymph # (Auto) 1.38 (1.20-3.40) K/uL [place] # (Auto) 0.52 (0.11-0.59) K/uL Eos # (Auto) 0.32 (0.00-0.50) K/uL Baso # (Auto) 0.07 (0.00-0.20) K/uL Immature Gran # (Auto) 0.02 (0.01-0.20) K/uL Sodium 137 (136-145) mmol/L Potassium 3.9 (3.5-5.1) mmol/L Chloride 104 (98-107) mmol/L Carbon Dioxide 26 (21-32) mmol/L Anion Gap 7 (3-11) BUN 19 (6-23) mg/dl Creatinine 1.41 H (0.6-1.2) mg/dl Est Cr Clr Drug Dosing 32.4 ml/min Est GFR ( Amer) 39.8 ml/min Est GFR (Non-Af Amer) 34.4 ml/min BUN/Creatinine Ratio 13.5 (10-20) Glucose 109 H (70-99(Fasting)) mg/dl Calcium 9.6 (8.6-10.3) mg/dl Total Bilirubin 0.3 (0.2-1.0) mg/dl AST 14 (13-39) U/L ALT 9 (7-52) U/L Alkaline Phosphatase 72 (34-104) U/L Troponin I High Sens 12.1 (0-14) pg/ml B-Natriuretic Peptide 64 (0-100) pg/ml Total Protein 8.7 H (6.0-8.3) gm/dl Albumin 3.7 (3.4-5.0) gm/dl Globulin 5.0 H (2.5-4.0) gm/dl Albumin/Globulin Ratio 0.7 L (0.9-2) Procalcitonin 0.09 (0-0.5) ng/ml Urine Color Yellow Urine Appearance Clear (Clear) Urine pH 6.0 (4.5-7.5) Ur Specific [place] 1.008 (1.000-1.030) Urine Protein Negative (Negative) Urine Glucose (UA) Negative (Negative) Urine Ketones Negative (Negative) Urine Blood Trace H (Negative) Urine Nitrite Positive A (Negative) Urine Bilirubin Negative (Negative) Urine Urobilinogen Negative (Negative) Ur Leukocyte Esterase 2+ H (Negative) Urine WBC (Auto) >30 H (0-5) /hpf Urine RBC (Auto) 0-4 (0-4) /hpf U Hyaline Cast (Auto) 0 (0-5) /lpf U Epithel Cells (Auto) 0-5 (0-5) /lpf Urine Bacteria (Auto) 4+ H (Negative) SARS-CoV-2 (PCR) NEGATIVE (Negative) Influenza Type A (PCR) Negative (Neg) Influenza Type B (PCR) Negative (Neg) RSV (RT-PCR) Negative (Neg) Administered Medications Ciprofloxacin (Cipro / D5w) 400 mg in 200 mls @ 100 mls/hr IV NOW STA; Protocol Stop: 07/10/23 23:20 Last Admin: 07/10/23 21:38 Dose: 100 mls/hr Documented By: CEK Imaging Data Radiologist's Impression: Chest X-Ray 07/10/23 16:46 XR chest 1V portable HISTORY: 82 years-old Female Dyspnea COMPARISON: 06/16/2017 TECHNIQUE: AP view of the chest FINDINGS: Cardiac silhouette is enlarged. Pulmonary vascular congestion with interstitial coarsening and patchy bilateral alveolar opacities. No pneumothorax or large pleural effusion. Degenerative changes of the shoulders and spine. IMPRESSION: 1. Cardiomegaly with pulmonary vascular congestion. 2. Mixed interstitial and alveolar opacities are suspicious for multifocal pneumonia. Pulmonary edema could appear similarly. ACT 112: Negative or not required by law. The above report was generated using voice recognition software. It may contain grammatical, syntax or spelling errors. Electronically signed by: Stefan Leija M.D. 07/10/2023 6:00 PM Discharge Plan Visit Data Chief Complaint: Shortness of Breath/Dyspnea Stated Complaint: LOW OX, SOB, WEAKNESS ED Provider: Sissy Sorto Discharge Problem: Exertional dyspnea, Hypoxia Forms Stand Alone Forms: My [facility] Prescriptions Prescriptions: No Action famotidine 20 mg Tablet 20 mg PO BID lisinopril 10 mg Tablet 10 mg PO QAM omeprazole 20 mg Capsule,Delayed Release(Dr/Ec) 20 mg PO QAM aspirin 81 mg Tablet,Chewable 81 mg PO DAILY gabapentin 100 mg Capsule 100 mg PO TID albuterol sulfate 90 mcg/actuation Hfa Aerosol Inhaler 2 puff INHALATION QID PRN (Reason: SHORT OF BREATH/COUGH/WHEEZING) fluticasone propionate 50 mcg/actuation [place],Suspension 2 spray INTRANASAL DAILY Rx Instructions: administer into each nostril fluticasone propionate 110 mcg/actuation Hfa Aerosol Inhaler 2 puff INHALATION BID Rx Instructions: PER PT "LAST DOSE OF THIS INHALER, WILL START TO USE ARNUITY TOMORROW". ibuprofen-diphenhydramine cit 200-38 mg Tablet 1 cap PO HS loratadine 10 mg Capsule 10 mg PO DAILY acetaminophen [Tylenol Arthritis] 650 mg Tablet Extended Release 1,300 mg PO BID calcium carbonate [Calcium 600] 600 mg calcium (1,500 mg) Tablet 600 mg PO DAILY Arnuity Ellipta 200 mcg/actuation blister with device 1 inh INHALATION DAILY Rx Instructions: USED LAST OF FLOVENT 07/10/23, WILL START 07/11/23. Referrals Referrals: Daniel Szymanski MD [Primary Care Provider] -
[2023-07-10] MEDS: CIPROFLOXACIN / D5W 400 MG/200 ML BAG IV STA (21:38)
--- NOTE | 2023-07-10 22:44 | History & Physical Report ---
Date of Service July 10, 2023 Assessment & Plan (1) SOB (shortness of breath): Plan: 82-year-old female with past medical history significant for hyperlipidemia, history of mild persistent asthma, history of acute respiratory with hypoxia, upper respiratory infection, allergic rhinitis, hypertension, GERD, CKD stage III, presents with ongoing shortness of breath since last 2 weeks which got progressively worse. Currently walking short distance making her short of breath. Has cough with bringing some whitish phlegm. Denies any chest pain. No headache. No fevers. No sore throat. No runny nose or earaches. Denies any orthopnea. No swelling in the legs. No nausea. Appetite is okay. No difficulty swallowing. No cough while swallowing. No abdominal pain. Normal bowel and bladder movements. Shortness of breath Chest x-ray multifocal pneumonia versus CHF Will follow CT chest Empirically IV Invanz and p.o. doxycycline Follow the cultures No leukocytosis, no fevers and BNP is okay Will also follow echo Will do a dose of IV Lasix 20 mg daily Consult cardiology in a.m. for further recommendations May consider pulmonary consult UTI Antibiotics as above Will follow cultures Mild persistent asthma Continue home inhalers Nebs atc and as needed No obvious wheezing currently DAVID on CKD stage III Presented creatinine 1.4 Baseline creatinine 1.2 Follow repeat labs Hypertension On lisinopril If kidney function worsening will hold lisinopril will monitor GERD On famotidine and omeprazole DVT prophylaxis Lovenox Disposition Telemetry Full code History of Present Illness Chief Complaint: Shortness of breath Primary Care Provider: Daniel Szymanski MD 82-year-old female with past medical history significant for hyperlipidemia, history of mild persistent asthma, history of acute respiratory with hypoxia, upper respiratory infection, allergic rhinitis, hypertension, GERD, CKD stage III, presents with ongoing shortness of breath since last 2 weeks which got progressively worse. Currently walking short distance making her short of breath. Has cough with bringing some whitish phlegm. Denies any chest pain. No headache. No fevers. No sore throat. No runny nose or earaches. Denies any orthopnea. No swelling in the legs. No nausea. Appetite is okay. No di fficulty swallowing. No cough while swallowing. No abdominal pain. Normal bowel and bladder movements. Past medical's. As mentioned above Past surgical history. Open breast biopsy. Colonoscopy and EGD. VATS for right-sided empyema in 2017. Tonsillectomy and adenoidectomy. Total abdominal hysterectomy. Social history. . No smoking. Alcohol rarely. No drug use. Family history. Father had heart disorder. Mother had CHF and CVA. Brother has asthma. Son has hypertension. Sister had pulmonary hypertension. Brother had stroke. Allergies Allergy/AdvReac Type Severity Reaction Status Date / Time Cephalosporins Allergy Mild Rash Verified 07/10/23 18:12 niacin AdvReac Intermediate Nausea/Vomi Verified 07/10/23 18:12 ting Home Medications Medication Instructions Recorded Confirmed Type albuterol sulfate 90 mcg/actuation 2 puff inhalation QID PRN SHORT OF 02/28/23 07/10/23 History aerosol inhaler BREATH/COUGH/WHEEZING aspirin 81 mg chewable tablet 81 mg PO DAILY 02/28/23 07/10/23 History famotidine 20 mg tablet 20 mg PO BID 02/28/23 07/10/23 History fluticasone propionate 50 2 spray intranasal DAILY 02/28/23 07/10/23 History mcg/actuation nasal spray,suspension gabapentin 100 mg capsule 100 mg PO TID 02/28/23 07/10/23 History ibuprofen-diphenhydramine citrate 1 cap PO HS 02/28/23 07/10/23 History 200 mg-38 mg tablet lisinopril 10 mg tablet 10 mg PO QAM 02/28/23 07/10/23 History loratadine 10 mg capsule 10 mg PO DAILY 02/28/23 07/10/23 History omeprazole 20 mg capsule,delayed 20 mg PO QAM 02/28/23 07/10/23 History release acetaminophen 650 mg 1,300 mg PO BID 07/10/23 07/10/23 History tablet,extended release calcium carbonate 600 mg calcium 600 mg PO DAILY 07/10/23 07/10/23 History (1,500 mg) tablet (Calcium) fluticasone furoate 200 1 inh inhalation DAILY 07/10/23 07/10/23 History mcg/actuation blister powder for inhalation (Arnuity Ellipta) Past Med/Surg History Medical History (Updated 07/10/23 @ 22:43 by Tigre Still MD) Arthritis Stress incontinence Heart murmur no cardiology; hx of rheumatic fever as child CKD (chronic kidney disease) stage 3, GFR 30-59 ml/min Dyslipidemia HTN (hypertension) Asthma used rescue inhaler last 01/2023 increased SOB with abdominal pain- feels asthma otherwise well controlled GERD (gastroesophageal reflux disease) controlled with medication Surgical History History of tooth extraction H/O detached retina repair rt History of cataract surgery rt/left History of lung surgery "to clean up infection from pneumonia" "Right VATS with decortication 02/28/17= Done under [place] with Grade 2 view with MAC #3. ETT 37Fr x 1 attempt/atraumatic " History of breast biopsy benign History of colonoscopy H/O esophagogastroduodenoscopy History of hysterectomy History of tonsillectomy and adenoidectomy Family History Other No family history of adverse response to anesthesia Social History Smoking Status: Never smoker Second Hand Exposure: Yes (as a child); Hx Alcohol Use: No Hx Substance Use: No Preferred Language: [place] Citizen Communication Ability: Effective Tc Operator Required: No Beliefs That Will Affect Care: None Current Living Situation: Spouse Feels Safe at Home: Yes Safety Concerns: Feels Safe At This Time Assistive Devices: Cane, Denture - Upper, Glasses, Hearing Aid - Bilateral and Walker Review of Systems Review of Systems: All systems reviewed & are unremarkable except as noted in HPI & below Physical Exam Physical Exam: General- Not in distress Head- atraumatic Eyes- PERRL. ENT- oropharynx clear Neck- supple, no JVD. Lungs- clear to auscultation mild b/l crackles, no wheezing Heart- regular rate and rhythm; no murmur, no gallop. Abdomen- normal bowel sounds, soft, nontender, no distension. Extremities- no pretibial edema, no erythema seen Neuro- alert, oriented ; PERRL, no facial palsy; no dysarthria; moves extremities. Results & Data Results & Data Vital Signs (Past 12 Hours) Vital Signs Temp Pulse Pulse Resp BP BP Pulse Ox 07/10/23 20:00 80 18 186/107 H 93 07/10/23 18:35 36.6 C 75 18 165/87 H 95 07/10/23 18:27 92 07/10/23 18:27 92 07/10/23 16:43 80 18 147/88 H 92 O2 Del Method 07/10/23 20:00 07/10/23 18:35 Room Air 07/10/23 18:27 Room Air 07/10/23 18:27 Room Air 07/10/23 16:43 Room Air Diagnostic Findings Laboratory Results WBC 6.21 K/ul (4.8-10.8) 07/10/23 17:30 RBC 4.40 M/uL (4.20-5.40) 07/10/23 17:30 Hgb 13.1 g/dl (12.0-16.0) 07/10/23 17:30 Hct 40.2 % (37.0-47.0) 07/10/23 17:30 MCV 91.4 fL (80.0-100.0) 07/10/23 17:30 MCH 29.8 pg (25.0-34.0) 07/10/23 17:30 MCHC 32.6 g/dL (32.0-36.0) 07/10/23 17:30 RDW Std Deviation 47.7 fL (36.4-46.3) H 07/10/23 17:30 RDW Coeff of Bowen 14.1 % (11.5-14.5) 07/10/23 17:30 Plt Count 332 K/uL (130-400) 07/10/23 17:30 MPV 8.5 fL (9.4-12.4) L 07/10/23 17:30 Immature Gran % (Auto) 0.3 % 07/10/23 17:30 Neut % (Auto) 62.8 % 07/10/23 17:30 Lymph % (Auto) 22.2 % 07/10/23 17:30 [place] % (Auto) 8.4 % 07/10/23 17:30 Eos % (Auto) 5.2 % 07/10/23 17:30 Baso % (Auto) 1.1 % 07/10/23 17:30 Neut # (Auto) 3.90 K/uL (1.40-6.50) 07/10/23 17:30 Lymph # (Auto) 1.38 K/uL (1.20-3.40) 07/10/23 17:30 [place] # (Auto) 0.52 K/uL (0.11-0.59) 07/10/23 17:30 Eos # (Auto) 0.32 K/uL (0.00-0.50) 07/10/23 17:30 Baso # (Auto) 0.07 K/uL (0.00-0.20) 07/10/23 17:30 Immature Gran # (Auto) 0.02 K/uL (0.01-0.20) 07/10/23 17:30 Sodium 137 mmol/L (136-145) 07/10/23 17:30 Potassium 3.9 mmol/L (3.5-5.1) 07/10/23 17:30 Chloride 104 mmol/L (98-107) 07/10/23 17:30 Carbon Dioxide 26 mmol/L (21-32) 07/10/23 17:30 Anion Gap 7 (3-11) 07/10/23 17:30 BUN 19 mg/dl (6-23) 07/10/23 17:30 Creatinine 1.41 mg/dl (0.6-1.2) H 07/10/23 17:30 Est Cr Clr Drug Dosing 32.4 ml/min 07/10/23 17:30 Est GFR ( Amer) 39.8 ml/min 07/10/23 17:30 Est GFR (Non-Af Amer) 34.4 ml/min 07/10/23 17:30 BUN/Creatinine Ratio 13.5 (10-20) 07/10/23 17:30 Glucose 109 mg/dl (70-99(Fasting)) H 07/10/23 17:30 Calcium 9.6 mg/dl (8.6-10.3) 07/10/23 17:30 Total Bilirubin 0.3 mg/dl (0.2-1.0) 07/10/23 17:30 AST 14 U/L (13-39) 07/10/23 17:30 ALT 9 U/L (7-52) 07/10/23 17:30 Alkaline Phosphatase 72 U/L (34-104) 07/10/23 17:30 Troponin I High Sens 12.1 pg/ml (0-14) 07/10/23 17:30 B-Natriuretic Peptide 64 pg/ml (0-100) 07/10/23 18:41 Total Protein 8.7 gm/dl (6.0-8.3) H 07/10/23 17:30 Albumin 3.7 gm/dl (3.4-5.0) 07/10/23 17:30 Globulin 5.0 gm/dl (2.5-4.0) H 07/10/23 17:30 Albumin/Globulin Ratio 0.7 (0.9-2) L 07/10/23 17:30 Procalcitonin 0.09 ng/ml (0-0.5) 07/10/23 18:41 Urine Color Yellow 07/10/23 17:50 Urine Appearance Clear (Clear) 07/10/23 17:50 Urine pH 6.0 (4.5-7.5) 07/10/23 17:50 Ur Specific [place] 1.008 (1.000-1.030) 07/10/23 17:50 Urine Protein Negative (Negative) 07/10/23 17:50 Urine Glucose (UA) Negative (Negative) 07/10/23 17:50 Urine Ketones Negative (Negative) 07/10/23 17:50 Urine Blood Trace (Negative) H 07/10/23 17:50 Urine Nitrite Positive (Negative) A 07/10/23 17:50 Urine Bilirubin Negative (Negative) 07/10/23 17:50 Urine Urobilinogen Negative (Negative) 07/10/23 17:50 Ur Leukocyte Esterase 2+ (Negative) H 07/10/23 17:50 Urine WBC (Auto) >30 /hpf (0-5) H 07/10/23 17:50 Urine RBC (Auto) 0-4 /hpf (0-4) 07/10/23 17:50 U Hyaline Cast (Auto) 0 /lpf (0-5) 07/10/23 17:50 U Epithel Cells (Auto) 0-5 /lpf (0-5) 07/10/23 17:50 Urine Bacteria (Auto) 4+ (Negative) H 07/10/23 17:50 SARS-CoV-2 (PCR) NEGATIVE (Negative) 07/10/23 17:30 Influenza Type A (PCR) Negative (Neg) 07/10/23 17:30 Influenza Type B (PCR) Negative (Neg) 07/10/23 17:30 RSV (RT-PCR) Negative (Neg) 07/10/23 17:30 Impressions Chest X-Ray 07/10/23 16:46 XR chest 1V portable HISTORY: 82 years-old Female Dyspnea COMPARISON: 06/16/2017 TECHNIQUE: AP view of the chest FINDINGS: Cardiac silhouette is enlarged. Pulmonary vascular congestion with interstitial coarsening and patchy bilateral alveolar opacities. No pneumothorax or large pleural effusion. Degenerative changes of the shoulders and spine. IMPRESSION: 1. Cardiomegaly with pulmonary vascular congestion. 2. Mixed interstitial and alveolar opacities are suspicious for multifocal pneumonia. Pulmonary edema could appear similarly. ACT 112: Negative or not required by law. The above report was generated using voice recognition software. It may contain grammatical, syntax or spelling errors. Electronically signed by: Stefan Leija M.D. 07/10/2023 6:00 PM ECG Additional Comments: ECG. Normal sinus rhythm with sinus arrhythmia rate of 76. Left axis deviation. Left ventricular hypertrophy. Code Status & VTE Plan VTE Prophylaxis Plan VTE Prophylaxis will be ordered: Yes
[2023-07-10] MEDS ORDERED: LEVALBUTEROL 1.25 MG/3 ML NEB NEB PRN (22:57)
[2023-07-10] MEDS ORDERED: ACETAMINOPHEN 325 MG TAB PO PRN (22:57)
[2023-07-10] MEDS ORDERED: NITROGLYCERIN SL 0.4 MG/TAB TAB SL PRN (22:57)
[2023-07-10] MEDS ORDERED: ALBUTEROL HFA 8 GM INHALER INH PRN (22:57)
[2023-07-10] MEDS: DOXYCYCLINE HYCLATE 100 MG CAP PO STA (23:46)
[2023-07-10] MEDS: GABAPENTIN 100 MG CAP PO SCH (23:46)
[2023-07-10] MEDS: FUROSEMIDE INJ 20 MG/2 ML VIAL IV STA (23:48)
[2023-07-11] MEDS: ERTAPENEM SODIUM 1,000 MG in SYRINGE 0 ML IV SCH (01:01)
--- NOTE | 2023-07-11 01:10 | CT Scan Report ---
Exam(s): CT CHEST Without Contrast EXAM: CT Chest Without Intravenous Contrast CLINICAL HISTORY: Reason for exam: pneumonia vs chf. TECHNIQUE: Axial computed tomography images of the chest without intravenous contrast. CTDI is 23.72 mGy and DLP is 718.43 mGy-cm. Automated exposure control was utilized for the study. A dose lowering technique was utilized adhering to the principles of ALARA. COMPARISON: No relevant prior studies available. FINDINGS: Lungs: Mosaic ground-less attenuation, concerning for air trapping. No mass. No consolidation. Pleural space: Unremarkable. No focal infiltrate, pleural effusion, or pneumothorax. No pleural effusion or vascular congestion. Heart: Cardiomegaly. No significant pericardial effusion. No significant coronary artery calcifications. Bones/joints: Degenerative changes of the spine. No acute fracture. No dislocation. Soft tissues: Unremarkable. Vasculature: Atherosclerotic changes of the aorta. No thoracic aortic aneurysm. Lymph nodes: Unremarkable. No enlarged lymph nodes. IMPRESSION: 1. No focal infiltrate, pleural effusion, or pneumothorax. 2. [place]osaic ground-less attenuation, concerning for air trapping/COPD. Electronically signed by: Rm Yuan MD 07/11/23 01:09 AM
[2023-07-11 06:28] LABS: Basophils # (auto) 0.08 K/uL (0.00-0.20); Basophils % (auto) 1.1 %; Eosinophils # (auto) 0.27 K/uL (0.00-0.50); Eosinophils % (auto) 3.9 %; Hematocrit (blood only) 37.6 % (37.0-47.0); Hemoglobin 12.5 g/dl (12.0-16.0); Immature Granulocytes # (auto) 0.02 K/uL (0.01-0.20); Immature Granulocytes % (auto) 0.3 %; Lymphocytes # (auto) 1.57 K/uL (1.20-3.40); Lymphocytes % (auto) 22.4 %; Mean Corpuscular Hemoglobin 30.3 pg (25.0-34.0); Mean Corpuscular Hgb Conc 33.2 g/dL (32.0-36.0); Mean Corpuscular Volume 91.3 fL (80.0-100.0); Mean Platelet Volume 8.5 fL (9.4-12.4); Monocytes # (auto) 0.56 K/uL (0.11-0.59); Neutrophils # (auto) 4.51 K/uL (1.40-6.50); Neutrophils % (auto) 64.3 %; Platelet Count 269 K/uL (130-400); RDW Coefficient of Variation 13.9 % (11.5-14.5); Red Blood Count 4.12 M/uL (4.20-5.40); White Blood Count 7.01 K/ul (4.8-10.8)
--- OUTSIDE RECORDS SUMMARY | 2023-07-11 06:33 | External Medical Summary | Summary of Care ---
Author Name Unknown Organization [facility] Address [address] [place] [address] Phone [phone] Care Team Providers Care Anthropology Professor Name Role Phone Daniel Hinojosa MD Primary Care Provider + Reason for Visit * Reason Onset Date Comments Pre Cert/Prior Auth 06/11/2023 Encounter Details Date Type Department Care Team (Late st Contact Info) Description 06/11/2023 Telephone Family Practice [facility] [address] [place] [address] Daniel Hinojosa MD [address] [place] [address] Pre Cert/Prior Auth Allergies Active Allergy Reactions Criticality Noted Date Comments Cephalosporins 06/22/1999 rash Niacin Nausea/vomiting Low 04/23/2008 documented as of this encounter (statuses as of 06/27/2023) Medications Medication Sig Dispensed Refills Start Date End Date Status CALCIUM 600 MG OR TABS one pill each day 0 05/05/2004 Active LORATADINE 10 MG PO TABSIndications:Al lergic rhinitis 1 TABLET DAILY 30 0 04/11/2007 Active ASPIRIN 81 MG PO CHEWIndications:HT N, goal to be determined One pill by mouth once a day with food 0 10/21/2009 Active MUCINEX 600 MG PO [id number]:Al lergic rhinitis 1 TABLET EVERY 12 HOURS NEEDED for increased mucous 30 Tab 0 03/25/2010 Active TYLENOL ARTHRITIS PAIN 650 MG PO TBCR Take 4 tablets daily. Per patient she takes 2 tablet 0 Active Ibuprofen-diphenhy drAMINE Cit 200-38 MG Oral Tablet Take 50 mg by mouth at bedtime. 0 Active famotidine (PEPCID) 20 MG TabletIndications: Gastroesophageal reflux disease without esophagitis Take 1 Tab by mouth 2 times a day. 180 Tab 1 09/29/2019 Active Albuterol Sulfate HFA 108 (90 Base) MCG/ACT Inhalation Aerosol SolutionIndication s:Asthma, mild persistent INHALE TWO PUFFS BY MOUTH EVERY 4 HOURS NEEDED FOR COUGH, SHORTNESS OF BREATH OR WHEEZING 18 g 3 07/19/2020 Active Omeprazole 20 MG Oral Capsule Delayed Release (PriLOSEC)Indicati ons:Gastroesophage al reflux disease without esophagitis TAKE 1 CAPSULE BY MOUTH IN THE MORNING ONE HOUR BEFORE FIRST MEAL OF THE DAY 90 Capsule 3 01/04/2023 Active Fluticasone Propionate 50 MCG/ACT Nasal Suspension (Flonase) Use 2 spray(s) in each nostril once daily 48 g 1 01/12/2023 Active Gabapentin 100 MG Oral Capsule (Neurontin)Indicat ions:Hot flashes TAKE 1 CAPSULE BY MOUTH THREE TIMES DAILY 270 Capsule 1 02/25/2023 Active Lisinopril 10 MG Oral Tablet (Prinivil)Indicati ons:HTN, goal below 140/90,Hypertensiv e kidney disease with stage 3a chronic kidney disease (HCC) TAKE 1 TABLET BY MOUTH ONCE DAILY IN THE MORNING 90 Tablet 1 05/02/2023 Active Arnuity Ellipta 200 MCG/ACT Inhalation Aerosol Powder Breath Activated (fluticasone Furoate) Inhale 1 Puff by mouth daily. 30 Each 11 06/27/2023 Active Fluticasone Propionate HFA 110 MCG/ACT Inhalation Aerosol (Flovent HFA)Indications:Mi ld persistent asthma without complication Inhale 2 puffs by mouth twice daily 36 g 3 11/29/2022 4 Discontinue d(Formulary /Cost) documented as of this encounter (statuses as of 06/27/2023) Active Problems Problem Noted Date Diagnosed Date Well adult exam 10/06/2022 Chronic kidney disease, stage 3a 08/17/2020 Overview: Per CKD protocol Hypertensive kidney disease with stage 3a chronic kidney disease 02/16/2020 Overview: Per CKD protocol History of nonmelanoma skin cancer 12/06/2017 Overview: Lance left neck 12/25 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 Asthma, mild persistent 07/20/2004 Esophageal reflux 01/14/2004 HTN, goal below 140/90 documented as of this encounter (statuses as of 06/27/2023) Resolved Problems Problem Noted Date Diagnosed Date Resolved Date Hypertensive kidney disease with chronic kidney disease stage III 07/05/2018 02/19/2020 Overview: Per CKD protocol Kidney disease, chronic, sta ge III (GFR 30-59 ml/min) 01/14/2018 07/17/2018 Overview: Per CKD protocol #1 UTI (urinary tract infection) 10/27/2015 01/23/2017 Hot flashes 10/27/2014 01/23/2017 Fatigue 10/27/2014 10/27/2015 HTN, goal below 140/90 09/04/201310/22 Hip pain 09/04/2013 01/23/2017 History of basal cell carcinoma 08/20/2013 12/06/2017 Other chest pain 12/23/2012 09/04/2013 History of SCC (squamous matthew l carcinoma) of skin 09/04/2012 12/06/2017 Overview: neck 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 High triglycerides 08/27/2006 0 CHR ALLRG CONJUNCTIV NEC 07/20/2004 Need for prophylactic hormon e replacement therapy (postmenopausal) 01/14/2004 05/02/2012 Allergic rhinitis 01/14/2004 05/02/2012 ERYTHEMATOUS COND NEC 01/14/20042006 FAM HX-DIABETES MELLITUS 11/27/2001 PURE HYPERCHOLESTEROLEM 11/15/200003/09 Overview: Per Lipid Taxonomy. documented as of this encounter (statuses as of 06/27/2023) Immunizations Name Administration Dates Next Due COVID-19 mRNA, LNP-s, No Pre serve, 2-Dose Series ([employer]) 02/10/2021,06/21/2020,05/23/2020 COVID-19, MRNA-LNP, 23-24, P F, 50 MCG/0.5 mL, 12 YRS AND ABOVE, IM (MODERNA-Spikevax) 01/13/2023 Covid-19, Mrna, Lnp-s, Pf, B ivalent, 30 Mcg, IM, 12 yrs and above (Pfizer) 02/28/2022 Pneumococcal Conjugate Vacc, 13 Valent (Prevnar) 10/27/2015 Pneumococcal Polysaccharide PPV23 (Pneumovax) 02/13/2005 RSV Vac., Bivalent, Perfusio n F, Pf,0.5 Ml (Abrysvo) 05/07/2023 Season Influenza, Quad, PF, Adjuvanted, 65+ Yrs, IM (FLUAD) 01/13/2023,12/31/2019 Seasonal Influenza Virus Vac cine, Unspecified Formulation 01/29/2020 Seasonal Influenza, PF, 6 M & above, IM , (FluLaval or Fluzone) 01/03/2019,12/25/2017,03/09/2017 Seasonal Influenza, Quadriva lent Hd (Fluzone Hd) 01/06/2021 Seasonal Influenza, Quadriva lent, No Preserve, IM 02/04/2016,02/12/2015 Seasonal Influenza, Split, I IV3, With Preserve, Inj 01/30/2014,01/25/2013,12/28/2011,02/07,01/21/2010,01/07/2009,01/30/2008 ,02/20/2006 TDAP (age 10 and older)(Boostrix) 08/04/2016 Varicella Zoster Vaccine (Adult) 10/27/2014 Zoster Vaccine Recombinant (Shingrix) 01/07/2020 ,09/29/2019 documented as of this encounter Social History Tobacco Use Types Packs/Day Years Used Date Smoking Tobacco: Never Passive Smoke Exposure: Past Smokeless Tobacco: Never Comments:no passive smoke Alcohol Use Standard Drinks/Week Comments Yes 0 (1 standard drink = 0.6 oz pur e alcohol) rare social PHQ-2 Answer Date Recorded PHQ Adult Total Score 0 10/06/2022 Hunger Vital Sign Answer Date Recorded Within the past 12 months, y ou worried that your food would run out before you got the money to buy more. Never true 10/07/19 23 Within the past 12 months, t he food you bought just didn't last and you didn't have money to get more. Never true 10/06/2022 Sex and Gender Information Value Date Recorded Sex Assigned at Female 10/07/2018 9:08 AM EDT Gender Identity Female 10/07/2018 9:08 AM EDT Sexual Orientation Not on file Job Start Date Occupation Industry Not on file Not on file Not on file documented as of this encounter Miscellaneous Notes * Addendum Note - Daniel Hinojosa MD - 06/27/2023 10:16 PM EDTAddended by: DANIEL HINOJOSA on: 06/27/2023 10:16 PM Modules accepted: Orders * Telephone Encounter - Daniel Hinojosa MD - 06/27/2023 10:16 PM EDT Call patient. Arnuiity brand , instead of Flovent, now covered (same medicine, different type of inhaler). New Rx sent to [facility] * Telephone Encounter - Kailyn Herrera LPN - 06/27/2023 4:15 PM EDT Please advise if medication change to covered alternative is appropriate. * Telephone Encounter - Talia Gonzales CPhT - 06/19/2023 12:35 PM EDT Images from the original note were not included. Patients insurance would like to inform the office that Flovent inhaler is denied because: They will fax this info to the office, please review and resubmit if appropriate. Thank you, Talia Gonzales CPhT Spun Paste Machine Operator [employer] [facility] ([facility]) 06/19/2023,12:35 PM * Telephone Encounter - Kailyn Herrera LPN - 06/12/2023 2:17 PM EST Addressed in separate encounter-PA denied * Telephone Encounter - Deanna Berrios PHARM Tech - 06/11/2023 3:32 PM EST [facility] calling stating that pt initiated a PA on Fluticasone Nasal [place]. This is an urgent request. [facility] is faxing over additional information needed to approve this. Thank you, Deanna Berrios, Spun Paste Machine Operator [facility] ([facility]) 06/11/2023,3:36 PM documented in this encounter Plan of Treatment Upcoming Encounters Date Type Department Care Team (Late st Contact Info) Description 07/30/2023 11:15 AM EDT Office Visit Orthopaedics [facility] [address] [place] [address] Harsh Lang, [address] [place] [address] 10/12/2023 12:20 PM EDT Office Visit Family Practice [facility] [address] [place] [address] Daniel Hinojosa MD [address] [place] [address] 01/10/2024 11:30 AM EDT Office Visit Dermatology [facility] [address] [place] [address] Skye Joshi MD [address] [place] [address] 01/30/2024 11:30 AM EDT Office Visit Allergy/Immunology [facility] [address] [place] [address] Jennie Nieto PA-C [address] [place] [address] Scheduled Procedures Name Priority Associated Diagnoses Date/Ti me COLONOSCOPY FLEXIBLE PROXIMA L DIAGNOSTIC Recall Personal history of colonic polyps Health Maintenance Due Date Last Done Comments CKD PHOS USE SMARTSET 48166 09/28/202209/08, 09/29/2019, 07/18/2018 GFR 07/25/2023 01/23/2023, 07/06/2022, 09/28/2021, Additional history exists Depression Screening 10/07/2023 10/06/2022 Albumin/Creatinine Ratio 10/10/2023 023, 07/07/2021, 10/27/2015, Additional history exists CKD HGB USE SMARTSET 85491 01/24/202401/23, 01/23/2023, 09/28/2021, Additional history exists DTaP,Tdap,and Td Vaccines (2 - Td or Tdap) 08/04/2026 08/04/2016 Pneumococcal Vaccine: 65+ Years Completed 10/27/2015, 02/13/2005 Zoster Vaccines Completed 04/26/2020, 12/10, 09/29/2019, Additional history exists COVID-19 Vaccine Completed 01/13/2023, , 02/10/2021, Additional history exists Influenza Vaccine (FLU shot) Completed 10/2022, 02/08/2022, 01/06/2021, Additional history exists GARDASIL-HPV IMMUNIZATION SERIES Aged Out No longer eligible based on patient's age to complete this topic Hepatitis B Aged Out No longer eligi ble based on patient's age to complete this topic MENINGOCOCCAL (MENACTRA/MENVEO) Aged Out No longer eligible based on patient's age to complete this topic documented as of this encounter Medical Devices Not on filedocumented as of this encounter Care Teams Anthropology Professor Relationship Specialty Start Date End Date Daniel Hinojosa MD [address] [place] [address] PCP - General Family Medicine 09/01/20 documented as of this encounter
--- OUTSIDE RECORDS SUMMARY | 2023-07-11 06:33 | External Medical Summary | Summary of Care ---
Author Name Unknown Organization [facility] Address [address] [place] [address] Phone [phone] Care Team Providers Care Breastfeeding Educator Name Role Phone Daniel Szymanski MD Primary Care Provider + Reason for Visit * Reason Comments eRx-Medication Refill Encounter Details Date Type Department Care Team (Late st Contact Info) Description 07/09/2023 Refill Family Practice [facility] [address] [facility] [place] [address] Daniel [facility]zymanski MD [address] [facility] [address] Gastroesophageal reflux disease without esophagitis Allergies Active Allergy Reactions Criticality Noted Date Comments Cephalosporins 06/22/1999 rash Niacin Nausea/vomiting Low 04/23/2008 documented as of this encounter (statuses as of 07/10/2023) Medications Medication Sig Dispensed Refills Start Date End Date Status CALCIUM 600 MG OR TABS one pill each day 0 05/05/2004 Active LORATADINE 10 MG PO TABSIndications:All ergic rhinitis 1 TABLET DAILY 30 0 04/11/2007 Active ASPIRIN 81 MG PO CHEWIndications:HTN , goal to be determined One pill by mouth once a day with food 0 10/21/2009 Active MUCINEX 600 MG PO [id number]:All ergic rhinitis 1 TABLET EVERY 12 HOURS NEEDED for increased mucous 30 Tab 0 03/25/2010 Active TYLENOL ARTHRITIS PAIN 650 MG PO TBCR Take 4 tablets daily. Per patient she takes 2 tablet 0 Active Ibuprofen-diphenhyd rAMINE Cit 200-38 MG Oral Tablet Take 50 mg by mouth at bedtime. 0 Active famotidine (PEPCID) 20 MG TabletIndications:G astroesophageal reflux disease without esophagitis Take 1 Tab by mouth 2 times a day. 180 Tab 1 09/29/2019 Active Albuterol Sulfate HFA 108 (90 Base) MCG/ACT Inhalation Aerosol SolutionIndications :Asthma, mild persistent INHALE TWO PUFFS BY MOUTH EVERY 4 HOURS NEEDED FOR COUGH, SHORTNESS OF BREATH OR WHEEZING 18 g 3 07/19/2020 Active Omeprazole 20 MG Oral Capsule Delayed Release (PriLOSEC)Indicatio ns:Gastroesophageal reflux disease without esophagitis TAKE 1 CAPSULE BY MOUTH IN THE MORNING ONE HOUR BEFORE FIRST MEAL OF THE DAY 90 Capsule 3 01/04/2023 Active Gabapentin 100 MG Oral Capsule (Neurontin)Indicati ons:Hot flashes TAKE 1 CAPSULE BY MOUTH THREE TIMES DAILY 270 Capsule 1 02/25/2023 Active Lisinopril 10 MG Oral Tablet (Prinivil)Indicatio ns:HTN, goal below 140/90,Hypertensive kidney disease with stage 3a chronic kidney disease (HCC) TAKE 1 TABLET BY MOUTH ONCE DAILY IN THE MORNING 90 Tablet 1 05/02/2023 Active Arnuity Ellipta 200 MCG/ACT Inhalation Aerosol Powder Breath Activated (fluticasone Furoate) Inhale 1 Puff by mouth daily. 30 Each 11 06/27/2023 Active Fluticasone Propionate 50 MCG/ACT Nasal Suspension (Flonase) Use 2 spray(s) in each nostril once daily 48 g 1 07/04/2023 Active documented as of this encounter (statuses as of 07/10/2023) Active Problems Problem Noted Date Diagnosed Date [...] as of this encounter (statuses as of 07/10/2023) Resolved Problems Problem Noted Date Diagnosed Date [...] as of this encounter (statuses as of 07/10/2023) Immunizations Name Administration Dates Next Due COVID-19 mRNA, LNP-s, No Pre serve, 2-Dose Series (Pfizer) 02/10/2021,06/21/2020,05/23/2020 COVID-19, MRNA-LNP, 23-24, P F, 50 MCG/0.5 mL, 12 YRS AND ABOVE, IM (MODERNA-Spikevax) 01/13/2023 Covid-19, Mrna, Lnp-s, Pf, B ivalent, 30 Mcg, IM, 12 yrs and above (Pfizer) 02/28/2022 Pneumococcal Conjugate Vacc, 13 Valent (Prevnar) 10/27/2015 RSV Vac., Bivalent, Perfusio n F, Pf,0.5 [...] Influenza, Split, I IV3, With Preserve, Inj 01/30/2014,01/25/2013,12/28/2011,2010,01/21/2010,01/07/2009,01/30/2008,1 04/22/2005 TDAP (age 10 and older)(Boostrix) 08/04/2016 Varicella [...] as of this encounter Miscellaneous Notes * Telephone Encounter - Torie Hurtado RPh - 07/10/2023 10:04 AM EDT Refused Prescriptions: Disp Refills Omeprazole 20 MG Oral Capsule Delayed Rele*90 Cap*0 Sig: TAKE 1CAPSULE BY MOUTH IN THE MORNING ONE HOUR BEFORE FIRST MEAL OF THE DAYRefused By: Halley HURTADO for Refusal: Too soonReason for Refusal Comment: 90+3 refills sent 01/04/2023 documented in this encounter Plan of Treatment Upcoming Encounters Date Type Department Care Team (Late st Contact Info) Description 07/10/2023 3:40 PM EDT Office Visit Family Practice [facility] [address] [place] [address] Parvin Clark CRNP [address] [place] [address] 07/30/2023 11:15 AM EDT Office Visit Orthopaedics [facility] [address] [place] [address] Harsh Lang DO [address] [place] [address] 10/12/2023 12:20 PM EDT Office Visit Family Practice [facility] [address] [place] [address] Daniel Szymanski MD [address] [place] [address] 01/10/2024 11:30 AM EDT Office Visit Dermatology [facility] [address] [place] [address] Skye Joshi MD [address] [facility] [place] [address] 01/30/2024 11:30 AM EDT Office Visit Allergy/Immunology [facility] [address] [place] [address] Jennie Nieto PA-C [address] [facility] [place] [address] Scheduled Procedures Name Priority Associated Diagnoses Date/Ti me COLONOSCOPY FLEXIBLE PROXIMA L DIAGNOSTIC Recall Personal history of colonic polyps Health Maintenance Due Date Last Done Comments CKD PHOS USE SMARTSET 56842 09/28/202209/08, 09/29/2019, 07/18/2018 GFR 07/25/2023 01/23/2023, 07/0 06/2022, 09/28/2021, Additional history exists Depression Screening 10/07/2023 10/06/2022 Albumin/Creatinine Ratio 10/10/2023 023, 07/07/2021, 10/27/2015, Additional history exists CKD HGB USE SMARTSET 22036 01/24/202401/23, 01/23/2023, 09/28/2021, Additional history exists DTaP,Tdap,and [...] Not on filedocumented as of this encounter Visit Diagnoses Diagnosis Gastroesophageal reflux disease without esophagitis Esophageal reflux documented in this encounter Care Teams Breastfeeding Educator Relationship Specialty Start Date End Date Daniel Szymanski MD [address] [place] [address] PCP - General Family Medicine 09/01/20 documented as of this encounter
--- OUTSIDE RECORDS SUMMARY | 2023-07-11 06:33 | External Medical Summary | Summary of Care ---
Author Name Unknown Organization [facility] Address [address] [place] [address] Phone [phone] Care Team Providers Care Gun Examiner Name Role Phone Daniel Hinojosa MD Primary Care Provider + Reason for Visit * Reason Comments eRx-Medication Refill Encounter Details Date Type Department Care Team (Late st Contact Info) Description 07/03/2023 Refill Family Practice [facility] [address] [facility] [place] [address] Daniel Hinojosa MD [address] [place] [address] Allergies Active Allergy Reactions Criticality Noted Date Comments Cephalosporins 06/22/1999 rash Niacin Nausea/vomiting Low 04/23/2008 documented as of this encounter (statuses as of 07/04/2023) Medications Medication Sig Dispensed Refills Start Date End Date Status CALCIUM 600 MG OR TABS one pill each day 0 05/05/2004 Active LORATADINE 10 MG PO TABSIndications:A llergic rhinitis 1 TABLET DAILY 30 0 04/11/2007 Active ASPIRIN 81 MG PO CHEWIndications:H TN, goal to be determined One pill by mouth once a day with food 0 10/21/2009 Active MUCINEX 600 MG PO [id number]:A llergic rhinitis 1 TABLET EVERY 12 HOURS NEEDED for increased mucous 30 Tab 0 03/25/2010 Active TYLENOL ARTHRITIS PAIN 650 MG PO TBCR Take 4 tablets daily. Per patient she takes 2 tablet 0 Active Ibuprofen-diphenh ydrAMINE Cit 200-38 MG Oral Tablet Take 50 mg by mouth at bedtime. 0 Active famotidine (PEPCID) 20 MG TabletIndications :Gastroesophageal reflux disease without esophagitis Take 1 Tab by mouth 2 times a day. 180 Tab 1 09/29/2019 Active Albuterol Sulfate HFA 108 (90 Base) MCG/ACT Inhalation Aerosol SolutionIndicatio ns:Asthma, mild persistent INHALE TWO PUFFS BY MOUTH EVERY 4 HOURS NEEDED FOR COUGH, SHORTNESS OF BREATH OR WHEEZING 18 g 3 07/19/2020 Active Omeprazole 20 MG Oral Capsule Delayed Release (PriLOSEC)Indicat ions:Gastroesopha geal reflux disease without esophagitis TAKE 1 CAPSULE BY MOUTH IN THE MORNING ONE HOUR BEFORE FIRST MEAL OF THE DAY 90 Capsule 3 01/04/2023 Active Gabapentin 100 MG Oral Capsule (Neurontin)Indica tions:Hot flashes TAKE 1 CAPSULE BY MOUTH THREE TIMES DAILY 270 Capsule 1 02/25/2023 Active Lisinopril 10 MG Oral Tablet (Prinivil)Indicat ions:HTN, goal below 140/90,Hypertensi ve kidney disease with stage 3a chronic kidney [...] once daily 48 g 1 07/04/2023 Active Fluticasone Propionate 50 MCG/ACT Nasal Suspension (Flonase) Use 2 spray(s) in each nostril once daily 48 g 1 01/12/2023 4 Discontinued documented as of this encounter (statuses as of 07/04/2023) Active Problems Problem Noted Date Diagnosed Date [...] as of this encounter (statuses as of 07/04/2023) Resolved Problems Problem Noted Date Diagnosed Date [...] as of this encounter (statuses as of 07/04/2023) Immunizations Name Administration Dates Next Due COVID-19 mRNA, LNP-s, No Pre serve, 2-Dose Series ([employer]) 02/10/2021,06/21/2020,05/23/2020 COVID-19, MRNA-LNP, 23-24, P F, 50 MCG/0.5 mL, 12 YRS AND ABOVE, IM (MODERNA-Spikevax) 01/13/2023 Covid-19, Mrna, Lnp-s, Pf, B ivalent, 30 Mcg, IM, 12 yrs and above ([employer]) 02/28/2022 Pneumococcal Conjugate Vacc, 13 Valent (Prevnar) [...] encounter Miscellaneous Notes * Telephone Encounter - Carol Potter RPh - 07/04/2023 10:30 AM EDT Signed Prescriptions: Disp Refills Fluticasone Propionate 50 MCG/ACT Nasal [place]ija*48 g 1 Sig: Use 2 spray(s) in each nostril once dailyAuthorizing Provider: DANIEL HINOJOSA User: CAROL POTTER documented in this encounter Plan of Treatment Upcoming Encounters Date Type Department Care Team (Late st Contact Info) Description 07/30/2023 11:15 AM EDT Office Visit Orthopaedics [facility] [address] [facility] [place] [address] Harsh Lang, [address] [place] [address] 10/12/2023 12:20 PM EDT Office Visit Family [facility] [address] [place] [address] Daniel Hinojosa MD [address] [place] [address] 01/10/2024 11:30 AM EDT Office Visit Dermatology [facility] [address] [place] [address] Skye Joshi MD [address] [place] [address] 01/30/2024 11:30 AM EDT Office Visit Allergy/Immunology [facility] [address] [place] [address] Jennie Nieto PA-C [address] [facility] [place] [address] Scheduled Procedures Name Priority Associated Diagnoses Date/Ti me COLONOSCOPY FLEXIBLE PROXIMA L DIAGNOSTIC Recall Personal history of colonic polyps Health Maintenance Due Date Last Done Comments CKD PHOS USE SMARTSET 21812 09/28/202209/08, 09/29/2019, 07/18/2018 GFR 07/25/2023 01/23/2023, 07/0 06/2022, 09/28/2021, Additional history exists Depression Screening 10/07/2023 10/06/2022 Albumin/Creatinine Ratio 10/10/2023 023, 07/07/2021, 10/27/2015, Additional history exists CKD HGB USE SMARTSET 29758 01/24/202401/23, 01/23/2023, 09/28/2021, Additional history exists DTaP,Tdap,and [...] filedocumented as of this encounter Care Teams Gun Examiner Relationship Specialty Start Date End Date Daniel Hinojosa MD [address] [place] [address] PCP - General Family Medicine 09/01/20 documented as of this encounter
--- OUTSIDE RECORDS SUMMARY | 2023-07-11 06:33 | External Medical Summary | Summary of Care ---
Author Name Unknown Organization [facility] Address [address] [place] [address] Phone [phone] Care Team Providers Care Stitch Welder Name Role Phone Daniel Hinojosa MD Primary Care Provider + Reason for Visit * Reason Onset Date Comments Pre Cert/Prior Auth 06/11/2023 Encounter Details Date Type Department Care Team (Late st Contact Info) Description 06/11/[address] [facility] [place] [address] [place] [address] Daniel Hinojosa MD [address] [place] [address] Pre Cert/Prior Auth Allergies Active Allergy Reactions Criticality Noted Date Comments Cephalosporins 06/22/1999 rash Niacin Nausea/vomiting Low 04/23/2008 documented as of this encounter (statuses as of 06/28/2023) Medications Medication Sig Dispensed Refills Start Date End Date Status CALCIUM 600 MG OR TABS one pill each day 0 05/05/2004 Active LORATADINE 10 MG PO TABSIndications:Al lergic rhinitis 1 TABLET DAILY 30 0 04/11/2007 Active ASPIRIN 81 MG PO CHEWIndications:HT N, goal to be determined One pill by mouth once a day with food 0 10/21/2009 Active MUCINEX 600 MG PO [id number]:Al lergic rhinitis 1 TABLET EVERY 12 HOURS [...] as of this encounter (statuses as of 06/28/2023) Active Problems Problem Noted Date Diagnosed Date [...] as of this encounter (statuses as of 06/28/2023) Resolved Problems Problem Noted Date Diagnosed Date [...] as of this encounter (statuses as of 06/28/2023) Immunizations Name Administration Dates Next Due COVID-19 mRNA, LNP-s, No Pre serve, 2-Dose Series ([employer]) 02/10/2021,06/21/2020,05/23/2020 COVID-19, MRNA-LNP, 23-24, P F, 49 [...] encounter Miscellaneous Notes * Telephone Encounter - Breana Erickson LPN - 06/28/2023 8:56 AM EDT Called and spoke with pt. Relayed information to pt. Pt voiced understanding. * Addendum Note - Daniel Hinojosa MD - 06/27/2023 10:16 PM EDTAddended by: DANIEL HINOJOSA on: 06/27/2023 10:16 PM Modules accepted: Orders * Telephone Encounter - Daniel Hinojosa MD - 06/27/2023 10:16 PM EDT Call patient. Arnuiity brand , instead of Flovent, now covered (same medicine, different type of inhaler). New Rx sent to [facility] * Telephone Encounter - Kailyn Herrera LPN [...] if appropriate. Thank you, Talia Gonzales CPhT Brim Pouncer Sock Examiner [facility] ([facility]) (Formerly Telepharmacy) 06/19/2023,12:35 PM * Telephone Encounter - Kailyn Herrera LPN - 06/12/2023 2:17 PM EST Addressed in separate encounter-PA denied * Telephone Encounter - Deanna Berrios PHARM Tech - 06/11/2023 3:32 PM EST [facility] calling stating that pt initiated a PA on Fluticasone Nasal [place]. This is an urgent request. [facility] is faxing over additional information needed to approve this. Thank you, Deanna Berrios, Brim Pouncer [facility] ([facility]PS) (Formerly Telepharmacy) 06/11/2023,3:36 PM documented in this encounter Plan of Treatment Upcoming Encounters Date Type Department Care Team (Late st Contact Info) Description 07/30/2023 11:15 AM EDT Office Visit Orthopaedics [facility] [place] [address] [place] [address] Harsh Lang DO [address] [place] [address] 10/12/2023 12:20 PM EDT Office Visit Family Practice [facility] [place] [address] [place] [address] Daniel Hinojosa MD [address] [place] [address] 01/10/2024 11:30 AM EDT Office Visit Dermatology [facility] [address] [facility] [place] [address] Skye Joshi MD [address] [facility] [place] [address] 01/30/2024 11:30 AM EDT Office Visit Allergy/Immunology [facility] [address] [facility] [place] [address] Jennie Nieto PA-C [address] [facility] [place] [address] Scheduled Procedures Name Priority Associated Diagnoses Date/Ti me COLONOSCOPY FLEXIBLE PROXIMA L DIAGNOSTIC Recall Personal history of colonic polyps Health Maintenance Due Date Last Done Comments CKD PHOS USE SMARTSET 22422 09/28/2022 0605/2021, 09/29/2019, 07/18/2018 GFR 07/25/2023 01/23/2023, 07/0 06/2022, 09/28/2021, Additional history exists Depression Screening 10/07/2023 10/06/2022 Albumin/Creatinine Ratio 10/10/2023 023, 07/07/2021, 10/27/2015, Additional history exists CKD HGB USE SMARTSET 67286 01/24/202401/23, 01/23/2023, 09/28/2021, Additional history exists DTaP,Tdap,and [...] filedocumented as of this encounter Care Teams Stitch Welder Relationship Specialty Start Date End Date Daniel Hinojosa MD [address] [place] [address] PCP - General Family Medicine 09/01/20 documented as of this encounter
--- OUTSIDE RECORDS SUMMARY | 2023-07-11 06:33 | External Medical Summary | Summary of Care ---
Author Name Unknown Organization [facility] Address [address] [place] [address] Phone [phone] Care Team Providers Care Real Estate Appraiser Name Role Phone Daniel Szymanski MD Primary Care Provider + Reason for Visit * Reason Onset Date Comments Pre Cert/Prior Auth 06/11/2023 Encounter Details Date Type Department Care Team (Late st Contact Info) Description 06/11/2023 Telephone Family Practice [facility] [address] [place] [address] Daniel Szymanski MD [address] [place] [address] Pre Cert/Prior Auth Allergies Active Allergy Reactions Criticality Noted Date Comments Cephalosporins 06/22/1999 rash Niacin Nausea/vomiting Low 04/23/2008 documented as of this encounter (statuses as of 06/22/2023) Medications Medication Sig Dispensed Refills Start Date End Date Status CALCIUM 600 MG OR TABS one pill each day 0 05/05/2004 Active LORATADINE 10 MG PO TABSIndications:Arun rgic rhinitis 1 TABLET DAILY 30 0 04/11/2007 Active ASPIRIN 81 MG PO CHEWIndications:HTN, goal to be determined One pill by mouth once a day with food 0 10/21/2009 Active MUCINEX 600 MG PO [id number]:Arun rgic rhinitis 1 TABLET EVERY 12 HOURS NEEDED for increased mucous 30 Tab 0 03/25/2010 Active TYLENOL ARTHRITIS PAIN 650 MG PO TBCR Take 4 tablets daily. Per patient she takes 2 tablet 0 Active Ibuprofen-diphenhydr AMINE Cit 200-38 MG Oral Tablet Take 50 mg by mouth at bedtime. 0 Active famotidine (PEPCID) 20 MG TabletIndications:Ga stroesophageal reflux disease without esophagitis Take 1 Tab by mouth 2 times a day. 180 Tab 1 09/29/2019 Active Albuterol Sulfate HFA 108 (90 Base) MCG/ACT Inhalation Aerosol SolutionIndications: Asthma, mild persistent INHALE TWO PUFFS BY MOUTH EVERY 4 HOURS NEEDED FOR COUGH, SHORTNESS OF BREATH OR WHEEZING 18 g 3 07/19/2020 Active Fluticasone Propionate HFA 110 MCG/ACT Inhalation Aerosol (Flovent HFA)Indications:Mild persistent asthma without complication Inhale 2 puffs by mouth twice daily 36 g 3 11/29/2022 Active Omeprazole 20 MG Oral Capsule Delayed Release (PriLOSEC)Indication s:Gastroesophageal reflux disease without esophagitis TAKE 1 CAPSULE BY MOUTH IN THE MORNING ONE HOUR BEFORE FIRST MEAL OF THE DAY 90 Capsule 3 01/04/2023 Active Fluticasone Propionate 50 MCG/ACT Nasal Suspension (Flonase) Use 2 spray(s) in each nostril once daily 48 g 1 01/12/2023 Active Gabapentin 100 MG Oral Capsule (Neurontin)Indicatio ns:Hot flashes TAKE 1 CAPSULE BY MOUTH THREE TIMES DAILY 270 Capsule 1 02/25/2023 Active Lisinopril 10 MG Oral Tablet (Prinivil)Indication s:HTN, goal below 140/90,Hypertensive kidney disease with stage 3a chronic kidney disease (HCC) TAKE 1 TABLET BY MOUTH ONCE DAILY IN THE MORNING 90 Tablet 1 05/02/2023 Active documented as of this encounter (statuses as of 06/22/2023) Active Problems Problem Noted Date Diagnosed Date [...] as of this encounter (statuses as of 06/22/2023) Resolved Problems Problem Noted Date Diagnosed Date [...] as of this encounter (statuses as of 06/22/2023) Immunizations Name Administration Dates Next Due COVID-19 [...] encounter Miscellaneous Notes * Telephone Encounter - Talia Gonzales CPhT - 06/19/2023 12:35 PM EDT Images from the original note were not included. Patients insurance would like to inform the office that Flovent inhaler is denied because: They will fax this info to the office, please review and resubmit if appropriate. Thank you, Talia Gonzales CPhT Squeak Rattle And Leak Repairer Die Mechanic [facility] ([facility]) (Formerly Telepharmacy) 06/19/2023,12:35 PM * Telephone Encounter - Kailyn Herrera LPN - 06/12/2023 2:17 PM EST Addressed in separate encounter-PA denied * Telephone Encounter - Deanna Berrios PHARM Tech - 06/11/2023 3:32 PM EST [facility] calling stating that pt initiated a PA on Fluticasone Nasal [place]. This is an urgent request. [facility] is faxing over additional information needed to approve this. Thank you, Deanna Berrios, Squeak Rattle And Leak Repairer [facility] ([facility]PS) (Formerly Telepharmacy) 06/11/2023,3:36 PM documented in this encounter Plan of Treatment Upcoming Encounters Date Type Department Care Team (Late st Contact Info) Description 07/30/2023 11:15 AM EDT Office Visit Orthopaedics [facility] [address] [place] [address] Harsh Lang DO [address] [place] [address] 10/12/2023 12:20 PM EDT Office Visit Family Practice [facility] [address] [place] [address] Daniel Szymanski MD [address] [place] [address] 01/10/2024 11:30 AM EDT Office Visit Dermatology [place] [address] [place] [address] Skye Joshi MD [address] [facility] [place] [address] 01/30/2024 11:30 AM EDT Office Visit Allergy/Immunology [facility] [address] [place] [address] [address] Jennie Nieto PA-C [address] [place] [address] [place] [address] Scheduled Procedures Name Priority Associated Diagnoses Date/Ti me COLONOSCOPY FLEXIBLE PROXIMA L DIAGNOSTIC Recall Personal history of colonic polyps Health Maintenance Due Date Last Done Comments CKD PHOS USE SMARTSET 60965 09/28/202209/08, 09/29/2019, 07/18/2018 GFR 07/25/2023 01/23/2023, 07/0 06/2022, 09/28/2021, Additional history exists Depression Screening 10/07/2023 10/06/2022 Albumin/Creatinine Ratio 10/10/2023 023, 07/07/2021, 10/27/2015, Additional history exists CKD HGB USE SMARTSET 33895 01/24/202401/23, 01/23/2023, 09/28/2021, Additional history exists DTaP,Tdap,and [...] filedocumented as of this encounter Care Teams Real Estate Appraiser Relationship Specialty Start Date End Date Daniel Szymanski MD [address] [place] [address] PCP - General Family Medicine 09/01/20 documented as of this encounter
--- OUTSIDE RECORDS SUMMARY | 2023-07-11 06:33 | External Medical Summary | Summary of Care ---
Author Name Unknown Organization [facility] Address [address] [place] [address] Phone [phone] Care Team Providers Care Casket Assembler Name Role Phone Daniel Szymanski MD Primary Care Provider + Reason for Visit * Reason Onset Date Comments Medication Pre-auth 06/18/2023 Fluticasone Propionate HFA 110 MCG/ACT Inhalation Aerosol (Flovent HFA) Encounter Details Date Type Department Care Team (Late st Contact Info) Description 06/18/2023 Telephone Family Practice [facility] [address] [place] [address] Daniel Szymanski MD [address] [place] [address] Medication Pre-auth (Fluticasone Propionat... Allergies Active Allergy Reactions Criticality Noted Date Comments Cephalosporins 06/22/1999 rash Niacin Nausea/vomiting Low 04/23/2008 documented as of this encounter (statuses as of 06/19/2023) Medications Medication Sig Dispensed Refills Start Date End Date Status CALCIUM 600 MG OR TABS one pill each day 0 05/05/2004 Active LORATADINE 10 MG PO TABSIndications:Arun rgic rhinitis 1 TABLET DAILY 30 0 04/11/2007 Active ASPIRIN 81 MG PO CHEWIndications:HTN, goal to be determined One pill by mouth once a day with food 0 10/21/2009 Active MUCINEX 600 MG PO [id number]:Arun rgic rhinitis 1 TABLET EVERY 12 HOURS [...] as of this encounter (statuses as of 06/19/2023) Active Problems Problem Noted Date Diagnosed Date [...] as of this encounter (statuses as of 06/19/2023) Resolved Problems Problem Noted Date Diagnosed Date [...] as of this encounter (statuses as of 06/19/2023) Immunizations Name Administration Dates Next Due COVID-19 mRNA, LNP-s, No Pre serve, 2-Dose Series ([employer]) 02/10/2021,06/21/2020,05/23/2020 COVID-19, MRNA-LNP, 23-24, P F, 49 [...] Encounter - Talia Gonzales CPhT - 06/19/2023 12:33 PM EDT This prior authorization request is already being worked in another encounter. Please see encounterdated 06/11/23. Thank you, Talia Gonzales CPhT Metal Tank Builder Primary Clinician [facility] Services ([facility]PS) (Formerly Telepharmacy) 06/19/2023,12:33 PM * Telephone Encounter - Gela Kirkland CPhT - 06/18/2023 2:29 PM EDT Pt is asking to be called when this is done Patient calling to inform doctor that the patient's insurance will not pay for this medication without a completed prior authorization. Did confirm this information with the pharmacy. Pt's current insurance information is as follows: Patient name: Amada Leblanc ID number: [id number] BIN number: [id number] PCN number: [id number] Group number: [id number] Subscriber name: Amada Leblanc Primary or Secondary Insurance:Primary Medication: Fluticasone Propionate HFA 110 MCG/ACT Inhalation Aerosol (Flovent HFA) Reason for Request: [place] Pharmacy and phone number: [facility] [address] [place] [phone] Rx plan and phone number: [facility] [phone] Is this a new medication for the patient? No. How did the patient obtain the medication on the lastfill? It was covered last time on this same insurance. What alternative medications does the pharmacy have in stock?: n/a Thank you, Gela Kirkland CPhT II Chemical Processing Laborer [facility] ([facility]PS) (Formerly Telepharmacy) 06/18/2023, 2:33 PM documented in this encounter Plan of Treatment Upcoming Encounters Date Type Department Care Team (Late st Contact Info) Description 07/30/2023 11:15 AM EDT Office Visit Orthopaedics [facility] [address] [place] [address] Harsh Lang, [address] [place] [address] 10/12/2023 12:20 PM EDT Office Visit Family Practice [facility] [address] [place] [address] Daniel Szymanski MD [address] [place] [address] 01/10/2024 11:30 AM EDT Office Visit Dermatology [facility] [place] [address] [place] [address] Skye Joshi MD [address] [place] [address] 01/30/2024 11:30 AM EDT Office Visit Allergy/Immunology [facility] [place] [address] [place] [address] Jennie Nieto PA-C 200 [facility] [place] [address] Scheduled Procedures Name Priority Associated Diagnoses Date/Ti me COLONOSCOPY FLEXIBLE PROXIMA L DIAGNOSTIC Recall Personal history of colonic polyps Health Maintenance Due Date Last Done Comments CKD PHOS USE SMARTSET 04520 09/28/202209/08, 09/29/2019, 07/18/2018 GFR 07/25/2023 01/23/2023, 07/0 06/2022, 09/28/2021, Additional history exists Depression Screening 10/07/2023 10/06/2022 Albumin/Creatinine Ratio 10/10/2023 023, 07/07/2021, 10/27/2015, Additional history exists CKD HGB USE SMARTSET 54385 01/24/202401/23, 01/23/2023, 09/28/2021, Additional history exists DTaP,Tdap,and [...] as of this encounter Visit Diagnoses Diagnosis Mild persistent asthma without complication Unspecified asthma documented in this encounter Care Teams Casket Assembler Relationship Specialty Start Date End Date Daniel Szymanski MD [address] [place] [address] PCP - General Family Medicine 09/01/20 documented as of this encounter
--- OUTSIDE RECORDS SUMMARY | 2023-07-11 06:33 | External Medical Summary | Summary of Care ---
Author Name Unknown Organization [facility] Address [address] [place] [address] Phone [phone] Care Team Providers Care Crm Analyst Name Role Phone Daniel Szymanski MD Primary Care Provider + Reason for Visit * Reason Onset Date Comments Pre Cert/Prior Auth 06/11/2023 Encounter Details Date Type Department Care Team (Late st Contact Info) Description 06/11/2023 Telephone Family Practice [facility] [address] [place] [...] 0 10/21/2009 Active MUCINEX 600 MG PO [id number]:Arun rgic rhinitis 1 TABLET EVERY 12 HOURS [...] encounter Miscellaneous Notes * Telephone Encounter - Kailyn Herrera LPN [...] if appropriate. Thank you, Talia Gonzales CPhT Taproom Attendant Copy Center Associate [facility] ([facility]) (Formerly Telepharmacy) 06/19/2023,12:35 PM * Telephone Encounter - Kailyn Herrera LPN - 06/12/2023 2:17 PM EST Addressed in separate encounter-PA denied * Telephone Encounter - Deanna Berrios PHARM Tech - 06/11/2023 3:32 PM EST [facility] calling stating that pt initiated a PA on Fluticasone Nasal [place]. This is an urgent request. [facility] is faxing over additional information needed to approve this. Thank you, Deanna Berrios, Taproom Attendant [facility] ([facility]PS) (Formerly Telepharmacy) 06/11/2023,3:36 PM documented in this encounter Plan of Treatment Upcoming Encounters Date Type Department Care Team (Late st Contact Info) Description 07/30/2023 11:15 AM EDT Office Visit Orthopaedics [facility] [address] [place] [address] Harsh Lang DO [address] [place] [address] 10/12/2023 12:20 PM EDT Office Visit Family Practice [facility] [address] [place] [address] Daniel Szymanski MD [address] [place] [address] 01/10/2024 11:30 AM EDT Office Visit Dermatology [facility] [place] [address] [place] [address] Skye Joshi MD [address] [place] [address] [address] 01/30/2024 11:30 AM EDT Office Visit Allergy/Immunology [facility] [place] [address] [place] [address] [address] Jennie Nieto PA-C [address] [place] [address] Scheduled Procedures Name Priority Associated Diagnoses Date/Ti me COLONOSCOPY FLEXIBLE PROXIMA L DIAGNOSTIC Recall Personal history of colonic polyps Health Maintenance Due Date Last Done Comments CKD PHOS USE SMARTSET 97409 09/28/202209/08, 09/29/2019, 07/18/2018 GFR 07/25/2023 01/23/2023, 06/2022, 09/28/2021, Additional history exists Depression Screening 10/07/2023 10/06/2022 Albumin/Creatinine Ratio 10/10/2023 023, 07/07/2021, 10/27/2015, Additional history exists CKD HGB USE SMARTSET 05901 01/24/202401/23, 01/23/2023, 09/28/2021, Additional history exists DTaP,Tdap,and [...] filedocumented as of this encounter Care Teams Crm Analyst Relationship Specialty Start Date End Date Daniel Szymanski MD [address] [place] [address] PCP - General Family Medicine 09/01/20 documented as of this encounter
--- OUTSIDE RECORDS SUMMARY | 2023-07-11 06:33 | External Medical Summary | Summary of Care ---
Author Name Unknown Organization [facility] Address [address] [place] [address] Phone [phone] Care Team Providers Care Clinical Researcher Name Role Phone Daniel Szymanski MD Primary Care Provider + Reason for Visit * Reason Onset Date Comments Pre Cert/Prior Auth 06/11/2023 Encounter Details Date Type Department Care Team (Late st Contact Info) Description 06/11/2023 Telephone Family Practice [facility] [address] [place] [address] Daniel [...] 0 10/21/2009 Active MUCINEX 600 MG PO [id number]:Arun rgic rhinitis 1 TABLET EVERY 12 HOURS [...] if appropriate. Thank you, Talia Gonzales CPhT Adoption Worker Model Builder Display [facility] ([facility]) (Formerly Telepharmacy) 06/19/2023,12:35 PM * Telephone Encounter - Kailyn Herrera LPN - 06/12/2023 2:17 PM EST Addressed in separate encounter-PA denied * Telephone Encounter - Deanna Berrios PHARM Tech - 06/11/2023 3:32 PM EST [facility] calling stating that pt initiated a PA on Fluticasone Nasal [place]. This is an urgent request. [facility] is faxing over additional information needed to approve this. Thank you, Deanna Berrios, Adoption Worker [facility] ([facility]PS) (Formerly Telepharmacy) 06/11/2023,3:36 PM documented in this encounter Plan of Treatment Upcoming Encounters Date Type Department Care Team (Late st Contact Info) Description 07/30/2023 11:15 AM EDT Office Visit Orthopaedics [facility] [address] [place] [address] Harsh Lang DO [address] [place] [address] 10/12/2023 12:20 PM EDT Office Visit Family Practice [facility] [address] [place] [address] Daniel Szymanski MD [address] [place] [address] 01/10/2024 11:30 AM EDT Office Visit Dermatology [place] [address] [place] [address] Skye Joshi MD 200 [facility] [place] [address] 01/30/2024 11:30 AM EDT Office Visit Allergy/Immunology [facility] [address] [place] [address] [address] Jennie Nieto PA-C [address] [place] [address] [place] [address] Scheduled Procedures Name Priority Associated Diagnoses Date/Ti me COLONOSCOPY FLEXIBLE PROXIMA L DIAGNOSTIC Recall Personal history of colonic polyps Health Maintenance Due Date Last Done Comments CKD PHOS USE SMARTSET 64662 09/28/202209/08, 09/29/2019, 07/18/2018 GFR 07/25/2023 01/23/2023, 07/0 06/2022, 09/28/2021, Additional history exists Depression Screening 10/07/2023 10/06/2022 Albumin/Creatinine Ratio 10/10/2023 023, 07/07/2021, 10/27/2015, Additional history exists CKD HGB USE SMARTSET 85392 01/24/202401/23, 01/23/2023, 09/28/2021, Additional history exists DTaP,Tdap,and [...] filedocumented as of this encounter Care Teams Clinical Researcher Relationship Specialty Start Date End Date Daniel Szymanski MD [address] [place] [address] PCP - General Family Medicine 09/01/20 documented as of this encounter
--- OUTSIDE RECORDS SUMMARY | 2023-07-11 06:33 | External Medical Summary | Summary of Care ---
Author Name Unknown Organization [facility] Address [address] [place] [address] Phone [phone] Care Team Providers Care Distresser Name Role Phone Daniel Szymanski MD Primary Care Provider + Reason for Visit * Reason Onset Date Comments Pre Cert/Prior Auth 06/11/2023 Encounter Details Date Type Department Care Team (Late st Contact Info) Description 06/11/2023 Telephone Family Practice [facility] [address] [place] [address] Daniel Szymanski MD [address] [place] [address] Pre Cert/Prior Auth Allergies Active Allergy Reactions Criticality Noted Date Comments Cephalosporins 06/22/1999 rash Niacin Nausea/vomiting Low 04/23/2008 documented as of this encounter (statuses as of 06/12/2023) Medications Medication Sig Dispensed Refills Start Date End Date Status CALCIUM 600 MG OR TABS one pill each day 0 05/05/2004 Active LORATADINE 10 MG PO TABSIndications:Arun rgic rhinitis 1 TABLET DAILY 30 0 04/11/2007 Active ASPIRIN 81 MG PO CHEWIndications:HTN, goal to be determined One pill by mouth once a day with food 0 10/21/2009 Active MUCINEX 600 MG PO [id number]:Arun rgic rhinitis 1 TABLET EVERY 12 HOURS [...] as of this encounter (statuses as of 06/12/2023) Active Problems Problem Noted Date Diagnosed Date [...] as of this encounter (statuses as of 06/12/2023) Resolved Problems Problem Noted Date Diagnosed Date [...] as of this encounter (statuses as of 06/12/2023) Immunizations Name Administration Dates Next Due COVID-19 [...] pt initiated a PA on Fluticasone Nasal [place]. This is an urgent request. [facility] is faxing over additional information needed to approve this. Thank you, Denana Berrios, [facility] ([facility]) (Formerly Telepharmacy) 06/11/2023,3:36 PM documented in this encounter Plan of Treatment Upcoming Encounters Date Type Department Care Team (Late st Contact Info) Description 07/30/2023 11:15 AM EDT Office Visit Orthopaedics [address] [place] [address] Harsh Lang, [address] [place] [address] 10/12/2023 12:20 PM EDT Office Visit Family Practice [facility] [address] [place] [address] Daniel Szymanski MD [address] [place] [address] 01/10/2024 11:30 AM EDT Office Visit Dermatology [facility] [address] [place] [address] Skye Joshi MD [address] [place] [address] 01/30/2024 11:30 AM EDT Office Visit Allergy/Immunology [facility] [place] [address] [place] [address] Jennie Nieto PA-C 200 [facility] [place] [address] Scheduled Procedures Name Priority Associated Diagnoses Date/Ti me COLONOSCOPY FLEXIBLE PROXIMA L DIAGNOSTIC Recall Personal history of colonic polyps Health Maintenance Due Date Last Done Comments CKD PHOS USE SMARTSET 37845 09/28/202209/08, 09/29/2019, 07/18/2018 GFR 07/25/2023 01/23/2023, 07/0 06/2022, 09/28/2021, Additional history exists Depression Screening 10/07/2023 10/06/2022 Albumin/Creatinine Ratio 10/10/2023 023, 07/07/2021, 10/27/2015, Additional history exists CKD HGB USE SMARTSET 27428 01/24/202401/23, 01/23/2023, 09/28/2021, Additional history exists DTaP,Tdap,and [...] filedocumented as of this encounter Care Teams Distresser Relationship Specialty Start Date End Date Daniel Szymanski MD [address] [facility] [place] [address] PCP - General Family Medicine 09/01/20 documented as of this encounter
--- OUTSIDE RECORDS SUMMARY | 2023-07-11 06:34 | External Medical Summary | Summary of Care ---
Author Name Unknown Organization [facility] Address [address] [place] [address] Phone [phone] Care Team Providers Care Sheriffs Detective Name Role Phone Daniel Hinojosa MD Primary Care Provider + Reason for Visit * Reason Comments eRx-Medication Refill Encounter Details Date Type Department Care Team (Late st Contact Info) Description 05/01/2023 Refill Family Practice [facility] [address] [place] [address] Daniel Hinojosa MD [address] [place] [address] HTN, goal below 140/90; Hypertensive kidney disease with stage 3a chronic kidney disease Allergies Active Allergy Reactions Criticality Noted Date Comments Cephalosporins 06/22/1999 rash Niacin Nausea/vomiting Low 04/23/2008 documented as of this encounter (statuses as of 05/02/2023) Medications Medication Sig Dispensed Refills Start Date End Date Status CALCIUM 600 MG OR TABS one pill each day 0 05/05/2004 Active LORATADINE 10 MG PO TABSIndications:A llergic rhinitis 1 TABLET DAILY 30 0 04/11/2007 Active ASPIRIN 81 MG PO CHEWIndications:H TN, goal to be determined One pill by mouth once a day with food 0 10/21/2009 Active MUCINEX 600 MG PO [id number]:A llergic rhinitis 1 TABLET EVERY 12 HOURS [...] Propionate HFA 110 MCG/ACT Inhalation Aerosol (Flovent HFA)Indications:M ild persistent asthma without complication Inhale 2 puffs [...] 01/12/2023 Active Gabapentin 100 MG Oral Capsule (Neurontin)Indica tions:Hot flashes TAKE 1 CAPSULE BY MOUTH THREE TIMES DAILY 270 Capsule 1 02/25/2023 Active Lisinopril 10 MG Oral Tablet (Prinivil)Indicat ions:HTN, goal below 140/90,Hypertensi ve kidney disease with stage 3a chronic kidney disease (HCC) TAKE 1 TABLET BY MOUTH ONCE DAILY IN THE MORNING 90 Tablet 1 05/02/2023 Active Lisinopril 10 MG Oral Tablet (Prinivil)Indicat ions:HTN, goal below 140/90,Hypertensi ve kidney disease with stage 3a chronic kidney disease (HCC) TAKE 1 TABLET BY MOUTH ONCE DAILY IN THE MORNING 90 Tablet 1 10/31/2022 4 Discontinued documented as of this encounter (statuses as of 05/02/2023) Active Problems Problem Noted Date Diagnosed Date [...] as of this encounter (statuses as of 05/02/2023) Resolved Problems Problem Noted Date Diagnosed Date [...] as of this encounter (statuses as of 05/02/2023) Immunizations Name Administration Dates Next Due COVID-19 mRNA, LNP-s, No Pre serve, 2-Dose Series (Govtoday) 02/10/2021,06/21/2020,05/23/2020 COVID-19, MRNA-LNP, 23-24, P F, 50 MCG/0.5 mL, 12 YRS AND ABOVE, IM (MODERNA-Spikevax) 01/13/2023 Covid-19, Mrna, Lnp-s, Pf, B ivalent, 30 Mcg, IM, 12 yrs and above (Govtoday) 02/28/2022 Pneumococcal Conjugate Vacc, 13 Valent (Prevnar) 10/27/2015 Season Influenza, Quad, PF, Adjuvanted, 65+ Yrs, [...] Telephone Encounter - Carol Potter RPh - 05/02/2023 8:35 AM ESTSigned Prescriptions: Disp Refills Lisinopril 10 MG Oral Tablet (Prinivil) 90 Tab*1 Sig: TAKE 1 TABLET BY MOUTH ONCE DAILY IN THE MORNINGAuthorizing Provider: DANIEL HINOJOSA User: CAROL POTTER documented in this encounter Plan of Treatment Upcoming Encounters Date Type Department Care Team (Late st Contact Info) Description 05/07/2023 2:30 PM EST Office Visit Gastroenterology, [facility] [address] [place] [address] Alan Lewis CRNP [address] [place] [address] 07/23/2023 11:30 AM EDT Office Visit Orthopaedics [facility] [address] [place] [address] Harsh Lang DO [address] [facility] [place] [address] 10/12/2023 12:20 PM EDT Office Visit Family Practice [facility] [address] [facility] [address] Daniel Hinojosa MD [address] [facility] [place] [address] 01/10/2024 11:30 AM EDT Office Visit Dermatology [facility] [address] [facility] [place] [address] Skye Joshi MD [address] [facility] [place] [address] 01/30/2024 11:30 AM EDT Office Visit Allergy/Immunology [facility] [address] [facility] [place] [address] Jennie Nieto PA-C [address] [facility] [place] [address] Scheduled Procedures Name Priority Associated Diagnoses Date/Ti me COLONOSCOPY FLEXIBLE PROXIMA L DIAGNOSTIC Recall Personal history of colonic polyps Health Maintenance Due Date Last Done Comments CKD PHOS USE SMARTSET 24365 09/28/2022 06/2 05/2021, 09/29/2019, 07/18/2018 GFR 07/25/2023 01/23/2023, 07/0 06/2022, 09/28/2021, Additional history exists Depression Screening 10/07/2023 10/06/2022 Albumin/Creatinine Ratio 10/10/2023 023, 07/07/2021, 10/27/2015, Additional history exists CKD HGB USE SMARTSET 13737 01/24/202401/23, 01/23/2023, 09/28/2021, Additional history exists DTaP,Tdap,and [...] as of this encounter Visit Diagnoses Diagnosis HTN, goal below 140/90 Unspecified essential hypertension Hypertensive kidney disease with stage 3a chronic kidney disease documented in this encounter Care Teams Sheriffs Detective Relationship Specialty Start Date End Date Daniel Hinojosa MD [address] [place] [address] PCP - General Family Medicine 09/01/20 documented as of this encounter
--- OUTSIDE RECORDS SUMMARY | 2023-07-11 06:34 | External Medical Summary | Summary of Care ---
Author Name Unknown Organization [facility] Address [address] [place] [address] Phone [phone] Care Team Providers Care Collections Rep Name Role Phone Daniel Szymanski MD Primary Care Provider + Reason for Visit * Reason Onset Date Comments Pre Cert/Prior Auth 06/11/2023 Encounter Details Date Type Department Care Team (Late st Contact Info) Description 06/11/2023 Telephone Family Practice [facility] [address] [place] [address] Daniel Szymanski MD [address] [place] [address] Pre Cert/Prior Auth Allergies Active Allergy Reactions Criticality Noted Date Comments Cephalosporins 06/22/1999 rash Niacin Nausea/vomiting Low 04/23/2008 documented as of this encounter (statuses as of 06/11/2023) Medications Medication Sig Dispensed Refills Start Date End Date Status CALCIUM 600 MG OR TABS one pill each day 0 05/05/2004 Active LORATADINE 10 MG PO TABSIndications:Arun rgic rhinitis 1 TABLET DAILY 30 0 04/11/2007 Active ASPIRIN 81 MG PO CHEWIndications:HTN, goal to be determined One pill by mouth once a day with food 0 10/21/2009 Active MUCINEX 600 MG PO [id number]:Arun rgic rhinitis 1 TABLET EVERY 12 HOURS [...] as of this encounter (statuses as of 06/11/2023) Active Problems Problem Noted Date Diagnosed Date [...] as of this encounter (statuses as of 06/11/2023) Resolved Problems Problem Noted Date Diagnosed Date [...] as of this encounter (statuses as of 06/11/2023) Immunizations Name Administration Dates Next Due COVID-19 [...] encounter Miscellaneous Notes * Telephone Encounter - Deanna Berrios PHARM Tech - 06/11/2023 3:32 PM EST [facility] calling stating that pt initiated a PA on Fluticasone Nasal [place]. This is an urgent request. [facility] is faxing over additional information needed to approve this. Thank you, Deanna Berrios, [employer] [facility] ([facility]) (Formerly Telepharmacy) 06/11/2023,3:36 PM documented in this encounter Plan of Treatment Upcoming Encounters Date Type Department Care Team (Late st Contact Info) Description 07/30/2023 11:15 AM EDT Office Visit Orthopaedics [facility] [address] [place] [address] Harsh Lang, [address] [place] [address] 10/12/2023 12:20 PM EDT Office Visit Family Practice [facility] 132 [facility] [place] [address] Daniel Szymanski MD [address] [place] [address] 01/10/2024 11:30 AM EDT Office Visit Dermatology [facility] [place] [address] [place] [address] Skye Joshi MD [address] [place] [address] 01/30/2024 11:30 AM EDT Office Visit Allergy/Immunology [facility] [place] [address] [place] [address] Jennie Nieto PA-C 200 [facility] [place] [address] Scheduled Procedures Name Priority Associated Diagnoses Date/Ti me COLONOSCOPY FLEXIBLE PROXIMA L DIAGNOSTIC Recall Personal history of colonic polyps Health Maintenance Due Date Last Done Comments CKD PHOS USE SMARTSET 31194 09/28/202209/08, 09/29/2019, 07/18/2018 GFR 07/25/2023 01/23/2023, 06/2022, 09/28/2021, Additional history exists Depression Screening 10/07/2023 10/06/2022 Albumin/Creatinine Ratio 10/10/2023 023, 07/07/2021, 10/27/2015, Additional history exists CKD HGB USE SMARTSET 35691 01/24/202401/23, 01/23/2023, 09/28/2021, Additional history exists DTaP,Tdap,and [...] filedocumented as of this encounter Care Teams Collections Rep Relationship Specialty Start Date End Date Daniel Szymanski MD [address] [place] [address] PCP - General Family Medicine 09/01/20 documented as of this encounter
--- OUTSIDE RECORDS SUMMARY | 2023-07-11 06:34 | External Medical Summary | Summary of Care ---
Author Name Unknown Organization [facility] Address [address] [place] [address] Phone [phone] Care Team Providers Care Telephone Interviewer Name Role Phone Daniel Szymanski MD Primary Care Provider + Reason for Visit * Reason Comments Knee Pain left Encounter Details Date Type Department Care Team (Latest Contact Info) Description 04/23/2023 11:00 AM EST Office Visit Orthopaedics [facility] [address] [facility] [place] [address] Harsh Lang, [address] [facility] [place] [address] Primary osteoarthritis of left knee*; Effusion of left knee; Synovial cyst of left popliteal space Allergies Active Allergy Reactions Criticality Noted Date Comments Cephalosporins 06/22/1999 rash Niacin Nausea/vomiting Low 04/23/2008 documented as of this encounter (statuses as of 04/23/2023) Medications Medication Sig Dispensed Refills Start Date End Date Status CALCIUM 600 MG OR TABS one pill each day 0 05/05/2004 Active LORATADINE 10 MG PO TABSIndications:Arun rgic rhinitis 1 TABLET DAILY 30 0 04/11/2007 Active ASPIRIN 81 MG PO CHEWIndications:HTN, goal to be determined One pill by mouth once a day with food 0 10/21/2009 Active MUCINEX 600 MG PO [id number]:Arun rgic rhinitis 1 TABLET EVERY 12 HOURS [...] OR WHEEZING 18 g 3 07/19/2020 Active Lisinopril 10 MG Oral Tablet (Prinivil)Indication s:HTN, goal below 140/90,Hypertensive kidney disease with stage 3a chronic kidney disease (HCC) TAKE 1 TABLET BY MOUTH ONCE DAILY IN THE MORNING 90 Tablet 1 10/31/2022 Active Fluticasone Propionate HFA 110 MCG/ACT Inhalation [...] TIMES DAILY 270 Capsule 1 02/25/2023 Active Hospital, Clinic, or Other Facility Administered Medication Ordered Dose Route Frequency Start Date End Date Status lidocaine 1% 1 mL - triamcinolone acetonide 40 mg/mL 1 mL inj 2 mLIndications:Primary osteoarthritis of left knee,Effusion of left knee 2 mL IJ ONCE 04/23/2023 Active documented as of this encounter (statuses as of 04/23/2023) Active Problems Problem Noted Date Diagnosed Date [...] as of this encounter (statuses as of 04/23/2023) Resolved Problems Problem Noted Date Diagnosed Date [...] as of this encounter (statuses as of 04/23/2023) Immunizations Name Administration Dates Next Due COVID-19 mRNA, LNP-s, No Pre serve, 2-Dose Series ([employer]) 02/10/2021,06/21/2020,05/23/2020 COVID-19, MRNA-LNP, 23-24, P F, 50 MCG/0.5 mL, 12 YRS AND ABOVE, IM (MODERNA-Spikevax) 01/13/2023 Covid-19, Mrna, Lnp-s, Pf, B ivalent, 30 Mcg, IM, 12 yrs and above (SureWaves) 02/28/2022 Pneumococcal Conjugate Vacc, 13 Valent (Prevnar) [...] on file documented as of this encounter Progress Notes * Harsh [place], - 04/23/2023 11:00 AM EST Amada Leblanc [id number] INJECTION NOTE Amada Leblanc is a 82 year old female who presents to [facility] for Left knee injection She reports did not feel SOLARES injections worked as well. Last injected with steroids on 01/17/23 TODAY: would like repeat injections with steroids She has been using incrediwear, feels Daniels cyst is clearly worse today Physical Exam General: in no acute distress Mood and Affect: normal Gait and Station: mildly antalgic Knee exam Active range of motion 0-110 1+ effusion Bakers cyst present, large Assessment and Plan: Today we will aspirate and inject Daniels cyst. Please see procedure note. Continue with incredibly rare. Follow up 3 months Primary osteoarthritis of left knee (Primary) - lidocaine 1% 1 mL - triamcinolone acetonide 40 mg/mL 1 mL inj 2 mL - POINT OF CARE US MAJOR JOINT INJECTION, ORTHO Effusion of left knee - lidocaine 1% 1 mL - triamcinolone acetonide 40 mg/mL 1 mL inj 2 mL - POINT OF CARE US MAJOR JOINT INJECTION, ORTHO Synovial cyst of left popliteal space Harsh Lang DO [facility] [place] [address] Procedure note (knee aspiration/injection), left : knee Bakers cyst Time out: Prior to injection, a time out was called to confirm the administration of appropriate medicine, patient name, procedure and confirm to the best of our ability and knowledge the presence of any necessary risks and benefits. Patient verbalizes understanding. Ultrasound utilized to guide injection Ultrasound required due to patient size (obese). Reviewed benefits including potential pain reduction and improved function as well as risks including worsening pain or infection in detail with patient and patient verbalizes understanding. Sterile techinique applied. Skin sterilized with alcohol swab. Knee aspirated using 1.5 inch, 18 gauge needle from medial approach. 17cc of straw colored fluid aspirated. Knee then injected with lidocaine 1% 1 mL - triamcinolone acetonide 40 mg/mL 1 mL inj 2 mL .. Patient tolerated procedure with no significant bleeding or adverse reaction. Patient instructed to call or return to clinic for fever or warmth and redness at injection site for potential infection. Patient also advised as to potential for steroid flare reaction including increased pain and redness at injection site which should be treated with ice and resolve within 24 hours. Harsh Lang DO documented in this encounter Nursing Notes * Rosa Morrison MED ASSIST - 04/23/2023 10:53 AM EST Follow up Patient Follow up: Knee Side: Left Date of last visit: 01/17/23 Improvement since last office visit: 0 percent. Prior Treatment: Injection Here for Test Results: No Goals for this appointment: injection documented in this encounter Plan of Treatment Upcoming Encounters Date Type Department Care Team (Late st Contact Info) Description 05/07/2023 2:30 PM EST Office Visit Gastroenterology, [address] [place] [address] Alan Lewis CRNP [address] [place] [address] 07/23/2023 11:30 AM EDT Office Visit Orthopaedics [facility] [address] [place] [address] Harsh Lang DO [address] [place] [address] 10/12/2023 12:20 PM EDT Office Visit Family Practice [facility] [address] [place] [address] Daniel Szymanski MD [address] [place] [address] 01/10/2024 11:30 AM EDT Office Visit Dermatology [facility] [address] [place] [address] Skye Joshi MD 200 [facility] [place] [address] 01/30/2024 11:30 AM EDT Office Visit Allergy/Immunology [facility] [address] [place] [address] Jennie Nieto PA-C 200 [facility] [place] [address] Scheduled Orders Name Type Priority Associated Diagnoses Orde r Schedule POINT OF CARE US MAJOR JOINT INJECTION, ORTHO Medical Imaging Routine Primary osteoarthritis of left knee Effusion of left knee Ordered: 04/23/2023 Scheduled Procedures Name Priority Associated Diagnoses Date/Ti me COLONOSCOPY FLEXIBLE PROXIMA L DIAGNOSTIC Recall Personal history of colonic polyps Health Maintenance Due Date Last Done Comments CKD PHOS USE SMARTSET 25597 09/28/2022 06/2 05/2021, 09/29/2019, 07/18/2018 GFR 07/25/2023 01/23/2023, 06/2022, 09/28/2021, Additional history exists Depression Screening 10/07/2023 10/06/2022 Albumin/Creatinine Ratio 10/10/2023 023, 07/07/2021, 10/27/2015, Additional history exists CKD HGB USE SMARTSET 46095 01/24/202401/23, 01/23/2023, 09/28/2021, Additional history exists DTaP,Tdap,and [...] as of this encounter Visit Diagnoses Diagnosis Primary osteoarthritis of left knee- Primary Primary localized osteoarthrosis, lower leg Effusion of left knee Effusion of lower leg joint Synovial cyst of left popliteal space Synovial cyst of popliteal space documented in this encounter Care Teams Telephone Interviewer Relationship Specialty Start Date End Date Daniel Szymanski MD [address] [place] [address] PCP - General Family Medicine 09/01/20 documented as of this encounter
--- OUTSIDE RECORDS SUMMARY | 2023-07-11 06:34 | External Medical Summary | Summary of Care ---
Author Name Unknown Organization [facility] Address [address] [place] [address] Phone [phone] Care Team Providers Care Stone Gluer Name Role Phone Daniel Szymanski MD Primary Care Provider + Reason for Visit * Reason Comments Knee Pain left Encounter Details Date Type Department Care Team (Latest Contact Info) Description 04/23/2023 11:00 AM EST Office Visit Orthopaedics [facility] [address] [facility] [place] [address] Harsh Lang, [address] [facility] [place] [address] Primary osteoarthritis of left knee*; Effusion of [...] 0 10/21/2009 Active MUCINEX 600 MG PO [id number] llergic rhinitis 1 TABLET EVERY 12 HOURS [...] MORNING 90 Tablet 1 10/31/2022 4 Discontinued Hospital, Clinic, or Other Facility Administered Medication Ordered Dose Route Frequency Start Date End Date Status lidocaine 1% 1 mL - triamcinolone acetonide 40 mg/mL 1 mL inj 2 mLIndications:Primary osteoarthritis of left knee,Effusion of left knee 2 mL IJ ONCE 04/23/2023 4 Ended documented as of this encounter (statuses as [...] mRNA, LNP-s, No Pre serve, 2-Dose Series ([employer]) 02/10/2021,06/21/2020,05/23/2020 COVID-19, MRNA-LNP, 23-24, P F, 50 MCG/0.5 mL, 12 YRS AND ABOVE, IM (MODERNA-Spikevax) 01/13/2023 Covid-19, Mrna, Lnp-s, Pf, B ivalent, 30 Mcg, IM, 12 yrs and above ([employer]) 02/28/2022 Pneumococcal Conjugate Vacc, 13 Valent (Prevnar) 10/27/2015 Pneumococcal Polysaccharide PPV23 (Pneumovax) 02/13/2005 Season Influenza, Quad, PF, Adjuvanted, 65+ Yrs, [...] money to buy more. Never true 10/07/19 Within the past 12 months, t he [...] Lang, - 04/23/2023 11:00 AM EST Amada Davis [id number] INJECTION NOTE Amada Davis is a 82 year old female who presents to [facility] for Left knee injection [...] Harsh Lang DO Primary Care Sports Medicine [facility] [place] [address] Procedure note (knee aspiration/injection), left [...] 05/07/2023 2:30 PM EST Office Visit Gastroenterology, [facility] [address] [place] [address] Alan Lewis CRNP [address] [place] [address] 07/23/2023 11:30 AM EDT Office Visit Orthopaedics [facility] [address] [place] [address] Harsh Lang DO [address] [place] [address] 10/12/2023 12:20 PM EDT Office Visit Family Practice [facility] [address] [place] [address] Daniel Szymanski MD [address] [facility] [place] [address] 01/10/2024 11:30 AM EDT [facility] [place] [address] Skye Joshi MD [address] [facility] [place] [address] 01/30/2024 11:30 AM EDT [facility] [place] [address] Jennie Nieto PA-C [address] [facility] [place] [address] Scheduled Procedures Name Priority Associated Diagnoses Date/Ti me COLONOSCOPY FLEXIBLE PROXIMA L DIAGNOSTIC Recall Personal history of colonic polyps Health Maintenance Due Date Last Done Comments CKD PHOS USE SMARTSET 49340 09/28/2022 06/2 05/2021, 09/29/2019, 07/18/2018 GFR 07/25/2023 01/23/2023, 07/0 06/2022, 09/28/2021, Additional history exists Depression Screening 10/07/2023 10/06/2022 Albumin/Creatinine Ratio 10/10/2023 023, 07/07/2021, 10/27/2015, Additional history exists CKD HGB USE SMARTSET 19355 01/24/202401/23, 01/23/2023, 09/28/2021, Additional history exists DTaP,Tdap,and [...] Not on filedocumented as of this encounter Procedures Procedure Name Priority Date/Time Associated Diagnosis Comments POINT OF CARE US MAJOR JOINT INJECTION, ORTHO Routine 04/23/2023 11:03 AM EST Primary osteoarthritis of left knee Effusion of left knee documented in this encounter Results * POINT OF CARE US MAJOR JOINT INJECTION, ORTHO (04/23/2023 11:03 AM EST) Anatomical Region Laterality Modality Musculoskeletal Radiographic Diya ging 04/23/2023 11:0 3 AM EST Narrative 04/23/2023 2:49 PM EST Patient Name: AMADA DAVIS : 1940 (82y) Female Performing Provider: Harsh Lang (digitally signed Apr 23, 2023 14:49 EST) Attending: Harsh Lang (digitally signed Apr 23, 2023 14:49 EST) [Impression] : Procedure note (knee aspiration/injection), left : knee Bakers cyst Time out:Prior to injection, a time out was called to confirm the administration of appropriate medicine, patient name, procedure and confirm to the best of our ability and knowledge the presence of any necessary risks and benefits. Patient verbalizes understanding. Ultrasound utilized to guide injectionUltrasound required due to patient size (obese). Reviewed [...] with ice and resolve within 24 hours. Hasrh Lang DO Procedure Note Harsh Lang DO - 04/23/2023 Patient Name: AMADA DAVIS : 1940 (82y) Female Performing Provider: Harsh Lang (digitally signed Apr 23, 2023 14:49EST) Attending: Harsh Lang (digitally signed Apr 23, 2023 14:49 EST) [Impression] : Procedure note (knee aspiration/injection), left : kneeBakers cyst Time out:Prior to injection, a time out was called to confirmthe administration of appropriate medicine, patient name, procedure andconfirm to the best of our ability and knowledge the presence of anynecessary risks and benefits. Patient verbalizes understanding.Ultrasound utilized to guide injectionUltrasound required due to patientsize (obese). Reviewed benefits including potential pain reduction andimproved function as well as risks including worsening pain or infectionin detail with patient and patient verbalizes understanding. Steriletechinique applied. Skin sterilized with alcohol swab. Knee aspiratedusing 1.5 inch, 18 gauge needle from medial approach. 17cc of strawcolored fluid aspirated. Knee then injected with lidocaine 1% 1 mL -triamcinolone acetonide 40 mg/mL 1 mL inj 2 mL .. Patient toleratedprocedure with no significant bleeding or adverse reaction. Patient instructed to call or return to clinic for fever or warmth andredness at injection site for potential infection. Patient also advisedas to potential for steroid flare reaction including increased pain andredness at injection site which should be treated with ice and resolvewithin 24 hours. Harsh Lang DO Harsh Lang DO RAD ULTRASOUND documented in this encounter Visit Diagnoses Diagnosis Primary osteoarthritis of left knee- Primary Primary localized osteoarthrosis, lower leg Effusion of left knee Effusion of lower leg joint Synovial cyst of left popliteal space Synovial cyst of popliteal space documented in this encounter Administered Medications Inactive Administered Medications - up to 3 most recent administrations Medication Order MAR Action Action Date Dose Rate Site lidocaine 1% 1 mL - triamcinolone acetonide 40 mg/mL 1 mL inj 2 mL 2 mL, Injection, ONCE, On 04/23/23 at 1130, For 1 dose, Lidocaine 1% 1mL Triamcinolone Acetonide 40 mg/mL 1 mL (Final concentration = 20 mg/mL) REFRIGERATE and SHAKE WELL Given 04/23/2023 10:53 AM EST 2 mL Knee Left documented in this encounter Care Teams Stone Gluer Relationship Specialty Start Date End Date Daniel Szymanski MD [address] [facility] [place] [address] PCP - General Family Medicine 09/01/20 documented as of this encounter
--- OUTSIDE RECORDS SUMMARY | 2023-07-11 06:34 | External Medical Summary | Summary of Care ---
Author Name Unknown Organization [facility] Address [address] [place] [address] Phone [phone] Care Team Providers Care Timber Cutter Name Role Phone Daniel Szymanski MD Primary Care Provider + Reason for Visit * Reason Comments Knee Pain left Encounter Details Date Type Department Care Team (Latest Contact Info) Description 04/23/2023 11:00 AM EST Office Visit Orthopaedics [facility] [address] [facility] [place] [address] Harsh Lang, [address] [facility] [place] [address] Primary osteoarthritis of left knee*; Effusion of [...] 0 10/21/2009 Active MUCINEX 600 MG PO [id number]:A llergic rhinitis 1 TABLET EVERY 12 HOURS [...] mRNA, LNP-s, No Pre serve, 2-Dose Series ([employer]) 02/10/2021,06/21/2020,05/23/2020 COVID-19, MRNA-LNP, 23-24, P F, 50 MCG/0.5 mL, 12 YRS AND ABOVE, IM (MODERNA-Spikevax) 01/13/2023 Covid-19, Mrna, Lnp-s, Pf, B ivalent, 30 Mcg, IM, 12 yrs and above ([employer]) 02/28/2022 Pneumococcal Conjugate Vacc, 13 Valent (Prevnar) [...] - 04/23/2023 11:00 AM EST Amada Davis [id number] INJECTION NOTE Amada Davis is a 82 year old female who presents to [facility] for Left knee injection She [...] Harsh Lang DO Primary Care Sports Medicine [facility] [place] [address] Procedure note (knee aspiration/injection), left [...] 05/07/2023 2:30 PM EST Office Visit Gastroenterology, [facility] [address] [place] [address] Alan Lewis CRNP [address] [place] [address] 07/23/2023 11:30 AM EDT Office Visit Orthopaedics [facility] [address] [place] [address] Harsh Lang DO [address] [place] [address] 10/12/2023 12:20 PM EDT Office Visit Family Practice [facility] [address] [place] [address] Daniel Szymanski MD [address] [facility] [place] [address] 01/10/2024 11:30 AM EDT Office Visit Dermatology [facility] [place] [address] Skye Joshi MD [address] [facility] [place] [address] 01/30/2024 11:30 AM EDT Office Visit Allergy/Immunology [facility] [address] [facility] [place] [address] Jennie Nieto PA-C [address] [facility] [place] [address] Scheduled Procedures Name Priority Associated Diagnoses Date/Ti me COLONOSCOPY FLEXIBLE PROXIMA L DIAGNOSTIC Recall Personal history of colonic polyps Health Maintenance Due Date Last Done Comments CKD PHOS USE SMARTSET 25650 09/28/2022 06/2 05/2021, 09/29/2019, 07/18/2018 GFR 07/25/2023 01/23/2023, 07/0 06/2022, 09/28/2021, Additional history exists Depression Screening 10/07/2023 10/06/2022 Albumin/Creatinine Ratio 10/10/2023 023, 07/07/2021, 10/27/2015, Additional history exists CKD HGB USE SMARTSET 62183 01/24/202401/23, 01/23/2023, 09/28/2021, Additional history exists DTaP,Tdap,and [...] resolve within 24 hours. Harsh Lang DO Procedure Note Harsh Lang DO [...] Left documented in this encounter Care Teams Timber Cutter Relationship Specialty Start Date End Date Daniel Szymanski MD [address] [facility] [place] [address] PCP - General Family Medicine 09/01/20 documented as of this encounter
--- OUTSIDE RECORDS SUMMARY | 2023-07-11 06:34 | External Medical Summary | Summary of Care ---
Author Name Unknown Organization [facility] Address [address] [place] [address] Phone [phone] Care Team Providers Care Contract Driver Name Role Phone Daniel Szymanski MD Primary Care Provider + Reason for Visit * Reason Comments Follow Up Encounter Details Date Type Department Care Team (Late st Contact Info) Description 05/07/2023 2:30 PM EST Office Visit Gastroenterology, [facility] [address] [place] [address] Alan Lewis CRNP [address] [place] [address] Loose bowel movements* Allergies Active Allergy Reactions Criticality Noted Date Comments Cephalosporins 06/22/1999 rash Niacin Nausea/vomiting Low 04/23/2008 documented as of this encounter (statuses as of 05/07/2023) Medications Medication Sig Dispensed Refills Start Date End Date Status CALCIUM 600 MG OR TABS one pill each day 0 05/05/2004 Active LORATADINE 10 MG PO TABSIndications:Arun rgic rhinitis 1 TABLET DAILY 30 0 04/11/2007 Active ASPIRIN 81 MG PO CHEWIndications:HTN, goal to be determined One pill by mouth once a day with food 0 10/21/2009 Active MUCINEX 600 MG PO [id number]:Arun rgic rhinitis 1 TABLET EVERY 12 HOURS [...] as of this encounter (statuses as of 05/07/2023) Active Problems Problem Noted Date Diagnosed Date [...] as of this encounter (statuses as of 05/07/2023) Resolved Problems Problem Noted Date Diagnosed Date [...] as of this encounter (statuses as of 05/07/2023) Immunizations Name Administration Dates Next Due COVID-19 [...] Passive Smoke Exposure: Past Smokeless Tobacco: Never Tobacco Cessation:Counseling Given: Not Answered Comments:no passive smoke Alcohol Use Standard Drinks/Week [...] on file documented as of this encounter Last Filed Vital Signs Vital Sign Reading Time Taken Comments Blood Pressure 132/74 05/07/2023 2:38 PM EST Pulse 72 05/07/2023 2:38 PM EST Temperature 36.5 C (97.7 F) 05/07/2023 2:38 PM ES T Respiratory Rate - - Oxygen Saturation 97% 05/07/2023 2:38 PM EST Inhaled Oxygen Concentration - - Weight 92.7 kg (204 lb 4.8 oz) 05/07/2023 2:38 P M EST Height 170.2 cm (5' 7") 05/07/2023 2:38 PM EST Body Mass Index 32 05/07/2023 2:38 PM EST documented in this encounter Patient Instructions * Patient Instructions* Alan Lewis CRNP - 05/07/2023 2:52 PM EST Try decreasing the Miralax to 1/2 capful every day. If still to urgent and loose then add 2 teaspoons of fiber/day, such as Benafiber. documented in this encounter Progress Notes * Alan Lewis CRNP - 05/07/2023 2:41 PM EST CC: Recheck abdominal pain HPI: Recall that Ms. Amada Leblanc is an 82 year old female patient with a hx of HTN, asthma, GERD who was seen in GI clinic most recently in Jan after gallstone pancreatitis (El LFTs/lipase, biliary colic) and was referred to surgery. She underwent lap choley in February. Sine then, she called in [facility] and daily Dulcolax/Miralax (until relief) was recommended. Current GI Meds: One Miralax daily. Current GI Symptoms: Has some rectal pressure/urgency after eating. Now passing about 3BMs/day. No abd pain. No blood in BMs. No unexplained weight loss. Drinks plenty of water. Always has a bottle of water w her, drinks 3-4 16oz/day. CTAP w IV and oral 01/23/23: 1. Cholelithiasis. 2. Pancreatic body hypodense/cystic lesion measuring 0.9 cm with adjacent focal pancreatic ductal dilation. Consider further characterization with MRI abdomen with and without IV contrast with MRCP. 3. Mucosal hyperenhancement of the bladder wall. Consider correlation with urinalysis for urinary tract infection. 4. Ground-glass opacities in the bilateral lower lobes, which may represent inflammatory/infectiousprocess. 5. Splenomegaly. 6. Small hiatal hernia. EXAM: BP 132/74 (BP Site: Left Arm, BP Position: Sitting, BP Cuff Size: Regular) | Pulse 72 | Temp 36.5 C (97.7 F) (Tympanic) | Ht 1.702 m (5' 7") | Wt 92.7 kg (204 lb 4.8 oz) | SpO2 97% | BMI 32.00 kg/m | BSA 2.09 m GENERAL: 82 year old female well developed and well nourished in no acute distress SKIN: no rashes, ulcers, or spider angiomata HEENT: normocephalic, sclera clear, pharynx normal NECK: supple, no lymphadenopathy, no masses or thyroid enlargement LUNGS: clear to auscultation anterior and posterior HEART: regular rate & rhythm, no murmurs and no gallops ABDOMEN: normo-active bowel sounds, soft, non-tender, non-distended no masses, no hepatosplenomegaly, no rebound or guarding, no bruits EXTREMITIES: no palmar erythema, no edema, no skin discoloration, no clubbing, no cyanosis NEURO: no lateralizing findings, Sensory/Motor grossly normal IMPRESSION/RECOMMENDATIONS: 82 year old female Is here for office recheck for abdominal pain which has resolved with cholecystectomy. She had had constipation after the surgery and was advised to be on MiraLax her current loose bowel movements are most likely secondary to the MiraLax. I recommend that she decrease the MiraLax to 1/2 capful daily. If the loose bowel movements and urgency continue then would add a dose of fiber daily. Recheck in GI on an as needed basis. Call w any questions/problems Pt asked for the RSV vaccine. Our clinic scheduler is calling her PCP office, here in our same building toask if she can go there now for the vaccine or make an appt to receive the vaccine soon. I spent a total of 15 minutes on the date of service in review of patient's record, and previously obtained information in person and appropriate medical visit, discussion and education of plan, withpatient and/or caregiver, placing orders for tests/referral/procedures as medically necessary and documentation of pertinent clinical information in patient's medical records for their visit today. Thank you for the opportunity to be involved in the care of this patient. TAHIRA Elias documented in this encounter Nursing Notes * Isatu Abarca LPN - 05/07/2023 2:36 PM EST Patient presents today for return after testing. Has a few questions regarding miralax. She notes is using miralax 1 cap full once a day and her bm are loose. documented in this encounter Plan of Treatment Upcoming Encounters Date Type Department Care Team (Late st Contact Info) Description 07/23/2023 11:30 AM EDT Office Visit Orthopaedics [facility] [address] [place] [address] Harsh Lang DO [address] [place] [address] 10/12/2023 12:20 PM EDT Office Visit Family Practice [facility] [address] [place] [address] Daniel Szymanski MD [address] [place] [address] 01/10/2024 11:30 AM EDT Office Visit Dermatology [facility] [address] [place] [address] Skye Joshi MD [address] [place] [address] 01/30/2024 11:30 AM EDT Office Visit Allergy/Immunology [facility] [address] [place] [address] Jennie Nieto PA-C [address] [place] [address] Scheduled Procedures Name Priority Associated Diagnoses Date/Ti me COLONOSCOPY FLEXIBLE PROXIMA L DIAGNOSTIC Recall Personal history of colonic polyps Health Maintenance Due Date Last Done Comments CKD PHOS USE SMARTSET 33401 09/28/202209/08, 09/29/2019, 07/18/2018 GFR 07/25/2023 01/23/2023, 07/06/2022, 09/28/2021, Additional history exists Depression Screening 10/07/2023 10/06/2022 Albumin/Creatinine Ratio 10/10/2023 023, 07/07/2021, 10/27/2015, Additional history exists CKD HGB USE SMARTSET 89135 01/24/202401/23, 01/23/2023, 09/28/2021, Additional history exists DTaP,Tdap,and [...] as of this encounter Visit Diagnoses Diagnosis Loose bowel movements- Primary Diarrhea documented in this encounter Care Teams Contract Driver Relationship Specialty Start Date End Date Daniel Szymanski MD [address] [place] [address] PCP - General Family Medicine 09/01/20 documented as of this encounter
--- OUTSIDE RECORDS SUMMARY | 2023-07-11 06:40 | External Medical Summary | Summary of Care ---
Author Name Unknown Organization [facility] Address [address] [place] [address] Phone [phone] Care Team Providers Care Classics Teacher Name Role Phone Daniel Szymanski MD Primary Care Provider + Reason for Visit * Reason Comments Post-Op Lap sherin. Encounter Details Date Type Department Care Team (Late st Contact Info) Description 03/21/2023 2:15 PM EST Office Visit General Surgery, [facility] [address] [facility] [place] [address] Corey Mcelroy MD 132 [facility] [place] [address] S/P laparoscopic cholecystectomy* Allergies Active Allergy Reactions Criticality Noted Date Comments Cephalosporins 06/22/1999 rash Niacin Nausea/vomiting Low 04/23/2008 documented as of this encounter (statuses as of 03/21/2023) Medications Medication Sig Dispensed Refills Start Date End Date Status CALCIUM 600 MG OR TABS one pill each day 0 05/05/2004 Active LORATADINE 10 MG PO TABSIndications:Arun rgic rhinitis 1 TABLET DAILY 30 0 04/11/2007 Active ASPIRIN 81 MG PO CHEWIndications:HTN, goal to be determined One pill by mouth once a day with food 0 10/21/2009 Active MUCINEX 600 MG PO [id number]:Arun rgic rhinitis 1 TABLET EVERY 12 HOURS [...] TIMES DAILY 270 Capsule 1 02/25/2023 Active documented as of this encounter (statuses as of 03/21/2023) Active Problems Problem Noted Date Diagnosed Date [...] as of this encounter (statuses as of 03/21/2023) Resolved Problems Problem Noted Date Diagnosed Date [...] as of this encounter (statuses as of 03/21/2023) Immunizations Name Administration Dates Next Due COVID-19 mRNA, LNP-s, No Pre serve, 2-Dose Series ([employer]) 02/10/2021,06/21/2020,05/23/2020 COVID-19, MRNA-LNP, 23-24, P F, 50 MCG/0.5 mL, 12 YRS AND ABOVE, IM (MODERNA-Spikevax) 01/13/2023 Covid-19, Mrna, Lnp-s, Pf, B ivalent, 30 Mcg, IM, 12 yrs and above ([employer]) 02/28/2022 Pneumococcal Conjugate Vacc, 13 Valent (Prevnar) [...] Sign Reading Time Taken Comments Blood Pressure - - Pulse - - Temperature 36.6 C (97.9 F) 03/21/2023 2:21 PM ES T Respiratory Rate - - Oxygen Saturation - - Inhaled Oxygen Concentration - - Weight - - Height - - Body Mass Index - - documented in this encounter Progress Notes * Corey Mcelroy MD - 03/21/2023 2:24 PM EST Amada Leblanc is s/p a laparascopic cholecystectomy on 03/05/2023. Doing well. Pt. is tolerating aregular diet, having bowel movements, and has good pain control. No postoperative concerns. PE: Temperature 36.6 C (97.9 F), not currently . Gen: looks well, alert Abdomen: soft, nontender, nodistended, incisions clean, dry and intact Assessment: No issues following laparascopic cholecystectomy. Return to full activity in two weeks following surgery. If diarrhea occurs, discussed benefit of a low fat diet for six weeks. Pathology report reviewed with patient. Plan: Followup in the office PRN or if questions arise. Corey Mcelroy MD 03/21/2023 2:24 PM documented in this encounter Nursing Notes * Danyelle Mckenna MED ASSIST - 03/21/2023 2:21 PM EST Chief Complaint Patient presents with Post-Op Lap sherin. Verified patient. No pain. Incisions are healing well. Appetite is good. documented in this encounter Plan of Treatment Upcoming Encounters Date Type Department Care Team (Late st Contact Info) Description 04/23/2023 11:00 AM EST Office Visit Orthopaedics [facility] [address] [place] [address] Harsh Lang DO [address] [place] [address] 05/07/2023 2:30 PM EST Office Visit Gastroenterology, [facility] [place] [address] Alan Lewis CRNP [address] [place] [address] 10/12/2023 12:20 PM EDT Office Visit Family Practice [facility] [address] [place] [address] Daniel Szymanski MD [address] [facility] [place] [address] 01/10/2024 11:30 AM EDT Office Visit Dermatology [facility] [address] [place] [address] Skye Joshi MD [facility] [place] [address] 01/30/2024 11:30 AM EDT Office Visit Allergy/Immunology [facility] [address] [place] [address] [address] Jennie Nieto PA-C [address] [facility] [place] [address] Scheduled Procedures Name Priority Associated Diagnoses Date/Ti me COLONOSCOPY FLEXIBLE PROXIMA L DIAGNOSTIC Recall Personal history of colonic polyps Health Maintenance Due Date Last Done Comments CKD PHOS USE SMARTSET 94724 09/28/202209/08, 09/29/2019, 07/18/2018 GFR 07/25/2023 01/23/2023, 06/2022, 09/28/2021, Additional history exists Depression Screening 10/07/2023 10/06/2022 Albumin/Creatinine Ratio 10/10/2023 023, 07/07/2021, 10/27/2015, Additional history exists CKD HGB USE SMARTSET 84664 01/24/202401/23, 01/23/2023, 09/28/2021, Additional history exists DTaP,Tdap,and [...] as of this encounter Visit Diagnoses Diagnosis S/P laparoscopic cholecystectomy- Primary Other postprocedural status documented in this encounter Care Teams Classics Teacher Relationship Specialty Start Date End Date Daniel Szymanski MD [address] [place] [address] PCP - General Family Medicine 09/01/20 documented as of this encounter
--- OUTSIDE RECORDS SUMMARY | 2023-07-11 06:40 | External Medical Summary | Summary of Care ---
Author Name Unknown Organization [facility] Address [address] [place] [address] Phone [phone] Care Team Providers Care Aircraft Delivery Checker Name Role Phone Daniel Szymanski MD Primary Care Provider + Reason for Visit * Reason Onset Date Comments Advice 03/06/2023 Encounter Details Date Type Department Care Team (Late st Contact Info) Description 03/06/2023 Telephone Gastroenterology, [facility] [address] [place] [id number] Alan Lewis CRNP [address] [place] [id number] Advice Allergies Active Allergy Reactions Criticality Noted Date [...] 0 10/21/2009 Active MUCINEX 600 MG PO [id number]:Arun rgic rhinitis 1 TABLET EVERY 12 HOURS [...] encounter Miscellaneous Notes * Telephone Encounter - Esther Cardona RN - 03/06/2023 2:14 PM EST This has been fully explained to the patient, who indicates understanding. * Telephone Encounter - Esther Cardona RN - 03/06/2023 2:06 PM EST Images from the original note were not included. Alan Lewis CRNP You18 minutes ago (1:47 PM) Recommend Miralax twice daily plus Dulcolax once daily until relief. Can also continue the Colace. TAHIRA Elias * Telephone Encounter - Esther Cardona RN - 03/06/2023 10:03 AM EST Pt calling to report that she has had no BM x 4 days. Reports she has been taking 3 Colace twice daily since "quite some time ago and it seemed to keep me loose." She states she has a lot of pressureand need to push. Describes hard stool in her rectum. Has been eating soup, tuna, prunes. Also reports that shet started taking Oxycodone yesterday d/t the pain from her Lap sherin on 03/05-took a total of 4 with ibuprofen. Please advise if you would recommend a dulcolax suppository or just add Miralax? documented in this encounter Plan of Treatment Upcoming Encounters Date Type Department Care Team (Late st Contact Info) Description 04/23/2023 11:00 AM EST Office Visit Orthopaedics [facility] [address] [place] [address] Harsh Lang, [address] [place] [address] 05/07/2023 2:30 PM EST Office Visit Gastroenterology, [facility] [address] [place] [address] Alan Lewis CRNP [address] [place] [address] 10/12/2023 12:20 PM EDT Office Visit Family Practice [facility] [address] [place] [address] Daniel Szymanski MD [address] [place] [address] 01/10/2024 11:30 AM EDT Office Visit [facility] [address] [place] [address] Skye Joshi MD [address] [place] [address] 01/30/2024 11:30 AM EDT Office Visit Allergy/Immunology [facility] [place] [address] Jennie Nieto PA-C [address] [place] [id number] Scheduled Procedures Name Priority Associated Diagnoses Date/Ti me COLONOSCOPY FLEXIBLE PROXIMA L DIAGNOSTIC Recall Personal history of colonic polyps Health Maintenance Due Date Last Done Comments CKD PHOS USE SMARTSET 32761 09/28/202209/08, 09/29/2019, 07/18/2018 GFR 07/25/2023 01/23/2023, 07/0 06/2022, 09/28/2021, Additional history exists Depression Screening 10/07/2023 10/06/2022 Albumin/Creatinine Ratio 10/10/2023 023, 07/07/2021, 10/27/2015, Additional history exists CKD HGB USE SMARTSET 82351 01/24/202401/23, 01/23/2023, 09/28/2021, Additional history exists DTaP,Tdap,and [...] filedocumented as of this encounter Care Teams Aircraft Delivery Checker Relationship Specialty Start Date End Date Daniel Szymanski MD [address] [place] [address] PCP - General Family Medicine 09/01/20 documented as of this encounter
[2023-07-11 06:44] LABS: BUN Creatinine Ratio 12.7 (10-20); Calcium 9.2 mg/dl (8.6-10.3); Creatinine Clr Calc Pharmacy 42.7 ml/min; Est GFR (African American) 49.4 ml/min; Est GFR (Non-African American) 42.6 ml/min; Potassium 3.8 mmol/L (3.5-5.1)
[2023-07-11 06:51] LABS: Troponin I High Sensitivity 15.1 pg/ml (0-14)
[2023-07-11] MEDS: IPRATROPIUM BROMIDE NEB SOLN 0.02% 0.5MG/2.5ML VIAL INH SCH (08:05)
[2023-07-11] MEDS: LEVALBUTEROL 1.25 MG/3 ML NEB NEB SCH (08:05)
[2023-07-11] MEDS ORDERED: XOPENEX/ATROVENT 1.25mg/0.5MG NEB COMBO NEB SCH (09:00)
[2023-07-11] MEDS ORDERED: FLUTICASONE HFA 110MCG INHALER INH SCH (09:00)
[2023-07-11] MEDS: LORATADINE 10 MG TAB PO SCH (09:31)
[2023-07-11] MEDS: PANTOprazole 40 MG TAB PO SCH (09:31)
[2023-07-11] MEDS: FAMOTIDINE 20 MG TAB PO SCH (09:31)
[2023-07-11] MEDS: DOXYCYCLINE HYCLATE 100 MG CAP PO SCH (09:32)
[2023-07-11] MEDS: FLUTICASONE PROPIONATE NA SPR 16 GM BTL SCH (09:32)
[2023-07-11] MEDS: lisinopril 10 MG TAB PO SCH (09:32)
[2023-07-11] MEDS: ASPIRIN 81 MG ECTAB PO SCH (09:32)
[2023-07-11] MEDS: CALCIUM CARBONATE 1250MG TAB PO SCH (09:32)
[2023-07-11] MEDS: ENOXAPARIN INJ 40 MG/0.4 ML SYR SQ SCH (09:33)
[2023-07-11] MEDS: FLUTICASONE FUROATE 200MCG 14 PUFFS/INHALER INH SCH (09:33)
--- NOTE | 2023-07-11 09:40 | Cardiology Consultation ---
Date of Consultation July 11, 2023 Assessment & Plan (1) SOB (shortness of breath): (2) Hypoxia: (3) Exertional dyspnea: Plan Patient admitted for hypoxia/SOB, multifactorial. Initially thought to have possible pneumonia and CHF. Echo reveals hyperdynamic LVEF with small LV cavity size, consistent with volume depletion. IV furosemide stopped this morning. BNP normal Chest CT without pleural effusion or infiltrate. Ground glass abnormality noted, possible COPD? She reports history of "asthma". She also has a remote history of pneumonia with empyema requiring VATS procedure. Consider pulm consult. She appears hypovolemic. Gentle hydration encouraged. HS troponin minimal at 15.1. Not indicative of ACS Would continue nebs, antibiotics, steroids for possible COPD exacerbation. Urine culture + gram negative bacilli. Continue antibiotics per hospitalist. Blood cultures negative x2. Once pulm status improves, could consider ischemic work up as well given fatigue/dyspnea. Continue ASA and lisinopril Case discussed with Dr. Drew I spent a total of 60 minutes on the date of service in preparation, delivery, and documentation of the care provided to this patient, excluding any time spent in the performance of separately billed services. Samra Mon PA-C Department of Cardiology, [facility] This chart was completed in part utilizing Speech Voice Recognition Software. Grammatical errors, random word insertions, pronoun errors, and incomplete sentences are an occasional consequence of this system due to software limitations, ambient noise, and hardware issues. Any formal questions or concerns about the content, text, or information contained within the body of this dictation should be directly addressed to the provider for clarification. Supervising Physician Co-Signing Physician Notes Attending attestation: Case reviewed with the advanced practitioner. I have personally performed a history and physical examination on the patient. I have reviewed the advanced practitioner's documentation on the date of service referenced in note, and I agree with, and take responsibility for the plan of care. Agree with broad spectrum antibiotics for treatment of UTI , question underlying occult pulmonary infection. Normal BNP reassuring with regards to cardiac cause of shortness of breath. Patient denies chest pain. She describes more generalized easy fatigability rather than dyspnea on exertion, states that she gets played out with minimal exertion. Denies orthopnea. Denies cough. I spent a total of 20 minutes coordinating, documenting, and providing care for this patient excluding time spent in the performance of separately billed services or time spent by another provider. Gera Drew, History of Present Illness Reason for Consultation: SOB Requesting Physician: Dr. Conner Attending Physician: Dr. Drew History of Present Illness Patient is an 82 year old female who presented to [facility] yesterday with complaints of worsening SOB, hypoxia/weakness/fatigue noted at PCP office. History includes: 1. Hypertension 2. Dyslipidemia 3. History of possible asthma 4. CKD 5. History of Right VATS due to empyema On admission, chest xray concerning for possible pneumonia with possible mild pulm vascular congestion. She was also found to have UTI. She was started on supplemental O2, antibiotics and IV furosemide. BNP was normal. D. DImer was negative. Chest CT was completed and consistent with possible COPD. No definitive infiltrates or pleural effusion. Viral panel was negative. patient reports her worsening SOB and fatigue has been progressive over the last few weeks. Often has to stop and rest. No chest pain. [place] she was dealing with allergies and the changing weather. Cough and wheezing noted intermittently. No specific fevers but did have night sweats. She went to PCP office for evaluation and found to be hypoxic on RA. Due to symptoms, ER recommended for further evaluation. Since admission patient reports ongoing SOB/hoarseness while resting in bed. Oxygen levels improved with RA. She denies cardiovascular history but did have Rheumatic fever as a child. She reports having a "murmur" since a child as well. Allergies Allergy/AdvReac Type Severity Reaction Status Date / Time Cephalosporins Allergy Mild Rash Verified 07/10/23 18:12 niacin AdvReac Intermediate Nausea/Vomi Verified 07/10/23 18:12 ting Home Medications Medication Instructions Recorded Confirmed Type albuterol sulfate 90 mcg/actuation 2 puff inhalation QID PRN SHORT OF 02/28/23 07/10/23 History aerosol inhaler BREATH/COUGH/WHEEZING aspirin 81 mg chewable tablet 81 mg PO DAILY 02/28/23 07/10/23 History famotidine 20 mg tablet 20 mg PO BID 02/28/23 07/10/23 History fluticasone propionate 50 2 spray intranasal DAILY 02/28/23 07/10/23 History mcg/actuation nasal spray,suspension gabapentin 100 mg capsule 100 mg PO TID 02/28/23 07/10/23 History ibuprofen-diphenhydramine citrate 1 cap PO HS 02/28/23 07/10/23 History 200 mg-38 mg tablet lisinopril 10 mg tablet 10 mg PO QAM 02/28/23 07/10/23 History loratadine 10 mg capsule 10 mg PO DAILY 02/28/23 07/10/23 History omeprazole 20 mg capsule,delayed 20 mg PO QAM 02/28/23 07/10/23 History release acetaminophen 650 mg 1,300 mg PO BID 07/10/23 07/10/23 History tablet,extended release calcium carbonate 600 mg calcium 600 mg PO DAILY 07/10/23 07/10/23 History (1,500 mg) tablet (Calcium) fluticasone furoate 200 1 inh inhalation DAILY 07/10/23 07/10/23 History mcg/actuation blister powder for inhalation (Arnuity Ellipta) Patient History Medical History (Updated 07/10/23 @ 22:43 by Tigre Still MD) Arthritis Stress incontinence Heart murmur no cardiology; hx of rheumatic fever as child CKD (chronic kidney disease) stage 3, GFR 30-59 ml/min Dyslipidemia HTN (hypertension) Asthma used rescue inhaler last 01/2023 increased SOB with abdominal pain- feels asthma otherwise well controlled GERD (gastroesophageal reflux disease) controlled with medication Surgical History History of tooth extraction H/O detached retina repair rt History of cataract surgery rt/left History of lung surgery "to clean up infection from pneumonia" "Right VATS with decortication 02/28/17= Done under [place] with Grade 2 view with MAC #3. ETT 37Fr x 1 attempt/atraumatic " History of breast biopsy benign History of colonoscopy H/O esophagogastroduodenoscopy History of hysterectomy History of tonsillectomy and adenoidectomy Family History Other No family history of adverse response to anesthesia Social History Smoking Status: Never smoker Second Hand Exposure: Yes (as a child); Hx Alcohol Use: No Hx Substance Use: No Preferred Language: Citizen Of [place] Communication Ability: Effective Mail Caller Required: No Beliefs That Will Affect Care: None Current Living Situation: Spouse Feels Safe at Home: Yes Safety Concerns: Feels Safe At This Time Assistive Devices: Cane, Denture - Upper, Glasses, Hearing Aid - Bilateral and Walker Review of Systems Review of Systems: All systems reviewed & are unremarkable except as noted in HPI & below Physical Exam Constitutional: WD/WN, vitals as above Neck: trachea midline, no thyromegaly Respiratory: + cough and + audible wheezes Auscult ation: + diminished lung sounds and + wheezes Cardiovascular: Rate/Rhythm: regular rate and regular rhythm Heart Sounds: + murmur (II/ systolic murmur LSB) Gastrointestinal (Abdomen): normal bowel sounds, soft, nontender, no hepa tosplenomegaly Neurologic: PERRL, EOMI, accommodation nl, no face palsy, no dysarthria Psychiatric: A+Ox3, euthymic affect Results & Data Vital Signs (Past 12 Hours) Vital Signs Temp Pulse Pulse Resp BP BP Pulse Ox 07/11/23 09:30 102 H 18 140/85 93 07/11/23 08:06 69 20 93 07/11/23 07:37 07/11/23 07:33 66 18 122/71 95 07/11/23 07:31 65 07/11/23 06:21 72 18 132/80 92 07/11/23 05:00 70 20 94 07/11/23 04:00 66 24 96 07/11/23 03:00 66 18 93 07/11/23 02:00 70 15 92 07/11/23 01:51 95 07/11/23 01:27 68 18 94 07/11/23 01:26 68 18 94 07/11/23 01:20 70 20 88 L 07/11/23 01:04 36.5 C 83 19 124/79 94 07/11/23 01:00 78 22 89 L 07/11/23 00:51 07/11/23 00:51 36.5 C 81 19 124/79 94 07/11/23 00:50 124/79 07/11/23 00:50 79 22 91 07/11/23 00:50 78 07/11/23 00:48 80 14 92 O2 Del Method O2 Flow Rate 07/11/23 09:30 Nasal Cannula 2 07/11/23 08:06 Nasal Cannula 2 07/11/23 07:37 Nasal Cannula 2 07/11/23 07:33 Nasal Cannula 2 07/11/23 07:31 07/11/23 06:21 Nasal Cannula 2 07/11/23 05:00 2 07/11/23 04:00 07/11/23 03:00 07/11/23 02:00 07/11/23 01:51 Nasal Cannula 2 07/11/23 01:27 Nasal Cannula 2 07/11/23 01:26 Nasal Cannula 2 07/11/23 01:20 Room Air 07/11/23 01:04 Room Air 07/11/23 01:00 07/11/23 00:51 Room Air 07/11/23 00:51 Room Air 07/11/23 00:50 07/11/23 00:50 07/11/23 00:50 07/11/23 00:48 Laboratory Results Cardiac Enzymes 07/10/23 07/10/23 07/11/23 Range/Units 17:30 18:41 05:48 AST 14 (13-39) U/L Troponin I High Sens 12.1 15.1 H (0-14) pg/ml B-Natriuretic Peptide 64 (0-100) pg/ml Coagulation 07/10/23 Range/Units 18:41 B-Natriuretic Peptide 64 (0-100) pg/ml CBC 07/10/23 07/11/23 Range/Units 17:30 05:48 WBC 6.21 7.01 (4.8-10.8) K/ul RBC 4.40 4.12 L (4.20-5.40) M/uL Hgb 13.1 12.5 (12.0-16.0) g/dl Hct 40.2 37.6 (37.0-47.0) % Plt Count 332 269 (130-400) K/uL Neut # (Auto) 3.90 4.51 (1.40-6.50) K/uL Lymph # (Auto) 1.38 1.57 (1.20-3.40) K/uL Kerr # (Auto) 0.52 0.56 (0.11-0.59) K/uL Eos # (Auto) 0.32 0.27 (0.00-0.50) K/uL Baso # (Auto) 0.07 0.08 (0.00-0.20) K/uL Comprehensive Metabolic Panel 07/10/23 07/11/23 Range/Units 17:30 05:48 Sodium 137 139 (136-145) mmol/L Potassium 3.9 3.8 (3.5-5.1) mmol/L Chloride 104 107 (98-107) mmol/L Carbon Dioxide 26 23 (21-32) mmol/L BUN 19 15 (6-23) mg/dl Creatinine 1.41 H 1.18 (0.6-1.2) mg/dl Glucose 109 H 99 (70-99(Fasting)) mg/dl Calcium 9.6 9.2 (8.6-10.3) mg/dl AST 14 (13-39) U/L ALT 9 (7-52) U/L Alkaline Phosphatase 72 (34-104) U/L Total Protein 8.7 H (6.0-8.3) gm/dl Albumin 3.7 (3.4-5.0) gm/dl Intake and Output 07/10/23 07/11/23 07/11/23 22:59 06:59 14:59 Intake Total 200 / 200 Balance 200 / 200 Intake: IV 200 / 200 Ciprofloxacin / D5w 400 mg In 200 / 200 200 ml @ 100 mls/hr IV NOW STA Rx#:[id number] Other: Weight 94.8 kg 94.8 kg Weight Measurement Method Built in [facility] Built in [facility] Diagnostic Findings Telemetry reviewed: NSR in the 's EKG reviewed: NSR with Sinus arrhythmia LAD LVH Echo report reviewed from 07/11/23: LV chamber size appears small and underfilled. Mild concentric LVH Basal septum is thickened and consistent with sigmoid septum. No regional wall motion abnormalities LV is hyperdynamic at 65-70% There is a prominent papillary muscle that makes contact with the basal septum during systole. No resting LV outflow tract gradient was detected Grade I diastolic dysfunction. Chest CT report reviewed dated 07/10/23: IMPRESSION: 1. No focal infiltrate, pleural effusion, or pneumothorax. 2. Mosaic ground-less attenuation, concerning for air trapping/COPD. Medications Administered Current Inpatient Medications Acetaminophen (Acetaminophen 325 Mg Tab) 650 mg PO Q4H PRN PRN Reason: Pain or Fever Stop: 08/09/23 22:56 Albuterol (Albuterol Hfa 8 Gm Inhaler) 2 puffs INH QID PRN PRN Reason: SHORT OF BREATH/COUGH/WHEEZING Stop: 08/09/23 22:56 Aspirin (Aspirin 81 Mg Ectab) 81 mg PO DAILY [facility] Stop: 08/10/23 08:59 Last Admin: 07/11/23 09:32 Dose: 81 mg Calcium Carbonate (Calcium Carbonate 1250mg Tab) 1,250 mg PO DAILY [facility] Stop: 08/10/23 08:59 Last Admin: 07/11/23 09:32 Dose: 1,250 mg Doxycycline Hyclate (Doxycycline Hyclate 100 Mg Cap) 100 mg PO BID [facility] Stop: 07/18/23 08:59 Last Admin: 07/11/23 09:32 Dose: 100 mg Enoxaparin Sodium (Enoxaparin Inj 40 Mg/0.4 Ml Syr) 40 mg SQ Q24H [facility] Stop: 08/10/23 08:59 Last Admin: 07/11/23 09:33 Dose: Not Given Famotidine (Famotidine 20 Mg Tab) 20 mg PO BID [facility] Stop: 08/10/23 08:59 Last Admin: 07/11/23 09:31 Dose: 20 mg Fluticasone Furoate (Fluticasone Furoate 200mcg 14 Puffs/Inhaler) 1 puffs INH DAILY [facility] Stop: 08/10/23 08:59 Last Admin: 07/11/23 09:33 Dose: 1 puffs Fluticasone Propionate (Fluticasone Propionate Na Spr 16 Gm Btl) 2 sprays NA DAILY [facility] Stop: 08/10/23 08:59 Last Admin: 07/11/23 09:32 Dose: 2 sprays Gabapentin (Gabapentin 100 Mg Cap) 100 mg PO TID [facility] Stop: 08/09/23 22:56 Last Admin: 07/10/23 23:46 Dose: 100 mg Ertapenem 1,000 mg/ Syringe 10 mls @ 2 mls/min IV Q24H [facility] Stop: 07/18/23 00:00 Last Admin: 07/11/23 01:01 Dose: 2 mls/min Ipratropium [place] (Ipratropium [place] Neb Soln 0.02% 0.5mg/2.5ml Vial) 0.5 mg INH QIDR [facility] Stop: 08/10/23 07:29 Last Admin: 07/11/23 08:05 Dose: 0.5 mg Levalbuterol HCl (Levalbuterol 1.25 Mg/3 Ml Neb) 1.25 mg NEB Q4H PRN; Protocol PRN Reason: Shortness Of Breath Or Wheezing Stop: 08/09/23 22:56 Levalbuterol HCl (Levalbuterol 1.25 Mg/3 Ml Neb) 1.25 mg NEB QIDR [facility] Stop: 08/10/23 07:29 Last Admin: 07/11/23 08:05 Dose: 1.25 mg Lisinopril (Lisinopril 10 Mg Tab) 10 mg PO QAM [facility] Stop: 08/10/23 08:59 Last Admin: 07/11/23 09:32 Dose: 10 mg Loratadine (Loratadine 10 Mg Tab) 10 mg PO DAILY [facility] Stop: 08/10/23 08:59 Last Admin: 07/11/23 09:31 Dose: 10 mg Nitroglycerin (Nitroglycerin Sl 0.4 Mg/Tab Tab) 0.4 mg SL Q5M PRN PRN Reason: Chest Pain Stop: 08/09/23 22:56 Pantoprazole Sodium (Pantoprazole 40 Mg Tab) 40 mg PO QAM [facility] Stop: 08/10/23 08:59 Last Admin: 07/11/23 09:31 Dose: 40 mg Polyethylene Glycol (Polyethylene (Miralax) 17 Gm Pack) 17 gm PO DAILY PRN PRN Reason: Constipation Stop: 08/09/23 22:56
[2023-07-11] MEDS: FUROSEMIDE INJ 20 MG/2 ML VIAL IV SCH (09:45)
[2023-07-11 13:50] LABS: D Dimer 500 ug/L FEU (0-500)
--- NOTE | 2023-07-11 18:01 | Hospitalist Progress Note ---
Date of Service July 11, 2023 Assessment & Plan (1) SOB (shortness of breath): Plan: per admitting service notes with addendum: 82-year-old female with past medical history significant for hyperlipidemia, history of mild persistent asthma, history of acute respiratory with hypoxia, upper respiratory infection, allergic rhinitis, hypertension, GERD, CKD stage III, presents with ongoing shortness of breath since last 2 weeks which got progressively worse. Currently walking short distance making her short of breath. Has cough with bringing some whitish phlegm. Denies any chest pain. No headache. No fevers. No sore throat. No runny nose or earaches. Denies any orthopnea. No swelling in the legs. No nausea. Appetite is okay. No difficulty swallowing. No cough while swallowing. No abdominal pain. Normal bowel and bladder movements. Shortness of breath secondary to Asthma/Emphysema Exacerbation Will follow CT chest Empirically IV Invanz and p.o. doxycycline Follow the cultures No leukocytosis, no fevers and BNP is okay Will also follow echo Will do a dose of IV Lasix 20 mg daily Consult cardiology in a.m. for further recommendations May consider pulmonary consult 07/10 IMPRESSION: 1. No focal infiltrate, pleural effusion, or pneumothorax. 2. Mosaic ground-less attenuation, concerning for air trapping/COPD. continue nebs, antibiotics echo: gr 1 diastolic dysfunction received IV Lasix Senior Product Engineer consulted UTI Antibiotics as above Will follow cultures Mild persistent asthma Continue home inhalers Nebs atc and as needed No obvious wheezing currently DAVID on CKD stage III Presented creatinine 1.4 Baseline creatinine 1.2 resolved Hypertension On lisinopril GERD On famotidine and omeprazole DVT prophylaxis Lovenox Disposition anticipate d/c home when medically stable Admission and Anticipated Discharge Date Admission Date: July 10, 2023 Subjective ff up for asthma exacerbation, CHF, etc seen resting in bed, comfortable on 2 L O2 states she feels improved breathing is improving less cough no chest pain, dyspnea, palpitations, dizziness no fever/chills no other symptoms Review of Systems Review of Systems: all noted and negative except for above Physical Exam Physical Exam: General- oriented x 3, not in distress, speaks in sentences with no effort or accessory muscle use Eyes- anicteric Neck- no JVD Lungs- clear breath sounds bilaterally, no rales/wheezes Heart- normal rate, regular rhythm; no murmurs Abdomen- normal bowel sounds, nondistended, soft, nontender Extremities- no pretibial edema, no calf tenderness Neuro- alert, oriented x 3; no gross focal neurologic deficits Skin- warm & dry Results & Data Results & Data Vital Signs (Past 12 Hours) Vital Signs Pulse Pulse Resp BP Pulse Ox O2 Del Method O2 Flow Rate 07/11/23 15:20 77 07/11/23 14:39 76 18 124/75 97 Nasal Cannula 2 07/11/23 14:24 76 18 95 Nasal Cannula 3 07/11/23 12:16 75 18 136/75 95 Nasal Cannula 2 07/11/23 11:35 67 20 94 Nasal Cannula 2 07/11/23 09:30 102 H 18 140/85 93 Nasal Cannula 2 07/11/23 08:06 69 20 93 Nasal Cannula 2 07/11/23 07:37 Nasal Cannula 2 07/11/23 07:33 66 18 122/71 95 Nasal Cannula 2 07/11/23 07:31 65 07/11/23 06:21 72 18 132/80 92 Nasal Cannula 2 all noted and reviewed including below
[2023-07-11] MEDS: MELATONIN 3 MG TAB PO PRN (23:07)
--- NOTE | 2023-07-12 11:30 | Pulmonary Consultation ---
Date of Consultation July 12, 2023 Assessment & Plan (1) Interstitial lung disease: CT chest with evidence of diffuse mosaic attenuation and subpleural fibrotic changes in the upper lobes bilaterally. These findings appear present dating back to 2016 when the patient underwent a VATS decortication for right lower lobe empyema. Etiology for the ILD findings is unclear. She does have occupational exposure history secondary to a [employer] and also significant secondhand smoke exposure. She does not have any overt signs of rheumatism. Differential is broad including chronic hypersensitivity pneumonitis and NSIP. No prior PFTs available for review at this time. Will start the patient on a short course of prednisone to help improve her dyspnea. I suspect she will require supplemental oxygen for the long-term related to her ILD. I also suspect that she probably has had some degree of hypoxemia chronically which may have previously been unrecognized. She would benefit from outpatient PFTs and pulmonary rehab. (2) Hypoxia: Secondary to ILD and diastolic CHF. (3) SOB (shortness of breath): See above comments. History of Present Illness Reason for Consultation: Abnormal CT chest and hypoxia Attending Physician: Jann Conner MD History of Present Illness 82-year-old female with a past medical history of hypertension, GERD, History of empyema status post VATS in 2017 presenting to the hospital due to shortness of breath and hypoxia. She was evaluated by her PCP who sent her to the ER due to hypoxia. She relates that for the past month she has been having shortness of breath and occasional cough. She denies any history of having to use supplemental oxygen. She is a lifelong non-smoker, but does endorse significant secondhand smoke exposure. She worked at a [employer] for many years. Notably, she had an empyema in 2017 status post decortication in the right lower lobe region. CT chest completed this admission reveals diffuse mosaic attenuation and mild subpleural changes in the upper lobes bilaterally. There is also a small cyst noted in the left lower lobe. Patient is currently on ertapenem and doxycycline for presumptive pneumonia and UTI. Allergies Allergy/AdvReac Type Severity Reaction Status Date / Time Cephalosporins Allergy Mild Rash Verified 07/10/23 18:12 niacin AdvReac Intermediate Nausea/Vomi Verified 07/10/23 18:12 ting Home Medications Medication Instructions Recorded Confirmed Type albuterol sulfate 90 mcg/actuation 2 puff inhalation QID PRN SHORT OF 02/28/23 07/10/23 History aerosol inhaler BREATH/COUGH/WHEEZING aspirin 81 mg chewable tablet 81 mg PO DAILY 02/28/23 07/10/23 History famotidine 20 mg tablet 20 mg PO BID 02/28/23 07/10/23 History fluticasone propionate 50 2 spray intranasal DAILY 02/28/23 07/10/23 History mcg/actuation nasal spray,suspension gabapentin 100 mg capsule 100 mg PO TID 02/28/23 07/10/23 History ibuprofen-diphenhydramine citrate 1 cap PO HS 02/28/23 07/10/23 History 200 mg-38 mg tablet lisinopril 10 mg tablet 10 mg PO QAM 02/28/23 07/10/23 History loratadine 10 mg capsule 10 mg PO DAILY 02/28/23 07/10/23 History omeprazole 20 mg capsule,delayed 20 mg PO QAM 02/28/23 07/10/23 History release acetaminophen 650 mg 1,300 mg PO BID 07/10/23 07/10/23 History tablet,extended release calcium carbonate (Calcium 600) 600 mg PO DAILY 07/10/23 07/10/23 History fluticasone furoate 200 1 inh inhalation DAILY 07/10/23 07/10/23 History mcg/actuation blister powder for inhalation (Arnuity Ellipta) Patient History Medical History (Updated 07/12/23 @ 11:58 by Willie Ku MD) Interstitial lung disease Arthritis Stress incontinence Heart murmur no cardiology; hx of rheumatic fever as child CKD (chronic kidney disease) stage 3, GFR 30-59 ml/min Dyslipidemia HTN (hypertension) Asthma used rescue inhaler last 01/2023 increased SOB with abdominal pain- feels asthma otherwise well controlled GERD (gastroesophageal reflux disease) controlled with medication Surgical History History of tooth extraction H/O detached retina repair rt History of cataract surgery rt/left History of lung surgery "to clean up infection from pneumonia" "Right VATS with decortication 02/28/17= Done under [place] with Grade 2 view with MAC #3. ETT 37Fr x 1 attempt/atraumatic " History of breast biopsy benign History of colonoscopy H/O esophagogastroduodenoscopy History of hysterectomy History of tonsillectomy and adenoidectomy Family History Other No family history of adverse response to anesthesia Social History Smoking Status: Never smoker Second Hand Exposure: Yes (as a child); Hx Alcohol Use: No Hx Substance Use: No Preferred Language: Wolof Communication Ability: Effective Integration Aide Required: No Beliefs That Will Affect Care: None Current Living Situation: Spouse Feels Safe at Home: Yes Safety Concerns: Feels Safe At This Time Assistive Devices: Cane, Denture - Upper, Glasses, Hearing Aid - Bilateral and Walker Review of Systems Review of Systems: All systems reviewed & are unremarkable except as noted in HPI & below Physical Exam Physical Exam: Constitutional: Patient appears to be of their stated age. Patient is in no apparent distress. Patient is well-developed. Eyes: Pupils are equal round and reactive to light. Conjunctivae are normal. Anicteric sclera. Ears nose, mouth and throat: Mallampati class 2. Normal posterior oropharynx. Uvula is midline. Neck: Trachea is midline. Visual inspection is normal. Respiratory: Lower lobe crackles noted on inspiration. No significant tachypnea. No increased work of breathing. Cardiovascular: Regular rate and rhythm. No murmurs. No edema. Gastrointestinal: Normal bowel sounds, soft, nontender and nondistended. No hepatosplenomegaly noted. Musculoskeletal: No cyanosis. Patient is able to move all extremities. Strength is 5 out of 5 in the upper and lower extremities. Skin: No rashes, warm dry and intact. Neurologic: No obvious focal neurological deficits seen. Psychiatric: Alert and oriented x3 with a euthymic affect. Results & Data Results & Data Vital Signs (Past 12 Hours) Vital Signs Temp Pulse Pulse Resp BP Pulse Ox O2 Del Method 07/12/23 09:49 Nasal Cannula 07/12/23 08:07 36.3 C L 72 16 106/67 90 Nasal Cannula 07/12/23 08:06 18 Nasal Cannula 07/12/23 08:00 56 L 07/12/23 03:16 36.5 C 75 16 102/67 92 Nasal Cannula 07/12/23 00:41 84 O2 Flow Rate 07/12/23 09:49 2 07/12/23 08:07 07/12/23 08:06 2 07/12/23 08:00 07/12/23 03:16 3 07/12/23 00:41 PG Care Time/CCT Total # of Minutes Spent Total Time Spent with Patient: Total time spent is greater than 50% in coordination of care (as documented) at patient's floor/unit and/or counseling patient: Coding Level of Care Code 88199 INT INP/OBS CARE 2/55MIN Diagnoses Interstitial lung disease J84.9 Hypoxia R09.02 SOB (shortness of breath) R06.02
--- NOTE | 2023-07-12 12:12 | Cardiology Progress Note ---
Date of Service July 12, 2023 Assessment & Plan (1) SOB (shortness of breath): (2) Hypoxia: (3) Exertional dyspnea: (4) Interstitial lung disease: Plan Patient admitted for hypoxia/SOB, multifactorial. Initially thought to have possible pneumonia and CHF. Echo reveals hyperdynamic LVEF with small LV cavity size, consistent with volume depletion. IV furosemide stopped this morning. BNP normal Chest CT without pleural effusion or infiltrate. Ground glass abnormality noted, possible COPD? She reports history of "asthma". She also has a remote history of pneumonia with empyema requiring VATS procedure. Consider pulm consult. She appears hypovolemic. Gentle hydration encouraged. HS troponin minimal at 15.1. Not indicative of ACS Would continue nebs, antibiotics, steroids for possible COPD exacerbation. Urine culture + gram negative bacilli. Continue antibiotics per hospitalist. Blood cultures negative x2. Once pulm status improves, could consider ischemic work up as well given fatigue/dyspnea. Continue ASA and lisinopril 07/12/23: Patient with improving SOB with nebs, steroids, antibiotics. Pulm consulted and evaluated patient this morning. Chest CT with Findings consistent with intersisital lung disease. steroids recommended and outpatient pulm follow up with PFT's and pulm rehab recommended. Will likely need supplemental O2 on discharge. Echo revealed hyperdynamic LV with small LV cavity size suggesting volume depletion on admission. No need for diuretic therapy. No further cardiac testing warranted at this time. Will sign off. Please notify contract loader cardiology provider with additional questions or concerns Case discussed with Dr. Drew I spent a total of 35 minutes on the date of service in preparation, delivery, and documentation of the care provided to this patient, excluding any time spent in the performance of separately billed services. Samra Mon PA-C Department of Cardiology, [facility] This chart was completed in part utilizing Speech Voice Recognition Software. Grammatical errors, random word insertions, pronoun errors, and incomplete sentences are an occasional consequence of this system due to software limitations, ambient noise, and hardware issues. Any formal questions or concerns about the content, text, or information contained within the body of this dictation should be directly addressed to the provider for clarification. Admission and Anticipated Discharge Date Admission Date: July 10, 2023 Supervising Physician Co-Signing Physician Notes Attending attestation: Case reviewed with the advanced practitioner. I have personally performed a history and physical examination on the patient. I have reviewed the advanced practitioner's documentation on the date of service referenced in note, and I agree with, and take responsibility for the plan of care. Pulmonary medicine input noted and appreciated. Hold off on additional diuretic therapy. I spent a total of 20 minutes coordinating, documenting, and providing care for this patient excluding time spent in the performance of separately billed services or time spent by another provider. Gera Drew, DO Subjective Patient resting in bed comfortably. Shortness of breath improved from admission. She does continue to wear supplemental O2. No audible wheezing noted. No cough. No chest pain. She denies history of tobacco abuse but admits to working around chemicals and significant 2nd hand smoke. Pulmonary has been consulted. Review of Systems Review of Systems: All systems reviewed & are unremarkable except as noted in HPI & below Physical Exam Constitutional: WD/WN, vitals as above Neck: trachea midline, no thyromegaly Respiratory: no respiratory distress and no labored breathing Auscultation: + diminished lung sounds Cardiovascular: Rate/Rhythm: regular rate and regular rhythm Heart Sounds: + murmur (II/ systolic murmur LSB) Gastrointestinal (Abdomen): normal bowel sounds, soft, nontender, no hepatosplenomegaly Neurologic: PERRL, EOMI, accommodation nl, no face palsy, no dysarthria Psychiatric: A+Ox3, euthymic affect Results & Data Vital Signs (Past 12 Hours) Vital Signs Temp Pulse Pulse Resp BP Pulse Ox O2 Del Method 07/12/23 09:49 Nasal Cannula 07/12/23 08:07 36.3 C L 72 16 106/67 90 Nasal Cannula 07/12/23 08:06 18 Nasal Cannula 07/12/23 08:00 56 L 07/12/23 03:16 36.5 C 75 16 102/67 92 Nasal Cannula 07/12/23 00:41 84 07/11/23 22:57 36.4 C L 70 18 133/77 93 Nasal Cannula 07/11/23 22:41 Nasal Cannula O2 Flow Rate 07/12/23 09:49 2 07/12/23 08:07 07/12/23 08:06 2 07/12/23 08:00 07/12/23 03:16 3 07/12/23 00:41 07/11/23 22:57 3 07/11/23 22:41 3 Laboratory Results Intake and Output 07/11/23 07/12/23 07/12/23 22:59 06:59 14:59 Intake Total 100 / 100 Output Total 100 / 100 100 / 100 Balance -100 / 0 100 / 0 -100 / -100 Intake: Oral 100 / 100 Output: Urine 100 / 100 100 / 100 Other: Other Intake Source Sips Weight 94.8 kg Weight Measurement Method Built [facility] Diagnostic Findings Telemetry reviewed: Normal sinus rhythm 60 to 70 bpm. No concerning arrhythmias. Echo report reviewed from 07/11/23: LV chamber size appears small and underfilled. Mild concentric LVH Basal septum is thickened and consistent with sigmoid septum. No regional wall motion abnormalities LV is hyperdynamic at 65-70% There is a prominent papillary muscle that makes contact with the basal septum during systole. No resting LV outflow tract gradient was detected Grade I diastolic dysfunction.
[2023-07-12] MEDS: predniSONE 20 MG TAB PO STA (13:59)
[2023-07-12] MEDS: ADVANCED PROBIOTIC 625 MG CAPSULE PO SCH (14:00)
[2023-07-12] MEDS: POLYETHYLENE (MIRALAX) 17 GM PACK PO PRN (14:06)
--- NOTE | 2023-07-12 18:41 | Hospitalist Progress Note ---
Date of Service July 12, 2023 Assessment & Plan (1) SOB (shortness of breath): Plan: per admitting service notes with addendum: 82-year-old female with past medical history significant for hyperlipidemia, history of mild persistent asthma, history of acute respiratory with hypoxia, upper respiratory infection, allergic rhinitis, hypertension, GERD, CKD stage III, presents with ongoing shortness of breath since last 2 weeks which got progressively worse. Currently walking short distance making her short of breath. Has cough with bringing some whitish phlegm. Denies any chest pain. No headache. No fevers. No sore throat. No runny nose or earaches. Denies any orthopnea. No swelling in the legs. No nausea. Appetite is okay. No difficulty swallowing. No cough while swallowing. No abdominal pain. Normal bowel and bladder movements. Shortness of breath secondary to Asthma/Emphysema Exacerbation Will follow CT chest Empirically IV Invanz and p.o. doxycycline Follow the cultures No leukocytosis, no fevers and BNP is okay Will also follow echo Will do a dose of IV Lasix 20 mg daily Consult cardiology in a.m. for further recommendations May consider pulmonary consult 07/10 IMPRESSION: 1. No focal infiltrate, pleural effusion, or pneumothorax. 2. Mosaic ground-less attenuation, concerning for air trapping/COPD. continue nebs, antibiotics echo: gr 1 diastolic dysfunction received IV Lasix Link Assembler consulted 07/11 Zoo Caretaker consulted Prednisone 40mg po daily started continue Doxycycline, Nebs UTI Antibiotics as above (+) E coli Cipro BID Mild persistent asthma Continue home inhalers Nebs atc and as needed No obvious wheezing currently DAVID on CKD stage III Presented creatinine 1.4 Baseline creatinine 1.2 resolved Hypertension On lisinopril GERD On famotidine and omeprazole DVT prophylaxis Lovenox Disposition anticipate d/c home when medically stable Admission and Anticipated Discharge Date Admission Date: July 10, 2023 Subjective ff up for acute hypoxia, etc seen resting in bed, comfortable on 2 L states she feels that she is improving less dyspnea less cough no other symptoms Review of Systems Review of Systems: all noted and negative except for above Physical Exam Physical Exam: General- oriented x 3, not in distress, speaks in sentences with no effort or accessory muscle use Eyes- anicteric Neck- no JVD Lungs- mild rales BL no wheezing Heart- normal rate, regular rhythm; no murmurs Abdomen- normal bowel sounds, nondistended, soft, nontender Extremities- no pretibial edema, no calf tenderness Neuro- alert, oriented x 3; no gross focal neurologic deficits Skin- warm & dry Results & Data Results & Data Vital Signs (Past 12 Hours) Vital Signs Temp Pulse Pulse Resp BP Pulse Ox O2 Del Method 07/12/23 16:21 36.3 C L 96 H 19 127/76 92 Nasal Cannula 07/12/23 15:56 74 18 97 Nasal Cannula 07/12/23 15:48 75 07/12/23 12:17 36.3 C L 78 18 118/67 90 Room Air 07/12/23 11:56 69 91 Nasal Cannula 07/12/23 09:49 Nasal Cannula 07/12/23 08:07 36.3 C L 72 16 106/67 90 Nasal Cannula 07/12/23 08:06 18 Nasal Cannula 07/12/23 08:00 56 L O2 Flow Rate 07/12/23 16:21 07/12/23 15:56 2 07/12/23 15:48 07/12/23 12:17 07/12/23 11:56 2 07/12/23 09:49 2 07/12/23 08:07 07/12/23 08:06 2 07/12/23 08:00 all noted and reviewed including below
[2023-07-12] MEDS: CIPROFLOXACIN 500 MG TAB PO SCH (20:30)
[2023-07-13] MEDS: predniSONE 20 MG TAB PO SCH (07:59)
--- NOTE | 2023-07-13 14:15 | Pulmonology Progress Note ---
Date of Service July 13, 2023 Assessment & Plan (1) Interstitial lung disease: Plan: CT chest with evidence of diffuse mosaic attenuation and subpleural fibrotic changes in the upper lobes bilaterally. These findings appear present dating back to 2016 when the patient underwent a VATS decortication for right lower lobe empyema. Etiology for the ILD findings is unclear. 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 She does not have any overt signs of rheumatism. Differential is broad including chronic hypersensitivity pneumonitis and NSIP. No prior PFTs available for review at this time. Please discharge the patient home on a short course of prednisone at a dose of 40 mg daily for 7 days. Fortunately on ambulatory oxygen saturation testing, she did not require supplemental oxygen. She would benefit from outpatient PFTs and pulmonary rehab. (2) Hypoxia: Plan: Secondary to ILD and diastolic CHF. Improved today. (3) SOB (shortness of breath): Plan: Improving. Plan Pulmonary to sign off. Patient stable for discharge home. Thank you for the consult and please call with questions. Admission and Anticipated Discharge Date Admission Date: July 10, 2023 Subjective Patient had significant improvement in her cough and shortness of breath today. She has been able to ambulate around the hallways on room air and has not required supplemental oxygen. She denies any chest pain, fevers, chills or night sweats. She is eager to go home. Review of Systems Review of Systems: All systems reviewed & are unremarkable except as noted in HPI & below Physical Exam Physical Exam: Constitutional: Patient appears to be of their stated age. Patient is in no apparent distress. Patient is well-developed. Eyes: Pupils are equal round and reactive to light. Conjunctivae are normal. Anicteric sclera. Ears nose, mouth and throat: Mallampati class 2. Normal posterior oropharynx. Uvula is midline. Neck: Trachea is midline. Visual inspection is normal. Respiratory: Lower lobe crackles noted on inspiration. No significant tachypnea. No increased work of breathing. Cardiovascular: Regular rate and rhythm. No murmurs. No edema. Gastrointestinal: Normal bowel sounds, soft, nontender and nondistended. No hepatosplenomegaly noted. Musculoskeletal: No cyanosis. Patient is able to move all extremities. Strength is 5 out of 5 in the upper and lower extremities. Skin: No rashes, warm dry and intact. Neurologic: No obvious focal neurological deficits seen. Psychiatric: Alert and oriented x3 with a euthymic affect. Results & Data Results & Data Vital Signs (Past 12 Hours) Vital Signs Temp Pulse Pulse Pulse Pulse Pulse Resp 07/13/23 14:07 89 18 07/13/23 13:36 117 H 88 99 H 07/13/23 11:57 36.3 C L 83 20 07/13/23 10:40 76 17 07/13/23 09:00 75 07/13/23 09:00 07/13/23 07:52 36.4 C L 78 17 07/13/23 07:06 87 16 07/13/23 03:00 36.5 C 76 16 Resp Resp Resp BP Pulse Ox Pulse Ox Pulse Ox 07/13/23 14:07 94 07/13/23 13:36 22 18 18 92 94 07/13/23 11:57 111/69 88 L 07/13/23 10:40 95 07/13/23 09:00 07/13/23 09:00 07/13/23 07:52 136/76 92 07/13/23 07:06 92 07/13/23 03:00 136/80 96 Pulse Ox O2 Del Method O2 Flow Rate 07/13/23 14:07 Room Air 07/13/23 13:36 95 07/13/23 11:57 Room Air 07/13/23 10:40 Room Air 07/13/23 09:00 07/13/23 09:00 Nasal Cannula 2 07/13/23 07:52 Nasal Cannula 07/13/23 07:06 Nasal Cannula 2 07/13/23 03:00 Nasal Cannula 2 PG Care Time/CCT Total # of Minutes Spent Total Time Spent with Patient: Total time spent is greater than 50% in coordination of care (as documented) at patient's floor/unit and/or counseling patient: Coding Level of Care Code 12718 SUB INP/OBS CARE 2/35MIN Diagnoses Interstitial lung disease J84.9 Hypoxia R09.02 SOB (shortness of breath) R06.02
--- NOTE | 2023-07-13 17:54 | Hospitalist Progress Note ---
Date of Service July 13, 2023 delayed entry date of service noted above Assessment & Plan (1) SOB (shortness of breath): Plan: per admitting service notes with addendum: 82-year-old female with past medical history significant for hyperlipidemia, history of mild persistent asthma, history of acute respiratory with hypoxia, upper respiratory infection, allergic rhinitis, hypertension, GERD, CKD stage III, presents with ongoing shortness of breath since last 2 weeks which got progressively worse. Currently walking short distance making her short of breath. Has cough with bringing some whitish phlegm. Denies any chest pain. No headache. No fevers. No sore throat. No runny nose or earaches. Denies any orthopnea. No swelling in the legs. No nausea. Appetite is okay. No difficulty swallowing. No cough while swallowing. No abdominal pain. Normal bowel and bladder movements. Shortness of breath secondary to Asthma/Emphysema Exacerbation Will follow CT chest Empirically IV Invanz and p.o. doxycycline Follow the cultures No leukocytosis, no fevers and BNP is okay Will also follow echo Will do a dose of IV Lasix 20 mg daily Consult cardiology in a.m. for further recommendations May consider pulmonary consult 07/10 IMPRESSION: 1. No focal infiltrate, pleural effusion, or pneumothorax. 2. Mosaic ground-less attenuation, concerning for air trapping/COPD. continue nebs, antibiotics echo: gr 1 diastolic dysfunction received IV Lasix Inside Polisher consulted 07/11 Gasket Winder consulted Prednisone 40mg po daily started continue Doxycycline, Nebs 4/ Clinically improved On room air Discharge plan: Prednisone 40 mg x 5 days then stop Continue course of doxycycline to complete 1 week course Follow-up with PCP in 1 week Follow-up with social work msw in 2 weeks UTI Antibiotics as above (+) E coli Cipro BID x 3 more days to complete 5-day course Mild persistent asthma Continue home inhalers Nebs atc and as needed DAVID on CKD stage III Presented creatinine 1.4 Baseline creatinine 1.2 resolved Hypertension On lisinopril GERD On famotidine and omeprazole DVT prophylaxis Lovenox Disposition d/c home ff up with PCP in 1 week plan of care discussed with patient in detail all questions answered she is understanding, agreeable, comfortable with the plan of care Admission and Anticipated Discharge Date Admission Date: July 10, 2023 Subjective Follow-up for tissue lung disease, etc. Seen resting in bed, comfortable, not in distress, sitting up States she feels better overall Ambulating hallways with no problems No cough No other symptoms States she is ready for discharge Review of Systems Review of Systems: all noted and negative except for above Physical Exam Physical Exam: General- oriented x 3, not in distress, speaks in sentences with no effort or accessory muscle use Eyes- anicteric Neck- no JVD Lungs- faint rhonchi, BL Heart- normal rate, regular rhythm; no murmurs Abdomen- normal bowel sounds, nondistended, soft, nontender Extremities- no pretibial edema, no calf tenderness Neuro- alert, oriented x 3; no gross focal neurologic deficits Skin- warm & dry Results & Data Results & Data Vital Signs (Past 12 Hours) Vital Signs Temp Pulse Pulse Pulse Pulse Pulse Resp 07/13/23 15:45 36.3 C L 89 18 07/13/23 14:07 89 18 07/13/23 13:36 117 H 88 99 H 07/13/23 11:57 36.3 C L 83 20 07/13/23 10:40 76 17 07/13/23 09:00 75 07/13/23 09:00 07/13/23 07:52 36.4 C L 78 17 07/13/23 07:06 87 16 Resp Resp Resp BP Pulse Ox Pulse Ox Pulse Ox 07/13/23 15:45 111/69 94 07/13/23 14:07 94 07/13/23 13:36 22 18 18 92 94 07/13/23 11:57 111/69 88 L 07/13/23 10:40 95 07/13/23 09:00 07/13/23 09:00 07/13/23 07:52 136/76 92 07/13/23 07:06 92 Pulse Ox O2 Del Method O2 Flow Rate 07/13/23 15:45 07/13/23 14:07 Room Air 07/13/23 13:36 95 07/13/23 11:57 Room Air 07/13/23 10:40 Room Air 07/13/23 09:00 07/13/23 09:00 Nasal Cannula 2 07/13/23 07:52 Nasal Cannula 07/13/23 07:06 Nasal Cannula 2 all noted and reviewed including below
--- NOTE | 2023-07-13 19:16 | Electrocardiogram Report ---
Test Reason : Blood Pressure : / mmHG Vent. Rate : 076 BPM Atrial Rate : 076 BPM P-R Int : 176 ms QRS Dur : 118 ms QT Int : 416 ms P-R-T Axes : 035 -35 057 degrees QTc Int : 468 ms Normal sinus rhythm with sinus arrhythmia Left axis deviation Left ventricular hypertrophy with QRS widening ( R in aVL , Allison product ) Cannot rule out Septal infarct (cited on or before 10-JUL-2023) Abnormal ECG When compared with ECG of 17-MAR-2023 15:50, Questionable change in initial forces of Septal leads Confirmed by Michael Valdivia ([id number]) on 07/13/2023 7:16:07 PM Referred By: Daniel Szymanski Confirmed By:Michael Valdivia
--- NOTE | 2023-07-14 16:43 | Discharge Summary ---
Discharge Summary Date of Service July 14, 2023 Notes For Next Care Provider Medication Changes From Visit Prednisone- steroids for interstitial lung disease Doxycycline- antibiotic for acute bronchitis Ciprofloxacin- antibiotic for urinary tract infection Admission HPI Per Admitting Provider 82-year-old female with past medical history significant for hyperlipidemia, history of mild persistent asthma, history of acute respiratory with hypoxia, upper respiratory infection, allergic rhinitis, hypertension, GERD, CKD stage III, presents with ongoing shortness of breath since last 2 weeks which got progressively worse. Currently walking short distance making her short of breath. Has cough with bringing some whitish phlegm. Denies any chest pain. No headache. No fevers. No sore throat. No runny nose or earaches. Denies any orthopnea. No swelling in the legs. No nausea. Appetite is okay. No difficulty swallowing. No cough while swallowing. No abdominal pain. Normal bowel and bladder movements. Past medical's. As mentioned above Past surgical history. Open breast biopsy. Colonoscopy and EGD. VATS for right-sided empyema in 2017. Tonsillectomy and adenoidectomy. Total abdominal hysterectomy. Social history. . No smoking. Alcohol rarely. No drug use. Family history. Father had heart disorder. Mother had CHF and CVA. Brother has asthma. Son has hypertension. Sister had pulmonary hypertension. Brother had stroke. Admission Exam Per Admitting Provider General- Not in distress Head- atraumatic Eyes- PERRL. ENT- oropharynx clear Neck- supple, no JVD. Lungs- clear to auscultation mild b/l crackles, no wheezing Heart- regular rate and rhythm; no murmur, no gallop. Abdomen- normal bowel sounds, soft, nontender, no distension. Extremities- no pretibial edema, no erythema seen Neuro- alert, oriented ; PERRL, no facial palsy; no dysarthria; moves extremities. Principal Dx & Hospital Course #1 = Principal Diagnosis (1) SOB (shortness of breath): per admitting service notes with addendum: 82-year-old female with past medical history significant for hyperlipidemia, history of mild persistent asthma, history of acute respiratory with hypoxia, upper respiratory infection, allergic rhinitis, hypertension, GERD, CKD stage III, presents with ongoing shortness of breath since last 2 weeks which got progressively worse. Currently walking short distance making her short of breath. Has cough with bringing some whitish phlegm. Denies any chest pain. No headache. No fevers. No sore throat. No runny nose or earaches. Denies any orthopnea. No swelling in the legs. No nausea. Appetite is okay. No difficulty swallowing. No cough while swallowing. No abdominal pain. Normal bowel and bladder movements. Shortness of breath secondary to Asthma/Emphysema Exacerbation Will follow CT chest Empirically IV Invanz and p.o. doxycycline Follow the cultures No leukocytosis, no fevers and BNP is okay Will also follow echo Will do a dose of IV Lasix 20 mg daily Consult cardiology in a.m. for further recommendations May consider pulmonary consult 07/10 IMPRESSION: 1. No focal infiltrate, pleural effusion, or pneumothorax. 2. Mosaic ground-less attenuation, concerning for air trapping/COPD. continue nebs, antibiotics echo: gr 1 diastolic dysfunction received IV Lasix Operations Vocational Instructor consulted 07/11 Chief Of Pediatric Urology consulted Prednisone 40mg po daily started continue Doxycycline, Nebs 07/12 Clinically improved On room air Two-step exercise test: Does not need supplemental oxygen Discharge plan: Prednisone 40 mg x 5 days then stop Continue course of doxycycline to complete 1 week course Follow-up with PCP in 1 week Follow-up with pipe wrapping machine operator in 2 weeks UTI Antibiotics as above (+) E coli Cipro BID x 3 more days to complete 5-day course Mild persistent asthma Continue home inhalers Nebs atc and as needed DAVID on CKD stage III Presented creatinine 1.4 Baseline creatinine 1.2 resolved Hypertension On lisinopril GERD On famotidine and omeprazole DVT prophylaxis Lovenox Disposition d/c home ff up with PCP in 1 week plan of care discussed with patient in detail all questions answered she is understanding, agreeable, comfortable with the plan of care Discharge Exam General- oriented x 3, not in distress, speaks in sentences with no effort or accessory muscle use Eyes- anicteric Neck- no JVD Lungs- faint rhonchi, BL Heart- normal rate, regular rhythm; no murmurs Abdomen- normal bowel sounds, nondistended, soft, nontender Extremities- no pretibial edema, no calf tenderness Neuro- alert, oriented x 3; no gross focal neurologic deficits Updated Medication List Medication Instructions Recorded Confirmed Type albuterol sulfate 90 mcg/actuation 2 puff inhalation QID PRN SHORT OF 02/28/23 07/10/23 History aerosol inhaler BREATH/COUGH/WHEEZING aspirin 81 mg chewable tablet 81 mg PO DAILY 02/28/23 07/10/23 History famotidine 20 mg tablet 20 mg PO BID 02/28/23 07/10/23 History fluticasone propionate 50 2 spray intranasal DAILY 02/28/23 07/10/23 History mcg/actuation nasal spray,suspension gabapentin 100 mg capsule 100 mg PO TID 02/28/23 07/10/23 History ibuprofen-diphenhydramine citrate 1 cap PO HS 02/28/23 07/10/23 History 200 mg-38 mg tablet lisinopril 10 mg tablet 10 mg PO QAM 02/28/23 07/10/23 History loratadine 10 mg capsule 10 mg PO DAILY 02/28/23 07/10/23 History omeprazole 20 mg capsule,delayed 20 mg PO QAM 02/28/23 07/10/23 History release acetaminophen 650 mg 1,300 mg PO BID 07/10/23 07/10/23 History tablet,extended release calcium carbonate (Calcium 600) 600 mg PO DAILY 07/10/23 07/10/23 History fluticasone furoate 200 1 inh inhalation DAILY 07/10/23 07/10/23 History mcg/actuation blister powder for inhalation (Arnuity Ellipta) ciprofloxacin HCl 500 mg tablet 500 mg PO BID 3 days #6 tabs 07/13/23 Rx doxycycline hyclate 100 mg capsule 100 mg PO BID 4 days #8 caps 07/13/23 Rx prednisone 20 mg tablet 40 mg (2 x 20 mg) PO DAILY 5 days 07/13/23 Rx #10 tabs Hospital Stay Data Consultations 07/10/23 22:35 ED Decision to Admit Stat 07/11/23 08:00 Consult Cardiology Routine 07/12/23 09:46 Consult Pulmonology Routine Diagnostic Imagining Performed Laboratory Results WBC 7.01 K/ul (4.8-10.8) 07/11/23 05:48 RBC 4.12 M/uL (4.20-5.40) L 07/11/23 05:48 Hgb 12.5 g/dl (12.0-16.0) 07/11/23 05:48 Hct 37.6 % (37.0-47.0) 07/11/23 05:48 MCV 91.3 fL (80.0-100.0) 07/11/23 05:48 MCH 30.3 pg (25.0-34.0) 07/11/23 05:48 MCHC 33.2 g/dL (32.0-36.0) 07/11/23 05:48 RDW Std Deviation 47.0 fL (36.4-46.3) H 07/11/23 05:48 RDW Coeff of Bowen 13.9 % (11.5-14.5) 07/11/23 05:48 Plt Count 269 K/uL (130-400) 07/11/23 05:48 MPV 8.5 fL (9.4-12.4) L 07/11/23 05:48 Immature Gran % (Auto) 0.3 % 07/11/23 05:48 Neut % (Auto) 64.3 % 07/11/23 05:48 Lymph % (Auto) 22.4 % 07/11/23 05:48 [place] % (Auto) 8.0 % 07/11/23 05:48 Eos % (Auto) 3.9 % 07/11/23 05:48 Baso % (Auto) 1.1 % 07/11/23 05:48 Neut # (Auto) 4.51 K/uL (1.40-6.50) 07/11/23 05:48 Lymph # (Auto) 1.57 K/uL (1.20-3.40) 07/11/23 05:48 [place] # (Auto) 0.56 K/uL (0.11-0.59) 07/11/23 05:48 Eos # (Auto) 0.27 K/uL (0.00-0.50) 07/11/23 05:48 Baso # (Auto) 0.08 K/uL (0.00-0.20) 07/11/23 05:48 Immature Gran # (Auto) 0.02 K/uL (0.01-0.20) 07/11/23 05:48 D-Dimer 500 ug/L FEU (0-500) 07/11/23 13:22 Sodium 139 mmol/L (136-145) 07/11/23 05:48 Potassium 3.8 mmol/L (3.5-5.1) 07/11/23 05:48 Chloride 107 mmol/L (98-107) 07/11/23 05:48 Carbon Dioxide 23 mmol/L (21-32) 07/11/23 05:48 Anion Gap 9 (3-11) 07/11/23 05:48 BUN 15 mg/dl (6-23) 07/11/23 05:48 Creatinine 1.18 mg/dl (0.6-1.2) 07/11/23 05:48 Est Cr Clr Drug Dosing 42.7 ml/min 07/11/23 05:48 Est GFR ( Amer) 49.4 ml/min 07/11/23 05:48 Est GFR (Non-Af Amer) 42.6 ml/min 07/11/23 05:48 BUN/Creatinine Ratio 12.7 (10-20) 07/11/23 05:48 Glucose 99 mg/dl (70-99(Fasting)) 07/11/23 05:48 Lactate 1.0 mmol/L (0.4-2.0) 07/11/23 05:48 Calcium 9.2 mg/dl (8.6-10.3) 07/11/23 05:48 Magnesium 2.1 mg/dl (1.7-2.4) 07/10/23 18:41 Total Bilirubin 0.3 mg/dl (0.2-1.0) 07/10/23 17:30 AST 14 U/L (13-39) 07/10/23 17:30 ALT 9 U/L (7-52) 07/10/23 17:30 Alkaline Phosphatase 72 U/L (34-104) 07/10/23 17:30 Troponin I High Sens 15.1 pg/ml (0-14) H 07/11/23 05:48 B-Natriuretic Peptide 64 pg/ml (0-100) 07/10/23 18:41 Total Protein 8.7 gm/dl (6.0-8.3) H 07/10/23 17:30 Albumin 3.7 gm/dl (3.4-5.0) 07/10/23 17:30 Globulin 5.0 gm/dl (2.5-4.0) H 07/10/23 17:30 Albumin/Globulin Ratio 0.7 (0.9-2) L 07/10/23 17:30 Procalcitonin 0.09 ng/ml (0-0.5) 07/10/23 18:41 Urine Color Yellow 07/10/23 17:50 Urine Appearance Clear (Clear) 07/10/23 17:50 Urine pH 6.0 (4.5-7.5) 07/10/23 17:50 Ur Specific [place] 1.008 (1.000-1.030) 07/10/23 17:50 Urine Protein Negative (Negative) 07/10/23 17:50 Urine Glucose (UA) Negative (Negative) 07/10/23 17:50 Urine Ketones Negative (Negative) 07/10/23 17:50 Urine Blood Trace (Negative) H 07/10/23 17:50 Urine Nitrite Positive (Negative) A 07/10/23 17:50 Urine Bilirubin Negative (Negative) 07/10/23 17:50 Urine Urobilinogen Negative (Negative) 07/10/23 17:50 Ur Leukocyte Esterase 2+ (Negative) H 07/10/23 17:50 Urine WBC (Auto) >30 /hpf (0-5) H 07/10/23 17:50 Urine RBC (Auto) 0-4 /hpf (0-4) 07/10/23 17:50 U Hyaline Cast (Auto) 0 /lpf (0-5) 07/10/23 17:50 U Epithel Cells (Auto) 0-5 /lpf (0-5) 07/10/23 17:50 Urine Bacteria (Auto) 4+ (Negative) H 07/10/23 17:50 SARS-CoV-2 (PCR) NEGATIVE (Negative) 07/10/23 17:30 Influenza Type A (PCR) Negative (Neg) 07/10/23 17:30 Influenza Type B (PCR) Negative (Neg) 07/10/23 17:30 RSV (RT-PCR) Negative (Neg) 07/10/23 17:30 Impressions Chest X-Ray 07/10/23 16:46 XR chest 1V portable HISTORY: 82 years-old Female Dyspnea COMPARISON: 06/16/2017 TECHNIQUE: AP view of the chest FINDINGS: Cardiac silhouette is enlarged. Pulmonary vascular congestion with interstitial coarsening and patchy bilateral alveolar opacities. No pneumothorax or large pleural effusion. Degenerative changes of the shoulders and spine. IMPRESSION: 1. Cardiomegaly with pulmonary vascular congestion. 2. Mixed interstitial and alveolar opacities are suspicious for multifocal pneumonia. Pulmonary edema could appear similarly. ACT 112: Negative or not required by law. The above report was generated using voice recognition software. It may contain grammatical, syntax or spelling errors. Electronically signed by: Stefna Leija M.D. 07/10/2023 6:[address] 07/10/23 22:30 Exam(s): CT CHEST Without Contrast EXAM: CT Chest Without Intravenous Contrast CLINICAL HISTORY: Reason for exam: pneumonia vs chf. TECHNIQUE: Axial computed tomography images of the chest without intravenous contrast. CTDI is 23.72 mGy and DLP is 718.43 mGy-cm. Automated exposure control was utilized for the study. A dose lowering technique was utilized adhering to the principles of ALARA. COMPARISON: No relevant prior studies available. FINDINGS: Lungs: Mosaic ground-less attenuation, concerning for air trapping. No mass. No consolidation. Pleural space: Unremarkable. No focal infiltrate, pleural effusion, or pneumothorax. No pleural effusion or vascular congestion. Heart: Cardiomegaly. No significant pericardial effusion. No significant coronary artery calcifications. Bones/joints: Degenerative changes of the spine. No acute fracture. No dislocation. Soft tissues: Unremarkable. Vasculature: Atherosclerotic changes of the aorta. No thoracic aortic aneurysm. Lymph nodes: Unremarkable. No enlarged lymph nodes. IMPRESSION: 1. No focal infiltrate, pleural effusion, or pneumothorax. 2. [place]osaic ground-less attenuation, concerning for air trapping/COPD. Electronically signed by: Rm Yuan MD 07/11/23 01:09 AM Pending Results Patient Have Any Pending Studies at Discharge: No Discharge Instructions Given to Patient (Per Discharging Provider) PLEASE REFER TO YOUR NEW MEDICATION LIST AND FOLLOW INSTRUCTIONS CAREFULLY. YOUR NEW MEDICATIONS INCLUDE: Prednisone- steroids for interstitial lung disease Doxycycline- antibiotic for acute bronchitis Ciprofloxacin- antibiotic for urinary tract infection Take a probiotic daily, eat yogurt for at least 2-3 weeks. PLEASE CALL YOUR PRIMARY CARE PHYSICIAN OR RETURN TO THE ER IF WITH WORSENING OF SYMPTOMS, INCLUDING shortness of breath, cough, fever/chills, etc FOLLOW UP WITH PRIMARY CARE PHYSICIAN IN 1 WEEK. FOLLOW UP WITH ENTREPRENEURSHIP PROGRAM DIRECTOR DR. SANTORO IN 2 WEEKS. CONTACT INFORMATION O UTLINED ABOVE. Total Time Total Time Spent Total Time Spent (In Minutes): >30 minutes
--- NOTE | 2023-07-18 08:25 | Coding Query ---
To promote full compliance with coding requirements relating to patient care, provider participation is requested in all cases of classroom technology technician uncertainty. Please assist us with the question(s) below: Coding Question(s): The diagnosis(es) below was documented in the early record, then subsequently fell off all further documentation. Please indicate if it is still a possible diagnosis or ruled out. Physician's Response(s): POSSIBLE/PRESUMPTIVE PNEUMONIA (documentation on ER as a Differential Diagnosis, on Cardiology Consultation, Pulmonary Consult documents presumptive pneumonia) ( x ) Diagnosed and PRESENT ON ADMISSION ( ) Diagnosed and not PRESENT ON ADMISSION ( ) Diagnosed and UNCERTAIN/UNKNOWN IF PRESENT ON ADMISSION ( ) Ruled out ( ) Other (please specify) DIASTOLIC CHF (documentation on ER as a differential diagnosis of CHF exacerbation, documented on Pulmonary Consultation and 4/5 Pulmonary Progress Note) ( x ) Diagnosed and PRESENT ON ADMISSION ( ) likely exacerbated ( ) not exacerbated ( ) Diagnosed and NOT PRESENT ON ADMISSION ( ) likely exacerbated ( ) not exacerbated ( ) Diagnosed and UNCERTAIN/UNKNOWN IF PRESENT ON ADMISSION ( ) likely exacerbated ( ) not exacerbated ( ) Ruled out ( ) Other (please specify) MTDD
--- NOTE | 2023-07-18 08:35 | Coding Query ---
CODING QUERY To promote full compliance with coding requirements relating to patient care, provider participation is requested in all cases of studio operator uncertainty. Please assist us with the question(s) below: Coding Question(s): The Pulmonary Consultation on 07/11 documents, "(1) Interstitial lung disease: CT chest with evidence of diffuse mosaic attenuation and subpleural fibrotic changes in the upper lobes bilaterally. These findings appear present dating back to 2017 when the patient underwent a VATS decortication for right lower lobe empyema. Etiology for the ILD findings is unclear. 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 She does not have any overt signs of rheumatism. Differential is broad including chronic hypersensitivity pneumonitis and NSIP. No prior PFTs available for review at this time. Will start the patient on a short course of prednisone to help improve her dyspnea. I suspect she will require supplemental oxygen for the long-term related to her ILD. I also suspect that she probably has had some degree of hypoxemia chronically which may have previously been unrecognized. She would benefit from outpatient PFTs and pulmonary rehab. (2) Hypoxia: Secondary to ILD and diastolic CHF. (3) SOB (shortness of breath): See above comments", and the Discharge Summary documents, "Prednisone- steroids for interstitial lung disease", and, "Shortness of breath secondary to Asthma/Emphysema Exacerbation". Please specify below, in your clinical opinion, the most likely cause(s) of the Shortness of Breath: ( x ) Interstitial Lung Disease and Asthma/Emphysema Exacerbation ( ) Asthma/Emphysema Exacerbation ( ) Other: Please Specify Physician's Response(s): Thank you Sveta Jin Principal Diagnosis: "that condition established after study, to be chiefly responsible for occasioning the admission of the patient to the hospital for care." Co-Existing Principal Diagnosis: "when two or more diagnoses equally meet the criteria for principal diagnosis as determined by the circumstances of admission, diagnostic work up, and/or therapy provided, and the Alphabetic Index, Tabular List, or another coding guideline does not provide sequencing direction, any one of the diagnoses may be sequenced first." "When the physician has documented what appears to be a current diagnosis in the body of the record, but has not included the diagnosis in the final diagnostic statement, the physician should be asked whether the diagnosis should be added." ([facility] 2 QTR90. p3-4) EFREN
== END 2023-07-13 16:19 | disposition home or self-care (01) | DRG 196 ==
LOC: ED 16:28 → EDINP 22:30 → 4W 22:59

== ENCOUNTER 2024-05-05 06:19 | Observation (INO) ==
--- NOTE | 2024-04-11 15:07 | PAT Medication Instructions ---
Medication Instructions Date of Service April 11, 2024 Home Medications albuterol sulfate 90 mcg/actuation aerosol inhaler 2 puff inhalation QID PRN SHORT OF BREATH/COUGH/WHEEZING aspirin 81 mg chewable tablet 81 mg PO QAM famotidine 20 mg tablet 20 mg PO QAM fluticasone propionate 50 mcg/actuation nasal spray,suspension 2 spray intranasal QPM gabapentin 100 mg capsule 100 mg PO TID lisinopril 10 mg tablet 10 mg PO QAM loratadine 10 mg capsule 10 mg PO QAM omeprazole 20 mg capsule,delayed release 20 mg PO BID acetaminophen 650 mg tablet,extended release 1,300 mg PO QAM calcium carbonate (Calcium 600) 600 mg PO QPM fluticasone furoate 200 mcg/actuation blister powder for inhalation (Arnuity Ellipta) 1 inh inhalation QPM ibuprofen-diphenhydramine citrate 200 mg-38 mg tablet (Advil PM) 2 cap PO HS ASK your surgeon for instructions ibuprofen-diphenhydramine citrate 200 mg-38 mg tablet (Advil PM) 2 cap PO HS DO NOT take the morning of surgery lisinopril 10 mg tablet 10 mg PO QAM loratadine 10 mg capsule 10 mg PO QAM Take morning of surgery With a small sip of water, OTHERWISE NOTHING TO EAT OR DRINK AFTER MIDNIGHT: albuterol sulfate 90 mcg/actuation aerosol inhaler 2 puff inhalation QID PRN SHORT OF BREATH/COUGH/WHEEZING (use if needed; please bring with you to hospital day of surgery if possible) aspirin 81 mg chewable tablet 81 mg PO QAM (unless surgeon directed otherwise) famotidine 20 mg tablet 20 mg PO QAM gabapentin 100 mg capsule 100 mg PO TID omeprazole 20 mg capsule,delayed release 20 mg PO BID acetaminophen 650 mg tablet,extended release 1,300 mg PO QAM Take evening before surgery albuterol sulfate 90 mcg/actuation aerosol inhaler 2 puff inhalation QID PRN SHORT OF BREATH/COUGH/WHEEZING (if needed) fluticasone propionate 50 mcg/actuation nasal spray,suspension 2 spray intranasal QPM gabapentin 100 mg capsule 100 mg PO TID omeprazole 20 mg capsule,delayed release 20 mg PO BID calcium carbonate (Calcium 600) 600 mg PO QPM fluticasone furoate 200 mcg/actuation blister powder for inhalation (Arnuity Ellipta) 1 inh inhalation QPM Other Notes If you have any questions please call us at [phone] or [phone] or [phone] or [phone]
--- NOTE | 2024-04-16 11:08 | Anesthesiology Consultation ---
Date of Service April 16, 2024 Assessment & Plan (1) Encounter for pre-operative examination: Chart Review Chart Review: Acceptable Risk for Surgery and Patient seen in Pre Admission Testing - Patient is NOT an ideal OPJ candidate (currently 23 hour obs) Per PAT appt on 04/16/24, no recent illness/disease exposures, illness related symptoms, or recent illness/disease positive tests. Will leave to surgeon's discretion if preop Covid testing needed Teaching & Discussion Pre-Anesthesia Teaching/Discussion Notes: Instructed NPO after midnight before surgery,except medications with 15 cc of water. Medication instructions provided according to the [facility] guidelines. History Surgery Operation Date: 05/05/24 07:00 Proposed Procedures p Left Total Knee Arthroplasty - Gera Wang MD Height/Weight Height: 5 ft 7 in Weight: 92.9 kg Allergies Allergy/AdvReac Type Severity Reaction Status Date / Time Cephalosporins Allergy Mild Rash Verified 03/31/24 13:38 niacin AdvReac Intermediate Nausea/Vomi Verified 03/31/24 13:38 ting Medications Home Medications Medication Instructions Recorded Confirmed Last Taken albuterol sulfate 90 mcg/actuation 2 puff inhalation QID PRN SHORT OF 02/28/23 03/31/24 02/26/23 aerosol inhaler BREATH/COUGH/WHEEZING aspirin 81 mg chewable tablet 81 mg PO QAM 02/28/23 03/31/24 07/10/23 famotidine 20 mg tablet 20 mg PO QAM 02/28/23 03/31/24 07/10/23 08:00 fluticasone propionate 50 2 spray intranasal QPM 02/28/23 03/31/24 07/10/23 mcg/actuation nasal spray,suspension gabapentin 100 mg capsule 100 mg PO TID 02/28/23 03/31/24 07/10/23 08:00 lisinopril 10 mg tablet 10 mg PO QAM 02/28/23 03/31/24 07/10/23 loratadine 10 mg capsule 10 mg PO QAM 02/28/23 03/31/24 07/10/23 omeprazole 20 mg capsule,delayed 20 mg PO BID 02/28/23 03/31/24 07/10/23 release acetaminophen 650 mg 1,300 mg PO QAM 07/10/23 03/31/24 07/10/23 08:00 tablet,extended release calcium carbonate (Calcium 600) 600 mg PO QPM 07/10/23 03/31/24 07/10/23 fluticasone furoate 200 1 inh inhalation QPM 07/10/23 03/31/24 Unknown mcg/actuation blister powder for inhalation (Arnuity Ellipta) ibuprofen-diphenhydramine citrate 2 cap PO HS 03/31/24 03/31/24 Unknown 200 mg-38 mg tablet (Advil PM) Past Medical History Medical History (Updated 04/16/24 @ 12:40 by Samra Tatum PA-C) Arthritis Asthma used rescue inhaler last ~end february 2024. asthma otherwise well controlled CKD (chronic kidney disease) stage 3, GFR 30-59 ml/min GERD (gastroesophageal reflux disease) well controlled and stable Heart murmur no cardiology; hx of rheumatic fever as child no significant heart valve issues on 07/2023 ECHO History of rheumatic fever as a child at age 16 Hyperlipidemia Hypertension Interstitial lung disease per medical record, pt unsure of details Stress incontinence Exercise / Class Metabolic Activity III < 4 Walking/Shop/Light housework (no chest pain or SOB with flat surface ambulation- uses walker ) Past Family History Family History Other No family history of adverse response to anesthesia Past Surgical History Surgical History (Updated 04/16/24 @ 12:40 by Samra Tatum PA-C) H/O detached retina repair rt H/O esophagogastroduodenoscopy History of breast biopsy benign History of cataract surgery rt/left current 03/2024: left eye cataract lens "has dropped down into the retina" following with Retina Specialist in [place]. History of colonoscopy History of lung surgery (2016) - due to empyema "Right VATS with decortication 02/28/17= Done under [place] with Grade 2 view with MAC #3. ETT 37Fr x 1 attempt/atraumatic " History of tooth extraction Hx laparoscopic cholecystectomy Hx of hysterectomy ESTHER with BSO S/P T&A (status post tonsillectomy and adenoidectomy) Past Anesthesia History No Hx of Anesthesia Complications and No Family Hx of Anesthesia Complications History of PONV No Hx of PONV and No Hx of Motion Sickness Social History Smoking Status: Never smoker Do You Dip or Chew Tobacco: No Hx Alcohol Use: No Hx Substance Use: No substance use type: does not use Review of Systems - Hx of blood transfusion- post op from VATS 2017 Patient denies chest pain, shortness of breath, dyspnea on exertion, cough, wheezing, palpitations. No hx of seizures, stroke, HI, apnea/snoring. No hx of blood clots Physical Exam Vital Signs VITALS BP 128/79 P 66 TEMP 97.6 SP02 93% RESP 16 Constitutional no acute distress ENMT Mouth: + small oral opening; no TMJ clicking Thyromental Distance: > or= 3.5 Finger Breadths (3.5) Mallampati Class: II Full dentures on the top Missing bottom side teeth and molars Neck + limited neck extension (significant ) Respiratory normal respiratory effort; no respiratory distress Auscultation: lungs clear to auscultation bilaterally; no wheezes Cardiovascular Rate/Rhythm: regular rate and regular rhythm Heart Sounds: + murmur (II/ murmur ) Vessels: no carotid bruit Musculoskeletal Spine: no pain with cervical ROM Extremities: extremities normal to inspection Psychiatric Orientation: alert Lab Results Anesthesia Preop Results Results Anesthesia Widget: WBC 5.60 K/ul (4.8-10.8) 04/16/24 Hgb 12.4 g/dl (12.0-16.0) 04/16/24 Hct 36.7 % (37.0-47.0) L 04/16/24 Plt 250 K/uL (130-400) 04/16/24 Na 138 mmol/L (136-145) 04/16/24 K 4.7 mmol/L (3.5-5.1) 04/16/24 Cl 108 mmol/L (98-107) H 04/16/24 CO2 25 mmol/L (21-32) 04/16/24 BUN 22 mg/dl (6-23) 04/16/24 Creat 1.23 mg/dl (0.6-1.2) H 04/16/24 Glucose Level 90 mg/dl (70-99(Fasting)) 04/16/24 PT 10.6 Seconds (9.0-12.0) 04/16/24 PTT 26 Seconds (21-31) 04/16/24 INR 1.0 (0.9-1.1) 04/16/24 Blood Type A Positive 04/16/24 Antibody Screen NEGATIVE 04/16/24 Testing Electrocardiogram Date: 04/16/24 NSR with sinus arrhythmia at 65bpm LVH with QRS widening Nonspecific ST and T wave abnormality When compared to EKG from July 10, 2023- minimal criteria for septal infarct are no longer present per cardio Chest X-Ray Date: 04/16/24 FINDINGS: No lines and tubes are seen. The cardiomediastinal silhouette is normal. Peribronchial thickening is seen. No evidence of pleural effusion or pneumothorax. IMPRESSION: Peribronchial thickening is seen compatible with infectious/inflammatory airways disease or viral pneumonia. No lilly consolidation is seen. Echocardiogram Date: 07/11/23 RWMA: + none Other Findings: + LVH (mild/concentric) and + diastolic dysfunction (Grade I ) Valvular Disease: + no significant valvular disease LV chamber size appears relatively small and underfilled Basal septum is thickened and angulated consistent with sigmoid septum LV is hyperdynamic. LVEF 65-70% Prominent papillary muscle that makes contact with basal septum during systole. No resting LV outflow tract gradient detected. (ECHO done during hospital admission for SOB secondary to asthma/COPD exa cerbation- seen by cardio- per progress note 07/12/23- ECHO reviewed - hyperdynamic LVEF with small LV cavity size- consistent with volume depletion. No need for diuretic therapy. No further cardiac testing warranted at this time".) Discussed with Dr. Marcus- patient can proceed as scheduled Other Testing Chest CT 07/10/23= No focal infiltrate, pleural effusion, or pneumothorax. Mosaic ground-less attenuation, concerning for air trapping/COPD.
--- NOTE | 2024-04-30 17:45 | History & Physical Report ---
Date of Service April 30, 2024 Assessment & Plan (1) Left knee DJD: 83-year-old female with advanced left knee arthritis. She has failed conservative measures. She like to have her knee replaced. Plan: We are going to take her to the operating room and do a left knee replacement. The risks Mente this procedure explained. She understands. Will plan DVT prophylaxis including thigh-high teds, SCDs and aspirin. Will get a hold of any other NSAIDs due to her slightly elevated creatinine. (2) Interstitial lung disease: (3) SOB (shortness of breath): (4) Hypoxia: (5) Dyslipidemia: (6) HTN (hypertension): (7) GERD (gastroesophageal reflux disease): History of Present Illness Chief Complaint: . Persistent left knee pain and discomfort. Primary Care Provider: Daniel Szymanski MD . The patient is an 83-year-old female who is got a long history of her left knee pain discomfort is gradually gotten worse over the past several years. She been through extensive conservative treatment provided mostly at [facility] in the past. He has been caring for her ill and putting knee replacement off. Pain has become more disabling. Conservative care is no longer helping her. Is limiting her activities. She has a limited walking tolerance. She like to have her knee fixed. Allergies Allergy/AdvReac Type Severity Reaction Status Date / Time Cephalosporins Allergy Mild Rash Verified 03/31/24 13:38 niacin AdvReac Intermediate Nausea/Vomi Verified 03/31/24 13:38 ting Home Medications Medication Instructions Recorded Confirmed Type albuterol sulfate 90 mcg/actuation 2 puff inhalation QID PRN SHORT OF 02/28/23 03/31/24 History aerosol inhaler BREATH/COUGH/WHEEZING aspirin 81 mg chewable tablet 81 mg PO QAM 02/28/23 03/31/24 History famotidine 20 mg tablet 20 mg PO QAM 02/28/23 03/31/24 History fluticasone propionate 50 2 spray intranasal QPM 02/28/23 03/31/24 History mcg/actuation nasal spray,suspension gabapentin 100 mg capsule 100 mg PO TID 02/28/23 03/31/24 History lisinopril 10 mg tablet 10 mg PO QAM 02/28/23 03/31/24 History loratadine 10 mg capsule 10 mg PO QAM 02/28/23 03/31/24 History omeprazole 20 mg capsule,delayed 20 mg PO BID 02/28/23 03/31/24 History release acetaminophen 650 mg 1,300 mg PO QAM 07/10/23 03/31/24 History tablet,extended release calcium carbonate (Calcium 600) 600 mg PO QPM 07/10/23 03/31/24 History fluticasone furoate 200 1 inh inhalation QPM 07/10/23 03/31/24 History mcg/actuation blister powder for inhalation (Arnuity Ellipta) ibuprofen-diphenhydramine citrate 2 cap PO HS 03/31/24 03/31/24 History 200 mg-38 mg tablet (Advil PM) Past Med/Surg History Problem List Left knee DJD Interstitial lung disease SOB (shortness of breath) Hypoxia (Acute) Exertional dyspnea (Acute) Encounter for pre-operative examination History of hysterectomy (Chronic) History of tonsillectomy and adenoidectomy (Chronic) Dyslipidemia (Chronic) HTN (hypertension) (Chronic) Asthma (Chronic) used rescue inhaler last 01/2023 increased SOB with abdominal pain- feels asthma otherwise well controlled GERD (gastroesophageal reflux disease) (Chronic) controlled with medication Medical History History of rheumatic fever as a child at age 16 Interstitial lung disease per medical record, pt unsure of details GERD (gastroesophageal reflux disease) well controlled and stable Hypertension Hyperlipidemia Asthma used rescue inhaler last ~end february 2024. asthma otherwise well controlled Arthritis Stress incontinence Heart murmur no cardiology; hx of rheumatic fever as child no significant heart valve issues on 07/2023 ECHO CKD (chronic kidney disease) stage 3, GFR 30-59 ml/min Surgical History S/P T&A (status post tonsillectomy and adenoidectomy) Hx laparoscopic cholecystectomy Hx of hysterectomy ESTHER with BSO History of tooth extraction H/O detached retina repair rt History of cataract surgery rt/left current 03/2024: left eye cataract lens "has dropped down into the retina" following with Retina Specialist in [place]. History of lung surgery (2016) - due to empyema "Right VATS with decortication 02/28/17= Done under [place] with Grade 2 view with MAC #3. ETT 37Fr x 1 attempt/atraumatic " History of breast biopsy benign History of colonoscopy H/O esophagogastroduodenoscopy Family History Other No family history of adverse response to anesthesia Social History Smoking Status: Never smoker Second Hand Exposure: Yes (as a child); Do You Dip or Chew Tobacco: No; Hx Alcohol Use: No Hx Substance Use: No Preferred Language: Mosotho Communication Ability: Effective Underwriting Support Specialist Required: No Beliefs That Will Affect Care: None Current Living Situation: Spouse Feels Safe at Home: Yes Assistive Devices: Cane, Denture - Upper, Glasses, Hearing Aid - Bilateral and Walker Review of Systems All systems reviewed & are unremarkable except as noted in HPI & below. Physical Exam . Physical examination reveals a pleasant elderly female. Looks in pretty good health. Examination of left knee reveal patient walks with a bit of a limp. She got valgus alignment to her knee which is increased with weightbearing. Small knee effusion. Mild diffuse edema distally. Range of motion about 10-1 20. No instability. No pain with hip motion. She is neurologically intact. Constitutional WD/WN, vitals as above Neck trachea midline, no thyromegaly Respiratory normal respiratory effort, lungs clear to auscultation Cardiovascular RRR, no murmur, no edema Gastrointestinal (Abdomen) normal bowel sounds, soft, nontender, no hepatosplenomegaly Results & Data Results & Data Laboratory Results . Diagnostic Findings . X-rays of the left knee were reviewed. She advanced left knee DJD. She could complete loss of the lateral joint space. She got valgus alignment to the knee. Some moderate Duret osteophytes. PG Care Time/CCT Total # of Minutes Spent Total Time Spent with Patient: Total time spent is greater than 50% in coordination of care (as documented) at patient's floor/unit and/or counseling patient: Coding Level of Care Code None Diagnoses Left knee DJD M17.12 Interstitial lung disease J84.9 SOB (shortness of breath) R06.02 Hypoxia R09.02 Dyslipidemia E78.5 HTN (hypertension) I10 GERD (gastroesophageal reflux disease) K21.9
[~2024-05-05 06:19] MED LIST changes: -ALBU18002 INH; +ALLERGY Noted to ORDERED Medication SCH; -AMOX1TAB42 PO; -ASPEC81 PO; -CALC600T PO; -CONJ1TAB PO; -DXY100 PO; -FLUT0.15; -FLVHFA110 INH; -FRRS300 PO; -LISI-729 PO; -LORA10TA51 PO; -PANT1TAB3 PO; -PSEU60TA80 PO; -RANI300T2 PO
[2024-05-05] MEDS ORDERED: BUPIVACAINE 0.5 % 5 MG/1 ML PF 10ML VIAL ONE (06:28)
[2024-05-05] MEDS ORDERED: ROPIVACAINE 0.5% 5 MG/ML 30 ML VIAL ONE (06:28)
--- NOTE | 2024-05-05 06:46 | History & Physical Bridge Note ---
Date of Service May 05, 2024 History & Physical Bridge Note I have examined the patient, reviewed the History & Physical and in the interval since the performance of the History & Physical I have noted the following changes of clinical significance: no changes noted
[2024-05-05] MEDS: ACETAMINOPHEN 500 MG TAB PO SCH ×2 (07:09→13:08)
[2024-05-05] MEDS: CeleBREX 200 MG CAP PO SCH (07:10)
[2024-05-05] MEDS: METOCLOPRAMIDE HCL 10 MG TABLET PO SCH (07:10)
[2024-05-05] MEDS: LR 60ML/HR IV SCH (07:10)
[2024-05-05] MEDS: LR 500ML BOLUS, THEN 15ML/HR IV SCH (07:29)
[2024-05-05] MEDS: dexAMETHasone**PF** 10 MG/ML VIAL IV SCH (07:29)
[2024-05-05] MEDS ORDERED: fentaNYL citrate PF 100 MCG/2 ML VIAL ONE (08:03)
[2024-05-05] MEDS ORDERED: PROPOFOL IV EMULSION 10 MG/ML 20 ML VIAL IV ONE ×2 (08:30→09:23)
[2024-05-05] MEDS ORDERED: ePHEDrine sulfate 50 MG/ML AMP IV PRN (08:47)
[2024-05-05] MEDS ORDERED: fentaNYL citrate PF 100 MCG/2 ML VIAL IV PRN (08:47)
[2024-05-05] MEDS ORDERED: ONDANSETRON INJ 2 MG/ML 2 ML VIAL IV PRN ×2 (08:47→11:58)
[2024-05-05] MEDS ORDERED: ATROPINE SULFATE 0.1 MG/ML 10ML SYR IV PRN (08:47)
[2024-05-05] MEDS: ceFAZolin 2000MG 2,000 MG/15 ML SYR IV SCH ×2 (08:59→17:35)
[2024-05-05] MEDS ORDERED: ePHEDrine sulfate 50 MG/ML AMP ONE (09:22)
[2024-05-05] MEDS: ORTHO JOINT ANESTHETIC ONE (09:31)
[2024-05-05] MEDS: TRANEXAMIC ACID 1,000 MG **IV Intra-op IV SCH (09:51)
[2024-05-05] MEDS: ROPIV 0.5% 246mg, Ketorolac 30mg, EPINEPHrine 0.5mg in NSS INFIL SCH (09:56)
--- NOTE | 2024-05-05 10:51 | Operative Report ---
PG Post Operative Report Pre & Post Diagnosis Operation Date: 05/05/24 08:50 Pre-Op Diagnosis: Left Knee Degenerative Joint Disease Post-Op Diagnosis: Left Knee Degenerative Joint Disease I identified the patient and participated in the time-out.: Yes Procedure Operation Date: 05/05/24 08:50 Actual Procedures p Left Total Knee Arthroplasty(Left) - Gera Wang MD Surgeon Gera Wang MD [employer] Travis Mcgraw PA-C Estimated Blood Loss 50 Findings Consistent with Post-Op Diagnosis Operative findings were advanced left knee DJD. Yet she had extensive grade 4 [id number]-mb-uury disease of the entire lateral compartment. The rest the knee looked pretty well-preserved. Moderate-sized joint effusion. She had a fixed valgus deformity to her knee. Specimens Left knee sent for pathology. Anesthesia Type Spinal MAC Complications none Disposition Accompanied Patient To Recovery: No Indications The patient is a 83-year-old female has had a long history of left knee pain discomfort described to gotten worse over time. She been through extensive conservative treatments became less successful over time. Her pain was starting to really affect her lifestyle and she elected proceed with a left total knee arthroplasty. Description of Procedure Operative implants consist of: 1. Biomet Vanguard size 67.5 left posterior stabilized femoral component. 2. Biomet size 75 tibial tray. 3. 12 mm posterior stabilized polyethylene insert. 4. 31 x 8 all poly patella. The patient was taken the operating, identified, placed on the operating table in the supine position. All contact areas were appropriately padded. IV antibiotics fibra anesthesia team. Spinal anesthetic been implemented holding area. A Kerr catheter was placed in sterile fashion. A left side turn was then placed. The left lower extremities then prepped and draped in usual sterile fashion. The left leg was elevated and exsanguinated with use of an Esmarch and a turn was placed at 300 mmHg. An anterior approach to the left knee was then performed to longitudinal incision centered over the patella. Sharp dissection Through subcutaneous tissue down the extensor mechanism. A medial parapatellar arthrotomy incision was made. Some subperiosteal dissection was medially. The fat pad was resected beneath patella tendon. Lateral patellofemoral ligament was released. Patella subluxated laterally and the knee was flexed. The osteophytes taken off distal femur. The ACL and PCL were then released from distal femur and the tibia was subluxated anteriorly. The external tibial alignment jig was then placed on the anterior face of the tibia and adjusted 12 mm medially. The proximal tibial cut was made remove about 3 to 4 mm of bone from the medial side. The tibia sized to a size 75. Attention drawn the femur. The distal femur examined the sharp drop with intramedullary canal was suction. A left 5 degree valgus cutting guide was placed through the distal femoral cutting block was pinned in place. Distal femoral cut was made take an additional 3 mm of bone off distal femur. The femur was then sized to a size 67.5. The AP cutting block was pinned parallel to the epicondylar axis which was 5 degrees of external rotation. The anterior cut, anterior chamfer, posterior cut, posterior chamfer cuts were made. The box cutting guide was placed and adjusted slightly lateral and the box cut was made. The knee was flexed. The remnants of the medial and lateral menisci were excised. The osteophytes taken off the posterior aspect of femur. A trial femoral component was placed. The tibial tray was pinned Jeannine external rotation and the drill and stem punch used to create defect in proximal tibia for the tibial tray. The knee was then trialed and the 12 mm insert fit most appropriately. Attention drawn the patella. The patella was cleaned of all soft tissue. Patella thickness measured 23 mm in thickness was cut down to 14. Was sized to a size 31 patella. The lug holes were drilled for 31 patella. The lateral osteophytes removed. Patella button was placed. Knee was taken through range of motion patella tracked nicely with no thumbs test. Attention was then drawn toward placing the permanent components. Nupathe all trial components were removed. Bone plug was placed in the distal femur limit blood loss. A double batch Palacos G cement was mixed. A Biomet Vanguard size 67.5 left posterior Byce femoral component, size 75 tibial tray, a 12 mm posterior Byce polyethylene insert, and a 31 x 8 all poly patella then cemented in place. The knee was brought out into full extension till cement hardened. Final cement check was then performed. The pericapsular tissues were injected with a total of 100 cc of Ortho mix. The patient did receive 1 g tranexamic acid. The tourniquet was then let down for final tourniquet time 55 minutes. Hemostasis assured use electrocautery. Extensor Meclomen closed with combination 1 PDS suture #1 Vicryl suture in a [id number] fashion. Extensor Meclomen checked found to be intact. Subcutaneous tissue then closed with 2 Dexon suture in a buried interrupted fashion skin was closed skin francisco. Leg was then cleaned and dried and a sterile dressing with Xeroform, 4 fours, sterile cast padding, Oscar bandage were applied. Patient then transferred to the recovery room in stable condition. Patient tolerated procedure well and there were no complications. Travis Mcgraw, my physician energy assistant, was present for the entire procedure. His assistance was essential and required for appropriate patient positioning, prepping and draping, surgical exposure, performing the technical details of the operation, placement the implants, closure of the wound, and placement of the sterile bandage. I attest to the content of the Intraoperative Record and any orders documented therein. Any exceptions are noted below.
--- NOTE | 2024-05-05 11:07 | XRay Report ---
XR knee LT 1 or 2V routine CLINICAL HISTORY: Postoperative evaluation. COMPARISON: Left knee radiographs February 28, 2024. FINDINGS: Alignment of the total left knee arthroplasty is anatomic. There is no periprosthetic frac ture or unexpected radiopaque foreign body. There are skin francisco. IMPRESSION: Expected findings following total left knee arthroplasty. ACT 112: Negative or not required by law. Electronically signed by: Tim Sanchez M.D. 05/05/2024 11:06 AM
[2024-05-05] MEDS ORDERED: NALOXONE HCL 0.4 MG/1 ML VIAL/CARP IV PRN (11:58)
[2024-05-05] MEDS ORDERED: ALUMINUM/MAGNESIUM SUSP 30 ML UDC PO PRN (11:58)
[2024-05-05] MEDS ORDERED: bisacodyL 10 MG SUPP PR PRN (11:58)
[2024-05-05] MEDS ORDERED: NO NSAIDS SCH (11:58)
[2024-05-05] MEDS ORDERED: HYDROmorphone INJ 0.5 MG/0.5 ML SYR IV PRN (11:58)
[2024-05-05] MEDS ORDERED: METOCLOPRAMIDE HCL INJ 5 MG/ML 2 ML VIAL IV PRN (11:58)
[2024-05-05] MEDS ORDERED: ALBUTEROL HFA 8 GM INHALER INH PRN (11:58)
[2024-05-05] MEDS ORDERED: MAGNESIUM HYDROXIDE SUSP 30 ML UDC PO PRN (11:58)
--- NOTE | 2024-05-05 12:56 | Anesthesiology Progress Note ---
Date of Service May 05, 2024 Anesthesia Post Procedure Vital Signs Vital Signs: Temp Pulse Pulse Resp BP Pulse Ox O2 Del Method 05/05/24 12:33 86 16 139/75 98 Room Air 05/05/24 12:00 97.7 F 87 16 146/78 H 95 Room Air 05/05/24 11:35 97.5 F L 76 15 136/70 95 Room Air 05/05/24 11:25 77 12 145/86 H 96 Room Air 05/05/24 11:15 68 13 148/72 H 98 Oxymask 05/05/24 11:05 69 13 153/74 H 99 Oxymask 05/05/24 10:55 73 12 144/71 H 100 Oxymask 05/05/24 10:46 96.8 F L 67 13 127/72 94 Oxymask 05/05/24 06:45 97.9 F 66 20 145/79 H 96 Room Air O2 Flow Rate 05/05/24 12:33 05/05/24 12:00 05/05/24 11:35 05/05/24 11:25 05/05/24 11:15 2 05/05/24 11:05 2 05/05/24 10:55 7 05/05/24 10:46 7 05/05/24 06:45 Transfer of Care Handoff Completed per policy Notes Mental Status: alert / awake / arousable and participated in evaluation Patient Amnestic to Procedure: Yes Nausea / Vomiting: adequately controlled Pain: adequately controlled Airway Patency, RR, SpO2: stable & adequate BP & HR: stable & adequate Hydration State: stable & adequate Neuraxial Anesthesia: was administered and sensory block is resolving Anesthetic Complications: no major complications apparent and Pt Satisfied with anesthetic care
[2024-05-05] MEDS: GABAPENTIN 100 MG CAP PO SCH (13:08)
[2024-05-05] MEDS: TRANEXAMIC ACID / 0.7% NACL 1,000 MG/100 ML BAG IV SCH (17:36)
[2024-05-05] MEDS: ASCORBIC ACID 500 MG TAB PO SCH (17:36)
[2024-05-05] MEDS: DOCUSATE SODIUM 100 MG CAP PO SCH (20:09)
[2024-05-05] MEDS: SENNA 8.6 MG TAB PO SCH (20:09)
[2024-05-05] MEDS: FLUTICASONE PROPIONATE NA SPR 16 GM BTL NAE SCH (20:10)
[2024-05-05] MEDS: FLUTICASONE FUROATE 200MCG 14 PUFFS/INHALER INH SCH (20:10)
[2024-05-05] MEDS: ASPIRIN 81 MG ECTAB PO SCH (20:11)
[2024-05-05] MEDS: PANTOprazole 40 MG TAB PO SCH (20:12)
[2024-05-05] MEDS: CALCIUM CARBONATE 1250MG TAB PO SCH (20:12)
[2024-05-05] MEDS ORDERED: NON-FORMULARY MEDICATION (Ibuprofen-Diphenhydramine Cit [Advil Pm] 200-38 mg Tablet) PO SCH (21:00)
[2024-05-05] MEDS ORDERED: SENNA 8.6 MG TAB PO SCH (21:00)
[2024-05-06] MEDS: traMADol HCL 50 MG TABLET PO PRN (02:17)
[2024-05-06 02:22] VITALS: TEMP 97.5
[2024-05-06 06:33] LABS: Hematocrit (blood only) 32.9 % (37.0-47.0); Hemoglobin 11.4 g/dl (12.0-16.0); Mean Corpuscular Hemoglobin 30.8 pg (25.0-34.0); Mean Corpuscular Hgb Conc 34.7 g/dL (32.0-36.0); Mean Corpuscular Volume 88.9 fL (80.0-100.0); Mean Platelet Volume 8.6 fL (9.4-12.4); Platelet Count 257 K/uL (130-400); RDW Coefficient of Variation 12.7 % (11.5-14.5); RDW Standard Deviation 41.2 fL (36.4-46.3); White Blood Count 11.65 K/ul (4.8-10.8)
[2024-05-06 06:54] LABS: BUN Creatinine Ratio 17.1 (10-20); Calcium 9.2 mg/dl (8.6-10.3); Creatinine Clr Calc Pharmacy 39.6 ml/min; Potassium 4.3 mmol/L (3.5-5.1)
[2024-05-06 07:39] VITALS: BP 132/80; PULSE 67; RESP 18; O2SAT 96
[2024-05-06] MEDS: FAMOTIDINE 20 MG TAB PO SCH (08:34)
[2024-05-06] MEDS: LORATADINE 10 MG TAB PO SCH (08:34)
[2024-05-06] MEDS: lisinopril 10 MG TAB PO SCH (08:34)
[2024-05-06] MEDS: MULTIVITAMIN TAB PO SCH (08:35)
--- NOTE | 2024-05-06 12:17 | Orthopedic Progress Note ---
Date of Service May 06, 2024 Assessment & Plan (1) Status post left knee replacement: Assessment: Left total knee arthroplasty. Plan: Overall, she is doing quite well today with good pain control to the left knee. She will work with physical therapy later this morning to work on ambulation and range of motion exercises. She is on aspirin for DVT prophylaxis. She can be discharged home later this morning pending formal physical therapy evaluation recommendations. She will follow-up in [address] Wang for post surgical management or sooner if needed. She verbalized understanding agrees with this plan. Fidel Ybarra was seen this morning resting comfortably in no apparent distress. She notes that her pain is well-controlled to the left knee. She has yet to work with physical therapy this morning. She denies any concerns with her surgical incision site. She denies any active bleeding, discharge, or signs of infection. She denies any low back pain, proximal/distal extremity pain, numbness/ting, or paresthesias. She denies any other concerns today. Review of Systems All systems reviewed & are unremarkable except as noted in HPI & below. Physical Exam . On physical examination of the left knee, dressings are clean, dry, intact with no signs of active bleeding, discharge, or signs infection. Her leg is out full extension. She has limited range of motion secondary to postoperative stiffness and soreness. Calf soft nontender to palpation. Negative Homans' sign. Intact plantarflexion dorsiflexion of left ankle. +2 DP and PT pulse. Less than 2- second capillary refill. Normal sensation. Neurovascular intact. Results & Data Results & Data Laboratory Results . Diagnostic Findings . Knee X-Ray 05/05/24 10:43 XR knee LT 1 or 2V routine CLINICAL HISTORY: Postoperative evaluation. COMPARISON: Left knee radiographs February 28, 2024. FINDINGS: Alignment of the total left knee arthroplasty is anatomic. There is no periprosthetic fracture or unexpected radiopaque foreign body. There are skin francisco. IMPRESSION: Expected findings following total left knee arthroplasty. ACT 112: Negative or not required by law. Electronically signed by: Tim Sanchez M.D. 05/05/2024 11:06 AM PG Care Time/CCT Total # of Minutes Spent Total Time Spent with Patient: Total time spent is greater than 50% in coordination of care (as documented) at patient's floor/unit and/or counseling patient: Coding Level of Care Code 99390 Post Operative Follow-Up Diagnoses Status post left knee replacement Z96.652
--- NOTE | 2024-05-06 12:19 | Discharge Summary ---
Date of Service May 06, 2024 Admission HPI (Per Admitting) . The patient is an 83-year-old female who is got a long history of her left knee pain discomfort is gradually gotten worse over the past several years. She been through extensive conservative treatment provided mostly at [facility] [address] in the past. He has been caring for her ill and putting knee replacement off. Pain has become more disabling. Conservative care is no longer helping her. Is limiting her activities. She has a limited walking tolerance. She like to have her knee fixed. Admission Exam (Per Admitting) . Physical examination reveals a pleasant elderly female. Looks in pretty good health. Examination of left knee reveal patient walks with a bit of a limp. She got valgus alignment to her knee which is increased with weightbearing. Small knee effusion. Mild diffuse edema distally. Range of motion about 10-1 20. No instability. No pain with hip motion. She is neurologically intact. Principal Diagnosis Same as "Discharge Diagnosis" noted below under Discharge Instructions. Discharge Exam . On physical examination of the left knee, dressings are clean, dry, intact with no signs of active bleeding, discharge, or signs infection. Her leg is out full extension. She has limited range of motion secondary to postoperative stiffness and soreness. Calf soft nontender to palpation. Negative Homans' sign. Intact plantarflexion dorsiflexion of left ankle. +2 DP and PT pulse. Less than 2- second capillary refill. Normal sensation. Neurovascular intact. Discharge Data Procedures Performed Operation Date: 05/05/24 08:50 Actual Procedures p Left Total Knee Arthroplasty(Left) - Gera Wang MD Ordered Studies 05/05/24 05:00 US - OR guided needle placemen Routine Hospital Course (1) Status post left knee replacement: On May 05, 2024 Amada arrived at [facility] and underwent a left total knee arthroplasty performed by Dr. Wang with no issues. She had a spinal anesthetic. Postoperatively, she was started on aspirin for DVT prophylaxis and transferred to the general orthopedic floor in stable condition. Her hospital course was uneventful. On postoperative day #1, her vital signs were stable and her pain was well-controlled. She participated well with physical therapy working on ambulation and range of motion exercises. She was then discharged home in stable condition. She will follow-up with Dr. Wang in 2 weeks for continued postoperative management or sooner if needed. PG Care Time/CCT Total # of Minutes Spent Total Time Spent with Patient: Total time spent is greater than 50% in coordination of care (as documented) at patient's floor/unit and/or counseling patient: Discharge Plan Discharge Items Patient Disposition: Home - Home Health Services Reason For Visit: Left Knee Osteoarthritis Discharge Diagnosis: Left Knee Replacement Activity: Per Instructions section Weightbearing: Full weightbearing Non-emergency contact: Surgeon Call non-emergency contact if: you have any medication questions Follow-up/Referrals: Daniel Szymanski MD [Primary Care Provider] - Diet: Regular Addtl Attending Provider Instructions: ACTIVITY RECOMMENDATIONS: Diet: * You may resume previous diet. Physical Therapy: * You will go to physical therapy three times each week for four to six weeks a fter your surgery in order to regain your knee range of motion and to retrain your knee to work properly. * It is just as important to make sure you are getting your knee perfectly straight as it is to regain your knee bend. * Taking a pain pill an hour before therapy can help you have a more productive and comfortable therapy session. Home Exercise: * You were shown a series of exercises (heel props, heel slides, etc.) in the hospital. Do these exercises three to four times each day including the exercises you were shown in physical therapy. Walking: * Get up and walk several times each day. For the first four weeks, try not to stand or walk for more than one hour at a time. If you do stand or walk for more than one hour, you will not hurt anything, but your knee and leg will likely swell. * As you feel comfortable, you may change from the walker or crutches to a cane and then to independent walking. MEDICATIONS: New Medicine: * You will likely be taking one or more of these medications: 1. Tramadol - A quick and shorter-acting pain medication. Take one to two tablets every six hours to lessen your pain. 2. Aspirin - Thins your blood to lessen the chance of forming a blood clot. * The most common side effects of pain medicine and iron are nausea and constipation. If nausea or constipation is too much of a problem or if you have any questions about your new medicines or doses, call [facility] at . We will try to help you manage these issues. "VERY IMPORTANT TO READ AND REVIEW" Pain: * The immediate post-operative period after knee replacement surgery is often quite painful. * You are given a prescription for pain medicine. You should take it, as directed, when you need it, especially before physical therapy and before going to bed. Pain that interferes with sleep is very common and can last several months. * You will likely need pain medicine for the first four to six weeks. It will not stop all of the pain. The pain will lessen and as you feel better, you may change to milder pain medicine such as Tylenol. * The most common side effects of pain medicine are nausea and constipation, so don't take more than you need. SPECIAL CARE INSTRUCTIONS: TEDs/Elastic Stockings: * The white elastic stockings help limit swelling and prevent blood clots from forming in your legs. The more you wear them, the more they work. * Wear them for six weeks after knee replacement surgery and four weeks after partial knee replacement. Incision Site Care: * Remove dressing postoperative day 2 and then shower. Keep direct shower pressure off the incision site. * After showering, cover francisco with dry gauze and change daily or more frequently if the dressing is getting saturated with drainage. * Use the EMMETT stockings to hold dressing in place. DO NOT apply tape on the skin. * May completely stop using bandage if wound is dry and no drainage * Francisco are removed between 2 and 3 weeks post-op. If your follow-up appointment is made before 2 weeks, please have your appointment re- scheduled. It is too early to remove the francisco. Prevention of Infection: * Take antibiotics one hour before any dental cleaning, dental work, urological procedure, gastrointestinal procedure or any invasive surgery in order to prevent your new joint from getting infected. * You may get the antibiotics from the doctor performing the procedure or you may call our office at [phone] before and we will call in a prescription to the pharmacy of your choice. Things to Watch For: * Drainage from the incision site that occurs more than one week after your surgery. * Severely increased knee/leg pain or swelling. * Increased redness at the incision site. * Fever above 102 degrees Fahrenheit. * Unusual chest pain or shortness of breath. * Unusual pain or burning with urination. Call [facility] at [phone] with any of the above problems or if you have any questions about your medicines or recovery. FOLLOW UP VISIT: Make an appointment to see your doctor for approximately two weeks after surgery for a progress check and staple removal by calling the office at [phone]. Pending Studies at Discharge: No Stand-Alone Forms: My [facility], Smoking Cessation Medications and DC Order Prescriptions: Continued tramadol 50 mg tablet 50 - 100 mg PO Q8H PRN (Reason: pain) Qty: 40 0RF Rx Instructions: Take as needed for pain ondansetron 4 mg tablet,disintegrating 4 mg PO Q8 PRN (Reason: nausea) Qty: 20 1RF Rx Instructions: Take as needed for nausea sennosides [Senokot] 8.6 mg tablet 8.6 mg PO BID 14 Days Qty: 28 0RF Rx Instructions: Take two times a day to prevent/treat constipation acetaminophen [Tylenol Extra Strength] 500 mg tablet 1,000 mg PO TID 30 Days Qty: 180 0RF Rx Instructions: Take 3 times per day to lessen pain aspirin [Zonia Low Dose Aspirin] 81 mg tablet,delayed release (DR/EC) 81 mg PO BID 45 Days Qty: 90 0RF Rx Instructions: Take to prevent blood clots. cefadroxil 500 mg capsule 500 mg PO BID 7 Days Qty: 14 0RF Rx Instructions: Take 1 cap twice a day to prevent infection famotidine 20 mg Tablet 20 mg PO QAM lisinopril 10 mg Tablet 10 mg PO QAM omeprazole 20 mg Capsule,Delayed Release(Dr/Ec) 20 mg PO BID aspirin 81 mg Tablet,Chewable 81 mg PO QAM gabapentin 100 mg Capsule 100 mg PO TID albuterol sulfate 90 mcg/actuation Hfa Aerosol Inhaler 2 puff INHALATION QID PRN (Reason: SHORT OF BREATH/COUGH/WHEEZING) fluticasone propionate 50 mcg/actuation Sturgeon,Suspension 2 spray INTRANASAL QPM Rx Instructions: administer into each nostril loratadine 10 mg Capsule 10 mg PO QAM calcium carbonate [Calcium 600] 600 mg calcium (1,500 mg) Tablet 600 mg PO QPM Arnuity Ellipta 200 mcg/actuation blister with device 1 inh INHALATION QPM Rx Instructions: USED LAST OF FLOVENT 07/10/23, WILL START 07/11/23. Advil PM 200-38 mg Tablet 2 cap PO HS Discontinued acetaminophen 650 mg Tablet Extended Release 1,300 mg PO QAM Shimon/Other Patient Handouts: Home Safety After Joint Surgery Admission Data Admit Date/Time: 05/05/24 10:43 Attending Provider: Gera Wang Admit Provider: Gera Wang Primary Care Provider: Daniel Szymanski Other Providers: [facility],Home Health Other Interventions: Discharge Summary Assessment (RN) Last Done: 05/06/24 11:49
--- OUTSIDE RECORDS SUMMARY | 2024-05-06 15:06 | External Medical Summary | Summary of Care ---
Author Name Unknown Organization [facility] Address [address] [place] [address] Phone [phone] Care Team Providers Care Manual Winder Name Role Phone Daniel Szymanski MD Primary Care Provider + Encounter Details Date Type Department Care Team (Late st Contact Info) Description 05/01/2024 Population Health External Data Unspecified Department Allergies Active Allergy Reactions Criticality Noted Date Comments Cephalosporins 06/22/1999 rash Niacin Nausea/vomiting Low 04/23/2008 documented as of this encounter (statuses as of 05/01/2024) Medications CALCIUM 600 MG OR TABS one pill each day 0 5 Active LORATADINE 10 MG PO TABSIndications:Al lergic rhinitis 1 TABLET DAILY 30 0 8 Active ASPIRIN 81 MG PO CHEWIndications:HT N, goal to be determined One pill by mouth once a day with food 0 Active TYLENOL ARTHRITIS PAIN 650 MG PO TBCR Take by mouth. Active famotidine (PEPCID) 20 MG TabletIndications: Gastroesophageal reflux disease without esophagitis Take 1 Tab by mouth 2 times a day. 180 Tab 1 0 Active Arnuity Ellipta 200 MCG/ACT Inhalation Aerosol Powder Breath Activated (fluticasone Furoate)Indication s:ILD (interstitial lung disease) ([facility]),Mild persistent asthma with exacerbation Inhale 1 Puff by mouth daily. 90 Each 3 4 Active Lisinopril 10 MG Oral Tablet (Prinivil)Indicati ons:HTN, goal below 140/90,Hypertensiv e kidney disease with stage 3a chronic kidney disease (HCC) TAKE 1 TABLET BY MOUTH ONCE DAILY IN THE MORNING 90 Tablet 2 4 Active Fluticasone Propionate 50 MCG/ACT Nasal Suspension (Flonase) Use 2 spray(s) in each nostril once daily 48 g 1 4 Active Omeprazole 20 MG Oral Capsule Delayed Release (PriLOSEC)Indicati ons:Gastroesophage al reflux disease without esophagitis TAKE 1 CAPSULE BY MOUTH IN THE MORNING 1 HOUR BEFORE FIRST MEAL OF THE DAY 90 Capsule 3 4 Active Gabapentin 100 MG Oral Capsule (Neurontin)Indicat ions:Hot flashes TAKE 1 CAPSULE BY MOUTH THREE TIMES DAILY 270 Capsule 1 4 Active Albuterol Sulfate HFA 108 (90 Base) MCG/ACT Inhalation Aerosol SolutionIndication s:Mild persistent asthma, uncomplicated INHALE 2 PUFFS BY MOUTH EVERY 6 HOURS NEEDED FOR WHEEZING, COUGH OR DYSPNEA 18 g 5 Active documented as of this encounter (statuses as of 05/01/2024) Active Problems Problem Noted Date Diagnosed Date ILD (interstitial lung disease) 08/29/2023 Hospital discharge follow-up 07/20/2023 Well adult exam 10/06/2022 Overview (10/25/2023): 07/31 CT [facility] --ground glass. ?copd? 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 Dyslipidemia, goal LDL below 130 10/22/2013 Allergic rhinitis 09/25/2013 Mild persistent asthma with exacerbation 005 Esophageal reflux 01/14/2004 HTN, goal below 140/90 documented as of this encounter (statuses as of 05/01/2024) Resolved Problems Problem Noted Date Diagnosed Date Resolved Date Acute respiratory failure with hypoxia 07/10/2023 08/29/2023 Upper respiratory tract infection 07/10/2023 07/20/2023 Hypertensive kidney disease with chronic kidney disease stage III 07/05/2018 02/19/2020 Overview: Per CKD protocol Kidney disease, chronic, sta ge III (GFR 30-59 ml/min) 01/14/2018 07/17/2018 Overview: Per CKD protocol #1 E. 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 High triglycerides 08/27/2006 0 ADVANCE DIRECTIVE INFORMATION 09/13/2004 02/11/2024 Overview (09/13/2004): Brochure given at a prior appt. CHR ALLRG CONJUNCTIV NEC 07/20/2004 Need for prophylactic hormon e replacement therapy (postmenopausal) 01/14/2004 05/02/2012 Allergic rhinitis 01/14/2004 05/02/2012 ERYTHEMATOUS COND NEC 01/14/20042006 FAM HX-DIABETES MELLITUS 11/27/2001 PURE HYPERCHOLESTEROLEM 11/15/200003/09 Overview (03/18/2009): Per Lipid Taxonomy. documented as of this encounter (statuses as of 05/01/2024) Immunizations Name Administration Dates Next Due COVID-19 mRNA, LNP-s, No Pre serve, 2-Dose Series ([employer]) 02/10/2021,06/21/2020,05/23/2020 COVID-19, MRNA-LNP, PF, 50 M CG/0.5 mL, 12 YRS AND ABOVE, IM (MODERNA-Spikevax) 01/18/2024,01/13/2023 Covid-19, Mrna, Lnp-s, Pf, B ivalent, 30 Mcg, IM, 12 yrs and above (Pfizer) 02/28/2022 Pneumococcal Conjugate Vacc, 13 Valent (Prevnar) 10/27/2015 RSV Vac., Bivalent, Perfusio n F, Pf,0.5 Ml (Abrysvo) 05/07/2023 Season Influenza, Quad, PF, Adjuvanted, 65+ Yrs, IM (FLUAD) 01/13/2023,02/08/2022,12/31/2019 Seasonal Influenza Vac., MDV , IM, 0.5 mL (Fluzone) 01/30/2014,01/25/2013,12/28/2011,2010,01/21/2010,01/07/2009,01/30/2008,1 04/22/2005 Seasonal Influenza Virus Vac cine, Unspecified Formulation 01/29/2020 Seasonal Influenza, PF, 6 M & above, IM , (FluLaval or Fluzone) 01/03/2019,12/25/2017,03/09/2017 Seasonal Influenza, Quadriva lent Hd (Fluzone Hd) 01/06/2021 Seasonal Influenza, Quadriva lent, No Preserve, IM 02/04/2016,02/12/2015 Seasonal Influenza, Trivalen t, Adjuvanted, 65+ YRS, PF, (Fluad) 01/18/2024 TDAP (age 10 and older)(Boostrix) 08/04/2016 Varicella Zoster Vaccine (Adult) 10/27/2014 Zoster Vaccine Recombinant (Shingrix) 04/26/2020 ,01/07/2020,09/29/2019 documented as of this encounter Social History Tobacco Use Types Packs/Day Years Used Date Smoking Tobacco: Never Passive Smoke Exposure: Past Smokeless Tobacco: Never Comments:no passive smoke Alcohol Use Standard Drinks/Week Comments Yes 0 (1 standard drink = 0.6 oz pur e alcohol) rare social PHQ-2 Answer Date Recorded PHQ Adult Total Score 0 10/12/2023 Hunger Vital Sign Answer Date Recorded Within the past 12 months, y ou worried that your food would run out before you got the money to buy more. Patient declined Within the past 12 months, t he food you bought just didn't last and you didn't have money to get more. Patient declined 08/2023 Childcare Answer Date Recorded Do you feel overwhelmed with taking care of a child, family member or friend? No 10/12/2023 Does your family need help f inding childcare? (Household - for ages 0-17 years) Not on file 10/12/2023 Clothing Answer Date Recorded Have you been unable to get clothing when it was really needed? No 10/12/2023 Is your family able to get c lothes or diapers when needed? (Household - for ages 0-17 years) Not on file 10/12/2023 Personal Safety Answer Date Recorded Do you feel unsafe or have concerns for your saf ety? No 10/12/2023 Do you have concerns for you r family's safety? (Household - for ages 0-17 years) Not on file 10/12/2023 Utilities Answer Date Recorded Do you have trouble paying y our heating, water, or electric bill? No 10/12/2023 Is your family able to pay t he heat, water, or electric bill? (Household - for ages 0-17 years) Not on file 10/12/2023 Does your family have access to good internet? (Household - for ages 0-17 years) Not on file 10/12/2023 Employment Status Answer Date Recorded Are you unemployed or without regular income? No 10/12/2023 Does the household have a re gular source of income? (Household - for ages 0-17 years) Not on file 10/12/2023 Social Connections Answer Date Recorded How often do you feel lonely or isolated from th ose around you? Never 10/12/2023 Financial Resource Strain Answer Date R ecorded Do you have any trouble payi ng for your medications, or do you think you might in the future? No 10/12/2023 Does your family have troubl e paying for medicine? (Household - for ages 0-17 years) Not on file 10/12/2023 Transportation Needs Answer Date Record ed Do you have trouble getting a ride to medical visits or work? (Adult - for ages 18 years and over) Not on file 10/12/2023 Does your family have a hard time getting a ride to doctors visits? (Household - for ages 0-17 years) Not on file 10/12/2023 Has lack of transportation k ept you from medical appointments, meetings, work, or from getting things needed for daily living? Check all that apply. No 10/12/2023 Do you (or your family) have trouble finding or paying for a ride (transportation)? (Household - for ages 0-17 years) Not on file 10/12/2023 Housing Stability Answer Date Recorded Do you currently live in a s helter or have no steady place to sleep at night? No 10/12/2023 Do you think you are at risk of becoming homeless? (Adult - for ages 18 years and over) Not on file 10/12/2023 Does your family worry about paying for your home or becoming homeless? (Household - for ages 0-17 years) Not on file 0 10/12/2023 Are you homeless or worried that you might be in the future? No 10/12/2023 Are you (or your family) delfina eless or worried that you might be in the future? (Household - for ages 0-17 years) Not on file Food Insecurity Answer Date Recorded Do you need food for this week? No 10/12/2023 Are you able to get enough f ood for your family? (Household - for ages 0-17 years) Not on file 10/12/2023 Does your family need food t his week? (Household - for ages 0-17 years) Not on file 10/12/2023 Do you always have enough fo od for your family? 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 on f ile Not on file Not on file documented as of this encounter Plan of Treatment Upcoming Encounters Date Type Department Care Team (Late st Contact Info) Description 06/03/2024 1:20 PM EST Office [facility] [place] [phone] Love Montanez PA-C [address] [place] [address] [place] [address] 10/22/2024 11:40 AM EDT Office Visit Family Practice [facility] [address] [place] [address] Daniel Szymanski MD [address] [facility] [place] [address] 01/28/2025 11:30 AM EDT Office Visit Allergy/Immunology [facility] [address] [place] [address] Jennie Nieto PA-C [address] [place] [address] Scheduled Procedures Name Priority Associated Diagnoses Date/Ti me COLONOSCOPY FLEXIBLE PROXIMA L DIAGNOSTIC Recall Personal history of colonic polyps Health Maintenance Due Date Last Done Comments Adult Wellness Visit 10/08/2019 10/07/2018 CKD PHOS USE SMARTSET 51919 09/28/2022/05/2021, 09/29/2019, 07/18/2018 Albumin/Creatinine Ratio 10/10/2023 023, 07/07/2021, 10/27/2015, Additional history exists GFR 01/09/2024 07/10/2023, 01/07, 10/09/2022, Additional history exists CKD HGB USE SMARTSET 90858 07/09/202407/09, 01/23/2023, 01/23/2023, Additional history exists Depression Screening 10/11/2024 10/12/2023 DTap/Tdap Vaccines (2 - Td or Tdap) 08/04/2026 08/04/2016 Pneumococcal Vaccine: 50+ Years Completed 10/27/2015, 02/13/2005 Zoster Vaccines Completed 04/26/2020, 12/10, 09/29/2019, Additional history exists COVID-19 Vaccine Completed 01/18/2024, 10/2022, 02/28/2022, Additional history exists Influenza Vaccine (FLU shot) Completed 02/2024, 01/13/2023, 02/08/2022, Additional history exists HPV (Gardasil) Vaccine Aged Out No lo nger eligible based on patient's age to complete this topic Hepatitis B Vaccine Aged Out No longe r eligible based on patient's age to complete this topic MENINGOCOCCAL (MENACTRA/MENVEO) Aged Out No longer eligible based on patient's age to complete this topic documented as of this encounter Medical Devices Not on filedocumented as of this encounter Care Teams Manual Winder Relationship Specialty Start Date End Date Daniel Szymanski MD [address] [place] [id number] PCP - General Family Medicine 02/27/24 documented as of this encounter
--- OUTSIDE RECORDS SUMMARY | 2024-05-06 15:06 | External Medical Summary | Summary of Care ---
Author Name Unknown Organization [facility] Address [address] [place] [address] Phone [phone] Care Team Providers Care Adult School Teacher Name Role Phone Daniel Szymanski MD Primary Care Provider + Reason for Visit * Reason Comments eRx-Medication Refill Encounter Details Date Type Department Care Team (Late st Contact Info) Description 05/01/2024 Refill Allergy/Immunology [facility] [address] [place] [address] Jennie Nieto PA-C [address] [place] [address] Mild persistent asthma, uncomplicated Allergies Active Allergy Reactions Criticality Noted Date Comments Cephalosporins 06/22/1999 rash Niacin Nausea/vomiting Low 04/23/2008 documented as of this encounter (statuses as of 05/01/2024) Medications CALCIUM 600 MG OR TABS one pill each day 0 05/05/19 05 Active LORATADINE 10 MG PO TABSIndications:A llergic rhinitis 1 TABLET DAILY 30 0 04/11/19 08 Active ASPIRIN 81 MG PO CHEWIndications:H TN, goal to be determined One pill by mouth once a day with food 10/22/19 10 Active TYLENOL ARTHRITIS PAIN 650 MG PO TBCR Take by mouth. Active famotidine (PEPCID) 20 MG TabletIndications :Gastroesophageal reflux disease without esophagitis Take 1 Tab by mouth 2 times a day. 180 Tab 1 09/29/19 20 Active Arnuity Ellipta 200 MCG/ACT Inhalation Aerosol Powder Breath Activated (fluticasone Furoate)Indicatio ns:ILD (interstitial lung disease) (HCC),Mild persistent asthma with exacerbation Inhale 1 Puff by mouth daily. 90 Each 3 10/12/19 24 Active Lisinopril 10 MG Oral Tablet (Prinivil)Indicat ions:HTN, goal below 140/90,Hypertensi ve kidney disease with stage 3a chronic kidney disease (HCC) TAKE 1 TABLET BY MOUTH ONCE DAILY IN THE MORNING 90 Tablet 2 10/23/19 24 Active Fluticasone Propionate 50 MCG/ACT Nasal Suspension (Flonase) Use 2 spray(s) in each nostril once daily 48 g 1 12/20/19 24 Active Omeprazole 20 MG Oral Capsule Delayed Release (PriLOSEC)Indicat ions:Gastroesopha geal reflux disease without esophagitis TAKE 1 CAPSULE BY MOUTH IN THE MORNING 1 HOUR BEFORE FIRST MEAL OF THE DAY 90 Capsule 3 01/11/20 24 Active Gabapentin 100 MG Oral Capsule (Neurontin)Indica tions:Hot flashes TAKE 1 CAPSULE BY MOUTH THREE TIMES DAILY 270 Capsule 1 02/28/20 24 Active Albuterol Sulfate HFA 108 (90 Base) MCG/ACT Inhalation Aerosol SolutionIndicatio ns:Mild persistent asthma, uncomplicated INHALE 2 PUFFS BY MOUTH EVERY 6 HOURS NEEDED FOR WHEEZING, COUGH OR DYSPNEA 18 g 05/01/19 25 Active Albuterol Sulfate HFA 108 (90 Base) MCG/ACT Inhalation Aerosol Solution Inhale 2 Puffs by mouth every 6 hours as needed for Wheezing, Cough or Dyspnea. 18 g 3 01/30/20 24 025 Discontinued documented as of this encounter (statuses as of 05/01/2024) Active Problems Problem Noted Date Diagnosed Date ILD (interstitial lung disease) 08/29/2023 Hospital discharge follow-up 07/20/2023 Well adult exam 10/06/2022 Overview (10/25/2023): 07/31 [facility] --ground glass. ?copd? Chronic kidney disease, stage [...] mRNA, LNP-s, No Pre serve, 2-Dose Series ([employer]) 02/10/2021,06/21/2020,05/23/2020 COVID-19, MRNA-LNP, PF, 50 M CG/0.5 [...] 10/12/2023 Does the household have a re lar source of income? 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 Not on f ile Not on file Not on file documented as of this encounter Miscellaneous Notes * Telephone Encounter - Eliu Steve MD - 05/01/2024 7:26 AM ESTSigned Prescriptions: Disp Refills Albuterol Sulfate HFA 108 (90 Base) MCG/AC*18 g 0 Sig: INHALE 2 PUFFS BY MOUTH EVERY 6 HOURS NEEDED FOR WHEEZING, COUGH OR DYSPNEA Authorizing Provider: ELIU STEVE * Telephone Encounter - Sarah Beth Hairston LPN - 05/01/2024 7:04 AM EST Pending Prescriptions: Disp Refills Albuterol Sulfate HFA 108 (90 Base) MCG/AC*18 g 0 Sig: Inhale 2 Puffs by mouth every 6 hours as needed for Wheezing, Cough or Dyspnea. * Telephone Encounter - Sarah Beth Hairston LPN - 05/01/2024 7:04 AM EST Pending Prescriptions: Disp Refills Albuterol Sulfate HFA 108 (90 Base) MCG/A*18 g 0 Sig: INHALE 2 PUFFS BY MOUTH EVERY 6 HOURS NEEDED FOR WHEEZING, COUGH OR DYSPNEA Last Visit: 01/30/2024 (in office), Visit date not found (telemedicine) Next Visit: 01/28/2025 Last date the medication was ordered: 01/30/24 Health Maintenance Topic Date Due Adult Wellness Visit 10/08/2019 CKD PHOS USE SMARTSET 14099 09/28/2022 Albumin/Creatinine Ratio 10/10/2023 GFR 01/09/2024 CKD HGB USE SMARTSET 94135 07/09/2024 Depression Screening 10/11/2024 DTap/Tdap Vaccines (2 - Td or Tdap) 08/04/2026 Influenza Vaccine (FLU shot) Completed Zoster Vaccines Completed Pneumococcal Vaccine: 50+ Years Completed COVID-19 Vaccine Completed Hepatitis B Vaccine Aged Out MENINGOCOCCAL (MENACTRA/MENVEO) Aged Out HPV (Gardasil) Vaccine Aged Out Labs: Lab Results Component Value Date/Time CREATININE - [facility] 1.18 07/10/2023 12:00 AM CREATININE - [facility] 1.1 (H) 09/29/2019 10:57 AM CREATININE, RANDOM URINE - [facility] 41 10/09/2022 08:16 AM CREATININE, RANDOM URINE - [facility] 49 10/27/2015 09:04 AM Lab Results Component Value Date/Time POTASSIUM - [facility] 3.8 07/10/2023 12:00 AM POTASSIUM - [facility] 4.8 09/29/2019 10:57 AM Lab Results Component Value Date/Time TSH - [facility] 1.79 10/29/2014 08:48 AM Lab Results Component Value Date/Time LDL CHOLESTEROL (CALCULATED) - [facility] 112 09/28/2021 08:07 AM LDL CHOLESTEROL (CALCULATED) - [facility] 150 (H) 09/29/2019 10:57 AM LDL CHOLESTEROL (CALCULATED) - [facility] UNINTERPRETABLE RESULT 07/18/2018 09:23 AM LDL CHOLESTEROL (DIRECT MEASURE) - [facility] NOT APPLICABLE 09/29/2019 10:57 AM LDL CHOLESTEROL (DIRECT MEASURE) - [facility] 149 (H) 07/18/2018 09:23 AM LDL CHOLESTEROL (DIRECT MEASURE) - [facility] 101 (H) 08/27/2006 08:16 AM LDL CHOLESTEROL (DIRECT MEASURE) - [facility] 120 12/16/2001 09:27 AM Lab Results Component Value Date/Time ALT - [facility] 6 (L) 01/23/2023 11:31 AM ALT - [facility] 12 12/21/2017 07:34 AM ALTERNARIA IGE - [facility] <0.35 05/05/2004 11:00 AM ALTERNARIA IGE - [facility] CLASS 0-NEGATIVE 05/05/2004 11:00 AM Hemoglobin AIC Results: No results found for: "HEMOGLOBIN A1C" documented in this encounter Plan of Treatment Upcoming Encounters Date Type Department Care Team (Late st Contact Info) Description 06/03/2024 1:20 PM EST Office Visit [facility] [address] [place] [phone] Love Montanez PA-C [address] [place] [address] [place] [address] 10/22/2024 11:40 AM EDT Office Visit Family Practice [facility] [address] [place] [address] Daniel Szymanski MD [address] [place] [address] 01/28/2025 11:30 AM EDT Office Visit Allergy/Immunology [facility] [place] [address] [facility] [place] [address] Jennie Nieto PA-C [address] [place] [address] Scheduled Procedures Name Priority Associated Diagnoses Date/Ti me COLONOSCOPY FLEXIBLE PROXIMA L DIAGNOSTIC Recall Personal history of colonic polyps Health Maintenance Due Date Last Done Comments Adult Wellness Visit 10/08/2019 10/07/2018 CKD PHOS USE SMARTSET 95738 09/28/202209/08, 09/29/2019, 07/18/2018 Albumin/Creatinine Ratio 10/10/2023 023, 07/07/2021, 10/27/2015, Additional history exists GFR 01/09/2024 07/10/2023, 01/07, 10/09/2022, Additional history exists CKD HGB USE SMARTSET 86104 07/09/202407/09, 01/23/2023, 01/23/2023, Additional history exists Depression [...] this encounter Visit Diagnoses Diagnosis Mild persistent asthma, uncomplicated Unspecified asthma documented in this encounter Care Teams Adult School Teacher Relationship Specialty Start Date End Date Daniel Szymanski MD [address] [place] [address] PCP - General Family Medicine 02/27/24 documented as of this encounter
== END 2024-05-06 12:19 | disposition home health service (06) ==
LOC: 3E 06:19 → ASU 06:19